=== PATIENT | female | born 1990 | race African-American/Black ===

== ENCOUNTER 2019-03-01 12:34 | Emergency (ER) | payer BC ==
[~2019-03-01] VITALS: Ht 167.6 cm; Wt 83.0 kg
--- OUTSIDE RECORDS SUMMARY | ~2019-03-01 | XMS | Encounter Summary ---
Demographics + + + | Address | [address] | | | [place] [address] | + + + | Home Phone | | + + + | Preferred Language | Unknown | + + + | Marital Status | Single | + + + | Adventist Affiliation | Unknown | + + + | Race | Unknown | + + + | Ethnic Group | Unknown | + + + Author + + + | Author | [facility] | | | and Brandon | + + + | Organization | [facility] | | | and [place] | + + + | Address | Unknown | + + + | Phone | Unavailable | + + + Support + + + + + | Name | Relationship | Address | Phone | + + + + + | Zo Dong | ECON | [address] | | | | | [place], [place] | | | | | [address] | | + + + + + | Jovita Lnua | ECON | [address] | | | | | [place] [address] | | + + + + + Care Team Providers + +------+ + | Care Air Quality Specialist Name | Role | Phone | + +------+ + | Tomas Benoit MD | PCP | | + +------+ + Reason for Visit + + + | Reason | Comments | + + + | Annual Exam | | + + + | Nevus | | + + + | Asthma | | + + + Encounter Details +--------+---------+ + + + | Date | Type | Department | Care Team | Description | +--------+---------+ + + + | 12/12/ | Office | [facility] | Tomas Benoit, | Encounter for | | 2018 | Visit | [facility] | [address] | routine history and | | | | [address] | [place], [place] | physical exam in | | | | [place], [place] | [address] | female (Primary Dx); | | | | [phone] | | Asthma, exercise | | | | [phone] | | induced; Nevus | +--------+---------+ + + + Social History + +-------+ +--------+------+ | Tobacco Use | Types | Packs/Day | Years | Date | | | | | Used | | + +-------+ +--------+------+ | Never Smoker | | | | | + +-------+ +--------+------+ + +---+---+---+ | Smokeless Tobacco: | | | | | Never Used | | | | + +---+---+---+ + + +---------+ + | Alcohol Use | Drinks/We | oz/Week | Comments | | | ek | | | + + +---------+ + | Yes | | 0.0 | socially/not very often | + + +---------+ + + + + | Sex Assigned at | Date Recorded | | | | + + + | Not on file | | + + + + + + + | Job Start Date | Occupation | Industry | + + + + | Not on file | Not on file | Not on file | + + + + + + + + | Travel History | Travel Start | Travel End | + + + + + + | No recent travel history available. | + + documented as of this encounter Last Filed Vital Signs + + + + | Vital Sign | Reading | Time Taken | + + + + | Blood Pressure | 112/86 | 12/12/2018740 PDT | + + + + | Pulse | 92 | 12/12/2018740 PDT | + + + + | Temperature | - | - | + + + + | Respiratory Rate | 16 | 12/12/2018740 PDT | + + + + | Oxygen Saturation | 97% | 12/12/2018740 PDT | + + + + | Inhaled Oxygen | - | - | | Concentration | | | + + + + | Weight | 85 kg (187 lb 6.3 | 12/12/2018 0741 PDT | | | oz) | | + + + + | Height | 165.1 cm (5' 5") | 12/12/2018 0741 PDT | + + + + | Body Mass Index | 31.18 | 12/12/2018 0741 PDT | + + + + documented in this encounter Patient Instructions Patient Instructions Rebeca Guillen, FLEET TECHNICIAN - 12/12/2018 7:45 PDTFormatting of this note mig t be different from the original. -Continue using Albuterol as needed -Acyclovir can be used as needed Prevention Guidelines,Women Ages 18 to 39 Screening tests and vaccines are an important part of managing your health. A screening zak t is done to find possible disorders or diseases in people who don't have any symptoms. The goal is to find a disease early so lifestyle changes can be made and you can be watched more closely to reduce the risk of disease, or to detect it early enough to treat it most effect ively. Screening tests are not considered diagnostic, but are used to determine if more test ing is needed. Health counseling is essential, too. Below are guidelines for these, for wome n ages 18 to 39. Talk with your healthcare provider to make sure you re up-to-date on what you need. Screening Who needs it How often Alcohol misuse All women in this age group At routine exams Blood pressure All women in this age group Yearly checkup if your blood pressure is normal Normal blood pressure is less than 120/80 mm Hg If your blood pressure reading is higher than normal, follow the advice of your healthcare provider Breast cancer All women in this age group should talk with their healthcare providers about the need for clinical breast exams (CBE)1 Clinical breast exam every 3 years1 Cervical cancer Women ages 21 and older Women between ages 21 and 29 should have a Pap test every 3 years; women between ages 30 and 65 are advised to have a Pap test plus an HPV test every 5 years Chlamydia Sexually active women ages 25 and younger, and women at increased risk for infect ion (such as having multiple sex partners) Every year if you're at risk or have symptoms Depression All women in this age group At routine exams Type 2 diabetes, prediabetes All women with no symptoms who are overweight or obese and hav e 1 or more other risk factors for diabetes At least every 3 years. Also, testing for diabet es during after the 24th week. Type 2 diabetes, prediabetes All women diagnosed with gestational diabetes Lifelong testing every 3 years Type 2 diabetes All women with prediabetes Every year Gonorrhea Sexually active women at increased risk for infection At routine exams Hepatitis C Anyone at increased risk At routine exams HIV All women should be tested at least once for HIV between the ages of 13 and 64 At routi ne exams. Those with risk factors for HIV should be tested at least annually. Obesity All women in this age group At routine exams Syphilis Women at increased risk for infection should talk with their healthcare provider A t routine exams Tuberculosis Women at increased risk for infection should talk with their healthcare provid er Ask your healthcare provider Vision All women in this age group At least 1 complete exam in your 20s, and 2 in your 30s Vaccine2 Who needs it How often Chickenpox (varicella) All women in this age group who have no record of this infection or vaccine 2 doses; the second dose should be given 4 to 8 weeks after the first dose Hepatitis A Women at increased risk for infection should talk with their healthcare provide r 2 doses given at least 6 months apart Hepatitis B Women at increased risk for infection should talk with their healthcare provide r 3 doses over 6 months; second dose should be given 1 month after the first dose; the third dose should be given at least 2 months after the second dose and at least 4 months after th e first dose Haemophilus influenzaeType B (HIB) Women at increased risk for infection should talk with their healthcare provider 1 to 3 doses Human papillomavirus (HPV) All women in this age group up to age 26 3 doses; the second dos e should be given 1 to 2 months after the first dose and the third dose given 6 months after the first dose Influenza (flu) All women in this age group Once a year Measles, mumps, rubella (MMR) All women in this age group who have no record of these infec tions or vaccines 1 or 2 doses Meningococcal Women at increased risk for infection should talk with their healthcare provi broderick 1 or more doses Pneumococcal conjugate vaccine (PCV13)and pneumococcal polysaccharidevaccine(PPSV23) Women at increased risk for infection should talk with their healthcare provider PCV13: 1 do se ages 19 to 65 (protects against 13 types of pneumococcal bacteria) PPSV23: 1 to2 doses through age 64, or 1 dose at 65 or older (protects against 23 types o f pneumococcal bacteria) Tetanus/diphtheria/pertussis (Td/Tdap) booster All women in this age group Td every 10 year s, or a one-time dose of Tdap instead of a Td booster after age 18, then Td every 10 years Counseling Who needs it How often BRCA gene mutation testing for breast and ovarian cancer susceptibility Women with increase d risk for having gene mutation When your risk is known Breast cancer and chemoprevention Women at high risk for breast cancer When your risk is kn own Diet and exercise Women who are overweight or obese When diagnosed, and then at routine exa ms Domestic violence Women at the age in which they are able to have children At routine exams Sexually transmitted infection prevention Women who are sexually active At routine exams Skin cancer Prevention of skin cancer in fair-skinned adults At routine exams Use of tobacco and the health effects it can cause All women in this age group Every visit 1 According to the ACS, women ages 20 to 39 years should have a clinical breast exam (CBE) as part of their routine health exam every 3 years. Breast self-exams are an option for wome n starting in their 20s.But the USPSTF does not recommend CBE. Date Last Reviewed: 01/23/201719991795-0381 [employer]. [address] [place] [address]. All [facility] ts reserved. This information is not intended as a substitute for professional medical care. Always follow your healthcare professional's instructions. documented in this encounter Progress Notes Tomas Benoit MD - 12/12/2018 0745 PDTFormatting of this note might be different from ishmael escalona original. Subjective: Patient ID: Jovita Grey is a 28 y.o. female. Chief Complaint Patient presents with Annual Exam Nevus Asthma HPI Patient presents for her annual exam. 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 States she has been working out almost every day. Sometimes works out at home and sometimes work out at the gym doing Aniceto and other group exercises. Annual Exam: Patient presents for annual exam. The patient is sexually active. last pap: was normal Patient's last menstrual period was 11/27/2018. control: nothing currently Stopped Enskyce due to weight gain, would like to discuss a different medication for control. Breast lumps or tenderness: none Vaginal pain or discharge: none Last pap: 09/14/17 History of abnormal Pap: never STD screening: Declines Mammogram: never Colonoscopy: never The patient has regular exercise: yes. The patient reports that domestic violence in her life is absent. The patient wears seatbelts: yes. Immunizations: Immunization History Administered Date(s) Administered DTAP, 5 DOSE (PED) 08/14/1996 DTP (PED) 1991, 01/29/1992, 04/29/1992, 01/24/1993 HIB HBOC CONJUGATE, 4 DOSE (PED) 1991, 01/29/1992, 04/29/1992, 01/24/1993 HPV, QUADRIVALENT, 3 DOSE (ADOL/ADULT) 12/14/2005, 11/30/2007, 02/13/2008 Hep B (PED/ADOL) 3 DOSE 07/29/1998, 06/11/2004, 06/08/2005 INFLUENZA PF 18 Y OR >,TRIVALENT RECOMBINANT 04/14/2012 INFLUENZA, P1V1-33, UNSPECIFIED 02/28/2009 MENINGOCOCCAL CONJUGATE,MENACTRA (PED/ADOL/ADULT) 12/11/2008 MMR, 2 DOSE (PED/ADULT) 01/24/1993, 07/29/1998 PNEUMOCOCCAL POLYSACCHARIDE 23-VALENT (PPSV23) 08/02/2016 POLIOVIRUS,OPV (LIVE) 1991, 01/29/1992, 01/24/1993, 08/14/1996 TDAP, (ADOL/ADULT) 05/26/2005, 06/21/2012 VARICELLA, 2 DOSE (VARIVAX) 01/12/2012 Exercise Induced Asthma: Would like a refill of her Albuterol. Uses daily before working out. Occasionally needs to use after working out for relief as well. Symptoms are well controlled on Albuterol. Mole: To right side of neck she would like checked. Past Medical History: Diagnosis Date Asthma exercise induced Primary amenorrhea resolved Sickle cell trait (HCC) Umbilical hernia Past Surgical History: Procedure Laterality Date TONSILLECTOMY 02/13/2008 WISDOM TOOTH EXTRACTION Family History Problem Relation Age of Onset High blood pressure Mother High blood pressure Father Elevated lipids Father Asthma Brother High blood pressure Maternal Grandmother Asthma Maternal Grandmother Social History Socioeconomic History Marital status: Single Spouse name: REECE Number of children: 0 Years of education: Not on file Highest education level: Not on file Occupational History Occupation: [employer] Employer: [employer] Tobacco Use Smoking status: Never Smoker Smokeless tobacco: Never Used Substance and Sexual Activity Alcohol use: Yes Alcohol/week: 0.0 oz Comment: socially/not very often Drug use: No Sexual activity: Yes Partners: Male control/protection: Yes Social History Narrative Marital Status:single Children: 0 Occupation:Works for [employer] FOB: ELIAS Little reports that she has never smoked. She has never used smokeless tobacco. She reports that she drinks alcohol. She reports that she does not use drugs. Allergies No active allergies Intolerance No active intolerances/contraindications Current Outpatient Medications Medication Sig Dispense Refill acetaminophen (TYLENOL) 500 mg tablet Take 500 mg by mouth every 4 hours as needed. acyclovir (ZOVIRAX) 400 MG tablet take 1 tablet by mouth three times a day 15 tablet 3 albuterol 90 mcg/puff inhaler Inhale 2 puffs into the lungs every 4 hours as needed for Wheezing or Shortness of Breath. inhale 2 puffs 5-30 minutes prior to exercise 1 Inhaler 0 No current facility-administered medications for this visit. Review of Systems Constitutional: Negative. Negative for malaise/fatigue. HENT: Negative. Eyes: Negative. Respiratory: Negative. Negative for cough, shortness of breath and wheezing. Cardiovascular: Negative. Negative for chest pain. Gastrointestinal: Negative. Negative for constipation, diarrhea, nausea and vomiting. Genitourinary: Negative. Negative for dysuria, frequency, hematuria and urgency. Musculoskeletal: Negative. Neurological: Negative. Negative for dizziness and headaches. Psychiatric/Behavioral: Positive for depression (mild ). Negative for suicidal ideas. The p atient is nervous/anxious. The patient does not have insomnia. Objective: BP 112/86 | Pulse 92 | Resp 16 | Ht 1.651 m (5' 5") | Wt 85 kg (187 lb 6.3 oz) | LMP 0 11/27/2018 | SpO2 97% | ? No | BMI 31.18 kg/m Physical Exam Constitutional: She is oriented to person, place, and time and well-developed, well-nourish ed, and in no distress. HENT: Right Ear: Hearing, tympanic membrane, external ear and ear canal normal. Left Ear: Hearing, tympanic membrane, external ear and ear canal normal. Eyes: Pupils are equal, round, and reactive to light. Neck: No thyromegaly present. Cardiovascular: Normal rate and regular rhythm. Pulmonary/Chest: Breath sounds normal. She has no decreased breath sounds. She has no wheez es. Right breast exhibits no inverted nipple, no mass, no nipple discharge, no skin change a nd no tenderness. Left breast exhibits no inverted nipple, no mass, no nipple discharge, no skin change and no tenderness. Abdominal: Soft. Normal appearance. There is no tenderness. Musculoskeletal: Normal range of motion. Neurological: She is alert and oriented to person, place, and time. Gait normal. Skin: Skin is warm and dry. Mole to right side of neck with smooth edges Uniform color of brown. Slightly raised. Psychiatric: Affect and judgment normal. Assessment/Plan: 1. Encounter for routine history and physical exam in female (Primary) Diet reviewed Exercise reviewed Reviewed preventive care protocols Scheduled due services Updated immunizations. Preventive services Plan and appropriate handouts given - POCT Urinalysis 2. Asthma, exercise induced Well controlled on Albuterol and only uses before or after exercise. Informed her it is fin e to continue with current use. If symptoms worsen/change, she will need to present back for medical attention. - albuterol 90 mcg/puff inhaler; Inhale 2 puffs into the lungs every 4 hours as needed for Wheezing or Shortness of Breath. inhale 2 puffs 5-30 minutes prior to exercise Dispense : 1 Inhaler; Refill: 0 3. Nevus Area looks like a normal mole with uniform color and smooth edges. Encourage her to keep mo nitoring this for change. The patient was satisfied with the care received and voiced understanding of the issues dis cussed and the plan. Return in about 1 year (around 12/13/2019). I, Dr. Tomas Benoit, personally performed the services described in this documentation, as scribed in my presence and it is both accurate and complete. Tomas Benoit MD 12/12/18 I Rebeca Guillen am acting as a scribe on behalf of, and in the presence of Gabby Benoit MD. Rebeca Guillen [facility] 12/12/18 I have reviewed and edited this note: Rebeca Guillen, [facility] 12/12/18 documented in this encounter Plan of Treatment Not on filedocumented as of this encounter Procedures + +--------+ + + + | Procedure Name | Priori | Date/Time | Associated Diagnosis | Comments | | | ty | | | | + +--------+ + + + | POCT URINALYSIS, | Routin | 12/12/2018 | Encounter for | Results for this | | AUTO WITH CONF | e | 7:56 PDT | routine history and | procedure are in the | | | | | physical exam in | results section. | | | | | female | | + +--------+ + + + documented in this encounter Results POCT Urinalysis (12/12/2018 7:56 PDT) + + + + + + | Component | Value | Ref Range | Performed | Pathologist | | | | | At | Signature | + + + + + + | Color, UA, | Yellow | Yellow, Light | | | | POC | | Yellow | | | + + + + + + | Clarity, | Clear | | | | | UA, POC | | | | | + + + + + + | Glucose, | Negative | Negative | | | | UA, POC | | | | | + + + + + + | Bilirubin, | Negative | Negative | | | | UA, POC | | | | | + + + + + + | Ketones, | Negative | Negative, 100 | | | | UA, POC | | mg/dL | | | + + + + + + | Specific | 1.010 | 1.001 - 1.030 | | | | [place], | | | | | | UA, POC | | | | | + + + + + + | Blood, UA, | Negative | Negative | | | | POC | | | | | + + + + + + | pH, UA, POC | 6.0 | 5.0, 6.0, 7.0, | | | | | | 8.0, 5.5, 6.5, | | | | | | 7.5 | | | + + + + + + | Protein, | Negative | Negative | | | | UA, POC | | | | | + + + + + + | Urobilinoge | 0.2 | 0.2, Negative, | | | | n, UA, POC | | Normal, < 0.2 | | | | | | mg/dL, 1 mg/dL, | | | | | | < 0.2 E.U./dl, | | | | | | 1.0 E.U./dL, | | | | | | 0.2 mg/dL | | | + + + + + + | Nitrite, | Negative | Negative | | | | UA, POC | | | | | + + + + + + | Leukocyte | Negative | Negative | | | | Esterase, | | | | | | UA, POC | | | | | + + + + + + | Reducing | | | | | | Substances, | | | | | | Urine | | | | | + + + + + + | Ictotest | | Negative | | | + + + + + + | Remark | | | | | + + + + + + + + | Specimen | + + | Urine | + + documented in this encounter Visit Diagnoses + + | Diagnosis | + + | Encounter for routine history and physical exam in female - Primary | + + | Asthma, exercise induced Exercise induced bronchospasm | + + | Nevus Benign neoplasm of skin, site unspecified | + + documented in this encounter
--- OUTSIDE RECORDS SUMMARY | ~2019-03-01 | XMS | Clinical Summary ---
Demographics + + + | Address | [address] | | | [place] [address] | + + + | Home Phone [...] Author | [facility] | | | and [place] | + + + | Organization | [facility] | | | and [place] | [...] [place], [place] | | | | | [address] | | + + + + + | Jovita Luna | ECON | [address] | | | | | [place] [address] | | + + + + + Care Team Providers + +------+ + | Care Corporate Compliance Manager Name | Role | Phone | + +------+ + | Tomas Benoit MD | PCP | | + +------+ + Allergies No Known Allergies Medications + + + +---------+------+------+-------+ | Medication | Sig | Dispensed | Refills | Star | End | Statu | | | | | | t | Date | s | | | | | | Date | | | + + + +---------+------+------+-------+ | acetaminophen | Take 500 mg by mouth | | 0 | | | Activ | | (TYLENOL) 500 mg | every 4 hours as | | | | | e | | tablet | needed. | | | | | | + + + +---------+------+------+-------+ | acyclovir | take 1 tablet by | 15 | 3 | 10/1 | | Activ | | (ZOVIRAX) 400 MG | mouth three times a | tablet | | 8/20 | | e | | tablet | day | | | 18 | | | + + + +---------+------+------+-------+ | albuterol 90 | Inhale 2 puffs into | 1 | 3 | 08/2 | | Activ | | mcg/puff | the lungs every 4 | Inhaler | | 0/20 | | e | | inhalerIndications: | hours as needed for | | | 19 | | | | Asthma, exercise | Wheezing or | | | | | | | induced | Shortness of Breath. | | | | | | | | inhale 2 puffs 5-30 | | | | | | | | minutes prior to | | | | | | | | exercise | | | | | | + + + +---------+------+------+-------+ Active Problems + + + | Problem | Noted Date | + + + | Depression with anxiety | 12/12/2014 | + + + | Irregular periods | 02/06/2014 | + + + | Routine follow-up | 09/26/2012 | + + + | Bloody diarrhea | 08/30/2012 | + + + | Dermatitis | 05/15/2012 | + + + | Preventative health care | 04/05/2012 | + + + + + | Overview: Last pap: 01/12/2012 | | | | Tdap: 05/26/2005 | | | | Flu: 05/26/2005 | + + + +---+ | ASTHMA, EXERCISE INDUCED | | + +---+ | UMBILICAL HERNIA | | + +---+ Resolved Problems + + + + | Problem | Noted | Resolved | | | Date | Date | + + + + | Scabies | 05/15/19 | | | | 13 | 3 | + + + + | Carrier of group B Streptococcus | 01/14/20 | | | | 12 | 3 | + + + + | Supervision of normal first | 01/10/20 | | | | 12 | 3 | + + + + | , PRIMIGRAVIDA | 12/07/19 | | | | 12 | 3 | + + + + Encounters +--------+---------+ + + + | Date | Type | Specialty | Care Team | Description | +--------+---------+ + + + | 12/12/ | Office | Family Medicine | Tomas Benoit, | Encounter for | | 2019 | Visit | | MD | routine history and | | | | | | physical exam in | | | | | | female (Primary Dx); | | | | | | Asthma, exercise | | | | | | induced; Nevus | +--------+---------+ + + + from Last 3 Months Immunizations + + + + | Name | Dates Previously Given | Next Due | + + + + | DTAP, 5 DOSE (PED) | 08/14/1996 | | + + + + | DTP (PED) | 01/24/1993, 04/29/1992, 01/29/1992, | | | | 1991 | | + + + + | HIB HBOC CONJUGATE, | 01/24/1993, 04/29/1992, 01/29/1992, | | | 4 DOSE (PED) | 1991 | | + + + + | HPV, QUADRIVALENT, 3 | 02/13/2008, 11/30/2007, 12/14/2005 | | | DOSE (ADOL/ADULT) | | | + + + + | Hep B (PED/ADOL) 3 | 06/08/2005, 06/11/2004, 07/29/1998 | | | DOSE | | | + + + + | INFLUENZA PF 19 Y OR | 04/14/2012 | | | >,TRIVALENT | | | | RECOMBINANT | | | + + + + | INFLUENZA, [id number], | 02/28/2009 | | | UNSPECIFIED | | | + + + + | MENINGOCOCCAL | 12/11/2008 | | | CONJUGATE,MENACTRA | | | | (PED/ADOL/ADULT) | | | + + + + | MMR, 2 DOSE | 07/29/1998, 01/24/1993 | | | (PED/ADULT) | | | + + + + | PNEUMOCOCCAL | 08/02/2016 | | | POLYSACCHARIDE | | | | 23-VALENT (PPSV23) | | | + + + + | POLIOVIRUS,OPV | 08/14/1996, 01/24/1993, 01/29/1992, | | | (LIVE) | 1991 | | + + + + | TDAP, (ADOL/ADULT) | 06/21/2012, 05/26/2005 | | + + + + | VARICELLA, 2 DOSE | 01/12/2012 | | | (VARIVAX) | | | + + + + Family History + + +---------+ + | Medical History | Relation | Name | Comments | + + +---------+ + | Asthma | Brother | Leonidas | | + + +---------+ + | Elevated lipids | Father | Refugio | | + + +---------+ + | High blood pressure | Father | Refugio | | + + +---------+ + | Asthma | Maternal | Jovita | | | | Grandmoth | | | | | er | | | + + +---------+ + | High blood pressure | Maternal | Jovita | | | | Grandmoth | | | | | er | | | + + +---------+ + | High blood pressure | Mother | Zo | | + + +---------+ + + + + + + | Relation | Name | Status | Comments | + + + + + | Brother | Leonidas | Alive | | + + + + + | Brother | Donovan | Alive | X2 | + + + + + | Father | Refugio | Alive | | + + + + + | Maternal Grandfather | Ronald | | cause unknown | + + + + + | Maternal Grandmother | Jovita | Alive | | + + + + + | Mother | Zo | Alive | | + + + + + | Paternal Grandfather | [place] | Alive | | + + + + + | Paternal Grandmother | Leonora | | [place] | + + + + + Social History + [...] recent travel history available. | + + Last Filed Vital Signs + + + + | Vital Sign | Reading | Time Taken | + + + + | Blood Pressure | 112/86 | 12/12/2018740 PDT | + + + + | Pulse | 92 | 12/12/2018740 PDT | + + + + | Temperature | 36.3 C (97.3 F) | 09/14/20177 PDT | + + + + | Respiratory Rate | 16 | 12/12/2018740 PDT | + + + + | Oxygen Saturation | 97% | 12/12/2018740 PDT | + + + + | Inhaled Oxygen | - | - | | Concentration | | | + + + + | Weight | 85 kg (187 lb 6.3 | 12/12/2018740 PDT | | | oz) | | + + + + | Height | 165.1 cm (5' 5") | 12/12/2018740 PDT | + + + + | Body Mass Index | 31.18 | 12/12/2018740 PDT | + + + + Plan of Treatment + + + + + | Health Maintenance | Due Date | Last Done | Comments | + + + + + | Vaccine: Influenza | | 04/14/2012, 02/28/2009 | | | (#1) | 9 | | | + + + + + | Cervical Cancer | | 09/14/2017, 12/24/2014, | | | Screening (Pap) | 1 | 12/24/2014, Additional history | | | | | exists | | + + + + + | Vaccine: | | 06/21/2012, 05/26/2005, | | | Dtap/Tdap/Td (8 - | 3 | 08/14/1996, Additional history | | | Td) | | exists | | + + + + + | Vaccine: | Completed | 08/02/2016 | | | Pneumococcal 19-64 | | | | | (PPSV23 only) Medium | | | | | Risk | | | | + + + + + Procedures + +--------+ + + + | [...] | | + +--------+ + + + from Last 3 Months Results POCT Urinalysis (12/12/2018 7:56 PDT) + [...] 1.001 - 1.030 | | | | [place], | | | | | | UA, [...] + + | Urine | + + from Last 3 Months Insurance +-------+--------+ +--------+-------+---------+------+ | Payer | Benefi | Subscriber | Effect | Phone | Address | Type | | | t Plan | ID | rut | | | | | | / | | Dates | | | | | | Group | | | | | | +-------+--------+ +--------+-------+---------+------+ | BCBS | BCBS | [id number] | 07/25/19 | | | PPO | | | OOS | 6 | 18-Pre | | | | | | PPO | | sent | | | | +-------+--------+ +--------+-------+---------+------+ + +--------+ +--------+ + + | Guarantor Name | Accoun | Relation to | Date | Phone | Billing Address | | | t Type | Patient | of | | | | | | | | | | + +--------+ +--------+ + + | Jovita Grey | Person | Self | [birth year] | [address] | | [address] | [address] | | 1991 | [phone] | [place] [address] | | | johanny | | | 2 (Home) | | + +--------+ +--------+ + + Advance Directives Patient has advance care planning documents on file. For more information, please contact:[facility] [place] [address]
--- OUTSIDE RECORDS SUMMARY | ~2019-03-01 | XMS | Clinical Summary ---
Demographics + + + | Address | [address] | | | [place] [address] | + + + | Home Phone | | + + + | Preferred Language | Unknown | + + + | Marital Status | Single | + + + | Zoroastrian Affiliation | Unknown | + + + | Race | Unknown | + + + | Ethnic Group | Unknown | + + + Author + + + | Author | [facility] | | | and [place] | + + + | Organization | [facility] | | | and [place] | [...] [place], [place] | | | | | [address] | | + + + + + | Jovita Luna | ECON | [address] | | | | | [place] [address] | | + + + + + Care Team Providers + +------+ + | Care Collector Of Port Name | Role | Phone | + [...] | + + + + | INFLUENZA, [id number], | 02/28/2009 | | | UNSPECIFIED | [...] + + + | Paternal Grandfather | [place] | Alive | | + + + + + | Paternal Grandmother | Leonora | | [place] | + + + + + Social [...] 1.001 - 1.030 | | | | [place], | | | | | | UA, [...] +-------+--------+ +--------+-------+---------+------+ | BCBS | BCBS | [id number] | 07/25/19 | | | PPO | [...] Leonora | [address] | | 1991 | [phone] | [place] [address] | | | johanny | | | 2 (Home) | | + +--------+ +--------+ + + Advance Directives Patient has advance care planning documents on file. For more information, please contact:[facility] [place] [address]
--- OUTSIDE RECORDS SUMMARY | ~2019-03-01 | XMS | Encounter Summary ---
Demographics + + + | Address | [address] | | | [place] [address] | + + + | Home Phone | | + + + | Preferred Language | Unknown | + + + | Marital Status | Single | + + + | Congregation Affiliation | Unknown | + + + | Race | Unknown | + + + | Ethnic Group | Unknown | + + + Author + + + | Author | [facility] | | | and [place] | + + + | Organization | [facility] | | | and [place] [...] [place], [place] | | | | | [address] | | + + + + + | Jovita Luna | ECON | [address] | | | | | [place] [address] | | + + + + + Care Team Providers + +------+ + | Care Ruby Software Developer Name | Role | Phone | [...] + + | 12/12/ | Office | [facility] | Tomas Benoit, | Encounter for | | 2018 | Visit | [facility]IC[facility] [place] | [address] | routine history and | | | | [address] | [place], [place] | physical exam in | | | | [place], [place] | [address] | female (Primary Dx); | | | | [address] | | Asthma, exercise | | | | [phone] | | induced; Nevus | +--------+---------+ + [...] encounter Patient Instructions Patient Instructions Rebeca Guillen, OPERATING ROOM COORDINATOR - 12/12/2018 7:45 PDTFormatting of this note [...] does not recommend CBE. Date Last Reviewed: 01/23/[id number] [employer]. [address] [place] [address]. All [facility] reserved. 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 04/14/2012 INFLUENZA, [id number], UNSPECIFIED 02/28/2009 MENINGOCOCCAL CONJUGATE,MENACTRA (PED/ADOL/ADULT) 12/11/2008 MMR, [...] level: Not on file Occupational History Occupation: [employer] Employer: [employer] Tobacco Use Smoking status: Never Smoker Smokeless tobacco: Never Used Substance and Sexual Activity Alcohol use: Yes Alcohol/week: 0.0 oz Comment: socially/not very often Drug use: No Sexual activity: Yes Partners: Male control/protection: Yes Social History Narrative Marital Status:single Children: 0 Occupation:Works for [employer] FOB: ELIAS Little reports that she has [...] presence of Gabby Benoit MD. Rebeca Guillen [facility] 12/12/18 I have reviewed and edited this note: Rebeca Guillen, [facility] 12/12/18 documented in this encounter Plan [...] 1.001 - 1.030 | | | | [place], | | | | | | UA, [...]
[2019-03-01] MEDS ORDERED: VENTOLIN HFA18 GM INH (12:40)
== END 2019-03-01 14:44 | disposition home or self-care (01) ==
LOC: ED 12:34
DX: N94.10 Unspecified dyspareunia (principal)
CPT/HCPCS: 80048; 81001; 84703; 85025; 87491; 87591; 96374; 99284-25; J1885

== ENCOUNTER 2019-12-21 16:54 | Emergency (ER) | payer BC ==
[~2019-12-21] VITALS: Ht 167.6 cm; Wt 83.0 kg
--- OUTSIDE RECORDS SUMMARY | ~2019-12-21 | XMS | Encounter Summary ---
Demographics + + + | Address | [address] | | | [place] [address] | + + + | Home Phone | | + + + | Preferred Language | Unknown | + + + | Marital Status | Single | + + + | Gnosticist Affiliation | Unknown | + + + | Race | Black or | + + + | Ethnic Group | Not or | + + + Author + + + | Author | [facility] | | | and [place] | + + + | Organization | [facility] | | | and [place] | + + + | Address | Unknown | + + + | Phone | Unavailable | + + + Support + + + + + | Name | Relationship | Address | Phone | + + + + + | Zo Dong | ECON | [address] [facility] | | | | | [place] | | | | | [address] | | + + + + + | Jovita Luna | ECON | [address] | | | | | [place] [address] | | + + + + + Care Team Providers + +------+ + | Care Fat Pressroom Worker Name | Role | Phone | + +------+ + | Tomas Benoit MD | PCP | | + +------+ + Encounter Details +--------+ + + + + | Date | Type | Department | Care Team | Description | +--------+ + + + + | 07/22/ | Abstract | [facility] | Ana Paula Shukla, | | | 2015 | | [facility] | Cert [place] | | | | | [address] | | | | | | [place] | | | | | | [address] | | | | | | [phone] | | | +--------+ + + + + Social History + +-------+ +--------+------+ | Tobacco Use | Types | Packs/Day | Years | Date | | | | | Used | | + +-------+ +--------+------+ | Never Smoker | | | | | + +-------+ +--------+------+ + +------+---+---+ | Smokeless Tobacco: | Chew | | | | Former User | | | | + +------+---+---+ + + +---------+ + | Alcohol Use | Drinks/Week | oz/Week | Comments | + + +---------+ + | No | | 0.0 | | + + +---------+ + + + + | Sex Assigned at | Date Recorded | | | | + + + | Not on file | | + + + documented as of this encounter Progress Notes Ana Paula Shukla Cert MA - 07/23/2015 1:40 PM PDTA user error has taken place: encounter opened in error, closed for administrative reasons . documented in t his encounter Plan of Treatment +--------+---------+ + + + | Date | Type | Specialty | Care Team | Description | +--------+---------+ + + + | 01/30/ | Office | Family Medicine | Tomas Benoit, | | | 2019 | Visit | | MD [address] | | | | | | [place] | | | | | | [address] | | | | | | | | +--------+---------+ + + + documented as of this encounter Visit Diagnoses Not on filedocumented in this encounter"
--- OUTSIDE RECORDS SUMMARY | ~2019-12-21 | XMS | Encounter Summary ---
Demographics + + + | Address | [address] | | | [place] [address] | + + + | Home Phone | | + + + | Preferred Language | Unknown | + + + | Marital Status | Single | + + + | Nondenominational Affiliation | Unknown | + + + | Race | Black or | + + + | Ethnic Group | Not or | + + + Author + + + | Author | [facility] | | | and [place] | + + + | Organization | [facility] | | | and [place] | + + + | Address | Unknown | + + + | Phone | Unavailable | + + + Support + + + + + | Name | Relationship | Address | Phone | + + + + + | Zo Dong | ECON | [address] [facility] | | | | | [place] | | | | | [address] | | + + + + + | Jovita Luna | ECON | [address] | | | | | [place] [address] | | + + + + + Care Team Providers + +------+ + | Care Blast Furnace Auxiliaries Supervisor Name | Role | Phone | + +------+ + | Tomas Benoit MD | PCP | | + +------+ + Reason for Visit +--------+--------+ + | Reason | Onset | Comments | | | Date | | +--------+--------+ + | Sore | 05/18/ | | | | 2019 | | +--------+--------+ + Encounter Details +--------+ + + + + | Date | Type | Department | Care Team | Description | +--------+ + + + + | 05/18/ | Telephone | [facility] | Tomas Benoit, | Sore | | 2019 | | MEDICINE [place] | [address] | | | | | [address] | [place] | | | | | [place], [place] | [address] | | | | | [address] | | | | | | [phone] | | | +--------+ + + + [...] Comments | + + +---------+ + | Not Currently | | 0.0 | socially/not very | | | | | often | + + +---------+ + + + + | Sex Assigned at | Date Recorded | | | | + + + | Not on file | | + + + documented as of this encounter Miscellaneous Notes Telephone Encounter - Jennifer Loera RN - 05/18/2019 5:37 PM PSTRelayed message to trisha barnett. She verbalized understanding.Electronically signed by Jennifer Loera RN at 2019 5:38 PM PSTTelephone Encounter - Casi Mccloud MD - 05/18/2019 5:16 PM PSTPlease call patient, tell her there is not a lab that will necessarily help us, she would need to b e evaluated for this. Suggest she be seen either in express care or urgent care.Electronica lly signed by Casi Mccloud MD at 05/18/2019 5:17 PM PSTTelephone Encounter - Philomena Alford RN - 05/18/2019 9:35 AM PSTPatient calls in and said 3 days ago she noted a small sore on her labia. She said it was a little itching at first but now it is sore and open. Patient and her partner do have a history of cold sores. Patient is concerned that it could have potentially been transferred to genital region. She has never had anything like this before in genital region. Patient does live in [place]. She is wondering if she should come in for an office visit for assessment or if there is a lab that can be ordered to test for potential herpes outbrea k. documented in this encounter Plan of Treatment +--------+---------+ + + + | Date | Type | Specialty | Care Team | Description | +--------+---------+ + + + | 01/30/ | Office | Family Medicine | Tomas Benoit, | | | 2019 | Visit | | MD [address] | | | | | | [place] | | | | | | [phone] | | | | | | | | +--------+---------+ + + + documented as of this encounter Visit Diagnoses Not on filedocumented in this encounter"
--- OUTSIDE RECORDS SUMMARY | ~2019-12-21 | XMS | Encounter Summary ---
Demographics + + + | Address | [address] | | | [place] [address] | + + + | Home Phone | | + + + | Preferred Language | Unknown | + + + | Marital Status | Single | + + + | Sikhism Affiliation | Unknown | + + + | Race | Black or | + + + | Ethnic Group | Not or | + + + Author + + + | Author | [facility] | | | and [place] | + + + | Organization | [facility] | | | and [place] | + + + | Address | Unknown | + + + | Phone | Unavailable | + + + Support + + + + + | Name | Relationship | Address | Phone | + + + + + | Zo Dong | ECON | [address] [facility] | | | | | [place] | | | | | [address] | | + + + + + | Jovita Luna | ECON | [address] | | | | | [place] [address] | | + + + + + Care Team Providers + +------+ + | Care Marketing Pr Intern Name | Role | Phone | + +------+ + | Tomas Benoit MD | PCP | | + +------+ + Reason for Visit +---------+--------+ + | Reason | Onset | Comments | | | Date | | +---------+--------+ + | Results | 01/16/ | | | | 2011 | | +---------+--------+ + Encounter Details +--------+ + + + + | Date | Type | Department | Care Team | Description | +--------+ + + + + | 01/16/ | Telephone | [facility] | Tomas Benoit, | Results | | 2011 | | MEDICINE [place] | [address] | | | | | [address] | [place] | | | | | [place] | [address] | | | | | [address] | | | | | | [phone] | | | +--------+ + + + + Social History + +-------+ +--------+------+ | Tobacco Use | Types | Packs/Day | Years | Date | | | | | Used | | + +-------+ +--------+------+ | Never Assessed | | | | | + +-------+ +--------+------+ + + + | Sex Assigned at | Date Recorded | | | | + + + | Not on file | | + + + documented as of this encounter Miscellaneous Notes Telephone Encounter - Darline Jay RN - 01/18/2012 5:14 PM PDTIs it ok to call Rx for boyfriend to pharmacy in [place] as requested? elephone Encounter - Darline Jay RN - 01/18/2012 5:12 PM PDTDoes Telephone Encounter - Janice Buck LPN - 01/18/2012 3:39 PM PDTForm completed and sent to the manager front office [facility] Also took form to the front d esk to be faxed to [facility] in [place], [place]. elephone Encounter - Casi Kerr - 01/18/2012 2:19 PM PDTFrance s called back and stated that the information below is where the RX needs to be sent: He [facility] [address] [facility] [address] His name is Fito Little and his date of is 02/28/1991 (she thinks) it may be [birth year], she was unsure. elephone Encounter - Janice Feng LPN - 01/18/2012 9:22 AM PDTCalled and left message for patient to call back. elephone Encounter - Darline Jay RN - 01/17/2012 4:35 PM PDTPatient called back. Her partner is in [facility] and they are no longer together. He would like an rx called to He in [place]. She will find out phone number and address of the He in [place], and call us back. elephone Encount er - Janice Buck LPN - 01/17/2012 2:57 PM PDTCalled patient and notified her. She wou ld like to call her boyfriend and ask if he wants to see his physician or go to Urgent Care or have Dr Benoit write the prescription. She will call me back with his and allergies if Dr Benoit is to treat. elephone Encounter - Darline Jay RN - 01/17/2012 11:57 AM PDTRx called to [facility] due to escribe error.Electronically signed by Darline Jay RN at 012 11:58 AM PDTTelephone Encounter - Tomas Benoit MD - 01/17/2012 11:29 AM PDTPlease bertrand Hussein know that her pap smear was normal but it did show that she has chlamydia. She nee ds immediate treatment of this. Her boyfriend needs to be treated at the exact same time or they will pass it back and forth to each other. They need to abstain from intercourse for 2 weeks after treatment. Boyfriend ELIAS will need to contact his doctor or be seen at an Urgent Care and request treatment. He does not need testing as testing in men is more unreliable. Heraclio escalona has been exposed so needs treatment. She will need test to ensure that the chlamydia is go ne in about 1 month. Rx for the azithromycin has been sent to [facility] in [place].Noam yañez signed by Tomas Benoit MD at 01/17/2012 11:40 AM PDTdocumented in this encounter Plan of Treatment +--------+---------+ + + + | Date | Type | Specialty | Care Team | Description | +--------+---------+ + + + | 01/30/ | Office | Family Medicine | Tomas Benoit, | | | 2019 | Visit | | MD [address] | | | | | | [place] | | | | | | [address] | | | | | | | | +--------+---------+ + + + documented as of this encounter Visit Diagnoses + + | Diagnosis | + + | Chlamydia - Primary Other specified chlamydial infection, in conditions classified | | elsewhere and of unspecified site | + + documented in this encounter"
--- OUTSIDE RECORDS SUMMARY | ~2019-12-21 | XMS | Encounter Summary ---
Demographics + + + | Address | [address] | | | [place] [address] | + + + | Home Phone | | + + + | Preferred Language | Unknown | + + + | Marital Status | Single | + + + | Jew Affiliation | Unknown | + + + | Race | Black or | + + + | Ethnic Group | Not or | + + + Author + + + | Author | [facility] | | | and [place] | + + + | Organization | [facility] | | | and [place] | + + + | Address | Unknown | + + + | Phone | Unavailable | + + + Support + + + + + | Name | Relationship | Address | Phone | + + + + + | Zo Dong | ECON | [address] [facility] | | | | | [place] | | | | | [address] | | + + + + + | Jovita Luna | ECON | [address] | | | | | [place] [address] | | + + + + + Care Team Providers + +------+ + | Care Disk Sander Name | Role | Phone | + +------+ + | Tomas Benoit MD | PCP | | + +------+ + Reason for Visit +--------+--------+ + | Reason | Onset | Comments | | | Date | | +--------+--------+ + | Other | 11/24/ | | | | 2012 | | +--------+--------+ + Encounter Details +--------+ + + + + | Date | Type | Department | Care Team | Description | +--------+ + + + + | 11/24/ | Telephone | [facility] | Tomas Benoit, | Other | | 2012 | | MEDICINE [place] | [address] | | | | | [address] | [place] | | | | | [place] | [address] | | | | | [address] | | | | | | [phone] | | | +--------+ + + + [...] this encounter Miscellaneous Notes Telephone Encounter - Ana Paula Shukla - 11/24/2012 4:32 PM PDTCalled patient and relayed provider comments. Patient verbalized understanding. elephone Encounter - Mel Mejias - 11/24/2012 3:32 PM PDTI a dvise not to use because it has benzoyl peroxide in it and this is category C. Electronicall y signed by Mel Mejias at 11/24/2012 3:34 PM PDTTelephone Encounter - Gregorio Gomez RN - 11/24/2012 3:23 PM PDTPhone call from patient. Patient states she would like to start a skin care product called ProActive, but the [facility] state that if you are to consult your physician. Patient would like to know if it is ok to use that product. She can be reached at [phone] signed by Gregorio Gomez RN at 11/24/2012 3:24 PM PDTdocumented in this encounter Plan of Treatment +--------+---------+ + + + | Date | Type | Specialty | Care Team | Description | +--------+---------+ + + + | 01/30/ | Office | Family Medicine | Tomas Benoit, | | 2019 | Visit | | MD [address] | | | | | | [place] | | | | | | [address] | | | | | | | | +--------+---------+ + + + documented as of this encounter Visit Diagnoses Not on filedocumented in this encounter"
--- OUTSIDE RECORDS SUMMARY | ~2019-12-21 | XMS | Encounter Summary ---
Demographics + + + | Address | [address] | | | [place] [address] | + + + | Home Phone | | + + + | Preferred Language | Unknown | + + + | Marital Status | Single | + + + | Zoroastrianism Affiliation | Unknown | + + + | Race | Black or | + + + | Ethnic Group | Not or | + + + Author + + + | Author | [facility] | | | and [place] | + + + | Organization | [facility] | | | and [place] | + + + | Address | Unknown | + + + | Phone | Unavailable | + + + Support + + + + + | Name | Relationship | Address | Phone | + + + + + | Zo Dong | ECON | [address] [facility] | | | | | [place], [place] | | | | | [address] | | + + + + + | Jovtia Luna | ECON | [address] [facility] | | | | | [place] [address] | | + + + + + Care Team Providers + +------+ + | Care Snack Bar Cook Name | Role | Phone | + +------+ + PCP | Unavailable | + +------+ + Encounter Details +--------+ + + + + | Date | Type | Department | Care Team | Description | +--------+ + + + + | 03/27/ | Hospital | [facility] | Alexsander Avitia, | | | 2008 | Encounter | MED CTR XRAY [address] | [address] [facility] | | | | | [place] | [place], [place] | | | | | [place] [address] | [address] | | | | | [phone] | | | +--------+ + + + [...] + + documented as of this encounter Plan of Treatment +--------+---------+ + + + | Date | Type | Specialty | Care Team | Description | +--------+---------+ + + + | 01/30/ | Office | Family Medicine | Tomas Benoit, | | | 2019 | Visit | | MD [address] | | | | | | [place] | | | | | | [address] | | | | | | | | +--------+---------+ + + + documented as of this encounter Visit Diagnoses Not on filedocumented in this encounter"
--- OUTSIDE RECORDS SUMMARY | ~2019-12-21 | XMS | Encounter Summary ---
Demographics + + + | Address | [address] | | | [place] [address] | + + + | Home Phone | | + + + | Preferred Language | Unknown | + + + | Marital Status | Single | + + + | Advent Affiliation | Unknown | + + + | Race | Black or | + + + | Ethnic Group | Not or | + + + Author + + + | Author | [facility] | | | and [place] | + + + | Organization | [facility] | | | and [place] | + + + | Address | Unknown | + + + | Phone | Unavailable | + + + Support + + + + + | Name | Relationship | Address | Phone | + + + + + | Zo Dong | ECON | [address] [facility] | | | | | [place] | | | | | [address] | | + + + + + | Jovita Luna | ECON | [address] | | | | | [place] [address] | | + + + + + Care Team Providers + +------+ + | Care Secondary School Teacher Name | Role | Phone | + +------+ + | Tomas Benoit MD | PCP | | + +------+ + Reason for Visit + + + | Reason | Comments | + + + | Routine | | | Visit | | + + + Encounter Details +--------+ + + + + | Date | Type | Department | Care Team | Description | +--------+ + + + + | 09/03/ | Virtual | [facility] | Tomas Benoit, | Normal in | | 2019 | Office | MEDICINE [place] | [address] | second trimester | | | Visit | [address] | [place], [place] | (Primary Dx); | | | | [place], [place] | [address] | Umbilical hernia | | | | [address] | | without obstruction | | | | [phone] | | and without gangrene | +--------+ + + + + Social [...] Filed Vital Signs + + + + + | Vital Sign | Reading | Time Taken | Comments | + + + + + | Blood Pressure | - | - | | + + + + + | Pulse | - | - | | + + + + + | Temperature | - | - | | + + + + + | Respiratory Rate | - | - | | + + + + + | Oxygen Saturation | - | - | | + + + + + | Inhaled Oxygen | - | - | | | Concentration | | | | + + + + + | Weight | 93 kg (205 lb) | 09/04/2019 10:43 AM | | | | | PDT | | + + + + + | Height | - | - | | + + + + + | Body Mass Index | 34.11 | 06/12/2019 9:31 AM | | | | | PST | | + + + + + documented in this encounter Progress Notes Clarice Uriostegui Cert MA - 09/04/2019 10:30 AM PDTThis exam was initially conducted via a sec ure 256-bit AES encrypted bidirectional video session. Service was provided [id number] with the patient via interactive videoconferencing Video start time 1101 Video end time 1108 Total time (in minutes) including non [id number] time (reviewing records, documentation, etc..) 9 You have chosen to receive care through the use of telemedicine. Telemedicine enables [facility] care providers at different locations to provide safe, effective and convenient care throu gh the use of technology. As with any health care service, there are risks associated with t he use of telemedicine, including equipment failure, poor image resolution and information s ecurity issues. Do you understand the risks and benefits of telemedicine as I have explained them to you? " Yes" Have your questions regarding telemedicine been answered? "Yes" Participant is currently at home Do you consent to the use of telemedicine in your medical care today? Yes. Last question, I need to confirm where are you physically located right now? Answer: Patient confirms they are located in a state where Clarice Laura Cert [place] am lic ensed. As above patient being seen via Zoom meeting martinez. Patient is 26 weeks. Denies spotting cram ping leaking of fluids. Good movement. Weird tugging by belly button on right side. Reji barnett has known umbilical hernia. Area she shows me on the video is just right lateral to he r hernia. She can press on the tissue comfortably. Reviewed that it is probably a strain of the connective tissue by her hernia. Currently safe. Nothing can be done for it at this time . CBC and glucose testing were normal. Make next visit or two in office so we can give her the TDap. I, Dr. Tomas Benoit, personally performed the services described in this documentation, as scribed in my presence and it is both accurate and complete. Tomas Benoit MD 09/04/19 documented in this e ncounter Plan of Treatment +--------+---------+ + + + | Date | Type | Specialty | Care Team | Description | +--------+---------+ + + + | 01/30/ | Office | Family Medicine | Tomas Benoit, | | | 2019 | Visit | | MD [address] | | | | | | [place] | | | | | | [id number] | | | | | | | | +--------+---------+ + + + documented as of this encounter Visit Diagnoses + + | Diagnosis | + + | Normal in second trimester - Primary | + + | Umbilical hernia without obstruction and without gangrene | + + documented in this encounter
--- OUTSIDE RECORDS SUMMARY | ~2019-12-21 | XMS | Encounter Summary ---
Demographics + + + | Address | [address] | | | [place] [address] | + + + | Home Phone | | + + + | Preferred Language | Unknown | + + + | Marital Status | Single | + + + | Denominational Affiliation | Unknown | + + + | Race | Black or | + + + | Ethnic Group | Not or | + + + Author + + + | Author | [facility] | | | and [place] | + + + | Organization | [facility] | | | and [place] | + + + | Address | Unknown | + + + | Phone | Unavailable | + + + Support + + + + + | Name | Relationship | Address | Phone | + + + + + | Zo Dong | ECON | [address] [facility] | | | | | [place], [place] | | | | | [address] | | + + + + + | Jovita Luna | ECON | [address] [facility] | | | | | [place] [address] | | + + + + + Care Team Providers + +------+ + | Care Dean Of Admissions Name | Role | Phone | + +------+ + PCP | Unavailable | + +------+ + Encounter Details +--------+ + + + + | Date | Type | Department | Care Team | Description | +--------+ + + + + | 07/23/ | Hospital | [facility] | Tmoas Benoit, | | | 2007 | Encounter | MED CTR XRAY [address] | [address] | | | | | [place] | [place], [place] | | | | | [place] [address] | [address] | | | | | [phone] | | | +--------+ + + + [...] [place] | | | | | | [id number] | | | | | | | | +--------+---------+ + + + documented as of this encounter Visit Diagnoses Not on filedocumented in this encounter"
--- OUTSIDE RECORDS SUMMARY | ~2019-12-21 | XMS | Encounter Summary ---
Demographics + + + | Address | [address] | | | [place] [address] | + + + | Home Phone | | + + + | Preferred Language | Unknown | + + + | Marital Status | Single | + + + | Scientology Affiliation | Unknown | + + + | Race | Black or | + + + | Ethnic Group | Not or | + + + Author + + + | Author | [facility] | | | and [place] | + + + | Organization | [facility] | | | and [place] | + + + | Address | Unknown | + + + | Phone | Unavailable | + + + Support + + + + + | Name | Relationship | Address | Phone | + + + + + | Zo Dong | ECON | [address] [facility] | | | | | [place] | | | | | [address] | | + + + + + | Jovita Luna | ECON | [address] | | | | | [place] [address] | | + + + + + Care Team Providers + +------+ + | Care Budget Technician Name | Role | Phone | + +------+ + | Tomas Benoit MD | PCP | | + +------+ + Reason for Visit +---------+--------+ + | Reason | Onset | Comments | | | Date | | +---------+--------+ + | Results | 12/24/ | | | | 2014 | | +---------+--------+ + Encounter Details +--------+ + + + + | Date | Type | Department | Care Team | Description | +--------+ + + + + | 12/24/ | Telephone | [facility] | Tomas Benoit, | Results | | 2014 | | MEDICINE [place] | [address] | | | | | [address] | [place] | | | | | [place] | [address] | | | | | [address] | | | | | | [phone] | | | +--------+ + + + [...] this encounter Miscellaneous Notes Telephone Encounter - Damari Guerrero CMA - 12/24/2014 6:01 PM PDTCalled pt and gave he r message, she verbalized understanding. Electronically signed by Damari Guerrero CMA at 0 12/24/2014 6:01 PM PDTTelephone Encounter - Tomas Benoit MD - 12/24/2014 5:28 PM PDTPle ase let Jovita know that the STD testing is still pending and can take several days to come back. The other swab actually was not very helpful. I would like to try the vaginal cream f or bacteria. I would only use that particular cream for 7 days. I have sent it to her [facility]. documented in this encounter Plan of Treatment +--------+---------+ + + + | Date | Type | Specialty | Care Team | Description | +--------+---------+ + + + | 01/30/ | Office | Family Medicine | Tomas Benoit, | | | 2019 | Visit | | MD [address] | | | | | | [place] | | | | | | [address] | | | | | | | | +--------+---------+ + + + documented as of this encounter Visit Diagnoses Not on filedocumented in this encounter"
--- OUTSIDE RECORDS SUMMARY | ~2019-12-21 | XMS | Encounter Summary ---
Demographics + + + | Address | [address] | | | [place] [address] | + + + | Home Phone | | + + + | Preferred Language | Unknown | + + + | Marital Status | Single | + + + | Jewish Affiliation | Unknown | + + + | Race | Black or | + + + | Ethnic Group | Not or | + + + Author + + + | Author | [facility] | | | and [place] | + + + | Organization | [facility] | | | [...] [facility] | | | | | [place] | | | | | [address] | | + + + + + | Jovita Luna | ECON | [address] | | | | | [place] [address] | | + + + + + Care Team Providers + +------+ + | Care Wine Blender Name | Role | Phone | + +------+ + | Tomas Benoit MD | PCP | | + +------+ + Reason for Visit +--------+--------+ + | Reason | Onset | Comments | | | Date | | +--------+--------+ + | Rash | 11/01/ | itchy | | | 2012 | | +--------+--------+ + Encounter Details +--------+ + + + + | Date | Type | Department | Care Team | Description | +--------+ + + + + | 11/01/ | Telephone | [facility] | Tomas Benoit, | Rash (itchy) | | 2012 | | MEDICINE [place] | [address] | | | | | [address] | [place] | | | | | [place] | [address] | | | | | [address] | | | | | | [phone] | | | +--------+ + + + [...] Telephone Encounter - Darline Jay RN - 11/01/2012 8:17 AM PDTPhone call from babatunde michel. States she was previously treated for scabies and it went away. She has a boyfriend a rash and now she has it. States it is itchy and getting worse. Heidi rned she may pass it to her . States it is on her toes, and wrists, and ankles and in the creases of her fingers. Given appointment to see Mel today.Electronically signed by Darline Jay RN at 01/2013 8:25 AM PDTdocumented in this encounter Plan of [...]
--- OUTSIDE RECORDS SUMMARY | ~2019-12-21 | XMS | Encounter Summary ---
Demographics + + + | Address | [address] | | | [place] [address] | + + + | Home Phone | | + + + | Preferred Language | Unknown | + + + | Marital Status | Single | + + + | Cheondoism Affiliation | Unknown | + + + | Race | Black or | + + + | Ethnic Group | Not or | + + + Author + + + | Author | [facility] | | | and [place] | + + + | Organization | [facility] | | | and [place] | + + + | Address | Unknown | + + + | Phone | Unavailable | + + + Support + + + + + | Name | Relationship | Address | Phone | + + + + + | Zo Dong | ECON | [address] [facility] | | | | | [place] | | | | | [address] | | + + + + + | Jovita Luna | ECON | [address] | | | | | [place] [address] | | + + + + + Care Team Providers + +------+ + | Care Sap Solutions Architect Name | Role | Phone | + +------+ + | Tomas Benoit MD | PCP | | + +------+ + Reason for Visit + +--------+ + | Reason | Onset | Comments | | | Date | | + +--------+ + | Appointment | 10/25/ | | | | 2012 | | + +--------+ + Encounter Details +--------+ + + + + | Date | Type | Department | Care Team | Description | +--------+ + + + + | 10/25/ | Telephone | [facility] | Joby Lowe MD | Appointment | | 2012 | | GASTROENTEROLOGY | [address], [place] | | | | | [address] [place] | [address] [place], [place] | | | | | [address] [place], [place] | [address] | | | | | [address] | | | | | | [phone] | | | +--------+ + + + + Social History + +-------+ +--------+------+ | Tobacco Use | Types | Packs/Day | Years | Date | | | | | Used | | + +-------+ +--------+------+ | Never Smoker | | | | | + +-------+ +--------+------+ + +------+---+---+ | Smokeless Tobacco: | Chew | | | | Current User | | | | + +------+---+---+ [...] this encounter Miscellaneous Notes Telephone Encounter - Arabella Herrera RN - 10/25/2012 10:53 AM PDTPatients mother chencho obrien saying pt is attempting enema prior to flex sig. Patient is wailing in the background sa theo it hurts. Offered to do enema here and can use lidocaine. Mother states maybe she nee ds sedation. Told her we would have to discuss with Dr Lowe, he would likely need to see h er in the office to decide what kind of sedation and this would delay her evaluation. She fe els they should keep appt for today, although the bleeding has decreased. Electronically sig emilee by Arabella Herrera RN at 10/25/2012 11:00 AM PDTdocumented in this encounter Plan of [...]
--- OUTSIDE RECORDS SUMMARY | ~2019-12-21 | XMS | Encounter Summary ---
Demographics + + + | Address | [address] | | | [place] [address] | + + + | Home Phone | | + + + | Preferred Language | Unknown | + + + | Marital Status | Single | + + + | Gnosticism Affiliation | Unknown | + + + | Race | Black or | + + + | Ethnic Group | Not or | + + + Author + + + | Author | [facility] | | | and [place] | + + + | Organization | [facility] | | | and [place] | + + + | Address | Unknown | + + + | Phone | Unavailable | + + + Support + + + + + | Name | Relationship | Address | Phone | + + + + + | Zo Dong | ECON | [address] [facility] | | | | | [place] | | | | | [address] | | + + + + + | Jovita Luna | ECON | [address] | | | | | [place] [address] | | + + + + + Care Team Providers + +------+ + | Care Scullion Chief Name | Role | Phone | + +------+ + | Tomas Benoit MD | PCP | | + +------+ + Encounter Details +--------+ + + + + | Date | Type | Department | Care Team | Description | +--------+ + + + + | 07/23/ | Abstract | [facility] | Tomas Benoit, | | | 2015 | | MEDICINE [place] | [address] | | | | | [address] | [place] | | | | | [place] | [address] | | | | | [address] | | | | | | [phone] | | | +--------+ + + + [...] 01/30/ | Office | Family Medicine | BenoitTomas suarez, | | | 2019 | Visit | | [address] | | | | | | [place] | | | | | | [address] | | | | | | | | +--------+---------+ + + + documented as of this encounter Procedures + +--------+ + + + | Procedure Name | Priori | Date/Time | Associated Diagnosis | Comments | | | ty | | | | + +--------+ + + + | HERPES SIMPLEX VIRUS | Routin | 07/22/2015 | | Results for this | | AB, IGM, EIA | e | | | procedure are in the | | | | | | results section. 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
--- OUTSIDE RECORDS SUMMARY | ~2019-12-21 | XMS | Encounter Summary ---
Demographics + + + | Address | [address] | | | [place] [address] | + + + | Home Phone | | + + + | Preferred Language | Unknown | + + + | Marital Status | Single | + + + | Bahai Affiliation | Unknown | + + + | Race | Black or | + + + | Ethnic Group | Not or | + + + Author + + + | Author | [facility] | | | and [place] | + + + | Organization | [facility] | | | and [place] | + + + | Address | Unknown | + + + | Phone | Unavailable | + + + Support + + + + + | Name | Relationship | Address | Phone | + + + + + | Zo Dong | ECON | [address] [facility] | | | | | [place] | | | | | [address] | | + + + + + | Jovita Luna | ECON | [address] | | | | | [place] [address] | | + + + + + Care Team Providers + +------+ + | Care Electrical Tester Battery Name | Role | Phone | + +------+ + | Tomas Benoit MD | PCP | | + +------+ + Reason for Visit +---------+--------+ + | Reason | Onset | Comments | | | Date | | +---------+--------+ + | Results | 11/02/ | | | | 2013 | | +---------+--------+ + Encounter Details +--------+ + + + + | Date | Type | Department | Care Team | Description | +--------+ + + + + | 11/02/ | Telephone | [facility] | Tomas Benoit, | Results | | 2013 | | MEDICINE [place] | [address] | | | | | [address] | [place] | | | | | [place] | [address] | | | | | [address] | | | | | | [phone] | | | +--------+ + + + [...] this encounter Miscellaneous Notes Telephone Encounter - Janice Buck LPN - 11/06/2013 3:29 PM PDTCalled patient and noti fied her. She verbalized understanding.Electronically signed by Janice Buck LPN at 10/23 3:32 PM PDTTelephone Encounter - Tomas Benoit MD - 11/06/2013 3:27 PM PDTPlease let Jovita know that her [place] [address]. The probab ly was experiencing early implantation bleeding. Please hve her notify us if she has a large amount of fresh bleeding. I have no worries about old blood (brown). elephone Encounter - Gabby Gavin RN - 11/05/2013 10:22 AM PDTPatient calls to say she's having some brief bleeding, then it will stop. One time when she goes to the bathroom there'd be blood on the tissue then none the n ext time.The other day she was actually bleeding (was bright red now it's brown) and she was having to wear a pad. She also has cramps as well. She was given message and will go get l abs today. elephon e Encounter - Tomas Benoit MD - 11/05/2013 8:35 AM PDTPrevious bHCG was 4707. Now that bHCG is 6689. This is going the right direction. This is hopeful. I would recommend that she repeat the level today. Please make sure there is an order at [facility].Electronically sign ed by Tomas Benoit MD at 11/05/2013 8:37 AM PDTTelephone Encounter - Melba Wolf - 11/02/2013 2:29 PM PDTPatient calling to check on lab results from her labwork on 11/01/13. Patient can be reached at [phone] Melba Wolf documented in this encou nter Plan of Treatment +--------+---------+ + + + | Date | Type | Specialty | Care Team | Description | +--------+---------+ + + + | 01/30/ | Office | Family Medicine | Tomas Benoit, | | | 2019 | Visit | | MD Joy RODNEY | | | | | | [place] | | | | | | [phone] | | | | | | | | +--------+---------+ + + + documented as of this encounter Procedures + +--------+ + + + | Procedure Name | Priori | Date/Time | Associated Diagnosis | Comments | | | ty | | | | + +--------+ + + + | HCG, SERUM, QUANT | Routin | 11/06/2013 | | Results for this | | | e | 3:31 PM | | procedure are in the | | | | PDT | | results section. | + +--------+ + + + documented in this encounter Results HCG, Serum, Quant (11/06/2013 3:31 PM PDT) + +--------+ + + + | Component | Value | Ref Range | Performed | Pathologist | | | | | At | Signature | + +--------+ + + + | hCG Quant, | 10,688 | mIU/mL | [facility] | | | Serum | | | [facility] | | | | | | [facility] | | | | | [facility] - | | | | | | LABORATORY | | + +--------+ + + + + + | Specimen | + + | Blood specimen | | (specimen) | + + + + + + + | Performing | Address | City/[facility] | Phone Number | | Organization | | | | + + + + + | [facility] | [address] | [place], [place] | [phone] | | [facility] | | [address] | | | - LABORATORY | | | | + + + + + | [facility] | [address] | [place], [place] | | | [facility] | | [phone] [place] [address] | | | - LABORATORY | | | | + + + + + documented in this encounter Visit Diagnoses Not on filedocumented in this encounter"
--- OUTSIDE RECORDS SUMMARY | ~2019-12-21 | XMS | Encounter Summary ---
Demographics + + + | Address | [address] | | | [place] [address] | + + + | Home Phone | | + + + | Preferred Language | Unknown | + + + | Marital Status | Single | + + + | Judaism Affiliation | Unknown | + + + | Race | Black or | + + + | Ethnic Group | Not or | + + + Author + + + | Author | [facility] | | | and [place] | + + + | Organization | [facility] | | | and [place] | + + + | Address | Unknown | + + + | Phone | Unavailable | + + + Support + + + + + | Name | Relationship | Address | Phone | + + + + + | Zo Dong | ECON | [address] [facility] | | | | | [place] | | | | | [address] | | + + + + + | Jovita Luna | ECON | [address] | | | | | [place] [address] | | + + + + + Care Team Providers + +------+ + | Care Shade Bander Name | Role | Phone | + +------+ + | Tomas Benoit MD | PCP | | + +------+ + Reason for Visit + +--------+ + | Reason | Onset | Comments | | | Date | | + +--------+ + | Medication Refill | 08/31/ | | | | 2016 | | + +--------+ + Encounter Details +--------+--------+ + + + | Date | Type | Department | Care Team | Description | +--------+--------+ + + + | 08/31/ | Refill | [facility] | Tomas Benoit, | Medication Refill | | 2016 | | MEDICINE [place] | [address] | | | | | [address] | [place] | | | | | [place] | [address] | | | | | [address] | | | | | | [phone] | | | +--------+--------+ + + + Social History + +-------+ [...] [place] | | | | | | [id number] | | | | | | | | +--------+---------+ + + + documented as of this encounter Visit Diagnoses Not on filedocumented in this encounter"
--- OUTSIDE RECORDS SUMMARY | ~2019-12-21 | XMS | Encounter Summary ---
Demographics + + + | Address | [address] | | | [place] [address] | + + + | Home Phone | | + + + | Preferred Language | Unknown | + + + | Marital Status | Single | + + + | Buddhist Affiliation | Unknown | + + + | Race | Black or | + + + | Ethnic Group | Not or | + + + Author + + + | Author | [facility] | | | and [place] | + + + | Organization | [facility] | | | and [place] | + + + | Address | Unknown | + + + | Phone | Unavailable | + + + Support + + + + + | Name | Relationship | Address | Phone | + + + + + | Zo Dong | ECON | [address] [facility] | | | | | [place] | | | | | [address] | | + + + + + | Jovita Luna | ECON | [address] | | | | | [place] [address] | | + + + + + Care Team Providers + +------+ + | Care Gang Sawyer Name | Role | Phone | + +------+ + | Tomas Benoit MD | PCP | | + +------+ + Reason for Visit +---------+--------+ + | Reason | Onset | Comments | | | Date | | +---------+--------+ + | Results | 12/12/ | | | | 2014 | | +---------+--------+ + Encounter Details +--------+ + + + + | Date | Type | Department | Care Team | Description | +--------+ + + + + | 12/12/ | Telephone | [facility] | Tomas Benoit, | Results | | 2014 | | MEDICINE [place] | [address] | | | | | [address] | [place] | | | | | [place] | [address] | | | | | [address] | | | | | | [phone] | | | +--------+ + + + [...] this encounter Miscellaneous Notes Telephone Encounter - Maki BeebeMulu MA - 12/13/2014 9:01 AM PDTPatient called, she was given message, she verbalized understanding. No other questions or concerns at this lesa e. elephone Encou nter - Damari Guerrero CMA - 12/12/2014 5:11 PM PDTCalled pt left message to call back E lectronically signed by Damari Guerrero CMA at 12/12/2014 5:12 PM PDTTelephone Encounter - Tomas Benoit MD - 12/12/2014 1:20 PM PDTPlease let Jovita know that her blood work s howed that her thyroid function is normal. Her hemoglobin is normal. No anemia. The red bloo d cells are just slightly on the small side. She should keep taking her oral iron.Electronic ally signed by Tomas Benoit MD at 12/12/2014 1:21 PM PDTdocumented in this encounter Plan of [...]
--- OUTSIDE RECORDS SUMMARY | ~2019-12-21 | XMS | Encounter Summary ---
Demographics + + + | Address | [address] | | | [place] [address] | + + + | Home Phone | | + + + | Preferred Language | Unknown | + + + | Marital Status | Single | + + + | Orthodoxy Affiliation | Unknown | + + + | Race | Black or | + + + | Ethnic Group | Not or | + + + Author + + + | Author | [facility] | | | and [place] | + + + | Organization | [facility] | | | and [place] | + + + | Address | Unknown | + + + | Phone | Unavailable | + + + Support + + + + + | Name | Relationship | Address | Phone | + + + + + | Zo Dong | ECON | [address] [facility] | | | | | [place] | | | | | [address] | | + + + + + | Jovita Luna | ECON | [address] | | | | | [place] [address] | | + + + + + Care Team Providers + +------+ + | Care Physical Science Teacher Name | Role | Phone | + +------+ + | Tomas Benoit MD | PCP | | + +------+ + Reason for Visit + +--------+ + | Reason | Onset | Comments | | | Date | | + +--------+ + | Paperwork | 12/16/ | FMLA | | | 2019 | | + +--------+ + Encounter Details +--------+ + + + + | Date | Type | Department | Care Team | Description | +--------+ + + + + | 12/16/ | Telephone | [facility] | Tomas Benoit, | Paperwork (FMLA) | | 2019 | | MEDICINE [place] | [address] | | | | | [address] | [place] | | | | | [place] | [address] | | | | | [address] | | | | | | [phone] | | | +--------+ + + + [...] this encounter Miscellaneous Notes Telephone Encounter - Leslie Watkins - 12/18/2019 6:46 AM PDTPatient called and left v oicemail requesting call back about her paperwork at [phone]. elephone Encounter - Pattie Galdamez Medic al Coiler - 12/17/2019 5:19 PM PDTPatient is requesting time off of work, and has an FML A form that needs to be filled out. Dr. Benoit would like to know how long she is needing to take off of work? Placed phone call to patient, left voicemail for her to call back regarding FMLA form.Elect ronically signed by Pattie Galdamez, Toe Puller at 12/17/2019 5:22 PM Christine almanza in this encounter Plan of Treatment +--------+---------+ + + + | Date | Type | Specialty | Care Team | Description | +--------+---------+ + + + | 01/30/ | Office | Family Medicine | Tomas Benoit, | | 2019 | Visit | | MD [address] | | | | | | [place] | | | | | | [address] | | | | | | | | +--------+---------+ + + + documented as of this encounter Visit Diagnoses Not on filedocumented in this encounter"
--- OUTSIDE RECORDS SUMMARY | ~2019-12-21 | XMS | Encounter Summary ---
Demographics + + + | Address | [address] | | | [place] [address] | + + + | Home Phone | | + + + | Preferred Language | Unknown | + + + | Marital Status | Single | + + + | Baptist Affiliation | Unknown | + + + | Race | Black or | + + + | Ethnic Group | Not or | + + + Author + + + | Author | [facility] | | | and [place] | + + + | Organization | [facility] | | | and [place] | + + + | Address | Unknown | + + + | Phone | Unavailable | + + + Support + + + + + | Name | Relationship | Address | Phone | + + + + + | Zo Dong | ECON | [address] [facility] | | | | | [place] | | | | | [address] | | + + + + + | Jovita Luna | ECON | [address] | | | | | [place] [address] | | + + + + + Care Team Providers + +------+ + | Care Media Intern Name | Role | Phone | + +------+ + | Tomas Benoit MD | PCP | | + +------+ + Reason for Visit + + + | Reason | Comments | + + + | Diarrhea | bright red blood last night | + + + Encounter Details +--------+---------+ + + + | Date | Type | Department | Care Team | Description | +--------+---------+ + + + | 08/30/ | Office | [facility] | Tomas Benoit, | Bloody diarrhea | | 2012 | Visit | MEDICINE [place] | [address] | (Primary Dx) | | | | [address] | [place] | | | | | [place] | [address] | | | | | [address] | | | | | | [phone] | | | +--------+---------+ + + + Social History + +-------+ +--------+------+ | Tobacco Use | Types | Packs/Day | Years | Date | | | | | Used | | + +-------+ +--------+------+ | Never Smoker | | | | | + +-------+ +--------+------+ + +---+---+---+ | Smokeless Tobacco: | | | | | Former User | | | | + +---+---+---+ + + +---------+ + | Alcohol Use | Drinks/Week | oz/Week | Comments | + + +---------+ + | No | | | | + + +---------+ + + + + | Sex Assigned at | Date Recorded | | | | + + + | Not on file | | + + + documented as of this encounter Last Filed Vital Signs + +---------+ + + | Vital Sign | Reading | Time Taken | Comments | + +---------+ + + | Blood Pressure | 104/74 | 08/30/2012 4:20 PM | | | | | PDT | | + +---------+ + + | Pulse | 72 | 08/30/2012 4:20 PM | | | | | PDT | | + +---------+ + + | Temperature | - | - | | + +---------+ + + | Respiratory Rate | 14 | 08/30/2012 4:20 PM | | | | | PDT | | + +---------+ + + | Oxygen Saturation | - | - | | + +---------+ + + | Inhaled Oxygen | - | - | | | Concentration | | | | + +---------+ + + | Weight | - | - | | + +---------+ + + | Height | - | - | | + +---------+ + + | Body Mass Index | - | - | | + +---------+ + + documented in this encounter Progress Notes Tomas Benoit MD - 09/01/2012 3:09 PM PDTFormatting of this note might be different fro m the original. Subjective: Jovita Grey is a 22 y.o. female. Chief Complaint: Diarrhea Patient is in today with with her son's two-week well-child check. While at that appointme nt she reported to me that she had an episode the evening before of bloody diarrhea. There was enough blood that she actually passed a clot about the size of a $0.50 piece. She repor ts that she really didn't have any significant pain around the rectum. She did have some cr amping throughout the lower abdomen. She denies nausea vomiting or constipation. She denie s having any significant bleeding from the vaginal area and just the usual lochia which is p resent post . She reports otherwise she has been feeling well. There is been no blood in her urine. She has not had any further episodes today but does report that her low abdo men is a little tender. No Known Allergies Medications: She has a current medication list which includes the following prescription(s): prenate plu s, albuterol sulfate, triamcinolone, promethazine, and ondansetron. Past Medical History She has a past medical history of Asthma; Umbilical hernia; Primary amenorrhea; and Sickle cell trait. Past Surgical History She has past surgical history that includes Tonsillectomy and adenoidectomy (02/13/2008). Family History: Her family history includes Asthma in her brother and Hypertension in her father and mother . Social History: She reports that she has never smoked. She has quit using smokeless tobacco. She reports th at she does not drink alcohol or use illicit drugs. Review of Systems Pertinent items are noted in HPI. Objective: BP 104/74 | Pulse 72 | Resp 14 General Appearance: Alert, cooperative, no distress, appears stated age Head: Normocephalic, without obvious abnormality, atraumatic Lungs: Clear to auscultation bilaterally, respirations unlabored Heart: Regular rate and rhythm, S1, S2 normal, no murmur Abdomen: Soft, diffusely tender , normal bowel sounds, no masses, no organomegaly, no gu arding rebound or masses Rectal: visually on the outside of the rectum she has normal tissue. She has normal sphin cter tone. No masses appreciated within the rectum. There was a small amount of light pink mucous on the glove after removing the finger. One finger was also placed into the vagina at the same time to ensure that there were no obvious perforations between the vagina and th e rectum. No such issues were elicited. Skin: No rashes or abnormal lesions Neurologic: Nonfocal. Alert and oriented. Results for orders placed during the hospital encounter of 08/15/12 RUPTURE OF MEMBRANES Component Value Range Amnisure, ROM POSITIVE Assessment and Plans: 1. Bright red blood per him. Etiology unclear. I reviewed with the patient that she may have an internal hemorrhoid that broke open and then caused bleeding. She is at high risk f or this considering she just went through and then delivery. Other etiologies cou ld include infectious colitis or an autoimmune based disease such as Crohn's disease. At th is time we agreed to start with a stool culture. I've also instructed her that if she has a ny further episodes of bloody diarrhea that she is to immediately, and office. I've also re viewed that if she starts to have signs of hemorrhage that she is to go immediately to the e mergency department. Both patient and her mother verbalize understanding. documented in this en counter Plan of Treatment +--------+---------+ + + + [...] | | | +--------+---------+ + + + + + +--------+ + + | Name | Type | Priori | Associated Diagnoses | Order Schedule | | | | ty | | | + + +--------+ + + | Culture, Stool | Microbiolog | Routin | Bloody diarrhea | 1 Occurrences | | | y | e | | starting 08/30/2012 | | | | | | until 08/30/2013 | + + +--------+ + + | Fecal leukocytes | Microbiolog | STEPHAN | Bloody diarrhea | 1 Occurrences | | | y | | | starting 08/30/2012 | | | | | | until 08/30/2013 | + + +--------+ + + documented as of this encounter Visit Diagnoses + + | Diagnosis | + + | Bloody diarrhea - Primary Diarrhea | + + documented in this encounter"
--- OUTSIDE RECORDS SUMMARY | ~2019-12-21 | XMS | Encounter Summary ---
Demographics + + + | Address | [address] | | | [place] [address] | + + + | Home Phone [...] Dong | ECON | [address] [facility] | | | | | [place] | | | | | [address] | | + + + + + | Jovita Luna | ECON | [address] | | | | | [place] [address] | | + + + + + Care Team Providers + +------+ + | Care Electroplating Worker Name | Role | Phone | [...] | +--------+ + + + + | 04/14/ | Routine | [facility] | Tomas Benoit, | GA: 2d | | 2011 | | MEDICINE [place] | [address] | | | | | [address] | [place] | | | | | [place] | [address] | | | | | [address] | | | | | | [phone] | | | +--------+ + + + + Social History + +-------+ +--------+------+ | Tobacco Use | Types | Packs/Day | Years | Date | | | | | Used | | + +-------+ +--------+------+ | Never Smoker | | | | | + +-------+ +--------+------+ + + +---------+ + | Alcohol Use [...] + + + | Blood Pressure | 104/62 | 04/14/2012 11:50 AM | | | | | PST | | + + + + + | Pulse | 98 | 04/14/2012 11:50 AM | | | | | PST | | + + + + + | Temperature | - | - | | + + + + + | Respiratory Rate | 16 | 04/14/2012 11:50 AM | | | | | PST | | + + + + + | Oxygen Saturation | - | - | | + + + + + | Inhaled Oxygen | - | - | | | Concentration | | | | + + + + + | Weight | 71.7 kg (158 lb) | 04/14/2012 11:50 AM | | | | | PST | | + + + + + | Height | - | - | | + + + + + | Body Mass Index | 25.89 | 02/18/2012 11:40 AM | | | | | PDT | | + + + + + documented in this encounter Progress Notes Tomas Benoit MD - 04/14/2012 12:04 PM PSTIt's a BOY. Cervical culture last time was neg ative. anatomy u/s was normal. Flu shot administered. documented in this encounter Plan of Treatment +--------+---------+ + + + | Date | Type | Specialty | Care Team | Description | +--------+---------+ + + + | 01/30/ | Office | Family Medicine | Tomas Benoit, | | | 2019 | Visit | | MD Joy [address] | | | | | | [place] | | | | | | [phone] | | | | | | | | +--------+---------+ + + + documented as of this encounter Visit Diagnoses + + | Diagnosis | + + | , PRIMIGRAVIDA - Primary Supervision of normal first | + + | Need for vaccination Need for prophylactic vaccination and inoculation against | | unspecified single disease | + + documented in this encounter"
--- OUTSIDE RECORDS SUMMARY | ~2019-12-21 | XMS | Encounter Summary ---
Demographics + + + | Address | [address] | | | [place] [address] | + + + | Home Phone | | + + + | Preferred Language | Unknown | + + + | Marital Status | Single | + + + | Mormon Affiliation | Unknown | + + + | Race | Black or | + + + | Ethnic Group | Not or | + + + Author + + + | Author | [facility] | | | and [place] | + + + | Organization | [facility] | | | and [place] | + + + | Address | Unknown | + + + | Phone | Unavailable | + + + Support + + + + + | Name | Relationship | Address | Phone | + + + + + | Zo Dong | ECON | [address] [facility] | | | | | [place] | | | | | [address] | | + + + + + | Jovita Luna | ECON | [address] | | | | | [place] [address] | | + + + + + Care Team Providers + +------+ + | Care Chief Of Internal Medicine Name | Role | Phone | + +------+ + | Tomas Benoit MD | PCP | | + +------+ + Reason for Visit + +--------+ + | Reason | Onset | Comments | | | Date | | + +--------+ + | Vaginal Discharge | 06/15/ | green | | | 2012 | | + +--------+ + Encounter Details +--------+ + + + + | Date | Type | Department | Care Team | Description | +--------+ + + + + | 06/15/ | Telephone | [facility] | Tomas Benoit, | Vaginal Discharge | | 2012 | | MEDICINE [place] | [address] | (vivienne) | | | | [address] | [place] | | | | | [place] | [phone] | | | | | [address] | | | | | | [phone] | | | +--------+ + + + [...] Telephone Encounter - Janice Buck LPN - 06/15/2012 4:35 PM PSTCalled patient and noti fied her. elephone Encounter - Tomas Benoit MD - 06/15/2012 2:22 PM PSTPlease let Jovita know that the most common cause for green discharge is a bacterial vaginitis. This is common in . We treat th is with a prescription vaginal cream. I have sent this to Meg Loomis. If the discharg e dosen not improve with this then she will need to be seen. elephone Encounter - Darline Jay RN - 2012 2:09 PM PSTPhone call from 31 week OB patient. Has a greenish vaginal discharge. Started about 2 days ago. Has to change her underwear mo re often, changed them twice yesterday and again this morning. She doesn't know if there is an odor as her nose is congested because she also has a cold.. Has some abdominal discomfort like a mild period. Has some mild itching, but denies dysuri a. Feels like the discharge is getting worse. Baby is moving and she denies any spotting or bleeding. Told her we would discuss with Dr Benoit and call her back. She is at [phone] documented in thi s encounter Plan of Treatment +--------+---------+ + + + | Date | Type | Specialty | Care Team | Description | +--------+---------+ + + + | 01/30/ | Office | Family Medicine | Tomas Beonit, | | | 2019 | Visit | | MD [address] | | | | | | [place] | | | | | | [address] | | | | | | | | +--------+---------+ + + + documented as of this encounter Visit Diagnoses Not on filedocumented in this encounter"
--- OUTSIDE RECORDS SUMMARY | ~2019-12-21 | XMS | Encounter Summary ---
Demographics + + + | Address | [address] | | | [place] [address] | + + + | Home Phone | | + + + | Preferred Language | Unknown | + + + | Marital Status | Single | + + + | Yarsani Affiliation | Unknown | + + + | Race | Black or | + + + | Ethnic Group | Not or | + + + Author + + + | Author | [facility] | | | and [place] | + + + | Organization | [facility] | | | and [place] | + + + | Address | Unknown | + + + | Phone | Unavailable | + + + Support + + + + + | Name | Relationship | Address | Phone | + + + + + | Zo Dong | ECON | [address] [facility] | | | | | [place] | | | | | [address] | | + + + + + | Jovita Luna | ECON | [address] | | | | | [place] [address] | | + + + + + Care Team Providers + +------+ + | Care Air Pollution Engineer Name | Role | Phone | + +------+ + | Tomas Benoit MD | PCP | | + +------+ + Reason for Visit + +--------+ + | Reason | Onset | Comments | | | Date | | + +--------+ + | Sore Throat | 07/16/ | | | | 2015 | | + +--------+ + Encounter Details +--------+ + + + + | Date | Type | Department | Care Team | Description | +--------+ + + + + | 07/16/ | Telephone | [facility] | Tomas Benoit, | Sore Throat | | 2015 | | [facility] [place] | [address] | | | | | [address] | [place] | | | | | [place] | [address] | | | | | [address] | | | | | | [phone] | | | +--------+ + + + [...] this encounter Miscellaneous Notes Telephone Encounter - Casi Zendejas - 07/21/2015 8:56 AM PDTThis was faxed tomorrow.Electr onically signed by Casi Zendejas at 07/21/2015 8:56 AM PDTTelephone Encounter - Clarice Uriostegui Cert MA - 07/18/2015 5:59 PM PDTPrinted orders and sent them to the front to be faxed to [facility] on Tuesday. P DTTelephone Encounter - Casi Mccloud MD - 07/18/2015 5:47 PM PDTOrders signed, please print orders and fax to [facility] in [place], then call Jovita and let her knowElectronic ally signed by Casi Mccloud MD at 07/18/2015 5:48 PM PDTTelephone Encounter - Darline Jay RN - 07/18/2015 10:00 AM PDTPatient called back. Gave her message from Dr Mccloud . She would like orders sent to [facility] in [place]. Orders pended for HSV IGG and IGM. Please review. Is this what you want ordered? elephone Encount er - Clarice Uriostegui Cert MA - 07/17/2015 6:16 PM PDTLeft message for patient to return our call tomorrow. elephone Encounte r - Casi Mccloud MD - 07/17/2015 2:03 PM PDTCall Jovita, tell her since she's had a c ough and runny nose, I think it's more likely that the open lesion is a viral sore related t o her respiratory infection, these can be quite painful as well. If she'd like, can send orders down to [place] for blood test for HSV antibodies, but don 't think swab would be helpful since they already gave her antivirals. elephone Encounter - Darline Jay RN - 07/17/2015 1:36 PM PDTPhone call from tearful and anxious patient (of Dr Benoit) States she had a sore throat so went to the Urgent Care clinic in [place]. States they tested her for strep and told her she didn't have strep. States she was told i t might be HSV type 2 and to follow-up with her PCP for testing. States she has an open lesion so they gave her some Acyclovir 400 mg, one tab three times a day for 5 days and Lidocaine. She has swollen lymph nodes. No fever. Has a mild cough that started about 3 days ago. Yes terday her throat was a little sore but today her throat was really sore. Also has a runny nose. She is anxious and wanting to see Dr Benoit. Let her know that Dr Benoit is not here this week. Told her we will discuss with the on-call provider, to see if she should come to our Urgent Care today to be tested while she has a lesion, or if Dr Benoit can test her later. She is at [phone] documented in thi s encounter Plan of Treatment +--------+---------+ + + + | Date | Type | Specialty | Care Team | Description | +--------+---------+ + + + | 01/30/ | Office | Family Medicine | Tomas Benoit, | | | 2019 | Visit | | MD [address] | | | | | | [place] | | | | | | [address] | | | | | | | | +--------+---------+ + + + + +------+--------+ + + | Name | Type | Priori | Associated Diagnoses | Order Schedule | | | | ty | | | + +------+--------+ + + | Herpes Simplex Virus | Lab | Routin | Sore in mouth | 1 Occurrences | | 1 and 2 Ab Panel | | e | | starting 07/18/2015 | | | | | | until 07/17/2016 | + +------+--------+ + + | Herpes Simplex Virus | Lab | Routin | Sore in mouth | 1 Occurrences | | Ab, IgM, EIA | | e | | starting 07/18/2015 | | | | | | until 07/17/2016 | + +------+--------+ + + documented as of this encounter Visit Diagnoses + + | Diagnosis | + + | Sore in mouth - Primary Other and unspecified diseases of the oral soft tissues | + + documented in this encounter"
--- OUTSIDE RECORDS SUMMARY | ~2019-12-21 | XMS | Encounter Summary ---
Demographics + + + | Address | [address] | | | [place] [address] | + + + | Home Phone | | + + + | Preferred Language | Unknown | + + + | Marital Status | Single | + + + | Spiritism Affiliation | Unknown | + + + [...] Zo Dong | ECON | [address] [facility] | | | | | [place] | | | | | [address] | | + + + + + | Jovita Luna | ECON | [address] [facility] | | | | | [place] [address] | | + + + + + Care Team Providers + +------+ + | Care Rib Stiffener And Heel Dipper Name | Role | Phone | + +------+ + PCP | Unavailable | + +------+ + Encounter Details +--------+ + + + + | Date | Type | Department | Care Team | Description | +--------+ + + + + | 08/03/ | Hospital | [facility] | | | | 1995 | Encounter | [facility] | | | | | [facility] [address] | | | | | | [place] | | | | | | [address] | | | | | | [phone] | | | +--------+ + + + [...] [place] | | | | | | [id number] | | | | | | | | +--------+---------+ + + + documented as of this encounter Visit Diagnoses Not on filedocumented in this encounter"
--- OUTSIDE RECORDS SUMMARY | ~2019-12-21 | XMS | Encounter Summary ---
Demographics + + + | Address | [address] | | | [place] [address] | + + + | Home Phone [...] Author + + + | Author | [facility] | | | and [place] | + + + | Organization | [facility] | | [...] [place] | | | | | [address] | | + + + + + | Jovita Luna | ECON | [address] | | | | | [place] [address] | | + + + + + Care Team Providers + +------+ + | Care Twine Reeling Machine Operator Name | Role | Phone | + [...] + + | 12/12/ | Office | [facility] | Tomas Benoit, | Encounter for | | 2018 | Visit | [facility] [place] | [address] | routine history and | | | | [address] | [place] | physical exam in | | | | [place] | [address] | female (Primary Dx); | | | | [address] | | Asthma, exercise | | | | [phone] | | induced; Nevus | +--------+---------+ + [...] Comments | + + +---------+ + | Yes | | 0.0 | socially/not very | [...] + | Blood Pressure | 112/86 | 12/12/2018 7:41 AM | | | | | PDT | | + + + + + | Pulse | 92 | 12/12/2018 7:41 AM | | | | | PDT | | + + + + + | Temperature | - | - | | + + + + + | Respiratory Rate | 16 | 12/12/2018 7:41 AM | | | | | PDT | | + + + + + | Oxygen Saturation | 97% | 12/12/2018 7:41 AM | | | | | PDT | | + + + + + | Inhaled Oxygen | - | - | | | Concentration | | | | + + + + + | Weight | 85 kg (187 lb 6.3 | 12/12/2018 7:41 AM | | | | oz) | PDT | | + + + + + | Height | 165.1 cm (5' 5") | 12/12/2018 7:41 AM | | | | | PDT | | + + + + + | Body Mass Index | 31.18 | 12/12/2018 7:41 AM | | | | | PDT | | + + + + + documented in this encounter Patient Instructions Patient Instructions Rebeca Guillen CMA - 12/12/2018 7:45 AM PDTFormatting of this note m ight be different from the original. -Continue using [...] does not recommend CBE. Date Last Reviewed: 01/23/201719995819-1850 [employer]. [address] [place] [address]. All righ ts reserved. This information is not intended as a substitute for professional medical care. Always follow your healthcare professional's instructions. documented in this encounter Progress Notes Tomas Benoit MD - 12/12/2018 7:45 AM PDTFormatting of this note might be different fro m the original. Subjective: Patient ID: Jovita Grey is a 28 y.o. female. Chief Complaint Patient presents with Annual Exam Nevus Asthma HPI Patient presents for her annual exam. 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 04/14/2012 INFLUENZA, F1T3-56, UNSPECIFIED 02/28/2009 MENINGOCOCCAL CONJUGATE,MENACTRA (PED/ADOL/ADULT) 12/11/2008 MMR, [...] level: Not on file Occupational History Occupation: [employer] Employer: [employer] Tobacco Use Smoking status: Never Smoker Smokeless tobacco: Never Used Substance and Sexual Activity Alcohol use: Yes Alcohol/week: 0.0 oz Comment: socially/not very often Drug use: No Sexual activity: Yes Partners: Male control/protection: Yes Social History Narrative Marital Status:single Children: 0 Occupation:Works for [employer] FOB: ELIAS Little reports that [...] presence of Gabby Benoit MD. Rebeca Guillen [facility] 12/12/18 I have reviewed and edited this note: Rebeca Guillen, [facility] 12/12/18 documented in this encounter Plan of [...] AUTO WITH CONF | e | 7:56 AM | routine history and | procedure are in the | | | | PDT | physical exam in | results section. | | | | | female | | + +--------+ + + + documented in this encounter Results POCT Urinalysis (12/12/2018 7:56 AM PDT) + + + + + + [...] 1.001 - 1.030 | | | | [place], | | | | | | UA, [...] + + + + + + | Bilirubin | | Negative | | | | Confirmatio | | | | | | n by | | | | | | Ictotest, | | | | | | Urine [...]
--- OUTSIDE RECORDS SUMMARY | ~2019-12-21 | XMS | Encounter Summary ---
Demographics + + + | Address | [address] | | | [place] [address] | + + + | Home Phone | | + + + | Preferred Language | Unknown | + + + | Marital Status | Single | + + + | Rastafarian Affiliation | Unknown | + + + | Race | Black or | + + + | Ethnic Group | Not or | + + + Author + + + | Author | [facility] | | | and [place] | + + + | Organization | [facility] | | | and [place] | + + + | Address | Unknown | + + + | Phone | Unavailable | + + + Support + + + + + | Name | Relationship | Address | Phone | + + + + + | Zo Dong | ECON | [address] [facility] | | | | | [place] | | | | | [address] | | + + + + + | Jovita Luna | ECON | [address] | | | | | [place] [address] | | + + + + + Care Team Providers + +------+ + | Care Visual C Developer Name | Role | Phone | + +------+ + | Tomas Benoit MD | PCP | | + +------+ + Reason for Visit + +--------+ + | Reason | Onset | Comments | | | Date | | + +--------+ + | Puncture Wound | 03/04/ | foot | | | 2016 | | + +--------+ + Encounter Details +--------+ + + + + | Date | Type | Department | Care Team | Description | +--------+ + + + + | 03/04/ | Telephone | [facility] | Tomas Benoit, | Puncture Wound | | 2016 | | [facility] [place] | [address] | (foot) | | | | [address] | [place] | | | | | [place] | [id number] | | | | | [address] | | | | | | [phone] | | | +--------+ + + + [...] + | Yes | | 0.0 | socially | + + +---------+ + + + + | Sex Assigned at | Date Recorded | | | | + + + | Not on file | | + + + documented as of this encounter Miscellaneous Notes Telephone Encounter - Darline Jay RN - 03/04/2017 10:27 AM PSTPhone call from babatunde michel. Stepped on a aric staple and it went "all the way into her heel". She is calling to find out when her last Tetanus vaccine was. Let her know that her last Td ap was in 2012, so she is currently covered. Advised her that puncture wounds often become infected and to seek medical care if she deve lops symptoms of infection. She already soaked it in Epson salt water. Advised she can also use some antibiotic ointmen t. documented in thi s encounter Plan of [...] [place] | | | | | | [id number] | | | | | | | | +--------+---------+ + + + documented as of this encounter Visit Diagnoses Not on filedocumented in this encounter
--- OUTSIDE RECORDS SUMMARY | ~2019-12-21 | XMS | Encounter Summary ---
Demographics + + + | Address | [address] | | | [place] [address] | + + + | Home Phone | | + + + | Preferred Language | Unknown | + + + | Marital Status | Single | + + + | Caodaism Affiliation | Unknown | + + + | Race | Black or | + + + | Ethnic Group | Not or | + + + Author + + + | Author | [facility] | | | and [place] | + + + | Organization | [facility] | | | and [place] | + + + | Address | Unknown | + + + | Phone | Unavailable | + + + Support + + + + + | Name | Relationship | Address | Phone | + + + + + | Zo Dong | ECON | [address] [facility] | | | | | [place] | | | | | [address] | | + + + + + | Jovita Luna | ECON | [address] | | | | | [place] [address] | | + + + + + Care Team Providers + +------+ + | Care Cosmetics Demonstrator Name | Role | Phone | + +------+ + | Tomas Benoit MD | PCP | | + +------+ + Reason for Visit + +--------+ + | Reason | Onset | Comments | | | Date | | + +--------+ + | Appointment | 06/30/ | | | | 2012 | | + +--------+ + Encounter Details +--------+ + + + + | Date | Type | Department | Care Team | Description | +--------+ + + + + | 06/30/ | Telephone | [facility] | Tomas Benoit, | Appointment | | 2012 | | MEDICINE [place] | [address] | | | | | [address] | [place] | | | | | [place] | [address] | | | | | [address] | | | | | | [phone] | | | +--------+ + + + [...] encounter Miscellaneous Notes Telephone Encounter - Casi Kerr - 06/30/2012 4:49 PM PSTScheduled for 07/10 at 4:00. Left message for patient to call back. elephone Encounter - Tomas Benoit MD - 06/30/2012 2:44 PM PSTPlease nadja e the appt to later the next week at 4pm or later. OK to double book if needed.Electronicall y signed by Tomas Benoit MD at 06/30/2012 2:45 PM PSTTelephone Encounter - Alina Iglesias rd RN - 06/30/2012 9:59 AM PSTPatient called stating that she cannot make her appointment this coming Tuesday since the timeframe is difficult. Any day after 4PM will do. She is eager for an answer to move this appointment to a later time. All the other arrange d times for future appointments are fine. She can be reached at [phone].Electronically signed by Kj Iglesias RN at 10:02 AM PSTdocumented in this encounter Plan of Treatment +--------+---------+ + + + | Date | Type | Specialty | Care Team | Description | +--------+---------+ + + + | 01/30/ | Office | Family Medicine | Tomas Benoit, | | 2019 | Visit | | MD [address] | | | | | | [place] | | | | | | [address] | | | | | | | | +--------+---------+ + + + documented as of this encounter Visit Diagnoses Not on filedocumented in this encounter"
--- OUTSIDE RECORDS SUMMARY | ~2019-12-21 | XMS | Encounter Summary ---
Demographics + + + | Address | [address] | | | [place] [address] | + + + | Home Phone | | + + + | Preferred Language | Unknown | + + + | Marital Status | Single | + + + | Yazdanism Affiliation | Unknown | + + + | Race | Black or | + + + | Ethnic Group | Not or | + + + Author + + + | Author | [facility] | | | and [place] | + + + | Organization | [facility] | | | and [place] | + + + | Address | Unknown | + + + | Phone | Unavailable | + + + Support + + + + + | Name | Relationship | Address | Phone | + + + + + | Zo Dong | ECON | [address] [facility] | | | | | [place] | | | | | [address] | | + + + + + | Jovita Luna | ECON | [address] | | | | | [place] [address] | | + + + + + Care Team Providers + +------+ + | Care Loan Processing Supervisor Name | Role | Phone | + +------+ + | Tomas Benoit MD | PCP | | + +------+ + Reason for Visit +---------+--------+ + | Reason | Onset | Comments | | | Date | | +---------+--------+ + | Results | 02/06/ | | | | 2013 | | +---------+--------+ + Encounter Details +--------+ + + + + | Date | Type | Department | Care Team | Description | +--------+ + + + + | 02/06/ | Telephone | [facility] | Tomas Benoit, | Results | | 2013 | | MEDICINE [place] | [address] | | | | | [address] | [place] | | | | | [place] | [address] | | | | | [address] | | | | | | [phone] | | | +--------+ + + + [...] Notes Telephone Encounter - Ana Paula Shukla Cert MA - 02/06/2014 4:05 PM PDTCalled patient and relayed provider comments. Patient verbalized understanding. elephone Encounter - Tomas Benoit MD - 3:32 PM PDTPlease let Jovita know that her thyroid function is normal. Her CBC sh owed that she had a normal amount of red blood cells but that they are a little on the small side. This is because she needs more iron. I would recommend that she take iron 325 mg per day with 1 tab of vitamin C. This will help her body recover after such heavy periods.Electr onically signed by Tomas Benoit MD at 02/06/2014 3:34 PM PDTdocumented in this encounter Plan of [...]
--- OUTSIDE RECORDS SUMMARY | ~2019-12-21 | XMS | Encounter Summary ---
Demographics + + + | Address | [address] | | | [place] [address] | + + + | Home Phone | | + + + | Preferred Language | Unknown | + + + | Marital Status | Single | + + + | Orthodox Affiliation | Unknown | + + + | Race | Black or | + + + | Ethnic Group | Not or | + + + Author + + + | Author | [facility] | | | and [place] | + + + | Organization | [facility] | | | and [place] | + + + | Address | Unknown | + + + | Phone | Unavailable | + + + Support + + + + + | Name | Relationship | Address | Phone | + + + + + | Zo Dogn | ECON | [address] [facility] | | | | | [place] | | | | | [address] | | + + + + + | Jovita Luna | ECON | [address] | | | | | [place] [address] | | + + + + + Care Team Providers + +------+ + | Care Duck Farmer Name | Role | Phone | + +------+ + | Tomas Benoit MD | PCP | | + +------+ + Reason for Visit + + + | Reason | Comments | + + + | Routine | 34 weeks 5 days | | Visit | | + + + Encounter Details +--------+ + + + + | Date | Type | Department | Care Team | Description | +--------+ + + + + | 07/10/ | Routine | [facility] | Tomas Benoit, | GA: 34w5d | | 2012 | | MEDICINE [place] | [address] | | | | | [address] | [place] | | | | | [place] | [address] | | | | | [address] | | | | | | [phone] | | | +--------+ + + + [...] + + + | Blood Pressure | 122/68 | 07/10/2012 4:18 PM | | | | | PDT | | + + + + + | Pulse | 96 | 07/10/2012 4:18 PM | | | | | PDT | | + + + + + | Temperature | - | - | | + + + + + | Respiratory Rate | 16 | 07/10/2012 4:18 PM | | | | | PDT | | + + + + + | Oxygen Saturation | - | - | | + + + + + | Inhaled Oxygen | - | - | | | Concentration | | | | + + + + + | Weight | 85.9 kg (189 lb 5 | 07/10/2012 4:18 PM | | | | oz) | PDT | | + + + + + | Height | - | - | | + + + + + | Body Mass Index | 31.02 | 06/01/2012 10:15 AM | | | | | PST | | + + + + + documented in this encounter Patient Instructions Patient Instructions Janice BuckBRE - 07/10/2012 4:20 PM PDT July 10, 2012 Jovita Grey [address] [place] [address] Dear Jovita: Thank you for enrolling in [facility] [place]. Please follow the instructions below to view your [place] online medical record. [facility] [place] allows you to send secure messages to your doctor, view you r test results, renew your prescriptions, schedule appointments, and more. How Do I Sign Up? 1. In your Internet browser, go to [email or web address] 2. Click on the Sign Up Now link in the Sign In box.This will take you to the New Member Si gn Up page. 3. Enter your [facility] [place] access code exactly as it appears below. You will not need to use thi s code after you sign up. If you do not sign up before the expiration date, you must request a new code through your [facility]. [facility] [place] Access Code: [email or web address] Expires: 09/08/2012 16:20 4. Fill in the last four digits of your Social Security Number (xxxx) and Date of (mm /dd/yyyy) when asked and click Submit. You will now be asked to create a [facility] [place] ID. 5. Create a [employer] ID. This will be your [facility] [place] login ID. Your login ID cannot be changed , so think of one that is secure and easy to remember. 6. Create a [facility] [place] password. You can change your password at any time. 7. Enter your Password Reset Question and Answer. This can be used at a later time if you f orget your password. 8. Enter your e-mail address. You will receive e-mail notification when new information is available in [facility] [place]. 9. Click Sign Up. You may now view your medical record. Additional Information If you have questions, you can email or call [phone] to talk to our [facility] care team. Please remember, Inofilehart should NOT be used fo r urgent needs. For all medical emergencies, call 911. Sincerely, Tomas Benoit MD documented in this encounter Progress Notes Tomas Benoit MD - 07/10/2012 4:36 PM PDTKnown GBS positive. Will check cervix next lesa e. Reviewed labor and delivery options. Reviewed signs of labor and when to present to Karl and Hollie. She is traveling from [place].Electronically signed by Tomas Benoit MD at 3 4:51 PM PDTdocumented in this encounter Plan of [...] of normal first | + + | Carrier of group B Streptococcus Carrier or suspected carrier of Group B | | streptococcus | + + documented in this encounter"
--- OUTSIDE RECORDS SUMMARY | ~2019-12-21 | XMS | Encounter Summary ---
Demographics + + + | Address | [address] | | | [place] [address] | + + + | Home Phone | | + + + | Preferred Language | Unknown | + + + | Marital Status | Single | + + + | Jain Affiliation | Unknown | + + + | Race | Black or | + + + | Ethnic Group | Not or | + + + Author + + + | Author | [facility] | | | and [place] | + + + | Organization | [facility] | | | and [place] | + + + | Address | Unknown | + + + | Phone | Unavailable | + + + Support + + + + + | Name | Relationship | Address | Phone | + + + + + | Zo Dong | ECON | [address] [facility] | | | | | [place] | | | | | [address] | | + + + + + | Jovita Luna | ECON | [address] | | | | | [place] [address] | | + + + + + Care Team Providers + +------+ + | Care Junior Linux Systems Administrator Name | Role | Phone | + +------+ + | Tomas Benoit MD | PCP | | + +------+ + Reason for Visit + + + | Reason | Comments | + + + | Constipation | | + + + Encounter Details +--------+---------+ + + + | Date | Type | Department | Care Team | Description | +--------+---------+ + + + | 04/04/ | Office | [facility] | Tomas Benoit, | Constipation, | | 2019 | Visit | [facility] [place] | [address] | unspecified | | | | [address] | [place] | constipation type | | | | [place] | [id number] | (Primary Dx) | | | | [address] | | | | | | [phone] | | | +--------+---------+ + + + [...] + + + | Blood Pressure | 100/62 | 04/04/2019 2:41 PM | | | | | PST | | + + + + + | Pulse | 81 | 04/04/2019 2:41 PM | | | | | PST | | + + + + + | Temperature | 36.9 C (98.5 F) | 04/04/2019 2:41 PM | | | | | PST | | + + + + + | Respiratory Rate | 16 | 04/04/2019 2:41 PM | | | | | PST | | + + + + + | Oxygen Saturation | 97% | 04/04/2019 2:41 PM | | | | | PST | | + + + + + | Inhaled Oxygen | - | - | | | Concentration | | | | + + + + + | Weight | 86.4 kg (190 lb 7.6 | 04/04/2019 2:41 PM | | | | oz) | PST | | + + + + + | Height | 165.1 cm (5' 5") | 04/04/2019 2:41 PM | | | | | PST | | + + + + + | Body Mass Index | 31.7 | 04/04/2019 2:41 PM | | | | | PST | | + + + + + documented in this encounter Progress Notes Tomas Benoit MD - 04/04/2019 2:30 PM PSTFormatting of this note might be different fro m the original. Jovita Grey is a 28 y.o. female Chief Complaint: Constipation HPI Patient is here today for constipation, onset 2 months. She has had low abdominal cramping a month prior to the constipation. Patient states she saw sarah kebede 3 weeks ago,she pres cribed miralax the miralax gave her diarrhea so she switched to a stool softner and takes 2- 3 twice a day and that allows her to have a bowel movement every 1-2 days. Denies any bleedi ng with bowel movement but notices a mucous with her bowel movement. Has constant rectal pre ssure Patient reports that she was drinking a lot of protein shakes when she started having the c onstipation. The MiraLAX dosage was the cleanout dosage where she took 2 or 3 doses per day over the weekend with the desired effect of having diarrhea so that her belly could be edis emilee out. Throughout the rest of the week she then cut back to once a day but she felt like she had a hard time controlling her stools and felt like she was always in the bathroom. Chapis escalona looked at the [id number] stool softener that she was taking and realized that it was not a softener but actually a laxative. She has been taking that daily now for about 2 wee ks. PREVENTIVE CARE/PRIOR VISITS - Any recommendations from Health Maintenance: There are no preventive care reminders to display for this patient. Preventative Services TOPIC LAST DONE NEXT DUE Vaccine: Influenza 02/20/2019 Cervical Cancer Screening (Pap) 03/12/2019 03/12/2022 Vaccine: Dtap/Tdap/Td 06/21/2012 06/21/2022 Vaccine: Pneumococcal 19-64 08/02/2016 No Known Allergies Medications: Patient Reported Taking Dosage acetaminophen (TYLENOL) 500 mg tablet (Taking) Take 500 mg by mouth every 4 hours as neede d. Number of times this order has been changed since signin Order [place] [place] acyclovir (ZOVIRAX) 400 MG tablet (Taking) take 1 tablet by mouth three times a day Number of times this order has been changed since signin Order [facility] [place] albuterol 90 mcg/puff inhaler (Taking) Inhale 2 puffs into the lungs every 4 hours as need ed for Wheezing or Shortness of Breath. inhale 2 puffs 5-30 minutes prior to exercise Number of times this order has been changed since signin Order [facility] [place] UNABLE TO FIND (Taking) Med Name: Stool softner. Takes 2-3 tablets twice daily Past Medical History She has a past medical history of Asthma, Primary amenorrhea, Sickle cell trait (HCC), and Umbilical hernia. Past Surgical History She has a past surgical history that includes Tonsillectomy (02/13/2008) and [place] tooth e xtraction. Family History: Her family history includes Asthma in her brother and maternal grandmother; Elevated lipids in her father; High blood pressure in her father, maternal grandmother, and mother. Social History: Social History Socioeconomic History Marital status: Single Spouse name: REECE Number of children: 0 Years of education: Not on file Highest education level: Not on file Occupational History Occupation: [employer] Employer: [employer] Tobacco Use Smoking status: Never Smoker Smokeless tobacco: Never Used Substance and Sexual Activity Alcohol use: Yes Alcohol/week: 0.0 standard drinks Comment: socially/not very often Drug use: No Sexual activity: Yes Partners: Male control/protection: Yes Social History Narrative Marital Status:single Children: 0 Occupation:Works for [employer] FOB: [employer] Review of Systems Constitutional: Positive for fatigue. Negative for chills and fever. HENT: Negative for sinus pressure and sinus pain. Respiratory: Negative for chest tightness, shortness of breath and wheezing. Cardiovascular: Negative for chest pain and palpitations. Gastrointestinal: Positive for abdominal pain, constipation and rectal pain. Negative for a nal bleeding, blood in stool and diarrhea. Genitourinary: Negative. Musculoskeletal: Positive for back pain. Neurological: Positive for headaches. Negative for dizziness and light-headedness. Objective: Vitals: 04/04/19 1441 BP: 100/62 Pulse: 81 Resp: 16 Temp: 36.9 C (98.5 F) TempSrc: Temporal SpO2: 97% Weight: 86.4 kg (190 lb 7.6 oz) Height: 1.651 m (5' 5") Body mass index is 31.7 kg/m. Physical Exam Constitutional: She is oriented to person, place, and time. She appears well-developed and well-nourished. No distress. Appropriately dressed and groomed HENT: Head: Normocephalic and atraumatic. Eyes: Conjunctivae are normal. Musculoskeletal: General: No edema. Neurological: She is alert and oriented to person, place, and time. Skin: Skin is warm and dry. Psychiatric: She has a normal mood and affect. Her behavior is normal. Nursing note and vitals reviewed. Ortho Exam Assessment: 1. Constipation, unspecified constipation type Plans: 1. Constipation, unspecified constipation type Asked patient to stop at the laboratory and get her TSH drawn today to ensure that she is n ot having low thyroid associated constipation. Her new onset constipation may also be relat ed to the high-protein that she was consuming. Reviewed that the it constipation can cause stretching of the colon which can take some time to resolve. If she is not tolerating the M iraLAX very well recommend that she use docusate sodium. Start with 2 to 3 tablets/day and then may adjust up or down depending on what her bowels are needing. Recommend weaning off of the laxative as this can be dependency forming. I, Dr. Tomas Benoit, personally performed the services described in this documentation, as scribed in my presence and it is both accurate and complete. Tomas Benoit MD 04/04/19 documented in this e ncounter Plan of Treatment +--------+---------+ + + + | Date | Type | Specialty | Care Team | Description | +--------+---------+ + + + | 01/30/ | Office | Family Medicine | Tomas Benoit, | | | 2019 | Visit | | MD [address] | | | | | | [place] | | | | | | [address] | | | | | | | | +--------+---------+ + + + documented as of this encounter Visit Diagnoses + + | Diagnosis | + + | Constipation, unspecified constipation type - Primary | + + documented in this encounter
--- OUTSIDE RECORDS SUMMARY | ~2019-12-21 | XMS | Encounter Summary ---
Demographics + + + | Address | [address] | | | [place] [address] | + + + | Home Phone [...] Author + + + | Author | [facility] | | | and [place] | + + + | Organization | [facility] | | | and [place] | + + + | Address | Unknown | + + + | Phone | Unavailable | + + + Support + + + + + | Name | Relationship | Address | Phone | + + + + + | Zo Dong | ECON | [address] [facility] | | | | | [place] | | | | | [address] | | + + + + + | Jovita Luna | ECON | [address] | | | | | [place] [address] | | + + + + + Care Team Providers + +------+ + | Care Director Educational Radio Name | Role | Phone | + +------+ + | Tomas Benoit MD | PCP | | + +------+ + Reason for Visit +---------+--------+ + | Reason | Onset | Comments | | | Date | | +---------+--------+ + | Results | 06/03/ | | | | 2015 | | +---------+--------+ + Encounter Details +--------+ + + + + | Date | Type | Department | Care Team | Description | +--------+ + + + + | 06/03/ | Telephone | [facility] | Tomas Benoit, | Results | | 2015 | | [facility] [place] | [address] | | | | | [address] | [place] | | | | | [place] | [address] | | | | | [address] | | | | | | [phone] | | | +--------+ + + + [...] Telephone Encounter - Darline Jay RN - 06/04/2015 9:12 AM PSTPatient called back. Gave her message from Dr Benoit. She verbalized understanding. elephone Encount er - Damari Guerrero CMA - 06/03/2015 5:54 PM PSTCalled Jovita and left message to call us back elephone Encounter - Tomas Benoit MD - 06/03/2015 5:45 PM PSTPlease call Jovita and let her kno w that her vaginal swab today was negative. I am hoping that she has cured herself. Electron ically signed by Tomas Benoit MD at 06/03/2015 5:46 PM PSTdocumented in this encounter Plan of Treatment [...] [place] | | | | | | [phone] | | | | | | | | +--------+---------+ + + + documented as of this encounter Visit Diagnoses Not on filedocumented in this encounter"
--- OUTSIDE RECORDS SUMMARY | ~2019-12-21 | XMS | Encounter Summary ---
Demographics + + + | Address | [address] | | | [place] [address] | + + + | Home Phone | | + + + | Preferred Language | Unknown | + + + | Marital Status | Single | + + + | Baptism Affiliation | Unknown | + + + | Race | Black or | + + + | Ethnic Group | Not or | + + + Author + + + | Author | [facility] | | | and [place] | + + + | Organization | [facility] | | | and [place] | + + + | Address | Unknown | + + + | Phone | Unavailable | + + + Support + + + + + | Name | Relationship | Address | Phone | + + + + + | Zo Dong | ECON | [address] [facility] | | | | | [place] | | | | | [address] | | + + + + + | Jovita Luna | ECON | [address] | | | | | [place] [address] | | + + + + + Care Team Providers + +------+ + | Care Door Builder Name | Role | Phone | + +------+ + | Tomas Benoit MD | PCP | | + +------+ + Reason for Visit + + + | Reason | Comments | + + + | Routine | 41w 1d | | Visit | | + + + Encounter Details +--------+ + + + + | Date | Type | Department | Care Team | Description | +--------+ + + + + | 12/16/ | Routine | [facility] | Tomas Benoit, | [place]: 41w1d | | 2020 | | [facility]IC[facility] [place] | [address] | | | | | [address] | [place] | | | | | [place] | [address] | | | | | [address] | | | | | | [phone] | | | +--------+ + + + [...] + + + | Blood Pressure | 118/82 | 12/17/2019 11:09 AM | | | | | PDT | | + + + + + | Pulse | 110 | 12/17/2019 11:09 AM | | | | | PDT | | + + + + + | Temperature | 36.4 C (97.5 F) | 12/17/2019 11:09 AM | | | | | PDT | | + + + + + | Respiratory Rate | 16 | 12/17/2019 11:09 AM | | | | | PDT | | + + + + + | Oxygen Saturation | 98% | 12/17/2019 11:09 AM | | | | | PDT | | + + + + + | Inhaled Oxygen | - | - | | | Concentration | | | | + + + + + | Weight | 107.1 kg (236 lb 1.8 | 12/17/2019 11:09 AM | | | | oz) | PDT | | + + + + + | Height | - | - | | + + + + + | Body Mass Index | 38.11 | 11/20/2019 3:49 PM | | | | | PDT | | + + + + + documented in this encounter Progress Notes Tomas Benoit MD - 12/17/2019 11:00 AM PDTPatient is now 41 weeks 1 day gestation with a ripe cervix at 4 cm and 80% effaced. Blood pressure 118/82. Overall she states that she i s feeling fine and just tired of being . She has a lot of pelvic girdle pain but th is is unchanged over the last month. She reports she is feeling baby move and does not have any abnormal discharge bloody show or fluid leaking. Reviewed risks and benefits of induction. She is now postdates with a ripe cervix so we wi ll start with Pitocin. She is GBS positive so would like her to have penicillin on board pr ior to amniotomy. Patient may have an epidural when she desires. Reviewed the timing const raints involved in getting an epidural. That she may have it at any point in her laboring o r pushing process as long as there is enough time for the anesthesiologist to get up to labo r and delivery and administer the medication and the medication to take effect. She is cons idering whether she wants to start the epidural right at the beginning when we start the Pit ocin or wait until the Pitocin starts to take effect. Consent form signed and will be faxed directly to the OB floor as well as scanned in at [facility] Orders will be placed in the computer. She is going to be induced tomorrow with arrival time at 6 AM. document ed in this encounter Plan of Treatment +--------+---------+ + + + | Date | Type | Specialty | Care Team | Description | +--------+---------+ + + + | 01/30/ | Office | Family Medicine | Tomas Benoit, | | | 2019 | Visit | | [address] | | | | | | [place] | | | | | | [address] | | | | | | | | +--------+---------+ + + + documented as of this encounter Visit Diagnoses + + | Diagnosis | + + | Normal in third trimester - Primary | + + documented in this encounter"
--- OUTSIDE RECORDS SUMMARY | ~2019-12-21 | XMS | Encounter Summary ---
Demographics + + + | Address | [address] | | | [place] [address] | + + + | Home Phone | | + + + | Preferred Language | Unknown | + + + | Marital Status | Single | + + + | Yazidism Affiliation | Unknown | + + + | Race | Black or | + + + | Ethnic Group | Not or | + + + Author + + + | Author | [facility] | | | and [place] | + + + | Organization | [facility] | | | and [place] | + + + | Address | Unknown | + + + | Phone | Unavailable | + + + Support + + + + + | Name | Relationship | Address | Phone | + + + + + | Zo Dong | ECON | [address] [facility] | | | | | [place] | | | | | [address] | | + + + + + | Jovita Luna | ECON | [address] | | | | | [place] [address] | | + + + + + Care Team Providers + +------+ + | Care Reservations And Ticketing Agent Name | Role | Phone | + [...] | +--------+ + + + + | 08/06/ | Routine | [facility] | Tomas Benoit, | GA: 2d | | 2020 | | MEDIC[facility] [place] | [address] | | | | | [address] | [place] | | | | | [place] | [address] | | | | | [address] | | | | | | [phone] | | | +--------+ + + + [...] + + + | Blood Pressure | 108/62 | 08/07/2019 11:11 AM | | | | | PDT | | + + + + + | Pulse | - | - | | + + + + + | Temperature | 36.9 C (98.5 F) | 08/07/2019 11:11 AM | | | | | PDT [...] + + + + | Weight | 86.9 kg (191 lb 9.3 | 08/07/2019 11:11 AM | | | | oz) | PDT | | + + + + + | Height | - | - | | + + + + + | Body Mass Index | 31.88 | 06/12/2019 9:31 AM | | | | | PST | | + + + + + documented in this encounter Progress Notes Tomas Benoit MD - 08/07/2019 11:15 AM PDTPatient coming in for her routine OB visit. S he is 22 weeks and 2 days. 20-week ultrasound showed normal anatomy. Overall she dior sured 6 days smaller than the actual due date. Reviewed with patient that this does not dwight nge her due date. Today she is measuring well. She feels lots of movement. No signs of labor. Patient will be due for her fasting 2-hour glucose and CBC at her next v isit. Instructions given to patient and orders placed. Tomas Benoit MD 08/07/2019 documented in this en counter Plan of Treatment +--------+---------+ + + + | Date | Type | Specialty | Care Team | Description | +--------+---------+ + + + | 01/30/ | Office | Family Medicine | Tomas Benoit, | | 2019 | Visit | | [address] | | | | | | [place] | | | | | | [address] | | | | | | | | +--------+---------+ + + + + +------+--------+ + + | Name | Type | Priori | Associated Diagnoses | Order Schedule | | | | ty | | | + +------+--------+ + + | Glucose Tolerance | Lab | Routin | Normal | Expected: | | Test, 2Hr | | e | in first trimester | 08/07/2019, Expires: | | | | | | 08/06/2020 | + +------+--------+ + + | CBC with | Lab | Routin | Normal | Expected: | | Differential | | e | in first trimester | 08/07/2019, Expires: | | | | | | 08/06/2020 | + +------+--------+ + + documented as of this encounter Visit Diagnoses + + | Diagnosis | + + | Normal in first trimester - Primary | + + documented in this encounter"
--- OUTSIDE RECORDS SUMMARY | ~2019-12-21 | XMS | Encounter Summary ---
Demographics + + + | Address | [address] | | | [place] [address] | + + + | Home Phone [...] + | Author | [facility] | | | and [place] | + + + | Organization | [facility] | | | and [...] [place] | | | | | [address] | | + + + + + | Jovita Luna | ECON | [address] | | | | | [place] [address] | | + + + + + Care Team Providers + +------+ + | Care Fingerer Name | Role | Phone | + +------+ + | Tomas Benoit MD | PCP | | + +------+ + Reason for Visit + + + | Reason | Comments | + + + | Vaginitis | | + + + Encounter Details +--------+---------+ + + + | Date | Type | Department | Care Team | Description | +--------+---------+ + + + | 12/24/ | Office | [facility] | Tomas Benoit, | Vaginitis (Primary | | 2015 | Visit | [facility] [place] | [address] | Dx); Possible | | | | [address] | [place] | exposure to STD | | | | [place] | [address] | | | | | [address] | | | | | | [phone] | | | +--------+---------+ + + + [...] + + + | Blood Pressure | 120/68 | 12/24/2014 2:20 PM | | | | | PDT | | + + + + + | Pulse | 100 | 12/24/2014 2:20 PM | | | | | PDT | | + + + + + | Temperature | 36.8 C (98.3 F) | 12/24/2014 2:20 PM | | | | | PDT | | + + + + + | Respiratory Rate | 19 | 12/24/2014 2:20 PM | | | | | PDT | | + + + + + | Oxygen Saturation | 98% | 12/24/2014 2:20 PM | room air | | | | PDT | | + + + + + | Inhaled Oxygen | - | - | | | Concentration | | | | + + + + + | Weight | 74.8 kg (164 lb 14.4 | 12/24/2014 2:20 PM | | | | oz) | PDT | | + + + + + | Height | 165.7 cm (5' 5.25") | 12/24/2014 2:20 PM | | | | | PDT | | + + + + + | Body Mass Index | 27.23 | 12/24/2014 2:20 PM | | | | | PDT | | + + + + + documented in this encounter Progress Notes Tomas Benoit MD - 12/24/2014 2:22 PM PDTFormatting of this note might be different fro m the original. Jovita Grey is a 24 y.o. female Chief Complaint: Vaginitis HPI Stated having vaginal itchiness, started 12/15 has been using anti-itchy cream called sophia ruvalcaba and did a home treatment called vagistat 3 Used Rx Diflucan on Tuesday and still not feeling better Has white discharge, denies odor, is worried that her ex gave her something. She did hav e Chlamydia in her . PREVENTIVE CARE/PRIOR VISIT 1. Any recommendations from Health Maintenance: No Preventative Services TOPIC LAST DONE NEXT DUE Influenza Vaccine (Yearly) 04/14/2012 11/23/2014 Cervical Cancer Screening (Pap Every 3 Years 21-65 ) 01/12/2012 01/11/2015 2. Any immunizations necessary: No Immunization History Administered Date(s) Administered HPV, QUADRIVALENT, 3 DOSE (ADOL/ADULT) 12/14/2005, 11/30/2007, 02/13/2008 INFLUENZA, TRIVALENT PRESERVATIVE FREE (PED/ADOL/ADULT) 04/14/2012 MENINGOCOCCAL CONJUGATE,MENACTRA (PED/ADOL/ADULT) 12/11/2008 TDAP, (ADOL/ADULT) 05/26/2005, 06/21/2012 VARICELLA, 2 DOSE (PED/ADOL/ADULT) 01/12/2012 3. Has patient been involved in medical events/hospitalizations since their last visit: No No Known Allergies Medications: Patient Reported Taking Dosage acetaminophen (TYLENOL) 500 mg tablet (Taking) Take 500 mg by mouth every 4 hours as need ed. Number of times this order has been changed since signin Order [facility] [place] albuterol 90 mcg/puff inhaler (Taking) Inhale 2 puffs into the lungs every 4 hours as nee ded for Wheezing or Shortness of Breath. inhale 2 puffs 5-30 minutes prior to exercise Number of times this order has been changed since signin Order [facility] [place] desogestrel-ethinyl estradiol (EMOQUETTE) 0.15-30 MG-MCG per tablet (Taking) 3 tabs per d ay until period stops or significantly lightens. Then decrease to 2 a day for one week, then one a day for a week, then stop. Number of times this order has been changed since signin Order [facility] [place] Vit-Fe Fumarate-FA (PRENATE PLUS) 27-1 MG TABS (Taking) Take 27-1 mg by mouth Da johanny. Number of times this order has been changed since signin Order [facility] [place] sertraline (ZOLOFT) 50 mg tablet (Taking) Take 1 tablet by mouth Daily. Number of times this order has been changed since signin Order [facility] [place] triamcinolone (KENALOG) 0.1% cream (Taking) Apply thin film to affected area(s) two to fo ur times daily as needed: avoid face and groin areas Number of times this order has been changed since signin Order [facility] [place] Past Medical History She has a past medical history of Asthma; Umbilical hernia; Primary amenorrhea; and Sickle cell trait (HCC). Past Surgical History She has past surgical history that includes Tonsillectomy and adenoidectomy (02/13/2008). Family History: Her family history includes Asthma in her brother and maternal grandmother; Elevated lipids in her father; High blood pressure in her father, maternal grandmother, and mother. Social History: History Social History Marital Status: Single Spouse Name: REECE Number of Children: 0 Years of Education: N/A Occupational History [employer] Social History Main Topics Smoking status: Never Smoker Smokeless tobacco: Former User Types: Chew Alcohol Use: No Drug Use: No Sexual Activity: No Other Topics Concern None Social History Narrative Marital Status:single Children: 0 Occupation:Works for [employer] FOB: ELIAS [employer] See HPI Objective: Filed Vitals: 12/24/14 1420 BP: 120/68 Pulse: 100 Temp: 36.8 C (98.3 F) TempSrc: Temporal Resp: 19 Height: 1.657 m (5' 5.25") Weight: 74.798 kg (164 lb 14.4 oz) SpO2: 98% Physical Exam Constitutional: She appears well-developed and well-nourished. No distress. Genitourinary: There is no rash, tenderness or lesion on the right labia. There is no rash, tenderness or lesion on the left labia. Cervix exhibits discharge (scant amount of thick no rmal appearing discharge in the os). Cervix exhibits no motion tenderness and no friability. Right adnexum displays no mass and no tenderness. Left adnexum displays no mass and no tend erness. There is erythema (vginal williamson mildly irritated) in the vagina. No tenderness or bl eeding in the vagina. Vaginal discharge (white, thick) found. Assessment and Plans: 1. Vaginitis - Completed DNA probe for yeast/bacerial vaginitis. Swab also done for STDs. W ill base treatment on results. Tomas Benoit MD documented in this en counter Plan of [...] [place] | | | | | | [address] | | | | | | | | +--------+---------+ + + + + + +--------+ + + | Name | Type | Priori | Associated Diagnoses | Order Schedule | | | | ty | | | + + +--------+ + + | Pap Smear | Pathology | Routin | Possible exposure | Ordered: 12/24/2014 | | | and | e | to STD | | | | Cytology | | | | + + +--------+ + + documented as of this encounter Procedures + +--------+ + + + | Procedure Name | Priori | Date/Time | Associated Diagnosis | Comments | | | ty | | | | + +--------+ + + + | VAGINAL PATHOGENS | STAT | 12/24/2014 | Vaginitis | Results for this | | DNA DIRECT PROBE | | 2:54 PM | | procedure are in the | | | | PDT | | results section. | + +--------+ + + + documented in this encounter Results Vaginal Path DNA dir probe (12/24/2014 2:54 PM PDT) + + + + + + | Component | Value | Ref Range | Performed | Pathologist | | | | | At | Signature | + + + + + + | Davina SP | Negative | Negative | [facility] | | | DNA [facility] | | | [facility] | | | | | | [facility] | | | | | [facility] - | | | | | | [facility]ATORY | | + + + + + + | Gardnerella | Negative | Negative | [facility] | | | vaginalis | | | [facility] | | | DNA | | | MEDICAL | | | | | | CENTER - | | | | | | LABORATORY | | + + + + + + | Trichomonas | Negative | Negative | [facility] | | | Vaginalis | | | [facility] | | | DNA | | | MEDICAL | | | | | | CENTER - | | | | | | LABORATORY | | + + + + + + + + | Specimen | + + | Genital - Specimen | | from vagina | | (specimen) | + + + + + + + | Performing | Address | City/State/Zipcode | Phone Number | | Organization | | | | + + + + + | [facility] | [address] | [place] | [phone] | | [facility] | | [address] | | | - LABORATORY | | | | + + + + + documented in this encounter Visit Diagnoses + + | Diagnosis | + + | Vaginitis - Primary Vaginitis and vulvovaginitis, unspecified | + + | Possible exposure to STD Other specified personal history presenting hazards to | | health | + + documented in this encounter
--- OUTSIDE RECORDS SUMMARY | ~2019-12-21 | XMS | Encounter Summary ---
Demographics + + + | Address | [address] | | | [place] [address] | + + + | Home Phone [...] Author + + + | Author | [facility] | | | and [place] | + + + | Organization | [facility] | | | and [place] | + + + | Address | Unknown | + + + | Phone | Unavailable | + + + Support + + + + + | Name | Relationship | Address | Phone | + + + + + | Zo Dong | ECON | [address] [facility] | | | | | [place] | | | | | [address] | | + + + + + | Jovita Luna | ECON | [address] | | | | | [place] [address] | | + + + + + Care Team Providers + +------+ + | Care Human Development Professor Name | Role | Phone | + +------+ + | Tomas Benoit MD | PCP | | + +------+ + Reason for Visit + +--------+ + | Reason | Onset | Comments | | | Date | | + +--------+ + | Medication Refill | 05/12/ | | | | 2016 | | + +--------+ + Encounter Details +--------+--------+ + + + | Date | Type | Department | Care Team | Description | +--------+--------+ + + + | 05/12/ | Refill | [facility] | Tomas Benoit, | Medication Refill | | 2016 | | [facility] [place] | [address] | | | | | [address] | [place] | | | | | [place] | [address] | | | | | [address] | | | | | | [phone] | | | +--------+--------+ + + + [...] [place] | | | | | | [id number] | | | | | | | | +--------+---------+ + + + documented as of this encounter Visit Diagnoses Not on filedocumented in this encounter"
--- OUTSIDE RECORDS SUMMARY | ~2019-12-21 | XMS | Encounter Summary ---
Demographics + + + | Address | [address] | | | [place] [address] | + + + | Home Phone | | + + + | Preferred Language | Unknown | + + + | Marital Status | Single | + + + | Oriental Orthodox Affiliation | Unknown | + + + | Race | Black or | + + + | Ethnic Group | Not or | + + + Author + + + | Author | [facility] | | | and [place] | + + + | Organization | [facility] | | | and [place] | + + + | Address | Unknown | + + + | Phone | Unavailable | + + + Support + + + + + | Name | Relationship | Address | Phone | + + + + + | Zo Dong | ECON | [address] [facility] | | | | | [place] | | | | | [address] | | + + + + + | Jovita Luna | ECON | [address] | | | | | [place] [address] | | + + + + + Care Team Providers + +------+ + | Care Structural Analysis Engineer Name | Role | Phone | [...] | +--------+ + + + + | 10/17/ | Routine | [facility] | Tomas Benoit, | [place]: [id number] | | 2020 | | [facility] [place] | [address] | | | | | [address] | [place] | | | | | [place] | [address] | | | | | [address] | | | | | | [phone] | | | +--------+ + + + [...] + + + | Blood Pressure | 112/54 | 10/18/2019 10:20 AM | | | | | PDT | | + + + + + | Pulse | 111 | 10/18/2019 10:20 AM | | | | | PDT | | + + + + + | Temperature | 36.6 C (97.9 F) | 10/18/2019 10:20 AM | | | | | PDT | | + + + + + | Respiratory Rate | - | - | | + + + + + | Oxygen Saturation | 99% | 10/18/2019 10:20 AM | | | | | PDT | | + + + + + | Inhaled Oxygen | - | - | | | Concentration | | | | + + + + + | Weight | 97.7 kg (215 lb 6.2 | 10/18/2019 10:20 AM | | | | oz) | PDT | | + + + + + | Height | - | - | | + + + + + | Body Mass Index | 35.84 | 06/12/2019 9:31 AM | | | | | PST | | + + + + + documented in this encounter Progress Notes Tomas Benoit MD - 10/18/2019 10:30 AM PDTFrances is doing well. She had 4 contractions over 2 hours several nights ago and then everything settled down. She reports that she is ti red but otherwise doing well. Tomas Benoit MD 10/18/2019 documented in this en counter Plan of [...] [place] | | | | | | [id number] | | | | | | | | +--------+---------+ + + + documented as of this encounter Visit Diagnoses + + | Diagnosis | + + | Normal in third trimester - Primary | + + documented in this encounter"
--- OUTSIDE RECORDS SUMMARY | ~2019-12-21 | XMS | Encounter Summary ---
Demographics + + + | Address | [address] | | | [place] [address] | + + + | Home Phone [...] Author + + + | Author | [facility] | | | and [place] | + + + | Organization | [facility] | | | and [place] | + + + | Address | Unknown | + + + | Phone | Unavailable | + + + Support + + + + + | Name | Relationship | Address | Phone | + + + + + | Zo Dong | ECON | [address] [facility] | | | | | [place] | | | | | [address] | | + + + + + | Jovita Luna | ECON | [address] | | | | | [place] [address] | | + + + + + Care Team Providers + +------+ + | Care Charhouse Worker Name | Role | Phone | + +------+ + | Tomas Benoit MD | PCP | | + +------+ + Reason for Visit + + + | Reason | Comments | + + + | Annual Exam | | + + + Encounter Details +--------+---------+ + + + | Date | Type | Department | Care Team | Description | +--------+---------+ + + + | 09/14/ | Office | [facility] | Tomas Benoit, | Encounter for annual | | 2018 | Visit | [facility] | [address] | physical exam | | | | [address] | [place] | (Primary Dx); Mild | | | | [place], [place] | [address] | intermittent asthma | | | | [address] | | without | | | | [phone] | | complication; | | | | | | Cervical cancer | | | | | | screening; Bony | | | | | | pelvic pain | +--------+---------+ + + + Social History [...] + + + | Blood Pressure | 100/60 | 09/14/2017 2:47 PM | | | | | PDT | | + + + + + | Pulse | 91 | 09/14/2017 2:47 PM | | | | | PDT | | + + + + + | Temperature | 36.3 C (97.3 F) | 09/14/2017 2:47 PM | | | | | PDT | | + + + + + | Respiratory Rate | 15 | 09/14/2017 2:47 PM | | | | | PDT | | + + + + + | Oxygen Saturation | 97% | 09/14/2017 2:47 PM | | | | | PDT | | + + + + + | Inhaled Oxygen | - | - | | | Concentration | | | | + + + + + | Weight | 91.5 kg (201 lb 11.5 | 09/14/2017 2:47 PM | | | | oz) | PDT | | + + + + + | Height | 165.1 cm (5' 5") | 09/14/2017 2:47 PM | | | | | PDT | | + + + + + | Body Mass Index | 33.57 | 09/14/2017 2:47 PM | | | | | PDT | | + + + + + documented in this encounter Progress Notes Gurpreet Mai, PT - 09/14/2017 2:45 PM PDTIncident To Physical Therapy Treatment Note Date: 09/14/2017 Timed Treatment Codes: 20 minutes Subjective: Jovita presents to primary care provider visit today with complaints of painful popping to her pubic symphysis. The pt states that when she begins specific exercises that her pubic s ymphysis will pop and cause extreme pain and discomfort. The discomfort she experiences will last for a couple days before residing. This popping is not continual with the exercises an d tends to only happen once, but she will normally stop the exercise she is performing so sh e does not have to worry about it occurring again. Reports having back pain years ago that h as resided and not been an issue for her lately. Reports the popping issue to have began aft er child . Objective: PT treatment today consisted of: L/sp AROM: WFL; some pull to right low back with left sidebend. Quadrant Tests: (-); painful for positioning when performing R side quadrant test SIJ Tests: (+) right thigh thrust test; (+) sacral thrust test ASIS positioning: Right innominate bone anterior rotation noted Symptoms consistent with right SIJ dysfunction Patient Education / Self Snf Management: Discussion of symptoms and clinical presentation Discussion, practice and education of MET and HEP. Before MET: right hip flexion 4- After MET: right hip flexion 4+ and symmetrical ASIS positioning Therapeutic Exercise / HEP: Patient instructed in the following activities for home: HEP of: Access Code: [email or web address] URL: [email or web address] Date: 09/14/2017 Prepared by: Mercy Mai PT, DPT Exercises Standing Hip Flexor Stretch - 10 reps - 2-3 sets - 20-40 seconds hold - 2x daily - 7x weekl y Clamshell with Resistance - 10 reps - 2-3 sets - 2x daily - 7x weekly Bridge with Hip Abduction and Resistance - 10 reps - 2-3 sets - 2x daily - 7x weekly Side Stepping with Resistance at Feet - 10 reps - 3 sets - 1x daily - 7x weekly Reverse Band Walks - 10 reps - 3 sets - 1x daily - 7x weekly Backward Monster Walk with Resistance (BKA) - 10 reps - 3 sets - 1x daily - 7x weekly Hooklying Transversus Abdominis Palpation - 10 reps - 2-3 sets - 8-10 seconds hold - 2x dolly ly - 7x weekly Supine Transversus Abdominis Bracing with Leg Extension - 10 reps - 2-3 sets - 2x daily - 7 x weekly Plan: Considerations for follow up: -Continue at home with recommendations from visit and patient provided with information on how to get in contact with physical therapy services Electronically signed by: Gurpreet Mai PT, 09/14/2017 16:59 Patient Name: Jovita Grey/: 07/16/1990/ Tomas Olivas MD - 09/14/2017 2:45 PM PDT Jovita Grey is a 27 y.o. female Chief Complaint: Annual Exam HPI Annual Exam: Patient presents for annual exam. The patient is sexually active. last pap: was normal Patient's last menstrual period was 08/17/2017. control: OCP not really bleeding when menstruating just spotting and brownish is this normal? Breast lumps or tenderness: no Vaginal pain or discharge: no a little cramping Last pap: 2014 History of abnormal Pap: no STD screening: Declines The patient has regular exercise: yes. At least once a week The patient reports that domestic violence in her life is absent. The patient wears seatbelts: yes. Complaints: pelvic area keeps "popping" has tried to do crunches and felt a pop in pelvic a kyra Immunizations: Immunization History Administered Date(s) Administered HPV, QUADRIVALENT, 3 DOSE (ADOL/ADULT) 12/14/2005, 11/30/2007, 02/13/2008 INFLUENZA PF 18 Y OR >,TRIVALENT RECOMBINANT 04/14/2012 MENINGOCOCCAL CONJUGATE,MENACTRA (PED/ADOL/ADULT) 12/11/2008 PNEUMOCOCCAL POLYSACCHARIDE 23-VALENT (PPSV23) 08/02/2016 TDAP, (ADOL/ADULT) 05/26/2005, 06/21/2012 VARICELLA, 2 DOSE (PED/ADOL/ADULT) 01/12/2012 PREVENTIVE CARE/PRIOR VISITS 1. Any recommendations from Health Maintenance: pap due in december Preventative Services TOPIC LAST DONE NEXT DUE Vaccine: Influenza 04/14/2012 12/24/2017 Cervical Cancer Screening (Pap Every 3 Years 21-64 ) 12/24/2014 12/24/2017 Vaccine: Dtap/Tdap/Td 06/21/2012 06/21/2022 Vaccine: Hpv 02/13/2008 Vaccine: Pneumococcal 19-64 (Ppsv23 Only) Medium Risk 08/02/2016 2. Any immunizations necessary: None due Immunization History Administered Date(s) Administered HPV, QUADRIVALENT, 3 DOSE (ADOL/ADULT) 12/14/2005, 11/30/2007, 02/13/2008 INFLUENZA PF 18 Y OR >,TRIVALENT RECOMBINANT 04/14/2012 MENINGOCOCCAL CONJUGATE,MENACTRA (PED/ADOL/ADULT) 12/11/2008 PNEUMOCOCCAL POLYSACCHARIDE 23-VALENT (PPSV23) 08/02/2016 TDAP, (ADOL/ADULT) 05/26/2005, 06/21/2012 VARICELLA, 2 DOSE (PED/ADOL/ADULT) 01/12/2012 No Known Allergies Medications: Patient Reported Taking No current medications. Past Medical History She has a past medical history of Asthma; Primary amenorrhea; Sickle cell trait (HCC); and Umbilical hernia. Past Surgical History She has a past surgical history that includes Tonsillectomy (02/13/2008). Family History: Her family history includes Asthma in her brother and maternal grandmother; Elevated lipids in her father; High blood pressure in her father, maternal grandmother, and mother. Social History: Social History Social History Marital status: Single Spouse name: REECE Number of children: 0 Years of education: N/A Occupational History [employer] Social History Main Topics Smoking status: Never Smoker Smokeless tobacco: Never Used Alcohol use 0.0 oz/week Comment: socially/not very often Drug use: No Sexual activity: Yes Partners: Male control/ protection: Yes Other Topics Concern None Social History Narrative Marital Status:single Children: 0 Occupation:Works for [employer] FOB: [employer] Review of Systems Constitutional: Negative for chills and fever. HENT: Negative for trouble swallowing and voice change. Eyes: Negative for visual disturbance. Respiratory: Positive for shortness of breath (asthma). Negative for chest tightness. Cardiovascular: Negative for chest pain, palpitations and leg swelling. Gastrointestinal: Negative for constipation and diarrhea. Genitourinary: Positive for pelvic pain (feels pelvic area pop). Negative for dysuria, freq uency, urgency and vaginal pain. Musculoskeletal: Positive for back pain (lower back pain). Negative for neck pain. Neurological: Negative for dizziness, syncope and light-headedness. Objective: Vitals: 09/14/17 1447 BP: 100/60 Pulse: 91 Resp: 15 Temp: 36.3 C (97.3 F) TempSrc: Tympanic SpO2: 97% Weight: 91.5 kg (201 lb 11.5 oz) Height: 1.651 m (5' 5") Physical Exam Constitutional: She is oriented to person, place, and time. She appears well-developed and well-nourished. No distress. HENT: Head: Normocephalic and atraumatic. Right Ear: Tympanic membrane, external ear and ear canal normal. Left Ear: Tympanic membrane, external ear and ear canal normal. Nose: Nose normal. Mouth/Throat: Uvula is midline, oropharynx is clear and moist and mucous membranes are norm al. Eyes: Conjunctivae are normal. Right eye exhibits no discharge. Left eye exhibits no discha rge. Neck: Trachea normal. Neck supple. No JVD present. Cardiovascular: Normal rate, regular rhythm and normal heart sounds. No murmur heard. Pulmonary/Chest: Effort normal and breath sounds normal. No respiratory distress. She has n o wheezes. She has no rales. Right breast exhibits no inverted nipple, no mass, no nipple di scharge, no skin change and no tenderness. Left breast exhibits no inverted nipple, no mass, no nipple discharge, no skin change and no tenderness. Abdominal: Soft. Normal appearance and bowel sounds are normal. There is no hepatomegaly. T here is no tenderness. Lymphadenopathy: She has no cervical adenopathy. Neurological: She is alert and oriented to person, place, and time. Skin: Skin is warm and dry. She is not diaphoretic. Psychiatric: She has a normal mood and affect. Her behavior is normal. Nursing note and vitals reviewed. Assessment and Plans: 1. Encounter for annual physical exam Healthy habits discussed , including regular breast exams, proper calcium intake, exercise . Reviewed need for age appropriate screening examinations such as routine pap smears and sc reening laboratories. As above pap smear obtained today with requested STD testing completed . 2. Bony pelvic pain - Physical therapy treatment room consult to educate in self care, inst ruct in therapeutic exercises, and use of manual therapy as indicated. Use of modalities for pain and swelling reduction when appropriate. Educated patient regarding pelvic ring/pubic bone, there is a joint in there and that is what is popping. Will have physical therapist come in and chat with patient. 3. Mild intermittent asthma without complication Asthma doing well. Uses inhaler for exercise as needed. No medication changes today. RTC in 1 year for annual exam Keya Uriostegui am acting as a scribe on behalf of, and in the presence of Tomas Benoit MD. Clarice CABRERA I, Dr. Tomas Benoit, personally performed the services described in this documentation, as scribed in my presence and it is both accurate and complete. Tomas Benoit MD 09/14/17 documented in this e ncounter Plan of Treatment +--------+---------+ + + + | Date | Type | Specialty | Care Team | Description | +--------+---------+ + + + | 01/30/ | Office | Family Medicine | Tomas Benoit, | | | 2019 | Visit | | MD Joy [facility]NEY | | | | | | [place] | | | | | | [address] | | | | | | | | +--------+---------+ + + + documented as of this encounter Procedures + +--------+ + + + | Procedure Name | Priori | Date/Time | Associated Diagnosis | Comments | | | ty | | | | + +--------+ + + + | PAP SMEAR | Routin | 09/14/2017 | Cervical cancer | Results for this | | | e | 12:00 AM | screening | procedure are in the | | | | PDT | | results section. | + +--------+ + + + documented in this encounter Results Pap Smear (09/14/2017 12:00 AM PDT) + + | Specimen | + + | Tissue - Female | | genital tract | | structure (body | | structure) | + + + + + | Narrative | Performed At | + + + | ORDERING PHYSICIAN: Tomas Benoit MD PATIENT NAME: | [facility] | | JOVITA GREY GENDER: F : 1990 Prior | [facility] | | History: DATE CASE NUM ADEQUACY DIAGNOSIS | | | HPV RESULTS PHYSICIAN 12/24/14 [id number] Satisfactory NIL | | | Tomas Benoit MD 03/23/[address] [id number] | | | Satisfactory NIL Tmoas Landonon MD 01/13/12 | | | [id number] Satisfactory MASOUD Benoit MD | | | The 5 most recent reports are included. This history does not | | | include results of pap smears performed at another laboratory. | | | SPECIMEN(S): Cervical/ Endocervical CLINICAL HISTORY: Routine Pap | | | Smear, LMP 08/17/2017 CYTOLOGIC INTERPRETATION: Negative for | | | intraepithelial lesion or malignancy. MOLECULAR PATHOLOGY RESULTS: | | | Neisseria gonorrhea Negative Chlamydia trachomatis Negative | | | TECHNICAL NOTES: To improve disease detection, this slide is | | | screened using automated intelligence technology. This specimen was | | | received in a vial of liquid-based fixative and was processed using | | | thin layer Pap technology. SPECIMEN ADEQUACY: Satisfactory for | | | evaluation. Endocervical and/or metaplastic cells present. | | | ADDITIONAL NOTES: The Pap smear is a screening test designed to aid | | | in the detection of premalignant and malignant conditions of the | | | uterine cervix. It is not a diagnostic procedure and should not be | | | used as the sole means of detecting cervical cancer. Both | | | false-positive and false-negative reports do occur. This document | | | contains private and confidential health information by state and | | | federal law. If you have received in error, please call | | | [phone]. ADDITIONAL NOTES.: The Aptima Combo 2 assay is a | | | FDA approved target amplification nucleic acid probe test that | | | utilizes target capture for the in vitro qualitative detection and | | | differentiation of ribosomal RNA (rRNA) from Chlamydia trachomatis | | | (CT) and/or Neisseria gonorrhoeae (GC) organisms in ThinPrep | | | PreservCyt Pap Collection Fluid to aid in the diagnosis of chlamydial | | | and/or gonococcal urogenital disease using the PANTHER System. | | | Specimens collected in SurePath Pap Collection Fluid, UniSwab media, | | | or IncyteSwab media have not been approved by the FDA for the Aptima | | | Combo 2 assay but performance characteristics have been validated at | | | [facility], [address] [place] [address]. | | | [facility] is certified under CLIA as qualified to perform | | | high-complexity clinical laboratory testing. This test is used for | | | clinical purposes. It should not be regarded as investigational or | | | for research. The Aptima Combo 2 assay is a FDA approved target | | | amplification nucleic acid probe test that utilizes target capture for | | | the in vitro qualitative detection and differentiation of ribosomal | | | RNA (rRNA) from Chlamydia trachomatis (CT) and/or Neisseria | | | gonorrhoeae (GC) organisms in ThinPrep PreservCyt Pap Collection Fluid | | | to aid in the diagnosis of chlamydial and/or gonococcal urogenital | | | disease using the PANTHER System. Specimens collected in SurePath | | | Pap Collection Fluid, UniSwab media, or IncyteSwab media have not | | | been approved by the FDA for the Aptima Combo 2 assay but performance | | | characteristics have been validated at [facility], [address] | | | [place] [address]. [facility] is | | | certified under CLIA as qualified to perform high-complexity clinical | | | laboratory testing. This test is used for clinical purposes. It | | | should not be regarded as investigational or for research. | | | PERFORMING LABORATORY: Technical preparation was performed by [facility] | | | [employer], [address] [place] [address] | | | (Dry Wall Nailer: Randell Mack D.O.; IA#: [id number]). | | | Diagnostician: Gorge RODRÍGUEZ ([facility]) [employer]ard [employer] | | | Electronically Signed 09/16/2017 | | + + + + +---------+ + + | Performing | Address | City/State/Zipcode | Phone Number | | Organization | | | | + +---------+ + + | [facility] | | | | | [facility] | | | | + +---------+ + + documented in this encounter Visit Diagnoses + + | Diagnosis | + + | Encounter for annual physical exam - Primary | + + | Mild intermittent asthma without complication Unspecified asthma | + + | Cervical cancer screening Screening for malignant neoplasm of the cervix | + + | Bony pelvic pain | + + documented in this encounter
--- OUTSIDE RECORDS SUMMARY | ~2019-12-21 | XMS | Encounter Summary ---
Demographics + + + | Address | [address] | | | [place] [address] | + + + | Home Phone | | + + + | Preferred Language | Unknown | + + + | Marital Status | Single | + + + | Anabaptism Affiliation | Unknown | + + + | Race | Black or | + + + | Ethnic Group | Not or | + + + Author + + + | Author | [facility] | | | and [place] | + + + | Organization | [facility] | | | and [...] [place] | | | | | [address] | | + + + + + | Jovita Luna | ECON | [address] | | | | | [place] [address] | | + + + + + Care Team Providers + +------+ + | Care Plumbing Manager Name | Role | Phone | + +------+ + | Tomas Benoit MD | PCP | | + +------+ + Reason for Visit +---------+--------+ + | Reason | Onset | Comments | | | Date | | +---------+--------+ + | Results | 05/10/ | | | | 2020 | | +---------+--------+ + Encounter Details +--------+ + + + + | Date | Type | Department | Care Team | Description | +--------+ + + + + | 05/10/ | Telephone | [facility] | Tomas Benoit, | Results | | 2019 | | [facility] [place] [facility] | [address] | | | | | [facility] [place] | [place] | | | | | [address] | [address] | | | | | [place] [place], | | | | | [place] [address] | | | | | | [phone] | | | +--------+ + + + [...] this encounter Miscellaneous Notes Telephone Encounter - Carly Mares RN - 05/11/2019 9:24 AM PSTPatient notifiedElec tronically signed by Carly Mares RN at 05/11/2019 9:25 AM PSTTelephone Encounter - Tomas Benoit MD - 05/10/2019 5:58 PM PSTNo limit needed unless she were to actually dev elop vaginal bleeding. She would want to call me if that occurs. I do NOT expect that to hap pen. I encourage her to stay active. elephone Encounter - Rebeca Guillen CMA - 05/10/2019 5:47 PM PSTCalled pat ient relaying information in detail. She verbalized understanding and wonders if she needs t o limit her activity. She currently is doing [employer], a cardiovascular class, and a training work out video that is like P90x, but easier. She works out for 1 hour 5 days per week. Informed her I would check with Dr. Benoit to make sure this is fine. For now, encourage her to keep her normal routine. Restricting activities if she experience s pain, cramping, or anything unusual. elephone Encounter - Tomas Benoit MD - 05/10/2019 5:30 PM PSTPatient had her first trimester ultrasound. T he ultrasound shows that there is a few days discrepancy between her last menstrual period d ating and the ultrasound dating. We will decide on a final due date at her next visit but i t still within a week of when we think it is. Please also let her know that there is a small arline-gestational bleed. As the egg and the sperm combined to create the fetus it floats down the fallopian tube and then implants into the thick menstrual material. This then is the site that becomes the placenta. That menstr ual tissue of course is made out of blood and a large amount of blood vessels have to form b etween the placenta and the growing fetus. Sometimes there is a little leaking of blood dhruv und this area. We call this a arline-gestational hemorrhage. Hers is very small and should n ot cause any problems. She will see that it is mentioned on her ultrasound report.Noam yañez signed by Tomas Benoit MD at 05/10/2019 5:32 PM PSTdocumented in this encounter Plan of [...]
--- OUTSIDE RECORDS SUMMARY | ~2019-12-21 | XMS | Encounter Summary ---
Demographics + + + | Address | [address] | | | [place] [address] | + + + | Home Phone | | + + + | Preferred Language | Unknown | + + + | Marital Status | Single | + + + | Druze Affiliation | Unknown | + + + | Race | Black or | + + + | Ethnic Group | Not or | + + + Author + + + | Author | [facility] | | | and [place] | + + + | Organization | [facility] | | | and [place] | + + + | Address | Unknown | + + + | Phone | Unavailable | + + + Support + + + + + | Name | Relationship | Address | Phone | + + + + + | Zo Dong | ECON | [address] [facility] | | | | | [place] | | | | | [address] | | + + + + + | Jovita Luna | ECON | [address] | | | | | [place] [address] | | + + + + + Care Team Providers + +------+ + | Care Trade Union Secretary Name | Role | Phone | + +------+ + | Tomas Benoit MD | PCP | | + +------+ + Reason for Visit +---------+--------+ + | Reason | Onset | Comments | | | Date | | +---------+--------+ + | Results | 06/01/ | | | | 2012 | | +---------+--------+ + Encounter Details +--------+ + + + + | Date | Type | Department | Care Team | Description | +--------+ + + + + | 06/01/ | Telephone | [facility] | Tomas Benoit, | Results | | 2012 | | [facility] [place] | [address] | | | | | [address] | [place] | | | | | [place] | [address] | | | | | [address] | | | | | | [phone] | | | +--------+ + + + [...] this encounter Miscellaneous Notes Telephone Encounter - Randal Leung - 06/01/2012 2:08 PM PSTCalled patient and notified . elephone Encounter - Tomas Abad MD - 06/01/2012 1:53 PM PSTPlease let Jovita know that her blood work was n ormal. No signs of diabetes. No anemia.Electronically signed by Tomas Benoit MD at 2012 1:53 PM PSTdocumented in this encounter Plan of [...]
--- OUTSIDE RECORDS SUMMARY | ~2019-12-21 | XMS | Encounter Summary ---
Demographics + + + | Address | [address] | | | [place] [address] | + + + | Home Phone [...] [facility] | | | | | [place], [place] | | | | | [address] | | + + + + + | Jovita Luna | ECON | [address] [facility] | | | | | [place] [address] | | + + + + + Care Team Providers + +------+ + | Care Call Center Trainer Name | Role | Phone | + +------+ + PCP | Unavailable | + +------+ + Encounter Details +--------+ + + + + | Date | Type | Department | Care Team | Description | +--------+ + + + + | 09/27/ | Hospital | [facility] | [place], | | | 2002 | Encounter | MED CTR GENERIC OP | Sudhir Quach MD [address] | | | | | CONV DEPT [address] | [facility] | | | | | [place], | [place] [address] | | | | | [place] [address] | [phone] | | | | | [phone] | | | +--------+ + + + [...]
--- OUTSIDE RECORDS SUMMARY | ~2019-12-21 | XMS | Encounter Summary ---
Demographics + + + | Address | [address] | | | [place] [address] | + + + | Home Phone [...] + | Author | [facility] | | | and [place] | + + + | Organization | [facility] | | | [...] [place] | | | | | [address] | | + + + + + | Jovita Luna | ECON | [address] | | | | | [place] [address] | | + + + + + Care Team Providers + +------+ + | Care Stone Spreader Operator Name | Role | Phone | + +------+ + | Tomas Benoit MD | PCP | | + +------+ + Reason for Visit + +--------+ + | Reason | Onset | Comments | | | Date | | + +--------+ + | Dysmenorrhea | 02/05/ | | | | 2013 | | + +--------+ + | Menorrhagia | 02/05/ | | | | 2013 | | + +--------+ + | Miscarriage | 02/05/ | | | | 2013 | | + +--------+ + Encounter Details +--------+ + + + + | Date | Type | Department | Care Team | Description | +--------+ + + + + | 02/05/ | Telephone | [facility] | Tomas Benoit, | Dysmenorrhea; | | 2013 | | MEDICINE [place] | [address] | Menorrhagia; | | | | [address] | [place] | Miscarriage | | | | [place], [place] | [address] | | | | | [address] | | | | | | [phone] | | | +--------+ + + + [...] this encounter Miscellaneous Notes Telephone Encounter - Melba Wolf - 02/05/2014 2:[address] to see Dr. Benoit tomorrow at 1400. Melba Wolf elephone Encounter - Tomas Abad MD - 02/05/2014 10:59 AM PDTShe needs an appt with me or Mel. elephone Encounter - Sejal Jay RN - 02/05/2014 10:41 AM PDTPhone call from patient. States that for the past 4 months, she has been having abnormal periods. State they are hea vier, and longer lasting periods, with stronger cramping. Uses a tampon and pad together and has to change them every 1 to 1 1/2 hours. Periods last about 8-9 days. Taking control pills, Emoquette. Has been on this for about 4 months. Has a 18 month baby. Miscarried about 5 months ago but did not see anyone after the miscarriage. Also getting headaches that are so bad she can't move her neck or stand up. Gets these dur ing her period, starting about 3 months ago. Treating them with regular tylenol, but it doesn't work well. LMP 02/08 She is at [phone] documented in thi s encounter Plan of [...]
--- OUTSIDE RECORDS SUMMARY | ~2019-12-21 | XMS | Encounter Summary ---
Demographics + + + | Address | [address] | | | [place] [address] | + + + | Home Phone | | + + + | Preferred Language | Unknown | + + + | Marital Status | Single | + + + | Pentecostalism Affiliation | Unknown | + + + | Race | Black or | + + + | Ethnic Group | Not or | + + + Author + + + | Author | [facility] | | | and [place] | + + + | Organization | [facility] | | | and [place] | + + + | Address | Unknown | + + + | Phone | Unavailable | + + + Support + + + + + | Name | Relationship | Address | Phone | + + + + + | Zo Dong | ECON | [address] [facility] | | | | | [place] | | | | | [address] | | + + + + + | Jovita Luna | ECON | [address] | | | | | [place] [address] | | + + + + + Care Team Providers + +------+ + | Care Trademark Paralegal Name | Role | Phone | + +------+ + | Tomas Benoit MD | PCP | | + +------+ + Reason for Visit + +--------+ + | Reason | Onset | Comments | | | Date | | + +--------+ + | Vaginal Itching | 11/04/ | | | | 2016 | | + +--------+ + Encounter Details +--------+ + + + + | Date | Type | Department | Care Team | Description | +--------+ + + + + | 11/04/ | Telephone | [facility] | Tomas Benoit, | Vaginal Itching | | 2016 | | MEDICINE [place] | [address] | | | | | [address] | [place] | | | | | [place] | [address] | | | | | [address] | | | | | | [phone] | | | +--------+ + + + [...] Telephone Encounter - Darline Jay RN - 11/04/2016 3:52 PM PDTCalled patient with message from Dr Benoit. She states she works until 6:30 pm, so will go to Urgent Care in [place]. elephone Encount er - Darline Jay RN - 11/04/2016 10:53 AM PDTTried to call patient. Left voic[facility]. elephone Encount er - Tomas Benoit MD - 11/04/2016 10:48 AM PDTSound like she would benefit from a vagina l exam. If no availability in my schedule, this would be perfect for [facility]. Electroni otilio signed by Tomas eBnoit MD at 11/04/2016 10:50 AM PDTTelephone Encounter - Darline Jay RN - 11/04/2016 10:08 AM PDTPhone call from patient. Thinks she has a Vaginal yeast infection. Has burning and itching, only on the inside of her vagina, especially when she moves. Symp toms started on Tuesday. States it does also "smell sour-zelalem", but is not sure if that is from the medication. Edgard es a change in the discharge. Has been using OTC Monistat since Tuesday night. States it isn't helping and it makes the i tching and burning much worse. Told her we will check with Dr Benoit to see what she would recommend for her. Uses [facility] [place]. She is at [phone] documented in thi s encounter Plan of Treatment +--------+---------+ + + + | Date | Type | Specialty | Care Team | Description | +--------+---------+ + + + | 01/30/ | Office | Family Medicine | Tomas Benoit, | | | 2019 | Visit | | MD Joy [facility] | | | | | | [place] | | | | | | [id number] | | | | | | | | +--------+---------+ + + + documented as of this encounter Visit Diagnoses Not on filedocumented in this encounter
--- OUTSIDE RECORDS SUMMARY | ~2019-12-21 | XMS | Encounter Summary ---
Demographics + + + | Address | [address] | | | [place] [address] | + + + | Home Phone | | + + + | Preferred Language | Unknown | + + + | Marital Status | Single | + + + | Taoist Affiliation | Unknown | + + + | Race | Black or | + + + | Ethnic Group | Not or | + + + Author + + + | Author | [facility] | | | and [place] | + + + | Organization | [facility] | | | and [place] | + + + | Address | Unknown | + + + | Phone | Unavailable | + + + Support + + + + + | Name | Relationship | Address | Phone | + + + + + | Zo Dong | ECON | [address] [facility] | | | | | [place] | | | | | [address] | | + + + + + | Jovita Luna | ECON | [address] | | | | | [place] [address] | | + + + + + Care Team Providers + +------+ + | Care Guest Services Name | Role | Phone | + +------+ + | Tomas Benoit MD | PCP | | + +------+ + Reason for Visit + +--------+ + | Reason | Onset | Comments | | | Date | | + +--------+ + | Vaginal Discharge | 08/20/ | | | | 2019 | | + +--------+ + Encounter Details +--------+ + + + + | Date | Type | Department | Care Team | Description | +--------+ + + + + | 08/20/ | Telephone | [facility] | Tomas Benoit, | Vaginal Discharge | | 2019 | | MEDICINE [place] | [address] | | | | | [address] | [place] | | | | | [place] | [address] | | | | | [address] | | | | | | [phone] | | | +--------+ + + + [...] this encounter Miscellaneous Notes Telephone Encounter - Erika Harrison RN - 08/21/2019 9:42 AM PDTCalled patient avery d relayed Dr Benoit's message. She agrees to come in for an appointment. Scheduled for in office visit with Dr Benoit this afternoon. elephone Encounter - Tomas Benoit MD - 9:17 AM PDTPlegeovanni offer Virgil an appointment here in the office. I am happy to do a vaginal swab if she would like. The large mucousy green discharge most commonly is rel ated to bacteria. Sometimes once that comes out the vagina will stabilize and she will has less symptoms. Other times she will continue to have episodes of discharge with the mucus a nd this would be a sign that we would need to treat for probable bacterial vaginosis.Electro nically signed by Tomas Benoit MD at 08/21/2019 9:18 AM PDTTelephone Encounter - Anya Alford RN - 08/21/2019 8:35 AM PDTPatient calls in and reports some concerning vagina l discharge. Patient thought she might have a yeast infection and started using OTC Monistat 7. Last night was day 5. This morning when she wiped she saw all of the monistat cream come out with wiping and also a large amount of green mucous. Patient describes it as what you w ould get when you blow your nose and you have a sinus infection. There was some "yeasty" odor to it before she started the treatment. No odor noted today. S he denies any back or lower abdominal pain. No fever. Baby is doing great. Lots of movements. documented in this encounter Plan of Treatment +--------+---------+ + + + | Date | Type | Specialty | Care Team | Description | +--------+---------+ + + + | 01/30/ | Office | Family Medicine | Tomas Benoit, | | 2019 | Visit | | MD Joy [address] | | | | | | [place] | | | | | | [id number] | | | | | | | | +--------+---------+ + + + documented as of this encounter Visit Diagnoses Not on filedocumented in this encounter
--- OUTSIDE RECORDS SUMMARY | ~2019-12-21 | XMS | Encounter Summary ---
Demographics + + + | Address | [address] | | | [place] [address] | + + + | Home Phone | | + + + | Preferred Language | Unknown | + + + | Marital Status | Single | + + + | Restorationism Affiliation | Unknown | + + + | Race | Black or | + + + | Ethnic Group | Not or | + + + Author + + + | Author | [facility] | | | and [place] | + + + | Organization | [facility] | | | and [place] | + + + | Address | Unknown | + + + | Phone | Unavailable | + + + Support + + + + + | Name | Relationship | Address | Phone | + + + + + | Zo Dong | ECON | [address] [facility] | | | | | [place] | | | | | [address] | | + + + + + | Jovita Luna | ECON | [address] | | | | | [place] [address] | | + + + + + Care Team Providers + +------+ + | Care Life Sciences Teacher Name | Role | Phone | + +------+ + | Tomas Benoit MD | PCP | | + +------+ + Encounter Details +--------+ + + + + | Date | Type | Department | Care Team | Description | +--------+ + + + + | 07/16/ | Hospital | [facility] | Tomas Benoit, | Normal in | | 2020 | Encounter | [facility] | [address] | second trimester | | | | [address] [place] | [place], [place] | | | | | [place], [place] | [address] | | | | | [address] | | | | | | [phone] | | | +--------+ + + + [...] + + documented as of this encounter Medications at Time of Discharge + + + +---------+ + + | Medication | Sig | Dispensed | Refills | Start | End Date | | | | | | Date | | + + + +---------+ + + | acetaminophen | Take 500 mg by mouth | | 0 | | | | (TYLENOL) 500 mg | every 4 hours as | | | | | | tablet | needed. | | | | | + + + +---------+ + + | acyclovir | take 1 tablet by | 15 | 3 | //20 | | | (ZOVIRAX) 400 MG | mouth three times a | tablet | | 18 | | | tablet | day | | | | | + + + +---------+ + + | albuterol 90 | Inhale 2 puffs into | 1 | 3 | //20 | | | mcg/puff | the lungs every 4 | Inhaler | | 19 | | | inhalerIndications: | hours as needed for | | | | | | Asthma, exercise | Wheezing or | | | | | | induced | Shortness of Breath. | | | | | | | inhale 2 puffs 5-30 | | | | | | | minutes prior to | | | | | | | exercise | | | | | + + + +---------+ + + | docusate sodium | Take 100 mg by mouth | | 0 | | | | (COLACE) 100 mg | 2 times daily. | | | | | | capsule | Takes three daily | | | | | + + + +---------+ + + | ergocalciferol | Take 4,000 Units by | | 0 | | | | (VITAMIN D2) 50 mcg | mouth Daily. Take | | | | | | (2,000 units) tablet | two capsules daily | | | | | + + + +---------+ + + | 27-0.8 mg | Take 1 tablet by | | 0 | | | | multivitamin tablet | mouth Daily. | | | | | + + + +---------+ + + documented as of this encounter [...] [place] | | | | | | [address] | | | | | | | | +--------+---------+ + + + documented as of this encounter Procedures + +--------+ + + + | Procedure Name | Priori | Date/Time | Associated Diagnosis | Comments | | | ty | | | | + +--------+ + + + | US OB 14 + WEEKS | Routin | 07/17/2019 | Normal | Results for this | | SINGLE OR FIRST | e | 1:05 PM | in second trimester | procedure are in the | | GESTATION | | PDT | | results section. | + +--------+ + + + documented in this encounter Results US OB 14 + Week Singl or First Gestation (07/17/2019 1:05 PM PDT) + + | Specimen | + + | | + + + + + | Impressions | Performed At | + + + | 1. SINGLE, LIVING INTRAUTERINE FETUS IN VARIABLE LIE, WITH | [facility] | | AVERAGE SONOGRAPHIC AGE 18 WEEKS 3 DAYS, WHICH IS 6 DAYS LESS THAN | | | THE EXPECTED GESTATIONAL AGE BASED ON LMP. 2. NORMAL | | | ANATOMIC SURVEY. Dictated and Signed by: Saul Casas MD | | | Electronically signed: 07/17/2019 2:34 PM | | + + + + + + | Narrative | Performed At | + + + | COMPLETE OBSTETRIC ULTRASOUND 07/17/2019 11:59 AM CLINICAL | [facility] | | HISTORY: anatomy screening, approximately 19 weeks 2 days | | | based on LMP COMPARISON: ULTRASOUND MAY 10 FINDINGS: A | | | single intrauterine fetus is present, and is in variable lie. The | | | maternal cervix is closed and measures 4.1 cm. The placenta is | | | anterior, without evidence of placenta previa or subchorionic | | | hemorrhage. Amniotic fluid volume is subjectively within normal | | | limits. biometric data: BPD of 4.2 cm equals 18 weeks 6 | | | days. Head circumference of 15.3 cm equals 18 weeks 3 days. | | | Abdominal circumference of 12 cm equals 17 weeks 5 days. Femur length | | | of 2.7 cm equals 18 weeks 2 days. Average sonographic age is 18 | | | weeks 3 days, which is 6 days less in the expected gestational age, | | | similar to previous ultrasound. anatomic survey: Contents of | | | the posterior fossa and the lateral ventricles are unremarkable. | | | A four-chamber heart is present, with a regular rate of 146 BPM. | | | Cardiac ventricular outflow tracts are normal in orientation. A | | | fluid filled stomach and bladder are present. The spine, | | | renal region and three-vessel umbilical cord and its insertion are | | | unremarkable. Two upper and lower extremities are visualized. | | | | | + + + + + | Procedure Note | + + | [place], Rad Results In - 07/17/2019 2:37 PM PDT COMPLETE OBSTETRIC ULTRASOUND | | 07/17/2019 11:59 AMCLINICAL HISTORY: anatomy screening, approximately 19 weeks 2 days | | based on LMPCOMPARISON: ULTRASOUND MAY 10FINDINGS: A single intrauterine | | fetus is present, and is in variable lie. Thematernal cervix is closed and measures 4.1 | | cm. The placenta is anterior,without evidence of placenta previa or subchorionic | | hemorrhage. Amniotic fluidvolume is subjectively within normal limits. biometric | | data:BPD of 4.2 cm equals 18 weeks 6 days.Head circumference of 15.3 cm equals 18 weeks | | 3 days.Abdominal circumference of 12 cm equals 17 weeks 5 days.Femur length of 2.7 cm | | equals 18 weeks 2 days.Average sonographic age is 18 weeks 3 days, which is 6 days less | | in the expectedgestational age, similar to previous ultrasound. anatomic survey: | | Contents of the posterior fossa and the lateralventricles are unremarkable. A | | four-chamber heart is present, with a regularrate of 146 BPM. Cardiac ventricular | | outflow tracts are normal in orientation. A fluid filled stomach and bladder are | | present. The spine, renalregion and three-vessel umbilical cord and its | | insertion are unremarkable. Two upper and lower extremities are visualized. | | IMPRESSION: 1. SINGLE, LIVING INTRAUTERINE FETUS IN VARIABLE LIE, WITH AVERAGE | | SONOGRAPHICAGE 18 WEEKS 3 DAYS, WHICH IS 6 DAYS LESS THAN THE EXPECTED GESTATIONAL | | AGEBASED ON LMP. 2. NORMAL ANATOMIC SURVEY.Dictated and Signed by: Saul Casas, | | Electronically signed: 07/17/2019 2:34 PM | |gestational age, similar to previous ultrasound. | | | | anatomic survey: Contents of the posterior fossa and the lateral | |ventricles are unremarkable. A four-chamber heart is present, with a regular | |rate of 146 BPM. Cardiac ventricular outflow tracts are normal in orientation. | | A fluid filled stomach and bladder are present. The spine, renal | |region and three-vessel umbilical cord and its insertion are unremarkable. | |Two upper and lower extremities are visualized. | | | |IMPRESSION: | |1. SINGLE, LIVING INTRAUTERINE FETUS IN VARIABLE LIE, WITH AVERAGE SONOGRAPHIC | |AGE 18 WEEKS 3 DAYS, WHICH IS 6 DAYS LESS THAN THE EXPECTED GESTATIONAL AGE | |BASED ON LMP. | | | |2. NORMAL ANATOMIC SURVEY. | | | |Dictated and Signed by: Saul Casas MD | | Electronically signed: 07/17/2019 2:34 PM | + + + +---------+ + + | Performing | Address | City/State/Zipcode | Phone Number | | Organization | | | | + +---------+ + + | [facility] | | | | + +---------+ + + documented in this encounter Visit Diagnoses + + | Diagnosis | + + | Normal in second trimester | + + documented in this encounter"
--- OUTSIDE RECORDS SUMMARY | ~2019-12-21 | XMS | Encounter Summary ---
Demographics + + + | Address | [address] | | | [place] [address] | + + + | Home Phone [...] | ECON | [address] [facility] | | | | | [place] | | | | | [address] | | + + + + + | Jovita Luna | ECON | [address] | | | | | [place] [address] | | + + + + + [...] + + + + | 02/06/ | Hospital | [facility] | Tomas Benoit, | Irregular periods | | 2013 | Encounter | [facility] | MD [address] | | | | | [address] | [place] | | | | | [place] | [address] | | | | | [address] | | | | | | [phone] | | | +--------+ + + + [...] + + + +---------+ + + | Albuterol Sulfate | AERS 2 puffs every | | 0 | 01/07/20 | | | (PROVENTIL HFA IN) | 4-6 hours as needed | | | 12 | 5 | + + + +---------+ + + | | 3 tabs per day until | 90 | 1 | 02/07/20 | | | desogestrel-ethinyl | period stops or | tablet | | 14 | 4 | | estradiol | significantly | | | | | | (EMOQUETTE) 0.15-30 | lightens. Then | | | | | | MG-MCG per tablet | decrease to 2 a day | | | | | | | for one week and | | | | | | | then one a day for a | | | | | | | week and then stop. | | | | | + + + +---------+ + + | Vit-Fe | Take 27-1 mg by | | 0 | 12/07/19 | | | Fumarate-FA (PRENATE | mouth Daily. | | | 12 | 6 | | PLUS) 27-1 MG TABS | | | | | | + + + +---------+ + + | triamcinolone | Apply thin film to | 30 g | 0 | 11/02/19 | | | (KENALOG) 0.1% cream | affected area(s) two | | | 13 | 6 | | | to four times daily | | | | | | | as needed: avoid | | | | | | | face and groin areas | | | | | + + [...] [place] | | | | | | [id number] | | | | | | | | +--------+---------+ + + + documented as of this encounter Procedures + +--------+ + + + | Procedure Name | Priori | Date/Time | Associated Diagnosis | Comments | | | ty | | | | + +--------+ + + + | CBC WITH | Routin | 02/06/2014 | Irregular periods | Results for this | | DIFFERENTIAL | e | 2:38 PM | | procedure are in the | | | | PDT | | results section. | + +--------+ + + + | HCG, SERUM, QUANT | Routin | 02/06/2014 | Irregular periods | Results for this | | | e | 2:38 PM | | procedure are in the | | | | PDT | | results section. | + +--------+ + + + | TSH | Routin | 02/06/2014 | Irregular periods | Results for this | | | e | 2:38 PM | | procedure are in the | | | | PDT | | results section. | + +--------+ + + + documented in this encounter Results HCG, Serum, Quant (02/06/2014 2:38 PM PDT) + +-------+ + + + | Component | Value | Ref Range | Performed | Pathologist | | | | | At | Signature | + +-------+ + + + | hCG Quant, | <1 | 0 - 5 mIU/mL | [facility] | | | Serum | | | [facility] | | | | | | MEDICAL | | | | | | CENTER - | | | | | | LABORATORY | | + +-------+ + + + + + | Specimen | + + | Blood | + + + + + + + | Performing | Address | City/State/Zipcode | Phone Number | | Organization | | | | + + + + + | [facility] | [address] | [place] | [phone] | | [facility] | | [address] | | | - LABORATORY | | | | + + + + + | [facility] | [address] | [place] | | | [facility] | | [address] | | | - LABORATORY | | | | + + + + + CBC with Differential (02/06/2014 2:38 PM PDT) + + + + + + | Component | Value | Ref Range | Performed | Pathologist | | | | | At | Signature | + + + + + + | White Blood | 7.1 | 4.0 - 11.0 K/uL | [facility] | | | Cells | | | [facility] | | | | | | MEDICAL | | | | | | CENTER - | | | | | | LABORATORY | | + + + + + + | Red Blood | 4.78 | 3.70 - 5.20 | [facility] | | | Cells | | M/uL | [facility] | | | | | | MEDICAL | | | | | | CENTER - | | | | | | LABORATORY | | + + + + + + | Hemoglobin | 13.2 | 11.5 - 16.0 | [facility] | | | | | g/dL | [facility] | | | | | | MEDICAL | | | | | | CENTER - | | | | | | LABORATORY | | + + + + + + | Hematocrit | 39.8 | 34.0 - 47.0 % | [facility] | | | | | | [facility] | | | | | | MEDICAL | | | | | | CENTER - | | | | | | LABORATORY | | + + + + + + | MCV | 83.2 | 83.0 - 101.0 fL | [facility] | | | | | | [facility] | | | | | | MEDICAL | | | | | | CENTER - | | | | | | LABORATORY | | + + + + + + | MCH | 27.6 (L) | 28.0 - 35.0 pg | [facility] | | | | | | [facility] | | | | | | MEDICAL | | | | | | CENTER - | | | | | | LABORATORY | | + + + + + + | MCHC | 33.2 | 32.0 - 36.0 | [facility] | | | | | g/dL | [facility] | | | | | | MEDICAL | | | | | | CENTER - | | | | | | LABORATORY | | + + + + + + | RDW-CV | 13.0 | <15.0 % | [facility] | | | | | | [facility] | | | | | | MEDICAL | | | | | | CENTER - | | | | | | LABORATORY | | + + + + + + | Platelet | 275 | 140 - 440 K/uL | [facility] | | | Count | | | [facility] | | | | | | MEDICAL | | | | | | CENTER - | | | | | | LABORATORY | | + + + + + + | MPV | 8.1 | fL | [facility] | | | | | | [facility] | | | | | | MEDICAL | | | | | | CENTER - | | | | | | LABORATORY | | + + + + + + | % | 54.0 | 45.0 - 82.0 % | [facility] | | | Neutrophils | | | [facility] | | | | | | MEDICAL | | | | | | CENTER - | | | | | | LABORATORY | | + + + + + + | % | 36.5 | 20.0 - 45.0 % | [facility] | | | Lymphocytes | | | [facility] | | | | | | MEDICAL | | | | | | CENTER - | | | | | | LABORATORY | | + + + + + + | % Monocytes | 5.6 | 4.0 - 12.0 % | [facility] | | | | | | [facility] | | | | | | MEDICAL | | | | | | CENTER - | | | | | | LABORATORY | | + + + + + + | % | 3.4 | 0.0 - 5.0 % | [facility] | | | Eosinophils | | | [facility] | | | | | | MEDICAL | | | | | | CENTER - | | | | | | LABORATORY | | + + + + + + | % Basophils | 0.5 | 0.0 - 1.0 % | [facility] | | | | | | [facility] | | | | | | MEDICAL | | | | | | CENTER - | | | | | | LABORATORY | | + + + + + + | Absolute | 3.80 | 1.80 - 8.50 | [facility] | | | Neutrophils | | K/uL | [facility] | | | | | | MEDICAL | | | | | | CENTER - | | | | | | LABORATORY | | + + + + + + | Absolute | 2.60 | 0.60 - 3.20 | [facility] | | | Lymphocytes | | K/uL | [facility] | | | | | | MEDICAL | | | | | | CENTER - | | | | | | LABORATORY | | + + + + + + | Absolute | 0.40 | 0.00 - 1.00 | [facility] | | | Monocytes | | K/uL | [facility] | | | | | | MEDICAL | | | | | | CENTER - | | | | | | LABORATORY | | + + + + + + | Absolute | 0.20 | 0.00 - 0.40 | [facility] | | | Eosinophils | | K/uL | [facility] | | | | | | MEDICAL | | | | | | CENTER - | | | | | | LABORATORY | | + + + + + + | Absolute | 0.00 | 0.00 - 0.10 | [facility] | | | Basophils | | K/uL | [facility] | | | | | | MEDICAL | | | | | | CENTER - | | | | | | LABORATORY | | + + + + + + + + | Specimen | + + | Blood | + + + + + + + | Performing | Address | City/State/Zipcode | Phone Number | | Organization | | | | + + + + + | [facility] | [address] | [place] | [phone] | | [facility] | | [address] | | | - LABORATORY | | | | + + + + + | [facility] | [address] | [place], [place] | | | [facility] | | [address], [facility] | | | - LABORATORY | | | | + + + + + TSH (02/06/2014 2:38 PM PDT) + + + + + + | Component | Value | Ref Range | Performed | Pathologist | | | | | At | Signature | + + + + + + | TSH | 1.41Comment: All TSH | 0.34 - 5.60 | [facility] | | | | samples are screened | uIU/mL | [facility] | | | | using a 2nd Generation | | MEDICAL | | | | test, and are reflexed | | CENTER - | | | | to a 3rd Generation test | | LABORATORY | | | | if indicated. | | | | + + + + + + + + | Specimen | + + | Blood | + + + + + + + | Performing | Address | City/State/Zipcode | Phone Number | | Organization | | | | + + + + + | [facility] | [address] | [place] | [phone] | | [facility] | | [address] | | | - LABORATORY | | | | + + + + + | [facility] | [address] | [place], [place] | | | [facility] | | [address], [facility] | | | - LABORATORY | | | | + + + + + documented in this encounter Visit Diagnoses + + | Diagnosis | + + | Irregular periods Irregular menstrual cycle | + + documented in this encounter"
--- OUTSIDE RECORDS SUMMARY | ~2019-12-21 | XMS | Encounter Summary ---
Demographics + + + | Address | [address] | | | [place] [address] | + + + | Home Phone [...] Author + + + | Author | [facility] | | | and [place] | + + + | Organization | [facility] | | | and [place] | + + + | Address | Unknown | + + + | Phone | Unavailable | + + + Support + + + + + | Name | Relationship | Address | Phone | + + + + + | Zo Dong | ECON | [address] [facility] | | | | | [place] | | | | | [address] | | + + + + + | Jovita Luna | ECON | [address] | | | | | [place] [address] | | + + + + + Care Team Providers + +------+ + | Care Special Warfare Combatant Crewman Name | Role | Phone | + +------+ + | Tomas Benoit MD | PCP | | + +------+ + Reason for Visit + + + | Reason | Comments | + + + | Vaginal Discharge | green looking mucus, yeasty odor | + + + Encounter Details +--------+---------+ + + + | Date | Type | Department | Care Team | Description | +--------+---------+ + + + | 08/20/ | Office | [facility] | Tomas Benoit, | Acute vaginitis | | 2020 | Visit | [facility] | [address] | (Primary Dx) | | | | [address] | [place] | | | | | [place] | [phone] | | | | | [address] | | | | | | [phone] | | | +--------+---------+ + + + [...] + + + | Blood Pressure | 110/60 | 08/21/2019 2:54 PM | | | | | PDT | | + + + + + | Pulse | 114 | 08/21/2019 2:54 PM | | | | | PDT | | + + + + + | Temperature | 36.7 C (98 F) | 08/21/2019 2:54 PM | | | | | PDT | | + + + + + | Respiratory Rate | 14 | 08/21/2019 2:54 PM | | | | | PDT | | + + + + + | Oxygen Saturation | 98% | 08/21/2019 2:54 PM | | | | | PDT | | + + + + + | Inhaled Oxygen | - | - | | | Concentration | | | | + + + + + | Weight | 90.8 kg (200 lb 2.8 | 08/21/2019 2:54 PM | | | | oz) | PDT | | + + + + + | Height | - | - | | + + + + + | Body Mass Index | 33.31 | 06/12/2019 9:31 AM | | | | | PST | | + + + + + documented in this encounter Progress Notes Tomas Benoit MD - 08/21/2019 2:30 PM PDTFormatting of this note might be different fro m the original. Jovita Grey is a 29 y.o. female Chief Complaint: Vaginal Discharge (green looking mucus, yeasty odor ) HPI Per phone note: 08/21/19 Patient called in and reported some concerning vaginal discharge. Patient thought she might have a yeast infection and started using OTC Monistat 7. Last nigh t was day 5. This morning when she wiped she saw all of the monistat cream come out with wip ing and also a large amount of green mucous. Patient describes it as what you would get when you blow your nose and you have a sinus infection. There was some "yeasty" odor to it before she started the treatment. No odor noted today ju st smelled like Monistat. She denies any back or lower abdominal pain. No fever. PREVENTIVE CARE/PRIOR VISITS - Any recommendations from Health Maintenance: There are no preventive care reminders to di splay for this patient. Preventative Services TOPIC LAST [...] surgical history that includes Tonsillectomy (02/13/2008) and [place] tooth e xtraction. Family History: Her family history includes Asthma in her brother and maternal grandmother; Elevated lipids in her father; High blood pressure in her father, maternal grandmother, and mother. Social History: Social History Socioeconomic History Marital status: Single Spouse name: REECE Number of children: 0 Years of education: Not on file Highest education level: Not on file Occupational History Occupation: [employer] Employer: [employer] Tobacco Use Smoking status: Never Smoker Smokeless tobacco: Former User Types: Chew Substance and Sexual Activity Alcohol use: Not Currently Alcohol/week: 0.0 standard drinks Comment: socially/not very often Drug use: No Sexual activity: Yes Partners: Male control/protection: Yes Social History Narrative Marital Status:single Children: 0 Occupation:Works for [employer] FOB: EL[place] [employer] Systems Constitutional: Negative for chills and fever. HENT: Negative for trouble swallowing and voice change. Respiratory: Positive for wheezing (asthma). Negative for chest tightness. Cardiovascular: Negative for chest pain and palpitations. Gastrointestinal: Positive for constipation and nausea. Negative for diarrhea and vomiting. Genitourinary: Positive for urgency. Negative for dysuria and frequency. Musculoskeletal: Positive for back pain (low back). Negative for neck pain. Neurological: Negative for dizziness and weakness. Objective: Vitals: 08/21/19 1454 BP: 110/60 Pulse: 114 Resp: 14 Temp: 36.7 C (98 F) TempSrc: Temporal SpO2: 98% Weight: 90.8 kg (200 lb 2.8 oz) Body mass index is 33.31 kg/m. Physical Exam Constitutional: She is oriented to person, place, and time. She appears well-developed and well-nourished. No distress. Appropriately dressed and groomed heart tones were 140 HENT: Head: Normocephalic and atraumatic. Eyes: Conjunctivae are normal. Genitourinary: There is no lesion on the right labia. There is no lesion on the left labia. Cervix exhibits no discharge. Vaginal discharge (mostly see Monistat present), erythema (mild) and tenderness present. No vaginal bleeding. There is erythema (mild) and tenderness in the vagina. No bleeding in the vagina. No for eign body in the vagina. No signs of injury in the vagina. Genitourinary Comments: External labia minimally red. Musculoskeletal: General: No edema. Neurological: She is alert and oriented to person, place, and time. Skin: Skin is warm and dry. Psychiatric: She has a normal mood and affect. Her behavior is normal. Nursing note and vitals reviewed. Ortho Exam Results for orders placed or performed in visit on 07/10/19 TSH Result Value Ref Range TSH 2.78 0.36 - 3.74 uIU/mL Assessment: 1. Acute vaginitis Vaginal Path DNA dir probe Plans: 1. Acute vaginitis Patient had more classic yeast vaginitis symptoms and symptoms were improving when she pass ed a large green clump of mucus. Patient was very concerned about this and wanted to be see n today. Examination of the vagina did not show any further colored mucus. There was some Monistat still left within the vagina. That was carefully removed and a vaginal pathogen DN A probe was completed by rubbing the vaginal williamson. I have instructed her to finish off the last 2 days of the Monistat and use a barrier cream on the labia. We will change plans if indicated by the vaginal swab. - Vaginal Path DNA dir probe I, Mulu Frye MA, am acting as a scribe on behalf of, and in the presence of MD Clarice Nair Cert MA 08/21/2019 I, Dr. Tomas Benoit, personally performed the services described in this documentation, as scribed in my presence and it is both accurate and complete. Tomas Benoit MD 08/21/19 documented in this en counter Plan of Treatment +--------+---------+ + + + | Date | Type | Specialty | Care Team | Description | +--------+---------+ + + + | 01/30/ | Office | Family Medicine | Tomas Benoit, | | | 2019 | Visit | | MD [address] | | | | | | [place] | | | | | | [address] | | | | | | | | +--------+---------+ + + + documented as of this encounter Procedures + +--------+ + + + | Procedure Name | Priori | Date/Time | Associated Diagnosis | Comments | | | ty | | | | + +--------+ + + + | LABS - EXTERNAL SCAN | | 08/31/2019 | | Results for this | | | | 12:00 AM | | procedure are in the | | | | PDT | | results section. | + +--------+ + + + | VAGINAL PATHOGENS | STAT | 08/21/2019 | Acute vaginitis | Results for this | | DNA DIRECT PROBE | | 3:55 PM | | procedure are in the | | | | PDT | | results section. | + +--------+ + + + documented in this encounter Results LABS - EXTERNAL SCAN (08/31/2019 12:00 AM PDT) + + + | Narrative | Performed At | + + + | Ordered by an | | | unspecified provider. | | + + + Vaginal Path DNA dir probe (08/21/2019 3:55 PM PDT) + + + + + + | Component | Value | Ref Range | Performed | Pathologist | | | | | At | Signature | + + + + + + | Davina SP | Negative | Negative | [facility] | | | DNA Genital | | | [facility] | | | | [facility] | [facility] | | | | | | LABORATORY | | + + + + + + | Gardnerella | Negative | Negative | [facility] | | | vaginalis | | | [facility] | | | DNA | | | [facility] | | | | | | [facility] | | | | | | LABORATORY | | + + + + + + | Trichomonas | Negative | Negative | [facility] | | | Vaginalis | | | [facility] | | | DNA | | | [facility] | | | | | | [facility] | | | | | | LABORATORY | | + + + + + + + + | Specimen | + + | Tissue - Region of | | vagina (body | | structure) | + + + + + + + | Performing | Address | City/State/Zipcode | Phone Number | | Organization | | | | + + + + + | [facility] | [address] | [place] | [phone] | | [facility] | | [address] | | | [facility] | | | | + + + + + documented in this encounter Visit Diagnoses + + | Diagnosis | + + | Acute vaginitis - Primary Vaginitis and vulvovaginitis, unspecified | + + documented in this encounter
--- OUTSIDE RECORDS SUMMARY | ~2019-12-21 | XMS | Encounter Summary ---
Demographics + + + | Address | [address] | | | [place] [address] | + + + | Home Phone [...] Dong | ECON | [address] [facility] | | | | | [place] | | | | | [address] | | + + + + + | Jovita Luna | ECON | [address] | | | | | [place] [address] | | + + + + + Care Team Providers + +------+ + | Care Data Management Manager Name | Role | Phone | + +------+ + | Tomas Benoit MD | PCP | | + +------+ + Reason for Visit + + + | Reason | Comments | + + + | Medication Refill | | + + + Encounter Details +--------+--------+ + + + | Date | Type | Department | Care Team | Description | +--------+--------+ + + + | 08/19/ | Refill | [facility] | Tomas Benoit, | Medication Refill | | 2019 | | [facility] | [address] | | | | | [address] | [place] | | | | | [place] | [address] | | | | | [address] | | | | | | [phone] | | | +--------+--------+ + + + [...]
--- OUTSIDE RECORDS SUMMARY | ~2019-12-21 | XMS | Encounter Summary ---
Demographics + + + | Address | [address] | | | [place] [address] | + + + | Home Phone [...] Author + + + | Author | [facility] | | | and [place] | + + + | Organization | [facility] | | | and [place] | + + + | Address | Unknown | + + + | Phone | Unavailable | + + + Support + + + + + | Name | Relationship | Address | Phone | + + + + + | Zo Dong | ECON | [address] [facility] | | | | | [place] | | | | | [address] | | + + + + + | Jovita Luna | ECON | [address] | | | | | [place] [address] | | + + + + + Care Team Providers + +------+ + | Care Planning Supervisor Name | Role | Phone | + +------+ + | Tomas Benoit MD | PCP | | + +------+ + Reason for Referral Consultation (Urgent) +--------+ + + + + + | Status | Reason | Specialty | Diagnoses / | Referred By | Referred To | | | | | Procedures | Contact | Contact | +--------+ + + + + + | Closed | Specialty | Gastroenterol | Diagnoses | Randell, | Mynor, | | | Services | ogy | Blood in | [facility] | Joby Alberts MD | | | Required | | stool | [address] | [address], | | | | | | [address] | [address] | | | | | | [place], | [place], | | | | | | [place] [address] | [place] [address] | | | | | | Phone: | Phone: | | | | | | [phone] | [phone] | | | | | | Fax: | Fax: | | | | | | [phone] | [phone] | +--------+ + + + + + Reason for Visit + + + | Reason | Comments | + + + | Blood In Stool | blood in stool | + + + Encounter Details +--------+---------+ + + + | Date | Type | Department | Care Team | Description | +--------+---------+ + + + | 09/15/ | Office | [facility] | Mel Mejias PA | Blood in stool | | 2013 | Visit | [facility] [place] | [address] [facility] | (Primary Dx) | | | | [address] | [address] [place], [place] | | | | | [place], [place] | [address] | | | | | [address] | | | | | | [phone] | | | +--------+---------+ + + + [...] + + + | Blood Pressure | 104/64 | 09/15/2012 4:08 PM | | | | | PDT | | + + + + + | Pulse | 68 | 09/15/2012 4:08 PM | | | | | PDT | | + + + + + | Temperature | 36.7 C (98 F) | 09/15/2012 4:08 PM | | | | | PDT | | + + + + + | Respiratory Rate | 16 | 09/15/2012 4:08 PM | | | | | PDT | | + + + + + | Oxygen Saturation | 98% | 09/15/2012 4:08 PM | | | | | PDT | | + + + + + | Inhaled Oxygen | - | - | | | Concentration | | | | + + + + + | Weight | 74.4 kg (164 lb) | 09/15/2012 4:08 PM | | | | | PDT | | + + + + + | Height | 166.4 cm (5' 5.5") | 09/15/2012 4:08 PM | | | | | PDT | | + + + + + | Body Mass Index | 26.88 | 09/15/2012 4:08 PM | | | | | PDT | | + + + + + documented in this encounter Progress Notes Mel Mejias Sherry - 09/17/2012 9:10 AM PDT Subjective: Patient ID: Jovita Grey is a 22 y.o. female. HPI: This 22 year old female presents to clinic for 3-4 week history of bleeding per her re ctum. She saw Dr. Benoit for this on 08/30 and at the time, had only had one episode. She evans d stool cultures performed and they were within normal limits. She did have rectal exam and there was some pink mucous on glove, but no hemorroids appreciated on that exam. Since that time, patient has had more episodes of bright red blood in her stools. Stools are loose an d fully formed, but seem to have some blood every time she has a movement. She denies abdom inal pain, tenesmus, nausea, vomiting, fevers, chills. She denies vaginal bleeding, dysuria , hematuria. Patient states overall she feels fine constitutionally and has not experienced any weakness or fatigue, heart palpitations. Review of Systems: Patient denies chest pain, shortness of breath, fevers, fatigue, Objective: Physical Exam Cardiovascular: Normal rate, regular rhythm, S1 normal and S2 normal. Exam reveals no gall op and no friction rub. No murmur heard. Pulmonary/Chest: She has no decreased breath sounds. She has no wheezes. She has no rhonchi . She has no rales. Abdominal: Normal appearance and bowel sounds are normal. There is no tenderness. Genitourinary: Rectum normal. Rectal exam shows no external hemorrhoid and no fissure. Assessment: Bright red blood per rectum Plan: Patient's vitals are within normal limits and her hgb is 13.5, htc 42.9, esr 7, crp 1.2. Urgent referral submitted for gastroenterology. Will contact Tuesday to set up martinez ointment for patient next week. Advised her to go to ER if bleeding does not stop, she beco mes weak and fatigued, or any other acute symptoms arise. documented in this encounte r Plan of Treatment +--------+---------+ + + + | Date | Type | Specialty | Care Team | Description | +--------+---------+ + + + | 01/30/ | Office | Family Medicine | Tomas Benoit, | | | 2019 | Visit | | MD [address] | | | | | | [place] | | | | | | [id number] | | | | | | | | +--------+---------+ + + + + +------+--------+ + + | Name | Type | Priori | Associated Diagnoses | Order Schedule | | | | ty | | | + +------+--------+ + + | CBC with | Lab | STAT | Blood in stool | 1 Occurrences | | Differential | | | | starting 09/15/2012 | | | | | | until 09/15/2013 | + +------+--------+ + + + + +--------+ + + | Name | Type | Priori | Associated Diagnoses | Order Schedule | | | | ty | | | + + +--------+ + + | Ambulatory referral | Outpatient | Routin | Blood in stool | Ordered: 09/15/2012 | | to Gastroenterology | Referral | e | | | + + +--------+ + + documented as of this encounter Results C-Reactive Protein (09/15/2012 4:50 PM PDT) + + + + + + | Component | Value | Ref Range | Performed | Pathologist | | | | | At | Signature | + + + + + + | CRP | 1.6Comment: Levels >8.0 | <8.0 mg/L | [facility] | | | | mg/L indicate possible | | [facility] | | | | infection, | | MEDICAL | | | | trauma,cardiac infarct | | CENTER - | | | | or neoplastic | | LABORATORY | | | | proliferation. | | | | + + + + + + + + | Specimen | + + | Blood specimen | | (specimen) | + + + + + + + | Performing | Address | City/State/Zipcode | Phone Number | | Organization | | | | + + + + + | [facility] | [address] | [place], [place] | [phone] | | [facility] | | [address] | | | - LABORATORY | | | | + + + + + | [facility] | [address] | [place], [place] | | | [facility] | | [address], [facility] | | | - LABORATORY | | | | + + + + + Sedimentation Rate (09/15/2012 4:50 PM PDT) + +-------+ + + + | Component | Value | Ref Range | Performed | Pathologist | | | | | At | Signature | + +-------+ + + + | Erythrocyte | 7 | 0 - 20 mm/hr | [facility] | | | | | | [facility] | | | Sedimentati | | | MEDICAL | | | on Rate | | | CENTER - | | [...] + | [facility] | [address] | [place] | [phone] | | [facility] | | [address] | | | - LABORATORY | | | | + + + + + | [facility] | [address] | [place] | | | [facility] | | [address] | | | - LABORATORY | | | | + + + + + CBC with Differential (09/15/2012 4:50 PM PDT) + + + + + + | Component | Value | Ref Range | Performed | Pathologist | | | | | At | Signature | + + + + + + | White Blood | 7.2 | 4.0 - 11.0 K/uL | [facility] | | | Cells | | | [facility] | | | | | | MEDICAL | | | | | | CENTER - | | | | | | LABORATORY | | + + + + + + | Red Blood | 4.86 | 3.70 - 5.20 | [facility] | | | Cells | | M/uL | [facility] | | | | | | MEDICAL | | | | | | CENTER - | | | | | | LABORATORY | | + + + + + + | Hemoglobin | 13.5 | 11.5 - 16.0 | [facility] | | | | | gm/dL | [facility] | | | | | | MEDICAL | | | | | | CENTER - | | | | | | LABORATORY | | + + + + + + | Hematocrit | 42.9 | 34.0 - 47.0 % | [facility] | | | | | | [facility] | | | | | | MEDICAL | | | | | | CENTER - | | | | | | LABORATORY | | + + + + + + | MCV | 88.3 | 83.0 - 101.0 fL | [facility] | | | | | | [facility] | | | | | | MEDICAL | | | | | | CENTER - | | | | | | LABORATORY | | + + + + + + | MCH | 27.8 (L) | 28.0 - 35.0 pg | [facility] | | | | | | [facility] | | | | | | MEDICAL | | | | | | CENTER - | | | | | | LABORATORY | | + + + + + + | MCHC | 31.5 (L) | 32.0 - 36.0 | [facility] | | | | | g/dL | [facility] | | | | | | MEDICAL | | | | | | CENTER - | | | | | | LABORATORY | | + + + + + + | RDW-CV | 13.9 | <15.0 % | [facility] | | | | | | [facility] | | | | | | MEDICAL | | | | | | CENTER - | | | | | | LABORATORY | | + + + + + + | Platelet | 210 | 140 - 440 K/uL | [facility] | | | Count | | | [facility] | | | | | | MEDICAL | | | | | | CENTER - | | | | | | LABORATORY | | + + + + + + | % | 55.8 | 45 - 75 % | [facility] | | | Neutrophils | | | [facility] | | | | | | MEDICAL | | | | | | CENTER - | | | | | | LABORATORY | | + + + + + + | % | 34.9 | 20 - 45 % | [facility] | | | Lymphocytes | | | [facility] | | | | | | MEDICAL | | | | | | CENTER - | | | | | | LABORATORY | | + + + + + + | % Monocytes | 4.8 | 4 - 12 % | [facility] | | | | | | [facility] | | | | | | MEDICAL | | | | | | CENTER - | | | | | | LABORATORY | | + + + + + + | % | 4.0 | 0 - 5 % | [facility] | | | Eosinophils | | | [facility] | | | | | | MEDICAL | | | | | | CENTER - | | | | | | LABORATORY | | + + + + + + | % Basophils | 0.5 | 0 - 1 % | [facility] | | | | | | [facility] | | | | | | MEDICAL | | | | | | CENTER - | | | | | | LABORATORY | | + + + + + + | Absolute | 4.0 | 1.5 - 6.6 K/uL | [facility] | | | Neutrophils | | | [facility] | | | | | | MEDICAL | | | | | | CENTER - | | | | | | LABORATORY | | + + + + + + | Absolute | 2.5 | 0.6 - 3.2 K/uL | [facility] | | | Lymphocytes | | | [facility] | | | | | | MEDICAL | | | | | | CENTER - | | | | | | LABORATORY | | + + + + + + | Absolute | 0.3 | 0.0 - 1.0 K/uL | [facility] | | | Monocytes | | | [facility] | | | | | | MEDICAL | | | | | | CENTER - | | | | | | LABORATORY | | + + + + + + | Absolute | 0.3 | 0.0 - 0.4 K/uL | [facility] | | | Eosinophils | | | [facility] | | | | | | MEDICAL | | | | | | CENTER - | | | | | | LABORATORY | | + + + + + + | Absolute | 0.0 | 0.0 - 0.1 K/uL | [facility] | | | Basophils | | | [facility] | | [...] + | [facility] | [address] | [place] | [phone] | | [facility] | | [address] | | | - LABORATORY | | | | + + + + + | [facility] | [address] | [place], [place] | | | [facility] | | [address], [facility] | | | - LABORATORY | | | | + + + + + documented in this encounter Visit Diagnoses + + | Diagnosis | + + | Blood in stool - Primary | + + documented in this encounter
--- OUTSIDE RECORDS SUMMARY | ~2019-12-21 | XMS | Encounter Summary ---
Demographics + + + | Address | [address] | | | [place] [address] | + + + | Home Phone | | + + + | Preferred Language | Unknown | + + + | Marital Status | Single | + + + | Methodist Affiliation | Unknown | + + + | Race | Black or | + + + | Ethnic Group | Not or | + + + Author + + + | Author | [facility] | | | and [place] | + + + | Organization | [facility] | | | and [place] | + + + | Address | Unknown | + + + | Phone | Unavailable | + + + Support + + + + + | Name | Relationship | Address | Phone | + + + + + | Zo Dong | ECON | [address] [facility] | | | | | [place] | | | | | [address] | | + + + + + | Jovita Luna | ECON | [address] | | | | | [place] [address] | | + + + + + Care Team Providers + +------+ + | Care Exchange Trouble Shooter Name | Role | Phone | + +------+ + | Tomas Benoit MD | PCP | | + +------+ + Encounter Details +--------+ + + + + | Date | Type | Department | Care Team | Description | +--------+ + + + + | 03/31/ | Hospital | [facility] | Tomas Benoit, | , | | 2012 - | Encounter | MED CTR XRAY [address] | [address] | [place] | | | | [place] | [place] | | | [birth year]/ | | [place] [address] | [id number] | | | 2011 | | [phone] | | | +--------+ + + + [...] + + + +---------+ + + | ondansetron | Take 4 mg by mouth 3 | | 0 | | | | (ZOFRAN ODT) 4 mg | times daily as | | | | 3 | | disintegrating | needed. | | | | | | tablet | | | | | | + + + +---------+ + + | Vit-Fe | Take 27-1 mg by | | 0 | 12/07/19 | | | Fumarate-FA (PRENATE | mouth Daily. | | | 12 | 6 | | PLUS) 27-1 MG TABS | | | | | | + + + +---------+ + + | promethazine | Take 1 tablet by | 30 | 0 | 02/18/20 | | | (PHENERGAN) 25 mg | mouth every 6 hours | tablet | | 12 | 3 | | tablet | as needed for | | | | | | | Nausea. | | | | | + + [...] [place] | | | | | | [id number] | | | | | | | | +--------+---------+ + + + documented as of this encounter Procedures + +--------+ + + + | Procedure Name | Priori | Date/Time | Associated Diagnosis | Comments | | | ty | | | | + +--------+ + + + | US OB 14 + WEEKS | Routin | 03/31/2012 | , | Results for this | | SINGLE OR FIRST | e | 3:14 PM | [place] | procedure are in the | | GESTATION | | PST | | results section. | + +--------+ + + + documented in this encounter Results US OB 14 + Week Singl or First Gestation (03/31/2012 3:14 PM PST) + + | Specimen | + + | | + + + + + | Narrative | Performed At | + + + | [facility] | [facility] | | Department [address] [facility], [place] | [facility] | | [ rep [address]] [ rep [facility] | | st zip] Signed | - IMAGING | | | | | Patient Name: JOVITA GREY [place] Physician: | | | JAVID. : 1990 Age: 21 Sex: F Unit #: [id number] | | | Exam Date: 03/31/12 [place] [facility] [place] | | Report #: [id number] Page: | | | %(RAD)RES..mtdd.print.filter("pg") of %(RAD) | | | RES..mtdd.print.filter("tpg") | | | | | | Accession Number: [id number] | | | OB ULTRASOUND, 03/31/2012 CLINICAL HISTORY: ANATOMY. | | | COMPARISON: None. FINDINGS: Sonographic | | | imaging of the gravid uterus. There is a single, live, intrauterine | | | gestation. Current position is transverse, head to left. | | | Placenta is anterior and clear of the cervical os. Cervical length | | | is greater than 5 cm. There is adequate amniotic fluid. Anatomic | | | survey is performed. This includes evaluation of the stomach, | | | bladder, kidneys, heart, umbilical cord and cord insertion, spine, | | | choroid plexus, and nose and lips. No gross anomalies. | | | Assessment of movement is performed. Adequate movement | | | identified. Cerebellar diameter 2 cm. Atrium of the lateral ventricle | | | 0.6 cm. biometry is performed. This correlates with | | | an estimated gestational age of 21 weeks 0 days correlating | | | adequately with LMP dating of 20 weeks 2 days. Estimated weight | | | 377 grams +/- 55 grams correlating with the 73rd percentile based on | | | LMP dating. IMPRESSION: 1. A SINGLE, LIVE, | | | INTRAUTERINE GESTATION. NO GROSS ANOMALIES. GOOD CORRELATION | | | BETWEEN CLINICAL AND SONOGRAPHIC DATING. Dictated | | | Date/Time: 03/31/2012 15:14 Transcribed Date/Time: 03/31/2012 | | | 16:34 Tool And Die Technician: <<Signature on | | | File>> | | | Joby | | | Enoc Moore [id number]/31/[id number] <Electronically signed by Joby Stubbs | | | Teresa GABRIEL> Joby Moore MD 03/31/12 1514 | | | Tool And Die Technician: [employer] [id number]/07/12 [id number] | | | Tomas Benoit MD | | + + + + + + + + | Performing | Address | City/State/Zipcode | Phone Number | | Organization | | | | + + + + + | [facility] | [address] | [place] | [phone] | | [facility] | | [address] | | | - IMAGING | | | | + + + + + documented in this encounter Visit Diagnoses + + | Diagnosis | + + | , [place] Supervision of normal first | + + documented in this encounter
--- OUTSIDE RECORDS SUMMARY | ~2019-12-21 | XMS | Encounter Summary ---
Demographics + + + | Address | [address] | | | [place] [address] | + + + | Home Phone [...] | ECON | [address] [facility] | | | | | [place] | | | | | [address] | | + + + + + | Jovita Luna | ECON | [address] | | | | | [place] [address] | | + + + + + Care Team Providers + +------+ + | Care Fish Tender Name | Role | Phone | + +------+ + | Tomas Benoit MD | PCP | | + +------+ + Reason for Visit + + + | Reason | Comments | + + + | Dysmenorrhea | x 3 months | + + + Encounter Details +--------+---------+ + + + | Date | Type | Department | Care Team | Description | +--------+---------+ + + + | 02/06/ | Office | [facility] | Tomas Benoit, | Irregular periods | | 2013 | Visit | [facility] [place] | [address] | (Primary Dx) | | | | [address] | [place] | | | | | [place], [place] | [address] | | | | | [address] | | | | | | [phone] | | | +--------+---------+ + + + [...] + + + | Blood Pressure | 122/76 | 02/06/2014 2:01 PM | | | | | PDT | | + + + + + | Pulse | 88 | 02/06/2014 2:01 PM | | | | | PDT | | + + + + + | Temperature | 36.5 C (97.7 F) | 02/06/2014 2:01 PM | | | | | PDT | | + + + + + | Respiratory Rate | 18 | 02/06/2014 2:01 PM | | | | | PDT | | + + + + + | Oxygen Saturation | 98% | 02/06/2014 2:01 PM | | | | | PDT | | + + + + + | Inhaled Oxygen | - | - | | | Concentration | | | | + + + + + | Weight | 70.8 kg (156 lb) | 02/06/2014 2:01 PM | | | | | PDT | | + + + + + | Height | 167.6 cm (5' 6") | 02/06/2014 2:01 PM | | | | | PDT | | + + + + + | Body Mass Index | 25.18 | 02/06/2014 2:01 PM | | | | | PDT | | + + + + + documented in this encounter Progress Notes Tomas Benoit MD - 02/06/2014 2:13 PM PDTFormatting of this note might be different fro m the original. Subjective: Jovita Grey is a 23 y.o. female. Chief Complaint: Dysmenorrhea 02/06/2014 HPI: Periods previously were moderate flow for 3 days. Three months ago she was placed on current control. She thinks that she had a miscarriage about 4 months ago. She had a n ormal period on August 23. No period in September. Then had a very heavy period and passed a very l arge clot/tissue in October. She then went on her current control in October. She had a neg ative test at that point. She has had very heavy periods requiring a tampon and a pad at the same time. She is changing this hourly at times. The heavy flow is lasting 8-9 da ys. She is currently on her period now. She denies being light headed but states that when s he bend over she gushes. No Known Allergies Medications: Current Outpatient Prescriptions on File Prior to Visit Medication Sig Dispense Refill acetaminophen (TYLENOL) 500 mg tablet Take 500 mg by mouth every 4 hours as needed. Albuterol Sulfate (PROVENTIL HFA IN) AERS 2 puffs every 4-6 hours as needed Vit-Fe Fumarate-FA (PRENATE PLUS) 27-1 MG TABS Take 27-1 mg by mouth Daily. triamcinolone (KENALOG) 0.1% cream Apply thin film to affected area(s) two to four time s daily as needed: avoid face and groin areas 30 g 0 Past Medical History She has a past medical history of Asthma; Umbilical hernia; Primary amenorrhea; and Sickle cell trait (HCC). Past Surgical History She has past surgical history that includes Tonsillectomy and adenoidectomy (02/13/2008). Family History: Her family history includes Asthma in her brother and maternal grandmother; Elevated lipids in her father; and High blood pressure in her father, maternal grandmother, and mother. Social History: History Social History Marital Status: Single Spouse Name: REECE Number of Children: 0 Years of Education: N/A Occupational History [employer] Social History Main Topics Smoking status: Never Smoker Smokeless tobacco: Former User Types: Chew Alcohol Use: No Drug Use: No Sexually Active: No Other Topics Concern Not on file Social History Narrative Marital Status:singleChildren: 0Occupation:Works for [employer] FOB: [email or web address] Review of Systems Pertinent items are noted in HPI. Objective: Filed Vitals: 02/06/14 1401 BP: 122/76 Pulse: 88 Temp: 36.5 C (97.7 F) TempSrc: Temporal Resp: 18 Height: 1.676 m (5' 6") Weight: 70.761 kg (156 lb) SpO2: 98% General Appearance: Alert, cooperative, no distress Head: Normocephalic, without obvious abnormality, atraumatic Neck: Supple, symmetrical, no adenopathy, thyroid: not enlarged, symmetric, no tenderness/m ass/nodules Lungs: Clear to auscultation bilaterally, respirations unlabored Heart: Regular rate and rhythm, S1, S2 normal, no murmur Extremities: No clubbing, cyanosis or edema Neurologic: Nonfocal. Alert and oriented. Assessment and Plans: 1. Menorrhagia - Will check TSH, bHCG and CBC. Will start OCP taper starting with 3 a day u ntil periods settle down then taper down once a week. documented in this en counter Plan of [...] [place] | | | | | | [address] | | | | | | | | +--------+---------+ + + + documented as of this encounter Results HCG, Serum, Quant (02/06/2014 2:38 PM PDT) + +-------+ + + + | Component | Value | Ref Range | Performed | Pathologist | | | | | At | Signature | + +-------+ + + + | hCG Quant, | <1 | 0 - 5 mIU/mL | [facility] | | | Serum | | | [facility] | | [...] + | [facility] | [address] | [place] | [phone] | | [facility] | | [address] | | | - LABORATORY | | | | + + + + + | [facility] | [address] | [place], [place] | | | [facility] | | [address] [place] [address] | | | - LABORATORY | | [...] | | | Cells | | | [facility] | | | | | | MEDICAL | | | | | | CENTER - | | | | | | LABORATORY | | + + + + + + | Red Blood | 4.78 | 3.70 - 5.20 | [facility] | | | Cells | | M/uL | [facility] | | | | | | MEDICAL | | | | | | CENTER - | | | | | | LABORATORY | | + + + + + + | Hemoglobin | 13.2 | 11.5 - 16.0 | [facility] | | | | | g/dL | [facility] | | | | | | MEDICAL [...] | Neutrophils | | K/uL | [facility] | | | | | | MEDICAL | | | | | | CENTER - | | | | | | LABORATORY | | + + + + + + | Absolute | 2.60 | 0.60 - 3.20 | [facility] | | | Lymphocytes | | K/uL | [facility] | [...] | Basophils | | K/uL | [facility] | [...] + | [facility] | [address] | [place] | [phone] | | [facility] | | [address] | | | - LABORATORY | | | | + + + + + | [facility] | [address] | [place] | | | [facility] | | [address], [facility] | | | - [...] | samples are screened | uIU/mL | [facility] | | | | using a 2nd [...] + | [facility] | [address] | [place], [place] | [phone] | | [facility] | | [address] | | | - LABORATORY | | | | + + + + + | [facility] | [address] | [place], [place] | | | [facility] | | [address], [facility] | | | - LABORATORY | | | | + + + + + documented in this encounter Visit Diagnoses + + | Diagnosis | + + | Irregular periods - Primary Irregular menstrual cycle | + + documented in this encounter
--- OUTSIDE RECORDS SUMMARY | ~2019-12-21 | XMS | Encounter Summary ---
Demographics + + + | Address | [address] | | | [place] [address] | + + + | Home Phone [...] Author + + + | Author | [facility] | | | and [place] | + + + | Organization | [facility] | | | [...] [place] | | | | | [address] | | + + + + + | Jovita Luna | ECON | [address] | | | | | [place] [address] | | + + + + + Care Team Providers + +------+ + | Care Camera Storage Clerk Name | Role | Phone | + +------+ + | Tomas Benoit MD | PCP | | + +------+ + Encounter Details +--------+ + + + + | Date | Type | Department | Care Team | Description | +--------+ + + + + | 12/19/ | Hospital | [facility] | Tomas Benoit, | | | 2011 | Encounter | MED CTR XRAY [address] | [address] | | | | | [place] | [place] | | | | | [place] [address] | [address] | | | | | [phone] | | | +--------+ + + + [...] + + +---------+ + + | | Take by mouth | | 0 | 01/02/20 | | | norgestimate-ethinyl | Daily. | | | 10 | 2 | | estradiol (SPRINTEC | | | | | | | 28) 0.25-35 MG-MCG | | | | | | | per tablet | | | | | | [...] | Visit | | [address] | | | | | | [place] | | | | | | [address] | | | | | | | | +--------+---------+ + + + documented as of this encounter Procedures + +--------+ + + + | Procedure Name | Priori | Date/Time | Associated Diagnosis | Comments | | | ty | | | | + +--------+ + + + | US OB TRANSVAGINAL | | 12/20/2011 | | Results for this | | | | 7:57 AM | | procedure are in the | | | | PDT | | results section. | + +--------+ + + + | US OB < 14 WEEKS | | 12/20/2011 | | Results for this | | SINGLE OR FIRST | | 7:57 AM | | procedure are in the | | GESTATION | | PDT | | results section. | + +--------+ + + + documented in this encounter Results US OB < 14 Weeks Singl or First Gestatio (12/20/2011 7:57 AM PDT) + + | Specimen | + + | | + + + + + | Narrative | Performed At | + + + | [facility] Diagnostic Imaging Department | [facility] | | [address] [facility] | [facility] | | TRANSABDOMINAL AND TRANSVAGINAL | DIAG IMG | | OBSTETRIC ULTRASOUND, 12/20/2011 CLINICAL HISTORY: , | | | EVALUATE SIZE AND DATES. COMPARISON: None. | | | TRANSABDOMINAL FINDINGS: A small gestational sac is present within | | | the endometrial canal. A yolk sac is visible. No extra-chorionic | | | abnormality is evident. The maternal ovaries are grossly | | | unremarkable. No free pelvic fluid is evident. TRANSVAGINAL | | | FINDINGS: Transvaginal scanning is performed to better | | | characterize the endometrial contents. The endometrial gestational | | | sac demonstrates a mean diameter of 0.79 cm, corresponding with a | | | gestational age of 5 weeks 3 days. A thin walled yolk sac and | | | pole are visible. pole demonstrates a crown/rump | | | length of approximately 2 mm, corresponding with a gestational age | | | of 5 weeks 6 days. Early cardiac activity is questioned | | | visually on cine images. No extra-chorionic abnormality is evident. | | | The maternal right ovary measures 2.7 x 2.1 x 3.1 cm and the | | | maternal left ovary measures 1.9 x 2.4 x 1.7 cm. Both ovaries | | | contain tiny anechoic follicles and demonstrate normal stromal blood | | | flow with duplex interrogation. Trace anechoic free pelvic fluid | | | is noted. IMPRESSION: 1. EARLY INTRAUTERINE WITH | | | APPROXIMATE GESTATIONAL AGE OF 5 WEEKS 6 DAYS BASED ON CROWN/RUMP | | | LENGTH. EARLY CARDIAC ACTIVITY IS SUGGESTED. 2. TRACE | | | ANECHOIC FREE PELVIC FLUID. Dictated Date/Time: 12/20/2011 09:08 | | | Transcribed Date/Time: 12/20/2011 11:32 Grocery Clerk Marking: | | | <Electronically Signed by Saul Casas MD> 12/20/112050 | | + + + + + | Procedure Note | + + | Yang Toro Conversion - 06/01/2013 5:55 PM [facility] | | Diagnostic Imaging Department | | [address] [facility] | | | | | | | | TRANSABDOMINAL AND TRANSVAGINAL OBSTETRIC ULTRASOUND, 12/20/2011 | | | | CLINICAL HISTORY: , EVALUATE SIZE AND DATES. | | | | COMPARISON: None. | | | | TRANSABDOMINAL FINDINGS: A small gestational sac is present within the | | endometrial canal. A yolk sac is visible. No extra-chorionic abnormality is | | evident. The maternal ovaries are grossly unremarkable. No free pelvic fluid | | is evident. | | | | TRANSVAGINAL FINDINGS: Transvaginal scanning is performed to better | | characterize the endometrial contents. The endometrial gestational sac | | demonstrates a mean diameter of 0.79 cm, corresponding with a gestational age | | of 5 weeks 3 days. A thin walled yolk sac and pole are visible. | | pole demonstrates a crown/rump length of approximately 2 mm, corresponding with | | a gestational age of 5 weeks 6 days. Early cardiac activity is | | questioned visually on cine images. No extra-chorionic abnormality is evident. | | The maternal right ovary measures 2.7 x 2.1 x 3.1 cm and the maternal left | | ovary measures 1.9 x 2.4 x 1.7 cm. Both ovaries contain tiny anechoic | | follicles and demonstrate normal stromal blood flow with duplex interrogation. | | Trace anechoic free pelvic fluid is noted. | | | | IMPRESSION: | | 1. EARLY INTRAUTERINE WITH APPROXIMATE GESTATIONAL AGE OF 5 WEEKS 6 | | DAYS BASED ON CROWN/RUMP LENGTH. EARLY CARDIAC ACTIVITY IS SUGGESTED. | | | | 2. TRACE ANECHOIC FREE PELVIC FLUID. | | | | Dictated Date/Time: 12/20/2011 09:08 | | Transcribed Date/Time: 12/20/2011 11:32 | | Grocery Clerk Marking: | | <Electronically Signed by Saul Casas MD> 12/20/112050 | + + + +---------+ + + | Performing | Address | City/State/Zipcode | Phone Number | | Organization | | | | + +---------+ + + | [place] | | | | | [facility] | | | | + +---------+ + + US OB Transvaginal (12/20/2011 7:57 AM PDT) + + | Specimen | + + | | + + + + + | Narrative | Performed At | + + + | [facility] Diagnostic Imaging Department | [facility] | | [address] [facility] | [facility] | | TRANSABDOMINAL AND TRANSVAGINAL | DIAG IMG | | OBSTETRIC ULTRASOUND, 12/20/2011 CLINICAL HISTORY: , | | | EVALUATE SIZE AND DATES. COMPARISON: None. | | | TRANSABDOMINAL FINDINGS: A small gestational sac is present within | | | the endometrial canal. A yolk sac is visible. No extra-chorionic | | | abnormality is evident. The maternal ovaries are grossly | | | unremarkable. No free pelvic fluid is evident. TRANSVAGINAL | | | FINDINGS: Transvaginal scanning is performed to better | | | characterize the endometrial contents. The endometrial gestational | | | sac demonstrates a mean diameter of 0.79 cm, corresponding with a | | | gestational age of 5 weeks 3 days. A thin walled yolk sac and | | | pole are visible. pole demonstrates a crown/rump | | | length of approximately 2 mm, corresponding with a gestational age | | | of 5 weeks 6 days. Early cardiac activity is questioned | | | visually on cine images. No extra-chorionic abnormality is evident. | | | The maternal right ovary measures 2.7 x 2.1 x 3.1 cm and the | | | maternal left ovary measures 1.9 x 2.4 x 1.7 cm. Both ovaries | | | contain tiny anechoic follicles and demonstrate normal stromal blood | | | flow with duplex interrogation. Trace anechoic free pelvic fluid | | | is noted. IMPRESSION: 1. EARLY INTRAUTERINE WITH | | | APPROXIMATE GESTATIONAL AGE OF 5 WEEKS 6 DAYS BASED ON CROWN/RUMP | | | LENGTH. EARLY CARDIAC ACTIVITY IS SUGGESTED. 2. TRACE | | | ANECHOIC FREE PELVIC FLUID. Dictated Date/Time: 12/20/2011 09:08 | | | Transcribed Date/Time: 12/20/2011 11:32 Grocery Clerk Marking: | | | <Electronically Signed by Saul Casas MD> 12/20/112050 | | + + + + + | Procedure Note | + + | Cortez, Rad Conversion - 06/01/2013 5:55 PM [facility] | | Diagnostic Imaging Department | | [address] [facility] | | | | | | | | TRANSABDOMINAL AND TRANSVAGINAL OBSTETRIC ULTRASOUND, 12/20/2011 | | | | CLINICAL HISTORY: , EVALUATE SIZE AND DATES. | | | | COMPARISON: None. | | | | TRANSABDOMINAL FINDINGS: A small gestational sac is present within the | | endometrial canal. A yolk sac is visible. No extra-chorionic abnormality is | | evident. The maternal ovaries are grossly unremarkable. No free pelvic fluid | | is evident. | | | | TRANSVAGINAL FINDINGS: Transvaginal scanning is performed to better | | characterize the endometrial contents. The endometrial gestational sac | | demonstrates a mean diameter of 0.79 cm, corresponding with a gestational age | | of 5 weeks 3 days. A thin walled yolk sac and pole are visible. | | pole demonstrates a crown/rump length of approximately 2 mm, corresponding with | | a gestational age of 5 weeks 6 days. Early cardiac activity is | | questioned visually on cine images. No extra-chorionic abnormality is evident. | | The maternal right ovary measures 2.7 x 2.1 x 3.1 cm and the maternal left | | ovary measures 1.9 x 2.4 x 1.7 cm. Both ovaries contain tiny anechoic | | follicles and demonstrate normal stromal blood flow with duplex interrogation. | | Trace anechoic free pelvic fluid is noted. | | | | IMPRESSION: | | 1. EARLY INTRAUTERINE WITH APPROXIMATE GESTATIONAL AGE OF 5 WEEKS 6 | | DAYS BASED ON CROWN/RUMP LENGTH. EARLY CARDIAC ACTIVITY IS SUGGESTED. | | | | 2. TRACE ANECHOIC FREE PELVIC FLUID. | | | | Dictated Date/Time: 12/20/2011 09:08 | | Transcribed Date/Time: 12/20/2011 11:32 | | Grocery Clerk Marking: | | <Electronically Signed by Saul Casas MD> 12/20/112050 | + + + +---------+ + + | Performing | Address | City/State/Zipcode | Phone Number | | Organization | | | | + +---------+ + + | [place] | | | | | [facility] [place] | | | | + +---------+ + + documented in this encounter Visit Diagnoses Not on filedocumented in this encounter"
--- OUTSIDE RECORDS SUMMARY | ~2019-12-21 | XMS | Encounter Summary ---
Demographics + + + | Address | [address] | | | [place] [address] | + + + | Home Phone | | + + + | Preferred Language | Unknown | + + + | Marital Status | Single | + + + | Latter Day Affiliation | Unknown | + + + | Race | Black or | + + + | Ethnic Group | Not or | + + + Author + + + | Author | [facility] | | | and [place] | + + + | Organization | [facility] | | | and [place] | + + + | Address | Unknown | + + + | Phone | Unavailable | + + + Support + + + + + | Name | Relationship | Address | Phone | + + + + + | Zo Dong | ECON | [address] [facility] | | | | | [place] | | | | | [address] | | + + + + + | Jovita Luna | ECON | [address] [facility] | | | | | [place] [address] | | + + + + + Care Team Providers + +------+ + | Care Supplier Specialist Name | Role | Phone | + +------+ + PCP | Unavailable | + +------+ + Encounter Details +--------+ + + + + | Date | Type | Department | Care Team | Description | +--------+ + + + + | 02/24/ | Hospital | [facility] | | | | 1993 | Encounter | MED CTR LABORATORY | | | | | | [address] [place] | | | | | | [place] | | | | | | [address] | | | | | | [phone] | | | +--------+ + + + [...] [place] | | | | | | [id number] | | | | | | | | +--------+---------+ + + + documented as of this encounter Visit Diagnoses Not on filedocumented in this encounter"
--- OUTSIDE RECORDS SUMMARY | ~2019-12-21 | XMS | Encounter Summary ---
Demographics + + + | Address | [address] | | | [place] [address] | + + + | Home Phone | | + + + | Preferred Language | Unknown | + + + | Marital Status | Single | + + + | Buddhism Affiliation | Unknown | + + + | Race | Black or | + + + | Ethnic Group | Not or | + + + Author + + + | Author | [facility] | | | and [place] | + + + | Organization | [facility] | | | and [place] | + + + | Address | Unknown | + + + | Phone | Unavailable | + + + Support + + + + + | Name | Relationship | Address | Phone | + + + + + | Zo Dong | ECON | [address] [facility] | | | | | [place] | | | | | [address] | | + + + + + | Jovita Luna | ECON | [address] [facility] | | | | | [place] [address] | | + + + + + Care Team Providers + +------+ + | Care Director Social Welfare Name | Role | Phone | + +------+ + PCP | Unavailable | + +------+ + Encounter Details +--------+ + + + + | Date | Type | Department | Care Team | Description | +--------+ + + + + | 09/15/ | Hospital | [facility] | | | | 1999 | Encounter | MED CTR EMERGENCY | | | | | | CENTER [address] | | | | | | [place] | | | | | | [address] | | | | | | [phone] | | | +--------+ + + + [...] | 2019 | Visit | | MD [address] | | | | | | [place] | | | | | | [id number] | | | | | | | | +--------+---------+ + + + documented as of this encounter Visit Diagnoses Not on filedocumented in this encounter"
--- OUTSIDE RECORDS SUMMARY | ~2019-12-21 | XMS | Encounter Summary ---
Demographics + + + | Address | [address] | | | [place] [address] | + + + | Home Phone [...] [place] | | | | | [address] | | + + + + + | Jovita Luna | ECON | [address] | | | | | [place] [address] | | + + + + + Care Team Providers + +------+ + | Care Delivery Crew Worker Name | Role | Phone | + +------+ + | Tomas Benoit MD | PCP | | + +------+ + Reason for Visit +---------+--------+ + | Reason | Onset | Comments | | | Date | | +---------+--------+ + | Results | 08/21/ | vag swab | | | 2019 | | +---------+--------+ + Encounter Details +--------+ + + + + | Date | Type | Department | Care Team | Description | +--------+ + + + + | 08/21/ | Telephone | [facility] | Tomas Benoit, | Results (vag swab) | | 2019 | | [facility] | [address] | | | | | [address] | [place] | | | | | [place] | [address] | | | | | [address] | | | | | | [phone] | | | +--------+ + + + [...] Telephone Encounter - Erika Harrison RN - 08/22/2019 9:22 AM PDTPatient returns c all. Relayed Dr Benoit's message. Patient verbalized understanding. elephone Clarice Resendez Cert MA - 08/22/2019 8:52 AM PDTLeft message for patient to call us back. elephone Clarice Resendez Cert MA - 08/22/2019 8:51 AM PDT----- Message from Tyson Prakash sent at 08/22/2019 7:42 AM PDT ----- Please let Jovita know that the vaginal swab was negative. This means that she is respondi ng well to the Monistat. If the green mucousy discharge was her mucous plug, her body will c reate a new one. doc umalexander in this encounter Plan of Treatment +--------+---------+ + + + | Date | Type | Specialty | Care Team | Description | +--------+---------+ + + + | 01/30/ | Office | Family Medicine | Tomas Benoit, | | | 2019 | Visit | | MD [address] | | | | | | [place] | | | | | | [id number] | | | | | | | | +--------+---------+ + + + documented as of this encounter Visit Diagnoses Not on filedocumented in this encounter"
--- OUTSIDE RECORDS SUMMARY | ~2019-12-21 | XMS | Encounter Summary ---
Demographics + + + | Address | [address] | | | [place] [address] | + + + | Home Phone [...] Author + + + | Author | [facility] | | | and [place] | + + + | Organization | [facility] | | | and [place] | + + + | Address | Unknown | + + + | Phone | Unavailable | + + + Support + + + + + | Name | Relationship | Address | Phone | + + + + + | Zo Dong | ECON | [address] [facility] | | | | | [place] | | | | | [address] | | + + + + + | Jovita Luna | ECON | [address] [facility] | | | | | [place] [address] | | + + + + + Care Team Providers + +------+ + | Care Director Of Channel Marketing Name | Role | Phone | + +------+ + PCP | Unavailable | + +------+ + Encounter Details +--------+ + + + + | Date | Type | Department | Care Team | Description | +--------+ + + + + | 07/15/ | Hospital | [facility] | | | | 1990 - | Encounter | MED CTR NURSERY | | | | | | [address] | | | | 07/17/ | | [place] [address] | | | | 1990 | | [phone] | | | +--------+ + + + [...] [place] | | | | | | [address] | | | | | | | | +--------+---------+ + + + documented as of this encounter Visit Diagnoses Not on filedocumented in this encounter"
--- OUTSIDE RECORDS SUMMARY | ~2019-12-21 | XMS | Encounter Summary ---
Demographics + + + | Address | [address] | | | [place] [address] | + + + | Home Phone [...] Dong | ECON | [address] [facility] | | | | | [place], [place] | | | | | [address] | | + + + + + | Jovita Luna | ECON | [address] [facility] | | | | | [place] [address] | | + + + + + Care Team Providers + +------+ + | Care Rehabilitation Clerk Name | Role | Phone | + +------+ + PCP | Unavailable | + +------+ + Encounter Details +--------+ + + + + | Date | Type | Department | Care Team | Description | +--------+ + + + + | 02/12/ | Hospital | [facility] | Quentin Arechiga MD | | | 2007 | Encounter | MED CTR MP INTRA OP | [address] [place] | | | | | [address] | [address] [place], [place] | | | | | [place], [place] | [address] | | | | | [address] | | | | | | [phone] | | | +--------+ + + + [...] [place] | | | | | | [id number] | | | | | | | | +--------+---------+ + + + documented as of this encounter Visit Diagnoses Not on filedocumented in this encounter"
--- OUTSIDE RECORDS SUMMARY | ~2019-12-21 | XMS | Encounter Summary ---
Demographics + + + | Address | [address] | | | [place] [address] | + + + | Home Phone [...] [place] | | | | | [address] | | + + + + + | Jovita Luna | ECON | [address] | | | | | [place] [address] | | + + + + + Care Team Providers + +------+ + | Care Arson And Bomb Investigator Name | Role | Phone | + +------+ + | Tomas Benoit MD | PCP | | + +------+ + Reason for Visit + + + | Reason | Comments | + + + | Rectal Pain | | + + + Consultation (Urgent) +--------+ + + + + + | Status | Reason | Specialty | Diagnoses / | Referred By | Referred To | | | | | Procedures | Contact | Contact | +--------+ + + + + + | Closed | Specialty | Gastroenterol | Diagnoses | Mejias, | Mynor, | | | Services | ogy | Blood in | [facility] | Joby Alberts MD | | | Required | | stool | [address] | [address], | | | | | | [address] | [address] | | | | | | [place], | [place], | | | | | | [place] [address] | [place] [address] | | | | | | Phone: | Phone: | | | | | | [phone] | [phone] | | | | | | Fax: | Fax: | | | | | | [phone] | [phone] | +--------+ + + + + + Encounter Details +--------+---------+ + + + | Date | Type | Department | Care Team | Description | +--------+---------+ + + + | 10/25/ | Office | [facility] | Joby Lowe MD | Hemorrhage of rectum | | 2012 | Visit | GASTROENTEROLOGY | [address], [address] | and anus (Primary | | | | [address] [place] | [address] [place], [place] | Dx) | | | | [address] [place], [place] | [id number] | | | | | [address] | | | | | | [phone] | | | +--------+---------+ + + + [...] + + + | Blood Pressure | 88/0 | 10/25/2012 1:23 PM | | | | | PDT | | + + + + + | Pulse | 96 | 10/25/2012 1:23 PM | | | | | PDT | | + + + + + | Temperature | 36.8 C (98.3 F) | 10/25/2012 1:23 PM | | | | | PDT | | + + + + + | Respiratory Rate | 12 | 10/25/2012 1:23 PM | | | | | PDT | | + + + + + | Oxygen Saturation | - | - | | + + + + + | Inhaled Oxygen | - | - | | | Concentration | | | | + + + + + | Weight | 70.8 kg (156 lb) | 10/25/2012 1:23 PM | | | | | PDT | | + + + + + | Height | 167.6 cm (5' 6") | 10/25/2012 1:23 PM | | | | | PDT | | + + + + + | Body Mass Index | 25.18 | 10/25/2012 1:23 PM | | | | | PDT | | + + + + + documented in this encounter Patient Instructions Patient Instructions Gabby Gavin RN - 10/25/2012 1:32 PM PDTFormatting of this not e might be different from the original. October 25, 2012 Jovita Powell [address] [place] [address] Dear Jovita: Thank you for enrolling in [facility]. Please follow the instructions below to view your secur e online medical record. [facility] allows you to send secure messages to your doctor, view you r test results, renew your prescriptions, schedule appointments, and more. How Do I Sign Up? 1. In your Internet browser, go to [email or web address] 2. Click on the "Sign up with your activation code" button in the "New User?" box. This karen l take you to the New Member Sign Up page. 3. Enter your [facility] activation code exactly as it appears below. You will not need to use this code after you sign up. If you do not sign up before the expiration date, you must req uest a new code through your Social Circle or Social Circle participating clinic. [facility] Access Code: [email or web address] Expires: 12/24/2012 13:33 4. Fill in the last four digits of your Social Security Number (xxxx) and Date of (mm /dd/yyyy) and click Next. 5. Create a Social Circle [facility] username. Your username cannot be changed, so think of one t hat is secure and easy to remember. 6. Create a [facility] password. You can change your password at any time. 7. Enter your security question and answer. This can be used at a later time if you forget your password. Click Next. 8. Enter your e-mail address. You will receive e-mail notification when new information is available in [facility]. 9. Click "Sign In". You may now view your medical record. Additional Information If you have questions, you can email or call [phone] to talk to our MyChart care team. Please remember, MyChart should NOT be used for urg ent needs. For all medical emergencies, call 911. Sincerely, Joby Lowe MD documented in this encounter Progress Notes Joby Lowe MD - 10/29/2012 7:11 AM PDT Subjective: Patient ID: Jovita Grey is a 22 y.o. female. HPI Comments: 22-year-old female seen for rectal pain and rectal bleeding. The patient is . She had an episode of rectal bleeding toward the end of July. She then had mu ltiple episodes of rectal bleeding and rectal pain and saw Mel Mejias on 52. Rectal examin ation at that time showed no evidence for any hemorrhoids or some pink mucous on the glove. No suppository treatment her sitz baths treatment was suggested. She's followed up with Dr Arsen Nickerson on 09/26. No treatment or advice was given to the patient at that time.. She denies rectal trauma denies hard stools moves her bowels once or twice a day with soft without str aining is on a stool softener and has not needed a stool softener. There is no family histo ry of colon cancer or polyps stool studies have been negative hemoglobin normal at 13.5 she has not been on any recent antibiotics foreign r travel the patient has had no past history of hemorrhoids anal fissure Filed Vitals: 10/25/12 1323 BP: 88/0 Pulse: 96 Temp: 36.8 C (98.3 F) Resp: 12 PainSc: 5 PainLoc: Rectum No Known Allergies Past Medical History Diagnosis Date Asthma exercise induced Umbilical hernia Primary amenorrhea resolved Sickle cell trait Past Surgical History Procedure Date Tonsillectomy and adenoidectomy 02/13/2008 only had tonsillectomy Family History Problem Relation Age of Onset Hypertension Mother Hypertension Father Elevated lipids Father Asthma Brother Hypertension Maternal Grandmother Asthma Maternal Grandmother History Social History Marital Status: Single Spouse Name: REECE Number of Children: 0 Years of Education: N/A Occupational History [employer] Social History Main Topics Smoking status: Never Smoker Smokeless tobacco: Current User Types: Chew Alcohol Use: No Drug Use: No Sexually Active: None Other Topics Concern None Social History Narrative Marital Status:singleChildren: 0Occupation:Works for [employer] FOB: ELIAS Little Review of Systems Review of systems otherwise is negative she denies any possible extraintestinal manifestati ons of inflammatory bowel disease Objective: Physical Exam Extremely anxious female complaining of marked pain with rectal examination with lidocaine and KY jelly no external hemorrhoids are noted probable anal fissure in the 12:00 position n oted she appears healthy and vital signs are noted with systolic pressure of 88 After informed consent and proper patient identification flexible sigmoidoscopy was carried out. Exam is compromised due to patient's discomfort and verbal expression of the same and was terminated at 30 cm. There is excellent mucosal visualization. No mucosal abnormaliti es were noted in the sigmoid colon and rectum retroflex was normal withdrawal of the sigmoid oscope slowly to the ear canal revealed a fissure at the 12:00 position. Assessment: Rectal fissure Plan: Patient was instructed on sitz baths was told to continue to keep her stools soft as possib le. We'll go ahead and gave her samples of rapid care (lidocaine cream) and Canasa supposit ories. She's to call and let us know the week of October 30 she is doing. documented in this enc ounter Miscellaneous Notes Miscellaneous - ONBASE SCAN [facility] - 10/25/2012 12:00 AM PDT iscellaneous - ONBASE SCAN [facility] - 10/25/2012 12:00 AM PDTEle ctronically signed by Robb Evans at 01/11/2013 1:14 PM PDTdocumented in this encounter Plan of [...] [place] | | | | | | [id number] | | | | | | | | +--------+---------+ + + + documented as of this encounter Visit Diagnoses + + | Diagnosis | + + | Hemorrhage of rectum and anus - Primary | + + documented in this encounter
--- OUTSIDE RECORDS SUMMARY | ~2019-12-21 | XMS | Encounter Summary ---
Demographics + + + | Address | [address] | | | [place] [address] | + + + | Home Phone [...] + + + | Author | [facility] | | | and [place] | + + + | Organization | [facility] | | | and [place] | + + + | Address | Unknown | + + + | Phone | Unavailable | + + + Support + + + + + | Name | Relationship | Address | Phone | + + + + + | Zo Dong | ECON | [address] [facility] | | | | | [place] | | | | | [address] | | + + + + + | Jovita Luna | ECON | [address] | | | | | [place] [address] | | + + + + + Care Team Providers + +------+ + | Care Director Of Marketing And Promotions Name | Role | Phone | + [...] Description | +--------+--------+ + + + | 02/03/ | Refill | [facility] | Casi Mccloud, | Medication Refill | | 2017 | | [facility] | [address] | | | | | [address] | [place] | | | | | [place], [place] | [address] | | | | | [address] | | | | | | [phone] | | | +--------+--------+ + + + [...] this encounter Miscellaneous Notes Telephone Encounter - Tomas Benoit MD - 02/03/2017 5:25 PM PDTRx refilled with added r efills. elephone [facility] anthony - Darline Jay RN - 02/03/2017 4:39 PM PDTNo refill protocol, is it ok to ref ill this medication? Patient last seen by Dr Benoit in July 2016. documented in this encounter Plan of Treatment [...]
--- OUTSIDE RECORDS SUMMARY | ~2019-12-21 | XMS | Encounter Summary ---
Demographics + + + | Address | [address] | | | [place] [address] | + + + | Home Phone | | + + + | Preferred Language | Unknown | + + + | Marital Status | Single | + + + | Mandaen Affiliation | Unknown | + + + [...] ECON | [address] [facility] | | | | | [place] | | | | | [address] | | + + + + + | Jovita Luna | ECON | [address] | | | | | [place] [address] | | + + + + + Care Team Providers + +------+ + | Care Machine Pan Greaser Name | Role | Phone | + +------+ + | Tomas Benoit MD | PCP | | + +------+ + Encounter Details +--------+ + + + + | Date | Type | Department | Care Team | Description | +--------+ + + + + | 08/15/ | Hospital | [facility] | Tomas Benoit, | | | 2012 - | Encounter | [facility] | [place] [address] | | | | | [facility] [address] | [place] | | | 08/18/ | | [place], | [address] | | | 2012 | | [place] [address] | | | | | | [phone] | | | +--------+ + + + [...] triamcinolone | Apply thin film to | 15 g | 1 | 05/15/19 | | | (KENALOG) 0.1% cream | affected area(s) two | | | 13 | 4 | | | to four times daily [...] [place] | | | | | | [address] | | | | | | | | +--------+---------+ + + + documented as of this encounter Procedures + +--------+ + + + | Procedure Name | Priori | Date/Time | Associated Diagnosis | Comments | | | ty | | | | + +--------+ + + + | HEMOGLOBIN AND | Routin | 08/17/2012 | | Results for this | | HEMATOCRIT | e | 6:30 AM | | procedure are in the | | | | PDT | | results section. | + +--------+ + + + | RUPTURE OF MEMBRANES | Routin | 08/15/2012 | | Results for this | | | e | 10:47 AM | | procedure are in the | | | | PDT | | results section. | + +--------+ + + + | RUPTURE OF MEMBRANES | Routin | 08/15/2012 | | Results for this | | | e | 10:47 AM | | procedure are in the | | | | PDT | | results section. | + +--------+ + + + documented in this encounter Results Hemoglobin and Hematocrit (08/17/2012 6:30 AM PDT) + + + + + + | Component | Value | Ref Range | Performed | Pathologist | | | | | At | Signature | + + + + + + | Hemoglobin | 11.0 (L) | 11.5 - 16.0 | [facility] | | | | | gm/dL | [facility] | | | | | | [facility] | | | | | | CENTER - | | | | | | LABORATORY | | + + + + + + | Hematocrit | 33.7 (L) | 34.0 - 47.0 % | [facility] [...] + | [facility] | [address] | [place] | [phone] | | [facility] | | [address] | | | - LABORATORY | | | | + + + + + | [facility] | [address] | [place] | | | [facility] | | [address] | | | - LABORATORY | | | | + + + + + Rupture of Membranes (08/15/2012 10:47 AM PDT) + + + + + + | Component | Value | Ref Range | Performed | Pathologist | | | | | At | Signature | + + + + + + | Rupture of | POSITIVEComment: | | [facility] | | | | @INTERNAL CONTROL OK?: | | [facility] | | | Membranes | RED CONTROL LINE | | MEDICAL | | | | APPEARS? Y | | CENTER - | | | | | | LABORATORY | | + + + + + + + + | Specimen | + + | | + + + + + + + | Performing | Address | City/State/Zipcode | Phone Number | | Organization | | | | + + + + + | [facility] | [address] | [place] | [phone] | | [facility] | | [address] | | | - LABORATORY | | | | + + + + + | [facility] | [address] | [place], [place] | | | [facility] | | [address], [place] | | | - LABORATORY | | | | + + + + + Rupture of Membranes (08/15/2012 10:47 AM PDT) + + + + + + | Component | Value | Ref Range | Performed | Pathologist | | | | | At | Signature | + + + + + + | Rupture of | POSITIVE | | [facility] | | | | | | [facility] | | | Membranes | | | MEDICAL | | | | | | CENTER - | | | | | | LABORATORY | | + + + + + + + + | Specimen | + + | | + + + + + | Narrative | Performed At | + + + | Collect By: Nurse Comment: 23 weeks | [facility] | | | [facility] | | | [facility] | | | - LABORATORY | + + + + + + + + | Performing | Address | City/State/Zipcode | Phone Number | | Organization | | | | + + + + + | [facility] | [address] | [place], [place] | [phone] | | [facility] | | [address] | | | - LABORATORY | | | | + + + + + | [facility] | [address] | [place], [place] | | | [facility] | | [id number] | | | - LABORATORY | | | | + + + + + documented in this encounter Visit Diagnoses Not on filedocumented in this encounter"
--- OUTSIDE RECORDS SUMMARY | ~2019-12-21 | XMS | Encounter Summary ---
Demographics + + + | Address | [address] | | | [place] [address] | + + + | Home Phone | | + + + | Preferred Language | Unknown | + + + | Marital Status | Single | + + + | Uatsdin Affiliation | Unknown | + + + [...] Dong | ECON | [address] [facility] | | | | | [place] | | | | | [address] | | + + + + + | Jovita Luna | ECON | [address] | | | | | [place] [address] | | + + + + + Care Team Providers + +------+ + | Care Engineer Byproduct Name | Role | Phone | + [...] Description | +--------+--------+ + + + | 02/08/ | Refill | [facility] | Tomas Benoit, | Medication Refill | | 2018 | | [facility] | [address] | | | | | [address] | [place] | | | | | [place] | [address] | | | | | [address] | | | | | | [phone] | | | +--------+--------+ + + + [...] this encounter Miscellaneous Notes Telephone Encounter - Anya Alford RN - 02/09/2018 10:26 AM PDTLast visit: 8 Next visit: Not scheduled Last filled: 02/03/2017 #15 with 3 refills. Pended for you doc umented in this encounter Plan of Treatment +--------+---------+ + + + | Date | Type | Specialty | Care Team | Description | +--------+---------+ + + + | 01/30/ | Office | Family Medicine | Tomas Benoit, | | | 2019 | Visit | | MD Joy [address] | | | | | | [place] | | | | | | [phone] | | | | | | | | +--------+---------+ + + + documented as of this encounter Visit Diagnoses Not on filedocumented in this encounter"
--- OUTSIDE RECORDS SUMMARY | ~2019-12-21 | XMS | Encounter Summary ---
Demographics + + + | Address | [address] | | | [place] [address] | + + + | Home Phone [...] + + + | Author | [facility] | | | and [place] | + + + | Organization | [facility] | | | and [place] | + + + | Address | Unknown | + + + | Phone | Unavailable | + + + Support + + + + + | Name | Relationship | Address | Phone | + + + + + | Zo Dong | ECON | [address] [facility] | | | | | [place] | | | | | [address] | | + + + + + | Jovita Luna | ECON | [address] | | | | | [place] [address] | | + + + + + Care Team Providers + +------+ + | Care Exhibition Organiser Name | Role | Phone | + +------+ + | Tomas Benoit MD | PCP | | + +------+ + Encounter Details +--------+ + + + + | Date | Type | Department | Care Team | Description | +--------+ + + + + | 01/05/ | Abstract | [facility] | DATA MIGRATION TR | | | 2011 | | Conversion Location | [address] | | | | | [place] [address] | | | | | | [place], [place] | | | | | | [address] | | | | | | [phone] | | | +--------+ + + + [...] + + + + | Weight | 65.8 kg (145 lb) | 03/19/2009 12:00 AM | | | | | PST | | + + + + + | Height | 165.1 cm (5' 5") | 03/19/2009 12:00 AM | | | | | PST | | + + + + + | Body Mass Index | 24.13 | 03/19/2009 12:00 AM | | | | | PST | | + + + + + documented in this encounter Plan of Treatment [...] [place] | | | | | | [id number] | | | | | | | | +--------+---------+ + + + documented as of this encounter Visit Diagnoses Not on filedocumented in this encounter
--- OUTSIDE RECORDS SUMMARY | ~2019-12-21 | XMS | Encounter Summary ---
Demographics + + + | Address | [address] | | | [place] [address] | + + + | Home Phone | | + + + | Preferred Language | Unknown | + + + | Marital Status | Single | + + + | Holiness Affiliation | Unknown | + + + | Race | Black or | + + + | Ethnic Group | Not or | + + + Author + + + | Author | [facility] | | | and [place] | + + + | Organization | [facility] | | | and [place] | + + + | Address | Unknown | + + + | Phone | Unavailable | + + + Support + + + + + | Name | Relationship | Address | Phone | + + + + + | Zo Dong | ECON | [address] [facility] | | | | | [place] | | | | | [address] | | + + + + + | Jovita Luna | ECON | [address] | | | | | [place] [address] | | + + + + + Care Team Providers + +------+ + | Care Assisted Living Coordinator Name | Role | Phone | + +------+ + | Tomas Benoit MD | PCP | | + +------+ + Reason for Visit +--------+--------+ + | Reason | Onset | Comments | | | Date | | +--------+--------+ + | Other | 11/05/ | | | | 2013 | | +--------+--------+ + Encounter Details +--------+ + + + + | Date | Type | Department | Care Team | Description | +--------+ + + + + | 11/05/ | Telephone | [facility] | Tomas Benoit, | Other | | 2013 | | MEDICINE [place] | [address] | | | | | [address] | [place] | | | | | [place] | [address] | | | | | [address] | | | | | | [phone] | | | +--------+ + + + [...] this encounter Miscellaneous Notes Telephone Encounter - Gabby Gavin RN - 11/05/2013 12:21 PM PDTCalled Radha and gave her verbal order. I told her I thought standing order would cover it. She said it was uncle ar on the order they received that it was for a standing order. Patient was drawn. Noam yañez signed by Gabby Gavin RN at 11/05/2013 12:25 PM PDTTelephone Encounter - Marilu Sims - 11/05/2013 12:13 PM PDTMarla with [facility] in [place], [place] called for a verb al order for a HCG quant. P: [phone]. Marilu Mcwilliams documented in this enco unter Plan of Treatment +--------+---------+ + + + [...]
--- OUTSIDE RECORDS SUMMARY | ~2019-12-21 | XMS | Encounter Summary ---
Demographics + + + | Address | [address] | | | [place] [address] | + + + | Home Phone | | + + + | Preferred Language | Unknown | + + + | Marital Status | Single | + + + | Temple Affiliation | Unknown | + + + | Race | Black or | + + + | Ethnic Group | Not or | + + + Author + + + | Author | [facility] | | | and [place] | + + + | Organization | [facility] | | | and [place] | + + + | Address | Unknown | + + + | Phone | Unavailable | + + + Support + + + + + | Name | Relationship | Address | Phone | + + + + + | Zo Dong | ECON | [address] [facility] | | | | | [place] | | | | | [address] | | + + + + + | Jovita Luna | ECON | [address] | | | | | [place] [address] | | + + + + + Care Team Providers + +------+ + | Care Metal Work Duct Installer Name | Role | Phone | + +------+ + | Tomas Benoit MD | PCP | | + +------+ + Reason for Visit + + + | Reason | Comments | + + + | Initial | | | Visit | | + + + Encounter Details +--------+ + + + + | Date | Type | Department | Care Team | Description | +--------+ + + + + | 05/07/ | Initial | [facility] | Tomas Benoit, | [place]: 9w1d | | 2020 | | MEDICINE [place] | [address] | | | | | [address] | [place] | | | | | [place] | [address] | | | | | [address] | | | | | | [phone] | | | +--------+ + + + [...] + + + | Blood Pressure | 100/70 | 05/07/2019 2:00 PM | | | | | PST | | + + + + + | Pulse | 81 | 05/07/2019 2:00 PM | | | | | PST | | + + + + + | Temperature | 37 C (98.6 F) | 05/07/2019 2:00 PM | | | | | PST | | + + + + + | Respiratory Rate | 14 | 05/07/2019 2:00 PM | | | | | PST | | + + + + + | Oxygen Saturation | 99% | 05/07/2019 2:00 PM | | | | | PST | | + + + + + | Inhaled Oxygen | - | - | | | Concentration | | | | + + + + + | Weight | 85.4 kg (188 lb 4.4 | 05/07/2019 2:00 PM | | | | oz) | PST | | + + + + + | Height | 165.7 cm (5' 5.25") | 05/07/2019 2:00 PM | | | | | PST | | + + + + + | Body Mass Index | 31.09 | 05/07/2019 2:00 PM | | | | | PST | | + + + + + documented in this encounter Progress Notes Tmoas Benoit MD - 05/07/2019 2:00 PM PSTIOB low risk . Dating and past medical history reviewed including identification of risk factors: None Pap smear not indicated. Urine for cultures and STD testing completed. Labs reviewed and ordered. Reviewed medical plan for . Education materials provided and reviewed. Reviewed call system and appropriate means to contact provider after hours. Reviewed appropriate use of Women's Services. Reviewed scheduling and upcoming appointments. Ultrasound to confirm dating will be completed on May 10. Patient having some increase in constipation. Asked her to increase the amount of docusate sodium or MiraLAX that she i s using. Stay away from laxatives. Also stay away from herbal supplements. I, Dr. Tomas Benoit, personally performed the services described in this documentation, as scribed in my presence and it is both accurate and complete. Tomas Benoit MD 05/07/19 documented in this en counter Plan of Treatment +--------+---------+ + + + | Date | Type | Specialty | Care Team | Description | +--------+---------+ + + + | 01/30/ | Office | Family Medicine | Tomas Benoit, | | 2019 | Visit | | [address] | | | | | | [place] | | | | | | [address] | | | | | | | | +--------+---------+ + + + documented as of this encounter Procedures + +--------+ + + + | Procedure Name | Priori | Date/Time | Associated Diagnosis | Comments | | | ty | | | | + +--------+ + + + | CULTURE, URINE | Routin | 05/07/2019 | Normal | Results for this | | | e | 2:25 PM | in first trimester | procedure are in the | | | | PST | | results section. | + +--------+ + + + | C. TRACHOMATIS AND | Routin | 05/07/2019 | Normal | Results for this | | N. GONORRHOEAE, NAAT | e | 2:25 PM | in first trimester | procedure are in the | | (APTIMA) | | PST | | results section. | + +--------+ + + + documented in this encounter Results HIV AG/AB, 4th Gen, Reflex (05/07/2019 2:55 PM PST) + + + + + + | Component | Value | Ref Range | Performed | Pathologist | | | | | At | Signature | + + + + + + | HIV 1/2 Ab | Non Reactive | Non Reactive | REFERENCE | | | and P24 Ag | | | LAB [facility] | | | | | | - [place] | | + + + + + + + + | Specimen | + + | Blood | + + + + + | Narrative | Performed At | + + + | Performed at: 01 - [facility] [place] [address], | REFERENCE LAB | | [place], [place] [id number] Insurance Examiner: Valentin Chambers MD, Phone: | [facility] | | [phone] | | + + + + + + + + | Performing | Address | City/State/Zipcode | Phone Number | | Organization | | | | + + + + + | REFERENCE LAB | [address] | [place], [place] | [phone] | | [facility] | Drive [facility] | [address] | | + + + + + TSH (05/07/2019 2:55 PM PST) + + + + + + | Component | Value | Ref Range | Performed | Pathologist | | | | | At | Signature | + + + + + + | TSH | 4.30 (H) | 0.36 - 3.74 | [facility] | | | | | uIU/mL | [facility] | | | | | | MEDICAL [...] + + + | [facility] | [address] | [place] | [phone] | | [facility] | | [address] | | | [facility] | | | | + + + + + Vitamin D, Deficiency Screen (25-Hydroxy) (05/07/2019 2:55 PM PST) + +--------+ + + + | Component | Value | Ref Range | Performed | Pathologist | | | | | At | Signature | + +--------+ + + + | Vitamin D, | 24 (L) | 30 - 100 ng/mL | [facility] | | | 25 Hydroxy | | | [facility] | | [...] [address] | [place] | [phone] | | [facility] | | [address] | | | - LABORATORY | | | | + + + + + C. trachomatis and N. gonorrhoeae, NAAT ([facility]TIMA) (05/07/2019 2:25 PM PST) + + + + + + | Component | Value | Ref Range | Performed | Pathologist | | | | | At | Signature | + + + + + + | Chlamydia | Negative | Negative | REFERENCE | | | trachomatis | | | LAB [facility] | | | PCR | | | - [place] | | + + + + + + | Neisseria | Negative | Negative | REFERENCE | | | Gonorrhoeae | | | LAB [facility] | | | DNA PCR | | | - [place] | | + + + + + + + + | Specimen | + + | Urine - Urine | | specimen (specimen) | + + + + + | Narrative | Performed At | + + + | Performed at: 01 - [facility] [place] [address], | REFERENCE LAB | | [place], [place] [id number] Insurance Examiner: Valentin Chambers MD, Phone: | [facility] | | [phone] | | + + + + + + + + | Performing | Address | City/State/Zipcode | Phone Number | | Organization | | | | + + + + + | REFERENCE LAB | [address] | [place], [place] | [phone] | | [facility] | [place] | [address] | | + + + + + Culture, Urine (05/07/2019 2:25 PM PST) + + + + + + | Component | Value | Ref Range | Performed | Pathologist | | | | | At | Signature | + + + + + + | Culture | 3,000 CFU/ml Beta | | [facility] | | | | Hemolytic Streptococci, | | [facility] | | | | [facility]: | | MEDICAL | | | | Penicillin is the drug | | CENTER - | | | | of choice for this | | LABORATORY | | | | organism. | | | | + + + + + + + + | Specimen | + + | Urine - Urine | | specimen (specimen) | + + + + + + + | Performing | Address | City/State/Zipcode | Phone Number | | Organization | | | | + + + + + | [facility] | [address] | [place] | [phone] | | [facility] | | [address] | | | - LABORATORY | | | | + + + + + documented in this encounter Visit Diagnoses + + | Diagnosis | + + | 10 weeks gestation of - Primary state, incidental | + + | Normal in first trimester | + + documented in this encounter
--- OUTSIDE RECORDS SUMMARY | ~2019-12-21 | XMS | Encounter Summary ---
Demographics + + + | Address | [address] | | | [place] [address] | + + + | Home Phone [...] ECON | [address] [facility] | | | | | [place] | | | | | [address] | | + + + + + | Jovita Luna | ECON | [address] | | | | | [place] [address] | | + + + + + Care Team Providers + +------+ + | Care Librarian Helper Name | Role | Phone | + +------+ + | Tomas Benoit MD | PCP | | + +------+ + Reason for Visit + +--------+ + | Reason | Onset | Comments | | | Date | | + +--------+ + | Appointment | 09/19/ | | | | 2012 | | + +--------+ + Encounter Details +--------+ + + + + | Date | Type | Department | Care Team | Description | +--------+ + + + + | 09/19/ | Telephone | [facility] | Joby Lowe MD | Appointment | | 2012 | | GASTROENTEROLOGY | [address], [place] | | | | | [address] [place] | [address] [place], [place] | | | | | [address] [place], [place] | [address] | | | | | [address] | | | | | | [phone] | | | +--------+ + + + [...] Telephone Encounter - Arabella Herrera RN - 09/19/2012 11:48 AM PDTMessage left by Lori Romero asking for appt for this patient due to bloody diarrhea. Will have Dr Mynor beauchamp recent notes and give opinion if she needs scheduled for office visit or go straight [place] [facility] Patient is post , labs normal. documented in this encounter Plan of Treatment [...]
--- OUTSIDE RECORDS SUMMARY | ~2019-12-21 | XMS | Encounter Summary ---
Demographics + + + | Address | [address] | | | [place] [address] | + + + | Home Phone [...] Dong | ECON | [address] [facility] | | | | | [place] | | | | | [address] | | + + + + + | Jovita Luna | ECON | [address] | | | | | [place] [address] | | + + + + + Care Team Providers + +------+ + | Care Explosive Operator Supervisor Name | Role | Phone | + +------+ + | Tomas Benoit MD | PCP | | + +------+ + Reason for Referral Evaluate & Treat (Routine) +--------+ + + + + + | Status | Reason | Specialty | Diagnoses / | Referred By | Referred To | | | | | Procedures | Contact | Contact | +--------+ + + + + + | Closed | Specialty | Gastroenterol | Diagnoses | Mynor, | Mynor, | | | Services | ogy | Hemorrhage | Joby Alberts MD | Joby Alberts MD | | | Required | | of rectum | [address], | | | | | and anus | [place], [place] | [place] [address] | | | | | Diarrhea | [address] [place] | [place], | | | | | Procedures | [place], [place] | [place] [address] | | | | | [place] | [address] | Phone: | | | | | SIGMOIDOSCOP | Phone: | [phone] | | | | | Y,DIAGNOSTIC | [phone] | Fax: | | | | | [place] | Fax: | [phone] | | | | | SIGMOIDOSCOP | [phone] | | | | | | Y,BIOPSY | | | +--------+ + + + + + Reason for Visit + +--------+ + [...] + + | 09/19/ | Telephone | [facility] | Joby Lowe MD | Appointment | | 2012 | | GASTROENTEROLOGY | [address], [place] | | | | | [address] [facility] | [address] [place] | | | | | [address] [place], [place] | [address] | | | | | [address] | | | | | | [phone] | | | +--------+ + + + [...] Telephone Encounter - Arabella Herrera RN - 09/20/2012 9:32 AM PDTPatient reports ble eding has decreased but she continues to see some blood Which will turn the water slightly red. Having cramping diarrhea and some rectal discomfort. Dr Lowe recommends a flex sigm oidoscopy. Offered tomorrow but she needs to arrange someone to take care of her baby. Herbert eduled for 09/27/12. She will come by office to picker tender helper prep and instructions and brochure ab out procedure. Telephone Encounter - Arabella Herrera RN - 09/19/2012 4:[address] Lowe we may schedule pt for flex sigmoidoscopy. Left message for pt to call our office and talk to tad alberts. documented in this encounter Plan of Treatment [...] Ambulatory referral | Outpatient | Routin | Hemorrhage of | Expected: | | to Gastroenterology | Referral | e | rectum and anus | 09/27/2012, Expires: | | | | | Diarrhea | 09/20/2013 | + + +--------+ + + documented as of this encounter Visit Diagnoses + + | Diagnosis | + + | Hemorrhage of rectum and anus - Primary | + + | Diarrhea | + + documented in this encounter"
--- OUTSIDE RECORDS SUMMARY | ~2019-12-21 | XMS | Encounter Summary ---
Demographics + + + | Address | [address] | | | [place] [address] | + + + | Home Phone [...] Dong | ECON | [address] [facility] | | | | | [place] | | | | | [address] | | + + + + + | Jovita Luna | ECON | [address] | | | | | [place] [address] | | + + + + + Care Team Providers + +------+ + | Care Brush Polisher Name | Role | Phone | + +------+ + | Tomas Benoit MD | PCP | | + +------+ + Encounter Details +--------+ + + + + | Date | Type | Department | Care Team | Description | +--------+ + + + + | 11/05/ | Abstract | [facility] | Tomas Benoit, | | | 2013 | | MEDICINE [place] | [address] | | | | | [address] | [place] | | | | | [place] | [address] | | | | | [address] | | | | | | [phone] | | | +--------+ + + + [...] 01/30/ | Office | Family Medicine | oTmas Benoit, | | | 2019 | Visit | | [address] | | | | | | [place] | | | | | | [address] | | | | | | | | +--------+---------+ + + + documented as of this encounter Procedures + +--------+ + + + | Procedure Name | Priori | Date/Time | Associated Diagnosis | Comments | | | ty | | | | + +--------+ + + + | HCG, SERUM, QUANT | Routin | 11/01/2013 | | Results for this | | | e | | | procedure are in the | | | | | | results section. | + +--------+ + + + documented in this encounter Results HCG, Serum, Quant (11/01/2013) + +-------+ + + + | Component | Value | Ref Range | Performed | Pathologist | | | | | At | Signature | + +-------+ + + + | hCG Quant, | 6,689 | mIU/mL | [facility] | | | [...] [address] | [place] | [phone] | | [facility] | | [address] | | | - LABORATORY | | | | + + + + + | [facility] | [address] | [place] | | | [facility] | | [address], [facility] | | | - LABORATORY | | | | + + + + + documented in this encounter Visit Diagnoses Not on filedocumented in this encounter"
--- OUTSIDE RECORDS SUMMARY | ~2019-12-21 | XMS | Encounter Summary ---
Demographics + + + | Address | [address] | | | [place] [address] | + + + | Home Phone [...] Author + + + | Author | [facility] | | | and [place] | + + + | Organization | [facility] | | | and [place] | + + + | Address | Unknown | + + + | Phone | Unavailable | + + + Support + + + + + | Name | Relationship | Address | Phone | + + + + + | Zo Dong | ECON | [address] [facility] | | | | | [place] | | | | | [address] | | + + + + + | Jovita Luna | ECON | [address] | | | | | [place] [address] | | + + + + + Care Team Providers + +------+ + | Care Drafter Apprentice Name | Role | Phone | + +------+ + | Tomas Benoit MD | PCP | | + +------+ + Encounter Details +--------+ + + + + | Date | Type | Department | Care Team | Description | +--------+ + + + + | 12/24/ | Hospital | [facility] | Tomas Benoit, | Menorrhagia | | 2015 | Encounter | MED CTR ULTRASOUND | MD [address] | | | | | [address] [place] | [place], [place] | | | | | [place], [place] | [address] | | | | | [address] | | | | | | [phone] | Olga Rossi, | | | | | | Technologist | | +--------+ + + + + [...] Inhale 2 puffs into | 1 | 1 | 12/13/19 | | | mcg/puff inhaler | the lungs every 4 | Inhaler | | 15 | 8 | | | hours as needed for | | | | | | | Wheezing or | | | | | | | Shortness of Breath. | | | | | | | inhale 2 puffs 5-30 | | | | | | | minutes prior to | | | | | | | exercise | | | | | + + + +---------+ + + | | 3 tabs per day until | 90 | 1 | 12/04/19 | | | desogestrel-ethinyl | period stops or | tablet | | 15 | 5 | | estradiol | significantly | | | | | | (EMOQUETTE) 0.15-30 | lightens. Then | | | | | | MG-MCG per tablet | decrease to 2 a day | | | | | | | for one week, then | | | | | | | one a day for a | | | | | | | week, then stop. | | | | | + + + +---------+ + + | metroNIDAZOLE | Insert one dose into | 45 g | 0 | 12/25/19 | | | (METROGEL) 0.75% | vagina daily for 7 | | | 15 | 5 | | vaginal gel | days. | | | | | + + + +---------+ + + | Vit-Fe | Take 27-1 mg by | | 0 | 12/07/19 | | | Fumarate-FA (PRENATE | mouth Daily. | | | 12 | 6 | | PLUS) 27-1 MG TABS | | | | | | + + + +---------+ + + | sertraline | Take 1 tablet by | 30 | 5 | 12/13/19 | | | (ZOLOFT) 50 mg | mouth Daily. | tablet | | 15 | 7 | | tablet | | | | [...] 01/30/ | Office | Family Medicine | Benoit, Tomas R, | | | 2019 | Visit | | MD [address] | | | | | | [place] | | | | | | [address] | | | | | | | | +--------+---------+ + + + documented as of this encounter Procedures + +--------+ + + + | Procedure Name | Priori | Date/Time | Associated Diagnosis | Comments | | | ty | | | | + +--------+ + + + | US PELVIS W | Routin | 12/24/2014 | Menorrhagia | Results for this | | TRANSVAGINAL | e | 4:21 PM | | procedure are in the | | | | PDT | | results section. | + +--------+ + + + | PAP SMEAR | Routin | 12/24/2014 | | Results for this | | | e | 12:00 AM | | procedure are in the | | | | PDT | | results section. | + +--------+ + + + | PAP SMEAR | Routin | 12/24/2014 | | Results for this | | | e | 12:00 AM | | procedure are in the | | | | PDT | | results section. | + +--------+ + + + documented in this encounter Results US Pelvis W Transvaginal (12/24/2014 4:21 PM PDT) + + | Specimen | + + | | + + + + + | Narrative | Performed At | + + + | EXAM: US PELVIS W TRANSVAGINAL dated 12/24/2014 2:54 PM | [facility] | | HISTORY:menorrhagia COMPARISON: None. FINDINGS:Transabdominal | [facility] | | and transvaginal imaging of the pelvis. Uterus: Anteflexed uterus. | [facility] | | There are no focal myometrial abnormalities. The endometrium is | - IMAGING | | unremarkable and measures 7 mm. The uterus measures 9.8 x 5.6 x 4 | | | cm. Ovaries and adnexa: The right ovary is only identified | | | transabdominally. It is obscured by numerous loops of fluid-filled | | | bowel transvaginally. It is unremarkable on transabdominal imaging. | | | It measures 2.2 x 1.4 x 2.4 cm. The left ovary is similarly only | | | seen transabdominally. It is also unremarkable. It measures 2.5 x | | | 2.9 x 1.2 cm. No identified adnexal masses. No significant free | | | fluid. Color and spectral Doppler flow are only identified in the | | | right ovary. IMPRESSION - Unremarkable ultrasound evaluation | | | of the pelvic organs. Numerous loops of fluid-filled bowel are | | | nondilated and nonspecific. Dictated and Signed by: Joby Stubbs | | | MD Teresa Electronically signed: 12/24/2014 5:04 PM | | + + + + + | Procedure Note | + + | Cortez, Rad Results In - 12/24/2014 5:07 PM PDT EXAM: US PELVIS W TRANSVAGINAL dated | | 12/24/2014 2:54 PMHISTORY:menorrhagiaCOMPARISON: None.FINDINGS:Transabdominal and | | transvaginal imaging of the pelvis.Uterus: Anteflexed uterus. There are no focal | | myometrial abnormalities. Theendometrium is unremarkable and measures 7 mm. The uterus | | measures 9.8 x 5.6 x4 cm.Ovaries and adnexa: The right ovary is only identified | | transabdominally. It isobscured by numerous loops of fluid-filled bowel transvaginally. | | It isunremarkable on transabdominal imaging. It measures 2.2 x 1.4 x 2.4 cm. Theleft | | ovary is similarly only seen transabdominally. It is also unremarkable. It measures | | 2.5 x 2.9 x 1.2 cm. No identified adnexal masses. No significantfree fluid. Color and | | spectral Doppler flow are only identified in the rightovary.IMPRESSION -Unremarkable | | ultrasound evaluation of the pelvic organs.Numerous loops of fluid-filled bowel are | | nondilated and nonspecific.Dictated and Signed by: Joby Moore MD Electronically | | signed: 12/24/2014 5:04 PM | |obscured by numerous loops of fluid-filled bowel transvaginally. It is | |unremarkable on transabdominal imaging. It measures 2.2 x 1.4 x 2.4 cm. The | |left ovary is similarly only seen transabdominally. It is also unremarkable. | |It measures 2.5 x 2.9 x 1.2 cm. No identified adnexal masses. No significant | |free fluid. Color and spectral Doppler flow are only identified in the right | |ovary. | | | |IMPRESSION - | | | |Unremarkable ultrasound evaluation of the pelvic organs. | | | |Numerous loops of fluid-filled bowel are nondilated and nonspecific. | | | |Dictated and Signed by: Joby Moore MD | | Electronically signed: 12/24/2014 5:04 PM | + + + + + + + | Performing | Address | City/State/Zipcode | Phone Number | | Organization | | | | + + + + + | [facility] | [address] | [place] | [phone] | | [facility] | | [address] | | | - IMAGING | | | | + + + + + Pap Smear (12/24/2014 12:00 AM PDT) + + | Specimen | + + | | + + + + + | Narrative | Performed At | + + + | ORDERING PHYSICIAN: Tomas Benoit MD PATIENT NAME: | [facility] | | JOVITA GREY GENDER: Brianne : 1990 Prior | [facility] | | History: DATE CASE NUM ADEQUACY DIAGNOSIS | | | HPV RESULTS PHYSICIAN 03/23/12 [id number] Satisfactory NIL | | | Tomas Benoit MD 01/13/12 [id number] | | | Satisfactory NIL Tomas Benoit MD The 5 most | | | recent reports are included. This history does not include results | | | of pap smears performed at another laboratory. SPECIMEN(S): | | | Cervical/ Endocervical CLINICAL HISTORY: Routine Pap Smear | | | CYTOLOGIC INTERPRETATION: Negative for intraepithelial lesion or | | | malignancy. MOLECULAR PATHOLOGY RESULTS: Chlamydia trachomatis | | | Negative Neisseria gonorrhea Negative MOLECULAR PATHOLOGY | | | COMMENT: For cases negative for Chlamydia trachomatis and/or | | | Neisseria gonorrhea: A negative result does not preclude the | | | presence of CT or NG infection because results are dependent on | | | adequate sampling, absence of inhibitors and sufficient rRNA to be | | | detected. TECHNICAL NOTES: This specimen was received in a vial | | | of liquid-based fixative and was processed using thin layer Pap | | | technology. SPECIMEN ADEQUACY: Satisfactory for evaluation. | | | Endocervical and/or metaplastic cells present. LMP not given on | | | requisition. ADDITIONAL NOTES.: The Aptima Combo 2 assay is a FDA | | | approved target amplification nucleic acid probe test that utilizes | | | target capture for the in vitro qualitative [...] | Specimens collected in [facility] Pap Collection Fluid and Uniswab media | | | have not been approved by the FDA for the Aptima Combo 2 assay but | | | performance characteristics have been validated at [facility] | | | [employer], [facility] [place] [address]. | | | [facility] is certified under CLIA as qualified to perform | | | high-complexity clinical laboratory testing. This test is used for | | | clinical purposes. It should not be regarded as investigational or | | | for research. PERFORMING LABORATORY: Technical preparation was | | | performed by [facility] | | | [place] [address] (Cryptographer: Esvin Matias M.D.; CLIA#: | | | [id number]) and [email or web address], [address] | | | [place] [address] (Cryptographer: Remigio Johnson M.D.; | | | CLIA#: [id number]). PERFORMING LABORATORY.: Molecular testing | | | was performed by [email or web address], [address] [facility] | | | [place] [address] (Cryptographer: Esvin Matias M.D.; CLIA#: | | | [id number]). Diagnostician: Fidelina Cardona M.S., MARCOS(ASCP), | | | [facility] Geotechnical Field Technician Electronically Signed 12/26/2014 | | + + + + +---------+ + + | Performing | Address | City/State/Zipcode | Phone Number | | Organization | | | | + +---------+ + + | [facility] | | | | | [facility] | | | | + +---------+ + + Pap Smear (12/24/2014 12:00 AM PDT) + + | Specimen | + + | | + + + + + | Narrative | Performed At | + + + | ORDERING PHYSICIAN: Tomas Benoit MD PATIENT NAME: | [facility] | | JOVITA GREY GENDER: Brianne : 1990 Prior | [facility] | | History: DATE CASE NUM ADEQUACY DIAGNOSIS | | | HPV RESULTS PHYSICIAN 03/23/12 [id number] Satisfactory NIL | | | Tomas Benoit MD 01/13/12 [id number] | | | Satisfactory NIL Tomas Benoit MD The 5 most | | | recent reports are included. This history does not include results | | | of pap smears performed at another laboratory. SPECIMEN(S): | | | Cervical/ Endocervical CLINICAL HISTORY: Routine Pap Smear | | | CYTOLOGIC INTERPRETATION: Negative for intraepithelial lesion or | | | malignancy. MOLECULAR PATHOLOGY RESULTS: Chlamydia trachomatis | | | Negative Neisseria gonorrhea Negative MOLECULAR PATHOLOGY | | | COMMENT: For cases negative for Chlamydia trachomatis and/or | | | Neisseria gonorrhea: A negative result does not preclude the | | | presence of CT or NG infection because results are dependent on | | | adequate sampling, absence of inhibitors and sufficient rRNA to be | | | detected. TECHNICAL NOTES: This specimen was received in a vial | | | of liquid-based fixative and was processed using thin layer Pap | | | technology. SPECIMEN ADEQUACY: Satisfactory for evaluation. | | | Endocervical and/or metaplastic cells present. LMP not given on | | | requisition. ADDITIONAL NOTES.: The Aptima Combo 2 assay is a FDA | | | approved target amplification nucleic acid probe test that utilizes | | | target capture for the in vitro qualitative [...] | Specimens collected in [facility] Pap Collection Fluid and Uniswab media | | | have not been approved by the FDA for the Aptima Combo 2 assay but | | | performance characteristics have been validated at [facility] | | | [facility], [address] [place] [address]. | | | [employer] is certified under CLIA as qualified to perform | | | high-complexity clinical laboratory testing. This test is used for | | | clinical purposes. It should not be regarded as investigational or | | | for research. PERFORMING LABORATORY: Technical preparation was | | | performed by [facility] [address] [facility] | | | [place] [address] (Cryptographer: Esvin Matias M.D.; CLIA#: | | | [id number]) and [email or web address], [address] | | | [place] [address] (Cryptographer: Remigio Johnson M.D.; | | | CLIA#: [id number]). PERFORMING LABORATORY.: Molecular testing | | | was performed by [email or web address], [address] [facility] | | | [place] [address] (Cryptographer: Esvin Matias M.D.; CLIA#: | | | [id number]). Diagnostician: Fidelina Cardona M.S., MARCOS(ASCP), | | | [facility] Geotechnical Field Technician Electronically Signed 12/26/2014 | | + + + + +---------+ + + | Performing | Address | City/State/Zipcode | Phone Number | | Organization | | | | + +---------+ + + | [facility] | | | | | [facility] | | | | + +---------+ + + documented in this encounter Visit Diagnoses + + | Diagnosis | + + | Menorrhagia Excessive or frequent menstruation | + + documented in this encounter"
--- OUTSIDE RECORDS SUMMARY | ~2019-12-21 | XMS | Encounter Summary ---
Demographics + + + | Address | [address] | | | [place] [address] | + + + | Home Phone [...] Author + + + | Author | [facility] | | | and [place] | + + + | Organization | [facility] | | [...] [place] | | | | | [address] | | + + + + + | Jovita Luna | ECON | [address] | | | | | [place] [address] | | + + + + + Care Team Providers + +------+ + | Care Painter And Grader Cork Name | Role | Phone | + +------+ + | Tomas Benoit MD | PCP | | + +------+ + Reason for Visit +---------+--------+ + | Reason | Onset | Comments | | | Date | | +---------+--------+ + | Results | 09/12/ | | | | 2012 | | +---------+--------+ + Encounter Details +--------+ + + + + | Date | Type | Department | Care Team | Description | +--------+ + + + + | 09/12/ | Telephone | [facility] | Tomas Benoit, | Results | | 2012 | | MEDICINE [place] | [address] | | | | | [address] | [place] | | | | | [place] | [address] | | | | | [address] | | | | | | [phone] | | | +--------+ + + + [...] Telephone Encounter - Janice Buck LPN - 09/13/2012 4:34 PM PDTCalled patient and she states she is not constipated or having diarrhea. She is just having rectal bleeding every time she has a bowel movement. She states it is bright red when she wipes and the toilet nael wl is red. Scheduled appointment for patient to see Mel Mejias tomorrow morning. Electronic ally signed by Janice Buck LPN at 09/13/2012 4:37 PM PDTTelephone Encounter - Karl Benoit MD - 09/13/2012 8:48 AM PDTFirst thing is that I asked them to call if she had any further BM's with blood. Second is that I believe Janice called and gave Jovita herself the results. Please talk to Jovita herself and confirm whether or not she is having blood with BM's Please also ask if it is diarrhea or with hard stools. elephone Encounter - Darline Jay RN - 013 4:09 PM PDTPhone call from mom, Zo. States she often has blood with BM's, since she has had a baby on 08/16. Has been taking th e stool softener. States she had problems with constipation before childbirth and during pr egnancy. She took a stool sample to [facility] in [place] on Tuesday or Tuesday last week and haven't heard anything about the results. I don't see them in the computer yet. Mom is at [phone] Jovita is at [phone] signed by Darline Jay RN at 09/12/2012 4: 13 PM PDTdocumented in this encounter Plan of Treatment +--------+---------+ + + + | Date | Type | Specialty | Care Team | Description | +--------+---------+ + + + | 01/30/ | Office | Family Medicine | Tomas Benoit, | | | 2019 | Visit | | MD [address] | | | | | | [place] | | | | | | [phone] | | | | | | | | +--------+---------+ + + + documented as of this encounter Visit Diagnoses Not on filedocumented in this encounter"
--- OUTSIDE RECORDS SUMMARY | ~2019-12-21 | XMS | Encounter Summary ---
Demographics + + + | Address | [address] | | | [place] [address] | + + + | Home Phone [...] [place] | | | | | [address] | | + + + + + | Jovita Luna | ECON | [address] | | | | | [place] [address] | | + + + + + Care Team Providers + +------+ + | Care Travel Insurance Agent Name | Role | Phone | [...] Description | +--------+--------+ + + + | 06/16/ | Refill | [facility] | Tomas Benoit, | Medication Refill | | 2015 | | [facility] | [address] | | | | | [address] | [place] | | | | | [place] | [address] | | | | | [address] | | | | | | [phone] | | | +--------+--------+ + + + [...] [place] | | | | | | [address] | | | | | | | | +--------+---------+ + + + documented as of this encounter Visit Diagnoses Not on filedocumented in this encounter"
--- OUTSIDE RECORDS SUMMARY | ~2019-12-21 | XMS | Encounter Summary ---
Demographics + + + | Address | [address] | | | [place] [address] | + + + | Home Phone | | + + + | Preferred Language | Unknown | + + + | Marital Status | Single | + + + | Jainism Affiliation | Unknown | + + + [...] Dong | ECON | [address] [facility] | | | | | [place] | | | | | [address] | | + + + + + | Jovita Luna | ECON | [address] | | | | | [place] [address] | | + + + + + Care Team Providers + +------+ + | Care Ordnance Engineer Name | Role | Phone | + +------+ + | Tomas Benoit MD | PCP | | + +------+ + Reason for Visit + +--------+ + | Reason | Onset | Comments | | | Date | | + +--------+ + | Appointment Question | 11/11/ | | | | 2019 | | + +--------+ + Encounter Details +--------+ + + + + | Date | Type | Department | Care Team | Description | +--------+ + + + + | 11/11/ | Telephone | [facility] | Tomas Benoit, | Appointment Question | 2019 | | [facility] | [address] | | | | | [address] | [place] | | | | | [place] | [address] | | | | | [address] | | | | | | [phone] | | | +--------+ + + + [...] this encounter Miscellaneous Notes Telephone Encounter - Betty Alvarez - 11/13/2019 11:21 AM PDTDr. Benoit will be back in the o ffice on 11/14/19 to see this patient. elephone Encounter - Casi Mccloud MD - 11/12/2019 10:27 PM PDTPlease call keyana araya, offer appointment with me Hall 11/14 at 9:00am for 36 week OB visit. Electronically west d by Casi Mccloud MD at 11/12/2019 10:28 PM PDTTelephone Encounter - Clyde Evans - 11/12/2019 4:30 PM PDTPatient is wanting to see when she can be scheduled Dr. Mccloud due to patient being almost due and wants to make sure to be seen. Please advise. Noam yañez signed by Toni Montague at 11/12/2019 4:31 PM PDTdocumented in this encounte r Plan of Treatment [...]
--- OUTSIDE RECORDS SUMMARY | ~2019-12-21 | XMS | Encounter Summary ---
Demographics + + + | Address | [address] | | | [place] [address] | + + + | Home Phone [...] Author + + + | Author | [facility] | | | and [place] | + + + | Organization | [facility] | | [...] [place] | | | | | [address] | | + + + + + | Jovita Luna | ECON | [address] | | | | | [place] [address] | | + + + + + Care Team Providers + +------+ + | Care Satellite Tv Technician Installer Name | Role | Phone | + +------+ + | Tomas Benoit MD | PCP | | + +------+ + Reason for Visit + +--------+ + | Reason | Onset | Comments | | | Date | | + +--------+ + | Appointment | 05/03/ | | | | 2017 | | + +--------+ + Encounter Details +--------+ + + + + | Date | Type | Department | Care Team | Description | +--------+ + + + + | 05/03/ | Telephone | [facility] | Tomas Benoit, | Appointment | | 2017 | | MEDIC[facility] [place] | [address] | | | | | [address] | [place] | | | | | [place] | [address] | | | | | [address] | | | | | | [phone] | | | +--------+ + + + [...] this encounter Miscellaneous Notes Telephone Encounter - Iker Monae [place] - 05/10/2017 12:00 PM PSTPatient was scheduled for . elephone Sarah Carver - 05/04/2017 12:27 PM PSTLeft message for patient to return our c all elephone Darline Stewart RN - 05/03/2017 3:26 PM PSTDue for annual exam and follow-up on me dications in July. Please schedule with PCP. documented in thi s encounter Plan of [...] [place] | | | | | | [id number] | | | | | | | | +--------+---------+ + + + documented as of this encounter Visit Diagnoses Not on filedocumented in this encounter"
--- OUTSIDE RECORDS SUMMARY | ~2019-12-21 | XMS | Encounter Summary ---
Demographics + + + | Address | [address] | | | [place] [address] | + + + | Home Phone [...] + | Author | [facility] | | | and [place] | + + + | Organization | [facility] | | | and [place] | + + + | Address | Unknown | + + + | Phone | Unavailable | + + + Support + + + + + | Name | Relationship | Address | Phone | + + + + + | Zo Dong | ECON | [address] [facility] | | | | | [place] | | | | | [address] | | + + + + + | Jovita Luna | ECON | [address] | | | | | [place] [address] | | + + + + + Care Team Providers + +------+ + | Care Logistics Supervisor Name | Role | Phone | + +------+ + | Tomas Benoit MD | PCP | | + +------+ + Reason for Visit +---------+--------+ + | Reason | Onset | Comments | | | Date | | +---------+--------+ + | Railways Assistant | 09/25/ | | | | 2019 | | +---------+--------+ + Encounter Details +--------+ + + + + | Date | Type | Department | Care Team | Description | +--------+ + + + + | 09/25/ | Telephone | [facility] | Casi Mccloud, | Railways Assistant | | 2019 | | MEDICINE [facility] | [address] | | | | | [address] | [place] | | | | | [place] | [address] | | | | | [address] | | | | | | [phone] | | | +--------+ + + + [...] Telephone Encounter - Tomas Benoit MD - 09/26/2019 7:55 AM PDTSo noted. elephone Encounter - Casi Mccloud MD - 09/26/2019 7:40 AM PDTLate entry: Patient called last evening about 1800, complaining of increased pain right groin and rig ht "sciatica". Worse with certain movements such as getting up from sitting. No contraction s, no urine symptoms, baby moving well, no leaking of fluid. Says had some of this pain in right pelvis/groin during last visit with Dr. Benoit that they discussed, but worse today. H as tried Tylenol without much help. Discussed most likely this pain is related to how baby is sitting in the pelvis, unfortunat liseth not much to do other than Tylenol, warm baths, local heat. She will do this overnight, then let us know if other symptoms develop or if she feels this pain becomes intolerable renay or to her next OB visit next week. Electronically signed by Casi Mccloud MD at 0 7:46 AM PDTdocumented in this encounter Plan of Treatment +--------+---------+ + + + | Date | Type | Specialty | Care Team | Description | +--------+---------+ + + + | 01/30/ | Office | Family Medicine | Tomas Benoit, | | | 2019 | Visit | | MD Joy [address] | | | | | | [place] | | | | | | [address] | | | | | | | | +--------+---------+ + + + documented as of this encounter Visit Diagnoses Not on filedocumented in this encounter
--- OUTSIDE RECORDS SUMMARY | ~2019-12-21 | XMS | Encounter Summary ---
Demographics + + + | Address | [address] | | | [place] [address] | + + + | Home Phone [...] [place] | | | | | [address] | | + + + + + | Jovita Luna | ECON | [address] | | | | | [place] [address] | | + + + + + Care Team Providers + +------+ + | Care Customer Service Coordinator Name | Role | Phone | + +------+ + | Tomas Benoit MD | PCP | | + +------+ + Encounter Details +--------+ + + + + | Date | Type | Department | Care Team | Description | +--------+ + + + + | 06/12/ | Routine | [facility] | Tomas Benoit, | GA: 89d | | 2020 | | [facility] | [address] | | | | | [address] | [place] | | | | | [place] | [address] | | | | | [address] | | | | | | [phone] | | | +--------+ + + + [...] + + + | Blood Pressure | 108/72 | 06/12/2019 9:31 AM | | | | | PST | | + + + + + | Pulse | 97 | 06/12/2019 9:31 AM | | | | | PST | | + + + + + | Temperature | 36.8 C (98.3 F) | 06/12/2019 9:31 AM | | | | | PST | | + + + + + | Respiratory Rate | 12 | 06/12/2019 9:31 AM | | | | | PST | | + + + + + | Oxygen Saturation | 98% | 06/12/2019 9:31 AM | | | | | PST | | + + + + + | Inhaled Oxygen | - | - | | | Concentration | | | | + + + + + | Weight | 81.3 kg (179 lb 3.7 | 06/12/2019 9:31 AM | | | | oz) | PST | | + + + + + | Height | 165.1 cm (5' 5") | 06/12/2019 9:31 AM | | | | | PST | | + + + + + | Body Mass Index | 29.83 | 06/12/2019 9:31 AM | | | | | PST | | + + + + + documented in this encounter Progress Notes Tomas Benoit MD - 06/12/2019 9:15 AM PSTHere for OB check. She had an itchy white dot on left side close to where she urinates. She is having discharge - creamy color, no odor. N o other areas bothering here. Examination shows a small gland that is mildly occluded. She also has thick white discharge present. Recommend that she use hot compresses and treat wi [id number] 7-day treatment of Monistat. Skin has white spots and is itchy on the legs. Using Eucerin moisturizer. Itchy enough to n eed to use Cortizone 10. Recommended trying Aquaphor. laboratories reviewed. She agrees to repeat her thyroid test at next visit. No m ajor issues today. I, Dr. Tomas Benoit, personally performed the services described in this documentation, as scribed in my presence and it is both accurate and complete. Tomas Benoit MD 06/12/19 documented in this e ncounter Plan of [...] [place] | | | | | | [address] | | | | | | | | +--------+---------+ + + + documented as of this encounter Procedures + +--------+ + + + | Procedure Name | Priori | Date/Time | Associated Diagnosis | Comments | | | ty | | | | + +--------+ + + + | POCT URINALYSIS, | Routin | 06/12/2019 | Normal | Results for this | | AUTO WITH CONF | e | 9:41 AM | in first trimester | procedure are in the | | | | PST | | results section. | + +--------+ + + + documented in this encounter Results TSH (07/10/2019 11:35 AM PDT) + +-------+ + + + | Component | Value | Ref Range | Performed | Pathologist | | | | | At | Signature | + +-------+ + + + | TSH | 2.78 | 0.36 - 3.74 | [facility] | | | | | uIU/mL | [facility] | | | | | [...] + + + | [facility] | [address] | [place] | [phone] | | [facility] | | [address] | | | [facility] | | | | + + + + + POCT Urinalysis (06/12/2019 9:41 AM PST) + + + + + + [...] + + + + | Specific | 1.015 | 1.001 - 1.030 | | | | [place], | | | | | | UA, POC | | | | | + + + + + + | Blood, UA, | Negative | Negative | | | | POC | | | | | + + + + + + | pH, UA, POC | 7.0 | 5.0, 6.0, 7.0, | | | [...] + | Diagnosis | + + | Thyroid function study abnormality - Primary Nonspecific abnormal results of thyroid | | function study | + + | Normal in first trimester | + + documented in this encounter
--- OUTSIDE RECORDS SUMMARY | ~2019-12-21 | XMS | Encounter Summary ---
Demographics + + + | Address | [address] | | | [place] [address] | + + + | Home Phone [...] [place] | | | | | [address] | | + + + + + | Jovita Luna | ECON | [address] | | | | | [place] [address] | | + + + + + Care Team Providers + +------+ + | Care Night Assistant Name | Role | Phone | + +------+ + | Tomas Benoit MD | PCP | | + +------+ + Reason for Visit + + + | Reason | Comments | + + + | Vaginal Discharge | | + + + Encounter Details +--------+---------+ + + + | Date | Type | Department | Care Team | Description | +--------+---------+ + + + | 06/03/ | Office | [facility] | Tomas Benoit, | Vaginal discharge | | 2016 | Visit | [facility] | [address] | (Primary Dx) | | | | [address] | [place] | | | | | [place] | [address] | | | | | [address] | | | | | | [phone] | | | +--------+---------+ + + + [...] + + + | Blood Pressure | 120/72 | 06/03/2015 4:14 PM | | | | | PST | | + + + + + | Pulse | 63 | 06/03/2015 4:14 PM | | | | | PST | | + + + + + | Temperature | 36.3 C (97.3 F) | 06/03/2015 4:14 PM | | | | | PST | | + + + + + | Respiratory Rate | 16 | 06/03/2015 4:14 PM | | | | | PST | | + + + + + | Oxygen Saturation | 98% | 06/03/2015 4:14 PM | | | | | PST | | + + + + + | Inhaled Oxygen | - | - | | | Concentration | | | | + + + + + | Weight | 78.9 kg (174 lb) | 06/03/2015 4:14 PM | | | | | PST | | + + + + + | Height | 165.7 cm (5' 5.25") | 06/03/2015 4:14 PM | | | | | PST | | + + + + + | Body Mass Index | 28.73 | 06/03/2015 4:14 PM | | | | | PST | | + + + + + documented in this encounter Progress Notes Tomas Benoit MD - 06/03/2015 4:18 PM PSTFormatting of this note might be different fro m the original. Jovita Grey is a 24 y.o. female Chief Complaint: Vaginal Discharge Vaginal Discharge The patient's primary symptoms include genital itching, a genital odor and vaginal discharg e. This is a new problem. The current episode started 1 to 4 weeks ago (2 weeks ago she shawna ated for yeast infection with no resolve). The problem occurs daily. The problem has been gr adually worsening. The patient is experiencing no pain. The problem affects both sides. She is not . Associated symptoms include flank pain. Pertinent negatives include no abdo sayra pain, back pain, fever, hematuria, nausea or rash. The vaginal discharge was thick (ta n in color). There has been no bleeding. She has not been passing clots. She has not been pa ssing tissue. Nothing aggravates the symptoms. She has tried antifungals (Monistat 3 day tx and Diflucan) for the symptoms. The treatment provided mild relief. She is not sexually acti ve. No, her partner does not have an STD. She uses oral contraceptives for contraception. He r menstrual history has been irregular. Her past medical history is significant for menorrha irma, miscarriage, an STD and vaginosis. There is no history of a section, an ectopi c , endometriosis, ovarian cysts or a terminated . PREVENTIVE CARE/PRIOR VISITS 1. Any recommendations from Health Maintenance: No Preventative Services TOPIC LAST DONE NEXT DUE Influenza Imm (Yearly) 04/14/2012 11/23/2014 Cervical Cancer Screening (Pap Every 3 Years 21-65 ) 12/24/2014 12/24/2017 2. Any immunizations necessary: No Immunization History Administered Date(s) Administered HPV, QUADRIVALENT, 3 DOSE (ADOL/ADULT) 12/14/2005, 11/30/2007, 02/13/2008 INFLUENZA, TRIVALENT PRESERVATIVE FREE (PED/ADOL/ADULT) 04/14/2012 MENINGOCOCCAL CONJUGATE,MENACTRA (PED/ADOL/ADULT) 12/11/2008 TDAP, (ADOL/ADULT) 05/26/2005, 06/21/2012 VARICELLA, 2 DOSE (PED/ADOL/ADULT) 01/12/2012 3. Has patient been involved in medical events/hospitalizations since their last visit: No No Known Allergies Medications: Patient Reported Taking Dosage albuterol 90 mcg/puff inhaler (Taking) Inhale 2 puffs into the lungs every 4 hours as nee ded for Wheezing or Shortness of Breath. inhale 2 puffs 5-30 minutes prior to exercise Number of times this order has been changed since signin Order Audit Bear desogestrel-ethinyl estradiol (APRI) 0.15-30 MG-MCG per tablet (Taking) 3 tabs daily for up to one pack then reduce to 2 tabs per day for 1 pack then reduce to one tab per day. sertraline (ZOLOFT) 50 mg tablet (Taking) Take 1 tablet by mouth Daily. Number of times this order has been changed since signin Order Audit Bear Past Medical History She has a past medical history of Asthma; Umbilical hernia; Primary amenorrhea; and Sickle cell trait (HCC). Past Surgical History She has past surgical history that includes Tonsillectomy (02/13/2008). Family History: Her family history includes Asthma in her brother and maternal grandmother; Elevated lipids in her father; High blood pressure in her father, maternal grandmother, and mother. Social History: History Social History Marital Status: Single Spouse Name: REECE Number of Children: 0 Years of Education: N/A Occupational History [employer] Social History Main Topics Smoking status: Never Smoker Smokeless tobacco: Former User Types: Chew Alcohol Use: No Drug Use: No Sexual Activity: No Other Topics Concern None Social History Narrative Marital Status:single Children: 0 Occupation:Works for [employer] FOB: ELIAS [place] [employer] Constitutional: Negative for fever. Gastrointestinal: Negative for nausea and abdominal pain. Genitourinary: Positive for flank pain, vaginal discharge and menorrhagia. Negative for hem aturia. Musculoskeletal: Negative for back pain. Skin: Negative for rash. Objective: Filed Vitals: 06/03/15 1614 BP: 120/72 Pulse: 63 Temp: 36.3 C (97.3 F) TempSrc: Temporal Resp: 16 Height: 1.657 m (5' 5.25") Weight: 78.926 kg (174 lb) SpO2: 98% Physical Exam Constitutional: She is oriented to person, place, and time. She appears well-developed and well-nourished. No distress. Appropriately dressed and groomed HENT: Head: Normocephalic and atraumatic. Eyes: Conjunctivae are normal. Genitourinary: There is no rash on the right labia. No erythema, tenderness or bleeding in the vagina. No signs of injury around the vagina. Vaginal discharge (very mild) found. Musculoskeletal: She exhibits no edema. Neurological: She is alert and oriented to person, place, and time. Skin: Skin is warm and dry. Psychiatric: She has a normal mood and affect. Her behavior is normal. Nursing note and vitals reviewed. Assessment and Plans: 1. Vaginal discharge Labs ordered. Will notify of results as they are available. Ok to continue using vagisil - Vaginal Path DNA dir probe Return if symptoms worsen or fail to improve. I Ana Paula Shukla am acting as a scribe on behalf of, and in the presence of Tomas Benoit MD . Ana Paula Shukla CMA. 06/03/15 I have reviewed and edited this note: Tomas Benoit MD 06/03/15 documented in this en counter Plan of [...] [place] | | | | | | [address] | | | | | | | | +--------+---------+ + + + documented as of this encounter Procedures + +--------+ + + + | Procedure Name | Priori | Date/Time | Associated Diagnosis | Comments | | | ty | | | | + +--------+ + + + | VAGINAL PATHOGENS | STAT | 06/03/2015 | Vaginal discharge | Results for this | | DNA DIRECT PROBE | | 4:45 PM | | procedure are in the | | | | PST | | results section. | + +--------+ + + + documented in this encounter Results Vaginal Path DNA dir probe (06/03/2015 4:45 PM PST) + + + + + [...] [address] | [place] | [phone] | | [facility] | | [address] | | | - LABORATORY | | | | + + + + + documented in this encounter Visit Diagnoses + + | Diagnosis | + + | Vaginal discharge - Primary Leukorrhea, not specified as infective | + + documented in this encounter
--- OUTSIDE RECORDS SUMMARY | ~2019-12-21 | XMS | Encounter Summary ---
Demographics + + + | Address | [address] | | | [place] [address] | + + + | Home Phone | | + + + | Preferred Language | Unknown | + + + | Marital Status | Single | + + + | Church Affiliation | Unknown | + + + | Race | Black or | + + + | Ethnic Group | Not or | + + + Author + + + | Author | [facility] | | | and [place] | + + + | Organization | [facility] | | | [...] [place] | | | | | [address] | | + + + + + | Jovita Luna | ECON | [address] | | | | | [place] [address] | | + + + + + Care Team Providers + +------+ + | Care Tree Inspector Name | Role | Phone | + +------+ + | Tomas Benoit MD | PCP | | + +------+ + Reason for Visit + +--------+ + | Reason | Onset | Comments | | | Date | | + +--------+ + | Medication Refill | 12/03/ | | | | 2014 | | + +--------+ + Encounter Details +--------+--------+ + + + | Date | Type | Department | Care Team | Description | +--------+--------+ + + + | 12/03/ | Refill | [facility] | Tomas Benoit, | Medication Refill | | 2014 | | [facility] [place] | [address] | | | | | [address] | [place] | | | | | [place] | [address] | | | | | [address] | | | | | | [phone] | | | +--------+--------+ + + + [...] Notes Telephone Encounter - Casi Zendejas - 12/03/2014 8:49 AM PDTPatient scheduled yesterday wh en she called. elephone Enco unter - Tomas Benoit MD - 12/03/2014 8:48 AM PDTprescription for refilled. Please sched kanwal otero for her annual. TTelephone Encounter - Ciara Son RN - 12/03/2014 8:28 AM PDTDesogestrel-ethinyl Es trad tab last filled 11-10-14 Is it ok to refill? documented in this encounter Plan of Treatment +--------+---------+ + + + | Date | Type | Specialty | Care Team | Description | +--------+---------+ + + + | 01/30/ | Office | Family Medicine | Tomas Benoit, | | | 2019 | Visit | | [address] | | | | | | [place] | | | | | | [address] | | | | | | | | +--------+---------+ + + + documented as of this encounter Visit Diagnoses Not on filedocumented in this encounter"
--- OUTSIDE RECORDS SUMMARY | ~2019-12-21 | XMS | Encounter Summary ---
Demographics + + + | Address | [address] | | | [place] [address] | + + + | Home Phone | | + + + | Preferred Language | Unknown | + + + | Marital Status | Single | + + + | Yarsanism Affiliation | Unknown | + + + | Race | Black or | + + + | Ethnic Group | Not or | + + + Author + + + | Author | [facility] | | | and [place] | + + + | Organization | [facility] | | | and [place] | + + + | Address | Unknown | + + + | Phone | Unavailable | + + + Support + + + + + | Name | Relationship | Address | Phone | + + + + + | Zo Dong | ECON | [address] [facility] | | | | | [place] | | | | | [address] | | + + + + + | Jovita Luna | ECON | [address] | | | | | [place] [address] | | + + + + + Care Team Providers + +------+ + | Care Spaghetti Machine Operator Name | Role | Phone | + +------+ + | Tomas Benoit MD | PCP | | + +------+ + Reason for Visit + +--------+ + | Reason | Onset | Comments | | | Date | | + +--------+ + | Vaginal Itching | 05/26/ | | | | 2015 | | + +--------+ + Encounter Details +--------+ + + + + | Date | Type | Department | Care Team | Description | +--------+ + + + + | 05/26/ | Telephone | [facility] | Tomas Benoit, | Vaginal Itching | | 2015 | | [facility] [place] | [address] | | | | | [address] | [place] | | | | | [place] | [id number] | | | | | [address] | | | | | | [phone] | | | +--------+ + + + [...] Telephone Encounter - Darline Jay RN - 06/02/2015 3:06 PM PSTPatient called back. The medication helped some, but now she has a white creamy discharge and itching. Given appointment to see Dr Benoit tomorrow. elephone Encount er - Yumiko Escalante CMA - 05/26/2015 4:40 PM PSTSpoke to patient, gave her message reg arding Rx. Patient verbalized understandingElectronically signed by CK Hyman t 05/26/2015 4:41 PM PSTTelephone Encounter - Tomas Benoit MD - 05/26/2015 3:56 PM PST Notify pt that rx for diflucan sent to [facility]. If this is not helpful then she will n eed to be seen. elepho ne Encounter - Darline Jay RN - 05/26/2015 1:42 PM PSTPhone call from patient. Developed vaginal itching as she was ending her period. Took the 3 day monistat treatment, which helped. Finished it on and thought she w as well. But then the itching started coming back, and now it feels like it is getting worse. No change in the discharge or odor. Asking what Dr Benoit recommends? [facility]ses [facility]. She is at [phone] documented in thi s encounter Plan of [...]
--- OUTSIDE RECORDS SUMMARY | ~2019-12-21 | XMS | Encounter Summary ---
Demographics + + + | Address | [address] | | | [place] [address] | + + + | Home Phone [...] Author + + + | Author | [facility] | | | and [place] | + + + | Organization | [facility] | | | [...] [place] | | | | | [address] | | + + + + + | Jovita Luna | ECON | [address] | | | | | [place] [address] | | + + + + + Care Team Providers + +------+ + | Care Fruit Or Nut Farmworker Name | Role | Phone | + [...] | +--------+ + + + + | 11/13/ | Routine | [facility] | Tomas Benoit, | GA: 36w3d | | 2020 | | [facility] [place] | [address] | | | | | [address] | [place] | | | | | [place] | [address] | | | | | [address] | | | | | | [phone] | | | +--------+ + + + [...] + + + | Blood Pressure | 116/66 | 11/14/2019 10:37 AM | | | | | PDT | | + + + + + | Pulse | 94 | 11/14/2019 10:37 AM | | | | | PDT | | + + + + + | Temperature | 36.2 C (97.1 F) | 11/14/2019 10:37 AM | | | | | PDT | | + + + + + | Respiratory Rate | 22 | 11/14/2019 10:37 AM | | | | | PDT | | + + + + + | Oxygen Saturation | 99% | 11/14/2019 10:37 AM | | | | | PDT | | + + + + + | Inhaled Oxygen | - | - | | | Concentration | | | | + + + + + | Weight | 100.1 kg (220 lb | 11/14/2019 10:37 AM | | | | 10.9 oz) | PDT | | + + + + + | Height | - | - | | + + + + + | Body Mass Index | 36.72 | 06/12/2019 9:31 AM | | | | | PST | | + + + + + documented in this encounter Progress Notes Tomas Benoit MD - 11/14/2019 10:30 AM PDTPatient is doing well. No complaints. GBS comp leted today. Patient is aware that I will be out of town next week. Tomas Benoit MD Emily ctronically signed by Tomas Benoit MD at 11/14/2019 11:12 AM PDTdocumented in this encoun ter Miscellaneous Notes Addendum Note - Rachel Bautista - 11/14/2019 10:30 AM PDT Addended by: RACHEL BAUTISTA on: 11/14/2019 03:33 PM Modules accepted: Orders documented in this enco unter Plan of [...] [place] | | | | | | [address] | | | | | | | | +--------+---------+ + + + documented as of this encounter Procedures + +--------+ + + + | Procedure Name | Priori | Date/Time | Associated Diagnosis | Comments | | | ty | | | | + +--------+ + + + | STREP B DNA PROBE, | Routin | 11/14/2019 | Normal | Results for this | | NAAT | e | 11:07 AM | in third trimester | procedure are in the | | | | PDT | | results section. | + +--------+ + + + documented in this encounter Results Strep B DNA probe, NAAT (11/14/2019 11:07 AM PDT) + + + + + + | Component | Value | Ref Range | Performed | Pathologist | | | | | At | Signature | + + + + + + | Group B | Positive (A) | Negative | [facility] | | | Strep, DNA | | | [facility] | | | | | | [facility] | | | | | [facility] - | | | | | | LABORATORY | | + + + + + + + + | Specimen | + + | Tissue - Structure | | of lower third of | | vagina (body | | structure) | + + + + + + + | Performing | Address | City/State/Zipcode | Phone Number | | Organization | | | | + + + + + | [facility] | [address] | [place] | [phone] | | [facility] | | [address] | | | - LABORATORY | | | | + + + + + documented in this encounter Visit Diagnoses + + | Diagnosis | + + | Normal in third trimester | + + documented in this encounter"
--- OUTSIDE RECORDS SUMMARY | ~2019-12-21 | XMS | Encounter Summary ---
Demographics + + + | Address | [address] | | | [place] [address] | + + + | Home Phone | | + + + | Preferred Language | Unknown | + + + | Marital Status | Single | + + + | Congregational Affiliation | Unknown | + + + | Race | Black or | + + + | Ethnic Group | Not or | + + + Author + + + | Author | [facility] | | | and [place] | + + + | Organization | [facility] | | | and [place] | + + + | Address | Unknown | + + + | Phone | Unavailable | + + + Support + + + + + | Name | Relationship | Address | Phone | + + + + + | Zo Dong | ECON | [address] [facility] | | | | | [place] | | | | | [address] | | + + + + + | Jovita Luna | ECON | [address] | | | | | [place] [address] | | + + + + + Care Team Providers + +------+ + | Care Machine Presser Name | Role | Phone | + +------+ + | Tomas Benoit MD | PCP | | + +------+ + Reason for Visit + +--------+ + | Reason | Onset | Comments | | | Date | | + +--------+ + | Dysmenorrhea | 12/10/ | | | | 2014 | | + +--------+ + | Menorrhagia | 12/10/ | | | | 2014 | | + +--------+ + Encounter Details +--------+ + + + + | Date | Type | Department | Care Team | Description | +--------+ + + + + | 12/10/ | Telephone | [facility] | Tomas Benoit, | Dysmenorrhea; | | 2014 | | [facility] | [address] | Menorrhagia | | | | [address] | [place] | | | | | [place] | [address] | | | | | [address] | | | | | | [phone] | | | +--------+ + + + [...] Telephone Encounter - Darline Jay RN - 12/10/2014 9:29 AM PDTPatient called back. Gave her message from Dr Benoit. She verbalized understanding. elephone Encount - Damari Guerrero CMA - 12/10/2014 9:21 AM PDTCalled pt left message to call back Emily ctronically signed by Damari Guerrero CMA at 12/10/2014 9:21 AM PDTTelephone Encounter - Tomas Benoit MD - 12/10/2014 8:51 AM PDTRuth is going to feel poorly when she is bleedin g that heavy. However, this type of bleeding will usually quit in 3-5 days. She should seek medical attention if she is light headed or faint or the bleeding is like water rushing out of a hose and not stopping. Otherwise I will see her on . She may also feel better i f she takes iron daily to help replace the iron that she is loosing. elephone Encounter - Darline Jay RN - 12/10/2014 8:05 AM PDTPhone call from patient. Period started yesterday and is still super heavy. Still has cramping and this morning she passed two large clots. She is on a high dose of control pills x 3 months. Cramping is the same as it has been. The clots today are larger. In an hour and a half she soaked a tampon and a pad. Asking what she should do? Also states she is scheduled for her annual exam on this , 12/12. Asking if she raul kera keep that appointment or reschedule? She is at [phone] documented in thi s encounter Plan of [...]
--- OUTSIDE RECORDS SUMMARY | ~2019-12-21 | XMS | Encounter Summary ---
Demographics + + + | Address | [address] | | | [place] [address] | + + + | Home Phone [...] Author + + + | Author | [facility] | | | and [place] | + + + | Organization | [facility] | | [...] [facility] | | | | | [place] | | | | | [address] | | + + + + + | Jovita Luna | ECON | [address] | | | | | [place] [address] | | + + + + + Care Team Providers + +------+ + | Care Technical Training Specialist Name | Role | Phone | [...] Description | +--------+--------+ + + + | 10/24/ | Refill | [facility] | Tomas Benoit, | Medication Refill | | 2019 | | [facility] | [address] | | | | | [address] | [place] | | | | | [place] | [address] | | | | | [address] | | | | | | [phone] | | | +--------+--------+ + + + [...] Telephone Encounter - Darline Jay RN - 10/31/2018 11:02 AM PDTFYI - she cancelled her July appointment due to school.Electronically signed by Darline Jay RN at 10/31 11:02 AM PDTTelephone Encounter - Darline Jay RN - 10/31/2018 10:54 AM PDTRec eived refill request for control pills. Last visit 09/14/2017 Next visit 12/20/18 Last seen over a year ago. Is it ok to refill this medication? Rx pended on medication list. documented in thi s encounter Plan of [...]
--- OUTSIDE RECORDS SUMMARY | ~2019-12-21 | XMS | Encounter Summary ---
Demographics + + + | Address | [address] | | | [place] [address] | + + + | Home Phone [...] Dong | ECON | [address] [facility] | | | | | [place] | | | | | [address] | | + + + + + | Jovita Luna | ECON | [address] | | | | | [place] [address] | | + + + + + Care Team Providers + +------+ + | Care Assistant County Engineer Name | Role | Phone | + +------+ + | Tomas Benoit MD | PCP | | + +------+ + Reason for Visit + + + | Reason | Comments | + + + | Care | | + + + Encounter Details +--------+---------+ + + + | Date | Type | Department | Care Team | Description | +--------+---------+ + + + | 09/26/ | Office | [facility] | Tomas Benoit, | Routine | | 2012 | Visit | [facility] [place] | [address] | follow-up (Primary | | | | [address] | [place] | Dx); Bloody diarrhea | | | | [place] | [id number] | | | | | [address] | | | | | | [phone] | | | +--------+---------+ + + + [...] + + + | Blood Pressure | 118/78 | 09/26/2012 11:33 AM | | | | | PDT | | + + + + + | Pulse | 100 | 09/26/2012 11:33 AM | | | | | PDT | | + + + + + | Temperature | - | - | | + + + + + | Respiratory Rate | 18 | 09/26/2012 11:33 AM | | | | | PDT | | + + + + + | Oxygen Saturation | 98% | 09/26/2012 11:33 AM | | | | | PDT | | + + + + + | Inhaled Oxygen | - | - | | | Concentration | | | | + + + + + | Weight | 72.1 kg (159 lb) | 09/26/2012 11:33 AM | | | | | PDT | | + + + + + | Height | - | - | | + + + + + | Body Mass Index | 26.06 | 09/15/2012 4:08 PM | | | | | PDT | | + + + + + documented in this encounter Progress Notes Tomas Benoit MD - 09/26/2012 11:56 AM PDTFormatting of this note might be different fro m the original. Visit: Patient here for visit. She is 6 weeks post following a spontaneous vaginal delivery. I have fully reviewed the and intrapartum course. Th e delivery was at 40 gestational weeks. Outcome: . Anesthesia: epidural. co david has been complicated by rectal bleeding. She has appt with GI tomorrow for flex sig.. Baby's course has been doing well without problems. Baby is feeding breast. Bleeding no ble eding. Bowel function is OK but just has the bleeding with it.. Bladder function is normal. Patient is not sexually active. Contraception method is none. depression screeni ng: negative other than she does have some sadness due to the father of baby choosing to not be involved currently. Filed Vitals: 09/26/12 1133 BP: 118/78 Pulse: 100 Resp: 18 Weight: 72.122 kg (159 lb) SpO2: 98% General: NAD, normal mood and affect Neck: thyroid feels normal Heart: RRR without murmur Lungs: CTAB Pelvic: Labia, vaginal canal normal without lesions. Cervix appears healed. Uterus now norm al size. A/P: Post visit. Reviewed that her pap will be due in January. Reviewed contraceptio n options. She will call if she decides to start on one. Rectal bleeding - She will follow up with GI tomorrow as planned. documented in this en counter Plan of Treatment +--------+---------+ + + + | Date | Type | Specialty | Care Team | Description | +--------+---------+ + + + | 01/30/ | Office | Family Medicine | Tomas Benoit, | | | 2019 | Visit | | MD [address] | | | | | | [place] | | | | | | [address] | | | | | | | | +--------+---------+ + + + documented as of this encounter Visit Diagnoses + + | Diagnosis | + + | Routine follow-up - Primary | + + | Bloody diarrhea Diarrhea | + + documented in this encounter"
--- OUTSIDE RECORDS SUMMARY | ~2019-12-21 | XMS | Encounter Summary ---
Demographics + + + | Address | [address] | | | [place] [address] | + + + | Home Phone | | + + + | Preferred Language | Unknown | + + + | Marital Status | Single | + + + | Restoration Affiliation | Unknown | + + + [...] [place] | | | | | [address] | | + + + + + | Jovita Luna | ECON | [address] | | | | | [place] [address] | | + + + + + Care Team Providers + +------+ + | Care Dialysis Equipment Technician Name | Role | Phone | + +------+ + | Tomas Benoit MD | PCP | | + +------+ + Reason for Visit +---------+--------+ + | Reason | Onset | Comments | | | Date | | +---------+--------+ + | Results | 03/12/ | | | | 2018 | | +---------+--------+ + Encounter Details +--------+ + + + + | Date | Type | Department | Care Team | Description | +--------+ + + + + | 03/12/ | Telephone | [facility] | Tomas Benoit, | Results | | 2018 | | [facility] [place] | [address] | | | | | [address] | [place] | | | | | [place] | [address] | | | | | [address] | | | | | | [phone] | | | +--------+ + + + [...] this encounter Miscellaneous Notes Telephone Encounter - Rebeca Guillen CMA - 03/12/2019 2:34 PM PSTCalled patient relaying results. Informed her the other testing will take a few days to return She verbalized understanding and had no further questions or concerns. Electronically west d by Rebeca Guillen CMA at 03/12/2019 2:35 PM PSTTelephone Encounter - Rebeca Guillen CMA - 03/12/2019 2:34 PM PST----- Message from MOHAN Kwon sent at 03/12/2019 1:10 PM PST ----- Please contact patient/guardian about message below: Tests for bacterial vaginosis and yeast are negative. documented in this encounter Plan of Treatment [...]
--- OUTSIDE RECORDS SUMMARY | ~2019-12-21 | XMS | Encounter Summary ---
Demographics + + + | Address | [address] | | | [place] [address] | + + + | Home Phone [...] Dong | ECON | [address] [facility] | | | | | [place] | | | | | [address] | | + + + + + | Jovita Luna | ECON | [address] | | | | | [place] [address] | | + + + + + Care Team Providers + +------+ + | Care Chief Legal Officer Name | Role | Phone | + +------+ + | Tomas Benoit MD | PCP | | + +------+ + Reason for Visit + +--------+ + | Reason | Onset | Comments | | | Date | | + +--------+ + | Mouth Lesions | 01/01/ | | | | 2015 | | + +--------+ + Encounter Details +--------+ + + + + | Date | Type | Department | Care Team | Description | +--------+ + + + + | 01/01/ | Telephone | [facility] | Tomas Benoit, | Mouth Lesions | | 2015 | | [facility] [place] | [address] | | | | | [address] | [place] | | | | | [place] | [address] | | | | | [address] | | | | | | [phone] | | | +--------+ + + + [...] encounter Miscellaneous Notes Telephone Encounter - Anya Hunt, Filing Machine Operator - 01/02/2016 6:03 PM PDTCalle d Patient to notify of the below. Jovita verbalized understanding. elephone Encounter - Casi Mcgarry MD - 01/02/2016 5:20 PM PDTCall patient, tell her I've sent refill for Acyclov ir to pharmacy for her TTelephone Encounter - Darline Jay RN - 01/02/2016 4:29 PM PDTPatient called back to check on her request for Acyclovir. She thinks that is the name. States the Urgent Care i [facility] had been prescribing it for her. States they want her to come back in so they c an examine her, but she is pretty sure that she is coming down with a cold sore in her mouth . Let her know that Dr Benoit is out on Fridays, so we will check with on-call provider to se e if this is something we can do for her. Advised her to go to Urgent Care to be evaluated if she doesn't hear back from us today. [facility] Darline Jay RN - 01/02/2016 1:39 PM PDTAcyclovir not on current or historic m edication list. [facility]phone [facility] C[facility] Davidson - 01/02/2016 1:29 PM PDTPatient calling. 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 She is wondering if she can get a refill of the Acyclovir sent to [facility] in [place]? She can be reached at [phone]. 1:3 1 PM PDTdocumented in this encounter Plan of Treatment +--------+---------+ + + + | Date | Type | Specialty | Care Team | Description | +--------+---------+ + + + | 01/30/ | Office | Family Medicine | Tomas Benoit, | | | 2019 | Visit | | MD [address] | | | | | | [place] | | | | | | [address] | | | | | | | | +--------+---------+ + + + documented as of this encounter Visit Diagnoses Not on filedocumented in this encounter
--- OUTSIDE RECORDS SUMMARY | ~2019-12-21 | XMS | Encounter Summary ---
Demographics + + + | Address | [address] | | | [place] [address] | + + + | Home Phone | | + + + | Preferred Language | Unknown | + + + | Marital Status | Single | + + + | Hinduism Affiliation | Unknown | + + + | Race | Black or | + + + | Ethnic Group | Not or | + + + Author + + + | Author | [facility] | | | and [place] | + + + | Organization | [facility] | | | and [place] | + + + | Address | Unknown | + + + | Phone | Unavailable | + + + Support + + + + + | Name | Relationship | Address | Phone | + + + + + | Zo Dong | ECON | [address] [facility] | | | | | [place] | | | | | [address] | | + + + + + | Jovita Luna | ECON | [address] | | | | | [place] [address] | | + + + + + Care Team Providers + +------+ + | Care Television Cabinet Finisher Name | Role | Phone | + +------+ + | Tomas Benoit MD | PCP | | + +------+ + Reason for Visit + +--------+ + | Reason | Onset | Comments | | | Date | | + +--------+ + | Medication | 02/07/ | | | Management | 2013 | | + +--------+ + Encounter Details +--------+ + + + + | Date | Type | Department | Care Team | Description | +--------+ + + + + | 02/07/ | Telephone | [facility] | Tomas Benoit, | Medication | | 2013 | | [facility] [place] | [address] | Management | | | | [address] | [place] | | | | | [place] | [address] | | | | | [address] | | | | | | [phone] | | | +--------+ + + + [...] Telephone Encounter - Darline Jay RN - 02/07/2014 10:26 AM PDTPhone call from babatunde michel. Hormone prescription was not at her pharmacy. Per medication list, it printed because sig line was too long to transmit electronically. Patient says she doesn't have a paper script. Sig line adjusted, and rx sent electronically. documented in thi s encounter Plan of [...]
--- OUTSIDE RECORDS SUMMARY | ~2019-12-21 | XMS | Encounter Summary ---
Demographics + + + | Address | [address] | | | [place] [address] | + + + | Home Phone [...] Dong | ECON | [address] [facility] | | | | | [place] | | | | | [address] | | + + + + + | Jovita Luna | ECON | [address] | | | | | [place] [address] | | + + + + + Care Team Providers + +------+ + | Care Online Marketing Coordinator Name | Role | Phone | + +------+ + | Tomas Benoit MD | PCP | | + +------+ + Reason for Visit + + + | Reason | Comments | + + + | Knee Pain | left | + + + Encounter Details +--------+---------+ + + + | Date | Type | Department | Care Team | Description | +--------+---------+ + + + | 09/24/ | Office | [facility] | Mir Salcedo I, | Acute pain of left | | 2017 | Visit | [facility] [place] | PA-C [address] | knee (Primary Dx) | | | | [address] | [address] | | | | | [place], [place] | [place] [address] | | | | | [address] | [phone] | | | | | [phone] | | | +--------+---------+ + + + [...] + + + | Blood Pressure | 118/72 | 09/24/2016 1:59 PM | | | | | PDT | | + + + + + | Pulse | 98 | 09/24/2016 1:59 PM | | | | | PDT | | + + + + + | Temperature | 36.7 C (98 F) | 09/24/2016 1:59 PM | | | | | PDT | | + + + + + | Respiratory Rate | 16 | 09/24/2016 1:59 PM | | | | | PDT | | + + + + + | Oxygen Saturation | 99% | 09/24/2016 1:59 PM | | | | | PDT | | + + + + + | Inhaled Oxygen | - | - | | | Concentration | | | | + + + + + | Weight | 77.7 kg (171 lb 6.4 | 09/24/2016 1:59 PM | | | | oz) | PDT | | + + + + + | Height | 164.5 cm (5' 4.75") | 09/24/2016 1:59 PM | | | | | PDT | | + + + + + | Body Mass Index | 28.74 | 09/24/2016 1:59 PM | | | | | PDT | | + + + + + documented in this encounter Patient Instructions Patient Instructions Mir Salcedo PA-C - 09/24/2016 2:00 PM PDTFormatting of this no te might be different from the original. Knee Pain Knee pain is very common. It s especially common in active people who put a lot of pressu re on their knees, like runners. It affects women more often than men. Your kneecap (patella) is a thick, round bone. It covers and protects the front portion of your knee joint. It moves along a groove in your thighbone (femur) as part of the patellofem oral joint. A layer of cartilage surrounds the underside of your kneecap. This layer protect s it from grinding against your femur. When this cartilage softens and breaks down, it can cause knee pain. This is partly because of repetitive stress. The stress irritates the lining of the joint. This causes pain in the underlying bone. What causes knee pain? Many things can cause knee pain. You may have more than one cause. Some of these include: Overuse of the knee joint The kneecap doesn t line up with the tissue around it Damage to small nerves in the area Damage to the ligament-like structure that holds the kneecap in place (retinaculum) Breakdown of the bone under the cartilage Swelling in the soft tissues around the kneecap Injury You might be more likely to have knee pain if you: Exercise a lot Recently increased the intensity of your workouts Have a body mass index (BMI) greater than 25 Have poor alignment of your kneecap Walk with your feet turned overly outward or inward Have weakness in surrounding muscle groups (inner quad or hip adductor muscles) Have too much tightness in surrounding muscle groups (hamstrings or iliotibial band) Have a recent history of injury to the area Are female Symptoms of knee pain This type of knee pain is a dull, aching pain in the front of the knee in the area under an d around the kneecap. This pain may start quickly or slowly. Your pain might be worse when y ou squat, run, or sit for a long time. You might also sometimes feel like your knee is givin g out. You may have symptoms in one or both of your knees. Diagnosing knee pain Your health care provider will ask about your medical history and your symptoms. Be sure to describe any activities that make your knee pain worse. He or she will look at your knee. T his will include tests of your range of motion, strength, and areas of pain of your knee. Yo ur knee alignment will be checked. Your health care provider will need to rule out other causes of your knee pain, such as art hritis. You may need an imaging test, such as an X-ray or MRI. Treatment for knee pain Treatments that can help ease your symptoms may include: Avoiding activities for a while that make your pain worse, returning to activity over ti me Icing the outside of your knee when it causes you pain Taking ndlo-nmv-gpslith pain medicine Wearing a knee brace or taping your knee to support it Wearing special shoe inserts to help keep your feet in the proper alignment Doing special exercises to stretch and strengthen the muscles around your hip and your k nee These steps help most people manage knee pain. But some cases of knee pain need to be treat ed with surgery. You may need surgery right away. Or you may need it later if other treatmen ts don t work. Your health care provider may refer you to an orthopedic surgeon. He or she will talk with you about your choices. Preventing knee pain Losing weight and correcting excess muscle tightness or muscle weakness may help lower your risk. In some cases, you can prevent knee pain. To help prevent a flare-up of knee pain, you do t hese things: Regularly do all the exercises your doctor or physical therapist advises Support your knee as advised by your doctor or physical therapist Increase training gradually, and ease up on training when needed Have an expert check your gait for running or other sporting activities Stretch properly before and after exercise Replace your running shoes regularly Lose excess weight When to call your health care provider Call your health care provider right away if: Your symptoms don t get better after a few weeks of treatment You have any new symptoms Date Last Reviewed: 07/11/201419998339-5015 [employer] [address] [place] [address], [place] [address]. All righ ts reserved. This information is not intended as a substitute for professional medical care. Always follow your healthcare professional's instructions. documented in this encounter Progress Notes Mir Salcedo PA-C - 09/24/2016 2:00 PM PDT Subjective: Jovita Grey is a 26 y.o. female patient of Tomas Benoit MD Chief Complaint: Knee Pain (left) Jovita comes in complaining of left knee pain that she has had for 3 weeks. She states she has been doing rumba dancing possibly spraining knee. She states she does little warming up before dancing or cooling off after. She describes pain as pressure and about a 4 in a 10 s joseph. Pain is mostly localized above the patella. Swelling and pain and tolerable since she is able to do her every day activities. Pain does not radiates. Denies numbness, tingling Review of Systems Constitutional: Negative. HENT: Negative. Eyes: Negative. Respiratory: Negative. Cardiovascular: Negative. Gastrointestinal: Negative. Musculoskeletal: Positive for joint pain. Positive for left knee pain Skin: Negative. Objective BP 118/72 | Pulse 98 | Temp 36.7 C (98 F) (Temporal) | Resp 16 | Ht 1.645 m (5' 4.7 5") | Wt 77.7 kg (171 lb 6.4 oz) | LMP 08/24/2016 (Approximate) | SpO2 99% | Breastfeedi ng? No | BMI 28.74 kg/m Physical Exam Constitutional: She is oriented to person, place, and time. Vital signs are normal. She martinez ears well-developed and well-nourished. She is cooperative. HENT: Head: Normocephalic and atraumatic. Neck: Neck supple. No tracheal tenderness present. No no neck rigidity. No erythema and nor mal range of motion present. Cardiovascular: Normal rate, regular rhythm, S1 normal, S2 normal and normal heart sounds. No murmur heard. Pulmonary/Chest: Effort normal and breath sounds normal. She has no decreased breath sounds . She has no wheezes. She has no rhonchi. Musculoskeletal: Left knee: She exhibits decreased range of motion, swelling and effusion. She exhibits no ecchymosis, no deformity, no erythema, normal alignment, no LCL laxity and normal patell ar mobility. Bulge sign positive Neurological: She is alert and oriented to person, place, and time. Skin: Skin is warm and intact. Psychiatric: She has a normal mood and affect. Assessment And Plans Jovita was seen today for knee pain. Diagnoses and all orders for this visit: Acute pain of left knee - XR Knee Left 3 Vw; Future Other orders - naproxen sodium (ANAPROX) 550 MG tablet; Take 1 tablet by mouth Twice daily as neede d. Return in about 10 days (around 10/04/2016). Sooner prn. documented in thi s encounter Plan of [...] [place] | | | | | | [id number] | | | | | | | | +--------+---------+ + + + documented as of this encounter Results XR Knee Left 3 Vw (09/24/2016 2:51 PM PDT) + + | Specimen | + + | | + + + + + | Narrative | Performed At | + + + | EXAM:XR KNEE LEFT 3 VW CLINICAL HISTORY: left knee pain | [facility] | | COMPARISON: None. FINDINGS: Frontal weightbearing view of both | [facility] | | knees. [place] and lateral view of the left knee. Normal | [facility] | | mineralization. No acute fracture. No current dislocation. No | - IMAGING | | bone erosion or destruction. The soft tissues are unremarkable. | | | There are no radiopaque foreign bodies. IMPRESSION - | | | Negative radiographs. Dictated and Signed by: Joby Moore MD | | | Electronically signed: 09/24/2016 3:26 PM | | + + + + + | Procedure Note | + + | [place], Rad Results In - 09/24/2016 3:29 PM PDT EXAM:XR KNEE LEFT 3 VW | | | | CLINICAL HISTORY: left knee pain | | | | COMPARISON: None. | | | | FINDINGS: Frontal weightbearing view of both knees. [place] and lateral view of | | the left knee. | | | | Normal mineralization. No acute fracture. No current dislocation. No bone | | erosion or destruction. The soft tissues are unremarkable. There are no | | radiopaque foreign bodies. | | | | IMPRESSION - | | | | Negative radiographs. | | | | Dictated and Signed by: Joby Moore MD | | Electronically signed: 09/24/2016 3:26 PM | + + + + + + + | Performing | Address | City/State/Zipcode | Phone Number | | Organization | | | | + + + + + | [facility] | [address] | [place] | [phone] | | [facility] | | [address] | | | - IMAGING | | | | + + + + + documented in this encounter Visit Diagnoses + + | Diagnosis | + + | Acute pain of left knee - Primary | + + documented in this encounter
--- OUTSIDE RECORDS SUMMARY | ~2019-12-21 | XMS | Encounter Summary ---
Demographics + + + | Address | [address] | | | [place] [address] | + + + | Home Phone [...] Dong | ECON | [address] [facility] | | | | | [place] | | | | | [address] | | + + + + + | Jovita Luna | ECON | [address] | | | | | [place] [address] | | + + + + + Care Team Providers + +------+ + | Care Organic Chemistry Teacher Name | Role | Phone | + +------+ + | Tomas Benoit MD | PCP | | + +------+ + Encounter Details +--------+ + + + + | Date | Type | Department | Care Team | Description | +--------+ + + + + | 03/02/ | Abstract | [facility] | Tomas Benoit, | | | 2018 | | MEDICINE [place] | [address] | | | | | [address] | [place] | | | | | [place] | [address] | | | | | [address] | | | | | | [phone] | | | +--------+ + + + [...] [place] | | | | | | [id number] | | | | | | | | +--------+---------+ + + + documented as of this encounter Procedures + +--------+ + + + | Procedure Name | Priori | Date/Time | Associated Diagnosis | Comments | | | ty | | | | + +--------+ + + + | EXTERNAL LAB: | Routin | 03/01/2019 | | Results for this | | URINALYSIS | e | | | procedure are in the | | | | | | results section. | + +--------+ + + + | URINALYSIS, REFLEX | Routin | 03/01/2019 | | Results for this | | MICROSCOPIC AND/OR | e | | | procedure are in the | | CULTURE | | | | results section. | + +--------+ + + + documented in this encounter Results Urinalysis, Reflex Microscopic and/or Culture (03/01/2019) + + + + + + | Component | Value | Ref Range | Performed | Pathologist | | | | | At | Signature | + + + + + + | COLLECTION | Clean Catch | | | | | METHOD 1 | | | | | + + + + + + | Color, | Yellow | Light Yellow, | | | | Urine | | Yellow | | | + + + + + + | Clarity, | Clear | | | | | Urine | | | | | + + + + + + | Bilirubin, | Negative | Negative | | | | Urine | | | | | + + + + + + | Nitrite, | Negative | Negative | | | | Urine | | | | | + + + + + + | Urobilinoge | Normal | < 0.2 mg/dL, | | | | n, Urine | | 1.0 mg/dL, 4.0 | | | | | | mg/dL, Normal, | | | | | | 1.0 E.U./dL, | | | | | | 0.2 E.U./dL, | | | | | | 0.2 mg/dL, | | | | | | Negative, 1 | | | | | | mg/dL, <2.0 | | | | | | mg/dL | | | + + + + + + | WBC UA | 0 | 0 - 4 /HPF | | | + + + + + + | CRYSTAL UA | Negative | | | | + + + + + + | Bacteria, | Negative | Negative /HPF | | | | Urine | | | | | + + + + + + + + | Specimen | + + | Urine | + + External Lab: Urinalysis (03/01/2019) + + + + + + | Component | Value | Ref Range | Performed | Pathologist | | | | | At | Signature | + + + + + + | UA Blood, | Small | | REFERENCE | | | External | | | LAB | | | | | | [facility] | | | | | | BKR | | + + + + + + | UA Glucose, | Normal | | REFERENCE | | | External | | | LAB | | | | | | [facility] - | | | | | | BKR | | + + + + + + | UA Ketones, | Negative | | REFERENCE | | | External | | | LAB | | | | | | [facility] - | | | | | | BKR | | + + + + + + | UA Ph, | 5.0 | 5 - 9 | REFERENCE | | | External | | | LAB | | | | | | [facility] | | | | | | BKR | | + + + + + + | UA | Negative | | REFERENCE | | | Proteins, | | | LAB | | | External | | | [facility] - | | | | | | BKR | | + + + + + + | UA RBC, | 5 (A) | 0 - 4 | REFERENCE | | | External | | | LAB | | | | | | [facility] - | | | | | | BKR | | + + + + + + | UA Specific | 1.019 | 1.005 - 1.03 | REFERENCE | | | [place], | | | LAB | | | External | | | [facility] - | | | | | | BKR | | + + + + + + | UA | Negative | | REFERENCE | | | Leukocyte | | | LAB | | | Esterase, | | | [facility] - | | | External | | | BKR | | + + + + + + + + + + + | Performing | Address | City/State/Zipcode | Phone Number | | Organization | | | | + + + + + | REFERENCE LAB | [address] [facility] | [place] | [phone] | | [place] | | [address] | | + + + + + documented in this encounter Visit Diagnoses Not on filedocumented in this encounter"
--- OUTSIDE RECORDS SUMMARY | ~2019-12-21 | XMS | Encounter Summary ---
Demographics + + + | Address | [address] | | | [place] [address] | + + + | Home Phone [...] Dong | ECON | [address] [facility] | | | | | [place] | | | | | [address] | | + + + + + | Jovita Luna | ECON | [address] | | | | | [place] [address] | | + + + + + Care Team Providers + +------+ + | Care Cover Making Machine Operator Name | Role | Phone | + +------+ + | Tomas Benoit MD | PCP | | + +------+ + Encounter Details +--------+ + + + + | Date | Type | Department | Care Team | Description | +--------+ + + + + | 09/02/ | Abstract | [facility] | Fackenthall, | | | 2020 | | NEPHROLOGY [address] | [address] | | | | | [address] | [address] | | | | | [place], [place] | [address] [place], [place] | | | | | [address] | [address] | | | | | [phone] | | | +--------+ + + + [...] | +--------+---------+ + + + | 01/30/ Office | Family Medicine | Tomas Benoit, | | | 2019 | Visit | | [address] | | | | | | [place] | | | | | | [address] | | | | | | | | +--------+---------+ + + + documented as of this encounter Procedures + +--------+ + + + | Procedure Name | Priori | Date/Time | Associated Diagnosis | Comments | | | ty | | | | + +--------+ + + + | EXTERNAL LAB: CBC | Routin | 08/31/2019 | | Results for this | | | e | | | procedure are in the | | | | | | results section. | + +--------+ + + + documented in this encounter Results External Lab: CBC (08/31/2019) + + + + + + | Component | Value | Ref Range | Performed | Pathologist | | | | | At | Signature | + + + + + + | WBC, | 8.8 | 4.5 - 11 | | | | External | | | | | + + + + + + | HGB, | 11.9 (A) | 12 - 16 | | | | External | | | | | + + + + + + | HCT, | 37.3 | 35 - 45 | | | | External | | | | | + + + + + + | PLT, | 237 | 140 - 440 | | | | External | | | | | + + + + + + | Neutrophils | 69.1 | 39 - 80 | | | | %, | | | | | | External | | | | | + + + + + + | Lymphocytes | 22.4 (A) | 24 - 44 | | | | %, | | | | | | External | | | | | + + + + + + | Monocytes | 5.0 | 0 - 12 | | | | %, External | | | | | + + + + + + | Eosinophils | 2.5 | 0 - 6 | | | | %, | | | | | | External | | | | | + + + + + + | RBC, | 4.33 | 3.8 - 5.1 | | | | External | | | | | + + + + + + | MCV, | 86 | 81 - 99 | | | | External | | | | | + + + + + + | RDW, | 13.9 | 10.5 - 15 | | | | External | | | | | + + + + + + documented in this encounter Visit Diagnoses Not on filedocumented in this encounter"
--- OUTSIDE RECORDS SUMMARY | ~2019-12-21 | XMS | Encounter Summary ---
Demographics + + + | Address | [address] | | | [place] [address] | + + + | Home Phone [...] Dong | ECON | [address] [facility] | | | | | [place] | | | | | [address] | | + + + + + | Jovita Luna | ECON | [address] | | | | | [place] [address] | | + + + + + Care Team Providers + +------+ + | Care Senior Contracts Administrator Name | Role | Phone | + +------+ + | Tomas Benoit MD | PCP | | + +------+ + Encounter Details +--------+ + + + + | Date | Type | Department | Care Team | Description | +--------+ + + + + | 12/12/ | Hospital | [facility] | Tomas Benoit, | Menorrhagia | | 2015 | Encounter | MED CTR LABORATORY | [address] | | | | | [address] | [place] | | | | | [place] | [address] | | | | | [address] | | | | | | [phone] | | | +--------+ + + + [...] Medicine | Tomas Benoit, | | | 2020 | Visit | | [address] | | | | | | [place] | | | | | | [address] | | | | | | | | +--------+---------+ + + + documented as of this encounter Procedures + +--------+ + + + | Procedure Name | Priori | Date/Time | Associated Diagnosis | Comments | | | ty | | | | + +--------+ + + + | CBC WITH | Routin | 12/12/2014 | Menorrhagia | Results for this | | DIFFERENTIAL | e | 10:12 AM | | procedure are in the | | | | PDT | | results section. | + +--------+ + + + | TSH | Routin | 12/12/2014 | Menorrhagia | Results for this | | | e | 10:12 AM | | procedure are in the | | | | PDT | | results section. | + +--------+ + + + documented in this encounter Results TSH (12/12/2014 10:12 AM PDT) + + + + + + | Component | Value | Ref Range | Performed | Pathologist | | | | | At | Signature | + + + + + + | TSH | 1.69Comment: All TSH | 0.34 - 5.60 | [...] + | [facility] | [address] | [place] | [phone] | | [facility] | | [address] | | | - LABORATORY | | | | + + + + + CBC with Differential (12/12/2014 10:12 AM PDT) + + + + + [...] + + + | Red Blood | 4.99 | 3.70 - 5.20 | [facility] | | | Cells | | M/uL | [facility] | | | | | | MEDICAL | | | | | | CENTER - | | | | | | LABORATORY | | + + + + + + | Hemoglobin | 13.7 | 11.5 - 16.0 | [facility] | | | | | g/dL | [facility] | | | | | | MEDICAL | | | | | | CENTER - | | | | | | LABORATORY | | + + + + + + | Hematocrit | 42.7 | 34.0 - 47.0 % | [facility] | | | | | | [facility] | | | | | | [facility]ICAL | | | | | | C[facility] - | | | | | | LABORATORY | | + + + + + + | MCV | 85.5 | 83.0 - 101.0 fL | [facility] | | | | | | [facility] | | | | | | [facility]ICAL | | | | | | C[facility] - | | | | | | LABORATORY | | + + + + + + | MCH | 27.4 (L) | 28.0 - 35.0 pg | [facility] | | | | | | [facility] | | | | | | MEDICAL | | | | | | CENTER - | | | | | | LABORATORY | | + + + + + + | MCHC | 32.1 | 32.0 - 36.0 | [facility] | | | | | g/dL | [facility] | | | | | | MEDICAL | | | | | | CENTER - | | | | | | LABORATORY | | + + + + + + | RDW-CV | 13.7 | <15.0 % | [facility] | | | | | | [facility] | | | | | | MEDICAL | | | | | | CENTER - | | | | | | LABORATORY | | + + + + + + | Platelet | 313 | 140 - 440 K/uL | [facility] | | | Count | | | [facility] | | | | | | MEDICAL | | | | | | CENTER - | | | | | | LABORATORY | | + + + + + + | MPV | 8.9 | fL | [facility] | | | | | | [facility] | | | | | | MEDICAL | | | | | | CENTER - | | | | | | LABORATORY | | + + + + + + | % | 56.4 | 45.0 - 82.0 % | [facility] | | | Neutrophils | | | [facility] | | | | | | MEDICAL | | | | | | CENTER - | | | | | | LABORATORY | | + + + + + + | % | 34.8 | 20.0 - 45.0 % | [facility] | | | Lymphocytes | | | [facility] | | | | | | MEDICAL | | | | | | CENTER - | | | | | | LABORATORY | | + + + + + + | % Monocytes | 5.2 | 4.0 - 12.0 % | [facility] | | | | | | [facility] | | | | | | MEDICAL | | | | | | CENTER - | | | | | | LABORATORY | | + + + + + + | % | 2.6 | 0.0 - 5.0 % | [facility] | | | Eosinophils | | | [facility] | | | | | | [facility] | | | | | | CENTER - | | | | | | LABORATORY | | + + + + + + | % Basophils | 1.0 | 0.0 - 1.0 % | [facility] | | | | | | [facility] | | | | | | MEDICAL | | | | | | CENTER - | | | | | | LABORATORY | | + + + + + + | Absolute | 4.00 | 1.80 - 8.50 | [facility] | | | Neutrophils | | K/uL | [facility] | | | | | | MEDICAL | | | | | | CENTER - | | | | | | LABORATORY | | + + + + + + | Absolute | 2.50 | 0.60 - 3.20 | [facility] | [...] + + + + | Absolute | 0.10 | 0.00 - 0.10 | [facility] | [...] [address] | [place] | [phone] | | [facility] | | [address] | | | - LABORATORY | | | | + + + + + documented in this encounter Visit Diagnoses + + | Diagnosis | + + | Menorrhagia Excessive or frequent menstruation | + + documented in this encounter"
--- OUTSIDE RECORDS SUMMARY | ~2019-12-21 | XMS | Encounter Summary ---
Demographics + + + | Address | [address] | | | [place] [address] | + + + | Home Phone | | + + + | Preferred Language | Unknown | + + + | Marital Status | Single | + + + | Evangelical Affiliation | Unknown | + + + | Race | Black or | + + + | Ethnic Group | Not or | + + + Author + + + | Author | [facility] | | | and [place] | + + + | Organization | [facility] | | [...] [place] | | | | | [address] | | + + + + + | Jovita Luna | ECON | [address] | | | | | [place] [address] | | + + + + + Care Team Providers + +------+ + | Care Plant Machinist Name | Role | Phone | + +------+ + | Tomas Benoit MD | PCP | | + +------+ + Encounter Details +--------+ + + + + | Date | Type | Department | Care Team | Description | +--------+ + + + + | 03/02/ | Abstract | [facility] | Tomas Benoit, | | | 2018 | | MEDICINE [place] | [address] | | | | | [address] | [place] | | | | | [place] | [address] | | | | | [address] | | | | | | [phone] | | | +--------+ + + + [...] [place] | | | | | | [address] | | | | | | | | +--------+---------+ + + + documented as of this encounter Procedures + +--------+ + + + | Procedure Name | Priori | Date/Time | Associated Diagnosis | Comments | | | ty | | | | + +--------+ + + + | EXTERNAL LAB: SIENA | Routin | 03/01/2019 | | Results for this | | | e | | | procedure are in the | | | | | | results section. | + +--------+ + + + | EXTERNAL LAB: | Routin | 03/01/2019 | | Results for this | | GLUCOSE | e | | | procedure are in the | | | | | | results section. | + +--------+ + + + | EXTERNAL LAB: | Routin | 03/01/2019 | | Results for this | | CALCIUM | e | | | procedure are in the | | | | | | results section. | + +--------+ + + + | EXTERNAL LAB: CARBON | Routin | 03/01/2019 | | Results for this | | DIOXIDE | e | | | procedure are in the | | | | | | results section. | + +--------+ + + + | EXTERNAL LAB: | Routin | 03/01/2019 | | Results for this | | CHLORIDE | e | | | procedure are in the | | | | | | results section. | + +--------+ + + + | EXTERNAL LAB: | Routin | 03/01/2019 | | Results for this | | POTASSIUM | e | | | procedure are in the | | | | | | results section. | + +--------+ + + + | EXTERNAL LAB: SODIUM | Routin | 03/01/2019 | | Results for this | | | e | | | procedure are in the | | | | | | results section. | + +--------+ + + + | EXTERNAL LAB: CBC | Routin | 03/01/2019 | | Results for this | | | e | | | procedure are in the | | | | | | results section. | + +--------+ + + + | EXTERNAL LAB: EGFR | Routin | 03/01/2019 | | Results for this | | | e | | | procedure are in the | | | | | | results section. | + +--------+ + + + | EXTERNAL LAB: | Routin | 03/01/2019 | | Results for this | | CREATININE | e | | | procedure are in the | | | | | | results section. | + +--------+ + + + | CBC WITH | Routin | 03/01/2019 | | Results for this | | DIFFERENTIAL | e | | | procedure are in the | | | | | | results section. | + +--------+ + + + | COMPREHENSIVE | Routin | 03/01/2019 | | Results for this | | METABOLIC PANEL | e | | | procedure are in the | | | | | | results section. | + +--------+ + + + documented in this encounter Results CBC with Differential (03/01/2019) + +-------+ + + + | Component | Value | Ref Range | Performed | Pathologist | | | | | At | Signature | + +-------+ + + + | MCH | 27.0 | 27.0 - 33.0 pg | | | + +-------+ + + + | MCHC | 33.0 | 30.0 - 36.0 | | | | | | g/dL | | | + +-------+ + + + | % Basophils | 0.8 | 0.0 - 2.0 % | | | + +-------+ + + + + + | Specimen | + + | Blood | + + External Lab: CBC (03/01/2019) + +-------+ + + + | Component | Value | Ref Range | Performed | Pathologist | | | | | At | Signature | + +-------+ + + + | WBC, | 7.2 | 4.5 - 11 | REFERENCE | | | External | | | LAB | | | | | | [facility] - | | | | | | BKR | | + +-------+ + + + | HGB, | 13.5 | 12 - 16 | REFERENCE | | | External | | | LAB | | | | | | [facility] - | | | | | | BKR | | + +-------+ + + + | HCT, | 41.3 | 35 - 45 | REFERENCE | | | External | | | LAB | | | | | | [facility] - | | | | | | BKR | | + +-------+ + + + | PLT, | 288 | 140 - 440 | REFERENCE | | | External | | | LAB | | | | | | [facility] - | | | | | | BKR | | + +-------+ + + + | Neutrophils | 50.3 | 39 - 80 | REFERENCE | | | %, | | | LAB | | | External | | | [facility] - | | | | | | BKR | | + +-------+ + + + | Lymphocytes | 40.0 | 24 - 44 | REFERENCE | | | %, | | | LAB | | | External | | | [facility] - | | | | | | BKR | | + +-------+ + + + | Monocytes | 6.6 | 0 - 12 | REFERENCE | | | %, External | | | LAB | | | | | | [facility] - | | | | | | BKR | | + +-------+ + + + | Eosinophils | 2.3 | 0 - 6 | REFERENCE | | | %, | | | LAB | | | External | | | [facility] - | | | | | | BKR | | + +-------+ + + + | RBC, | 4.98 | 3.8 - 5.1 | REFERENCE | | | External | | | LAB | | | | | | [facility] - | | | | | | BKR | | + +-------+ + + + | MCV, | 83 | 81 - 99 | REFERENCE | | | External | | | LAB | | | | | | [facility] - | | | | | | BKR | | + +-------+ + + + | RDW, | 14 | 10.5 - 15 | REFERENCE | | | External | | | LAB | | | | | | [facility] - | | | | | | BKR | | + +-------+ + + + + + + + + | Performing | Address | City/State/Zipcode | Phone Number | | Organization | | | | + + + + + | REFERENCE LAB | [address] [facility] | [place] | [phone] | | [place] | | [address] | | + + + + + Comprehensive Metabolic Panel (03/01/2019) + +-------+ + + + | Component | Value | Ref Range | Performed | Pathologist | | | | | At | Signature | + +-------+ + + + | Anion Gap | 14 | 7 - 21 mmol/L | | | + +-------+ + + + | Bun/Creatin | 13.4 | 6.0 - 28.6 | | | | ine | | | | | + +-------+ + + + + + | Specimen | + + | Blood | + + External Lab: SIENA (03/01/2019) + +-------+ + + + | Component | Value | Ref Range | Performed | Pathologist | | | | | At | Signature | + +-------+ + + + | BUN, | 11 | 6 - 23 | REFERENCE | | | External | | | LAB | | | | | | [facility] - | | | | | | BKR | | + +-------+ + + + + + + + + | Performing | Address | City/State/Zipcode | Phone Number | | Organization | | | | + + + + + | REFERENCE LAB | [facility] [place] | [place] | [phone] | | [facility] | | [address] | | + + + + + External Lab: Glucose (03/01/2019) + +-------+ + + + | Component | Value | Ref Range | Performed | Pathologist | | | | | At | Signature | + +-------+ + + + | Glucose, | 81 | 70 - 100 | REFERENCE | | | External | | | LAB | | | | | | [facility] - | | | | | | BKR | | + +-------+ + + + + + + + + | Performing | Address | City/State/Zipcode | Phone Number | | Organization | | | | + + + + + | REFERENCE LAB | [address] | [place] | [phone] | | [facility] | | [address] | | + + + + + External Lab: Calcium (03/01/2019) + +-------+ + + + | Component | Value | Ref Range | Performed | Pathologist | | | | | At | Signature | + +-------+ + + + | Calcium, | 9.5 | 8.5 - 10.3 | REFERENCE | | | External | | | LAB | | | | | | [facility] - | | | | | | BKR | | + +-------+ + + + + + + + + | Performing | Address | City/State/Zipcode | Phone Number | | Organization | | | | + + + + + | REFERENCE LAB | [address] [facility] | [place] | [phone] | | [facility] | | [address] | | + + + + + External Lab: Carbon Dioxide (03/01/2019) + +-------+ + + + | Component | Value | Ref Range | Performed | Pathologist | | | | | At | Signature | + +-------+ + + + | Carbon | 26 | 19 - 31 | REFERENCE | | | Dioxide, | | | LAB | | | External | | | [facility] | | | | | | BKR | | + +-------+ + + + + + + + + | Performing | Address | City/State/Zipcode | Phone Number | | Organization | | | | + + + + + | REFERENCE LAB | [address] [facility] | [place] | [phone] | | [facility] | | [address] | | + + + + + External Lab: Chloride (03/01/2019) + +-------+ + + + | Component | Value | Ref Range | Performed | Pathologist | | | | | At | Signature | + +-------+ + + + | Chloride, | 103 | 95 - 112 | REFERENCE | | | External | | | LAB | | | | | | [facility] - | | | | | | BKR | | + +-------+ + + + + + + + + | Performing | Address | City/State/Zipcode | Phone Number | | Organization | | | | + + + + + | REFERENCE LAB | [facility] [place] | [place] | [phone] | | [facility] | | [address] | | + + + + + External Lab: Potassium (03/01/2019) + +-------+ + + + | Component | Value | Ref Range | Performed | Pathologist | | | | | At | Signature | + +-------+ + + + | Potassium, | 3.8 | 3.6 - 5.1 | REFERENCE | | | External | | | LAB | | | | | | [facility] - | | | | | | BKR | | + +-------+ + + + + + + + + | Performing | Address | City/State/Zipcode | Phone Number | | Organization | | | | + + + + + | REFERENCE LAB | [address] | [place] | [phone] | | [facility] | | [address] | | + + + + + External Lab: Sodium (03/01/2019) + +-------+ + + + | Component | Value | Ref Range | Performed | Pathologist | | | | | At | Signature | + +-------+ + + + | Sodium, | 139 | 132 - 143 | REFERENCE | | | External | | | LAB | | | | | | [facility] | | | | | | [facility]KR | | + +-------+ + + + + + + + + | Performing | Address | City/State/Zipcode | Phone Number | | Organization | | | | + + + + + | REFERENCE LAB | [address] | [place] | [phone] | | [facility] | | [address] | | + + + + + External Lab: eGFR (03/01/2019) + +-------+ + + + | Component | Value | Ref Range | Performed | Pathologist | | | | | At | Signature | + +-------+ + + + | eGFR, | 84 | | REFERENCE | | | External | | | LAB | | | | | | [facility] - | | | | | | BKR | | + +-------+ + + + + + | Specimen | + + | Blood | + + + + + + + | Performing | Address | City/State/Zipcode | Phone Number | | Organization | | | | + + + + + | REFERENCE LAB | [address] [place] | [place] | [phone] | | [facility] | | [address] | | + + + + + External Lab: Creatinine (03/01/2019) + +-------+ + + + | Component | Value | Ref Range | Performed | Pathologist | | | | | At | Signature | + +-------+ + + + | Creatinine, | 0.82 | 0.6 - 1.35 | REFERENCE | | | External | | | LAB | | | | | | [facility] | | | | | | [facility]KR | | + +-------+ + + + + + | Specimen | + + | Blood | + + + + + + + | Performing | Address | City/State/Zipcode | Phone Number | | Organization | | | | + + + + + | REFERENCE LAB | [address] | [place] | [phone] | | [place] | | [address] | | + + + + + documented in this encounter Visit Diagnoses Not on filedocumented in this encounter"
--- OUTSIDE RECORDS SUMMARY | ~2019-12-21 | XMS | Encounter Summary ---
Demographics + + + | Address | [address] | | | [place] [address] | + + + | Home Phone | | + + + | Preferred Language | Unknown | + + + | Marital Status | Single | + + + | Islam Affiliation | Unknown | + + + | Race | Black or | + + + | Ethnic Group | Not or | + + + Author + + + | Author | [facility] | | | and [place] | + + + | Organization | [facility] | | | and [place] | + + + | Address | Unknown | + + + | Phone | Unavailable | + + + Support + + + + + | Name | Relationship | Address | Phone | + + + + + | Zo Dong | ECON | [address] [facility] | | | | | [place] | | | | | [address] | | + + + + + | Jovita Luna | ECON | [address] | | | | | [place] [address] | | + + + + + Care Team Providers + +------+ + | Care Sales And Merchandising Associate Name | Role | Phone | + +------+ + | Tomas Benoit MD | PCP | | + +------+ + Reason for Visit +--------+--------+ + | Reason | Onset | Comments | | | Date | | +--------+--------+ + | Other | 01/17/ | | | | 2011 | | +--------+--------+ + Encounter Details +--------+ + + + + | Date | Type | Department | Care Team | Description | +--------+ + + + + | 01/17/ | Telephone | [facility] | Tomas Benoit, | Other | | 2011 | | [facility] | [address] | | | | | [address] | [place] | | | | | [place] | [address] | | | | | [address] | | | | | | [phone] | | | +--------+ + + + [...] Telephone Encounter - Janice Buck LPN - 02/01/2012 3:31 PM PDTThis call was returned on 01/18/12 and taken care of in another note. elephone Encounter - Marilu Mcwilliams - 01/18/2012 12:08 PM PDTHea ther with [facility] Jovita. She can be reached at [phone]. Marilu Mcwilliams documented in this enco unter [...] [place] | | | | | | [address] | | | | | | | | +--------+---------+ + + + documented as of this encounter Visit Diagnoses Not on filedocumented in this encounter"
--- OUTSIDE RECORDS SUMMARY | ~2019-12-21 | XMS | Encounter Summary ---
Demographics + + + | Address | [address] | | | [place] [address] | + + + | Home Phone [...] + + + | Author | [facility] | | | and [place] | + + + | Organization | [facility] [...] [place] | | | | | [address] | | + + + + + | Jovita Luna | ECON | [address] | | | | | [place] [address] | | + + + + + Care Team Providers + +------+ + | Care Protective Services Case Worker Name | Role | Phone | + +------+ + | Tomas Benoit MD | PCP | | + +------+ + Encounter Details +--------+ + + + + | Date | Type | Department | Care Team | Description | +--------+ + + + + | 01/26/ | Abstract | [facility] | Tomas Benoit, | | | 2011 | | Group - [place] | [address] | | | | | [address] | [place] | | | | | [address] | [address] | | | | | [place] | | | | | | [address] | | | | | | [phone] | | | +--------+ + + + [...] [place] | | | | | | [id number] | | | | | | | | +--------+---------+ + + + documented as of this encounter Visit Diagnoses Not on filedocumented in this encounter"
--- OUTSIDE RECORDS SUMMARY | ~2019-12-21 | XMS | Encounter Summary ---
Demographics + + + | Address | [address] | | | [place] [address] | + + + | Home Phone | | + + + | Preferred Language | Unknown | + + + | Marital Status | Single | + + + | Restorationist Affiliation | Unknown | + + + | Race | Black or | + + + | Ethnic Group | Not or | + + + Author + + + | Author | [facility] | | | and [place] | + + + | Organization | [facility] | | | and [place] | + + + | Address | Unknown | + + + | Phone | Unavailable | + + + Support + + + + + | Name | Relationship | Address | Phone | + + + + + | Zo Dong | ECON | [address] [facility] | | | | | [place] | | | | | [address] | | + + + + + | Jovita Luna | ECON | [address] | | | | | [place] [address] | | + + + + + Care Team Providers + +------+ + | Care Front End Loader Operator Name | Role | Phone | [...] | +--------+ + + + + | 10/01/ | Routine | [facility] | Tomas Benoit, | GA: 302d | | 2020 | | [place] | [address] | | | | | [address] | [place] | | | | | [place] | [address] | | | | | [address] | | | | | | [phone] | | | +--------+ + + + [...] + + + | Blood Pressure | 122/56 | 10/02/2019 10:54 AM | | | | | PDT | | + + + + + | Pulse | 105 | 10/02/2019 10:54 AM | | | | | PDT | | + + + + + | Temperature | 36.5 C (97.7 F) | 10/02/2019 10:54 AM | | | | | PDT | | + + + + + | Respiratory Rate | - | - | | + + + + + | Oxygen Saturation | 97% | 10/02/2019 10:54 AM | | | | | PDT | | + + + + + | Inhaled Oxygen | - | - | | | Concentration | | | | + + + + + | Weight | 97.6 kg (215 lb 2.7 | 10/02/2019 10:54 AM | | | | oz) | PDT | | + + + + + | Height | - | - | | + + + + + | Body Mass Index | 35.81 | 06/12/2019 9:31 AM | | | | | PST | | + + + + + documented in this encounter Progress Notes Gurpreet Mai, PT - 10/02/2019 10:30 AM PDTIncident To Physical Therapy Treatmen t Note Date: 10/02/2019 Timed Treatment Codes: 25 minutes Subjective: Jovita presents to primary care provider visit today with complaints of acute worsening ri ght hip and LE pain due to insidious onset. The pt states that her symptoms feel like tight ness behind her RLE and sharp pain to the back of her right hip. Symptoms have been getting worse, but her friend sent her some stretches to start which she feels has been helpful. No reports of bilateral numbness/tingling or BLE weakness. Aggravating factors: prolonged sitti ng, standing, transitional movements, bending forward. Alleviating factors: rest, heat, stre tches. Objective: Pertinent objective PT findings include: + SLR on right, TTP of Right SIJ -symptoms at this time consistent with right SIJ dysfunction Treatment today consisted of: Patient Education / Self Fpc Management: 15' -Education and discussion of acute pathology of symptoms and clinical presentation based on history and exam today -Education and discussion of functional deficits present above in aggravating factors and d aily strategies to modulate pain and improve function -Education and practice of HEP for form, quality of movement, and the relevance of each act ivity toward functional deficits present -Education on log roll technique for getting in and out of bed Therapeutic Exercise / HEP: Patient instructed, practiced, and provided good return demo i n the following activities for home: 10' Muscle energy technique with shotgun technique x 1 for facilitation of right gluteal firing HEP of: Access Code: [email or web address] URL: [email or web address] Date: 10/02/2019 Prepared by: Mercy Mai Exercises Piriformis Mobilization with Small Ball - 1 reps - 2-3 sets - 2-3x daily - 7x weekly Standing Quadratus Lumborum Mobilization with Small Ball on Wall - 1 reps - 2-3 sets - 2-3x daily - 7x weekly Seated Piriformis Stretch - 1 reps - 2-3 sets - 20-40 seconds hold - 2-3x daily - 7x weekly Supine Piriformis Stretch with Foot on Ground - 1 reps - 2-3 sets - 20-40 seconds hold - 2- 3x daily - 7x weekly Muscle Energy Technique - 6 reps - 1 sets - 6 seconds hold - 2-3x daily - 7x weekly Supine Hip Adduction Isometric with Ball - 6 reps - 1 sets - 6 seconds hold - 2-3x daily - 7x weekly Supine Sciatic Nerve Branch - 10 reps - 2-3 sets - 2-3x daily - 7x weekly Seated Sciatic Tensioner - 10 reps - 2-3 sets - 2-3x daily - 7x weekly Hooklying Clamshell with Resistance - 5 reps - 3 sets - 6 seconds hold - 2-3x daily - 7x we ekly Bridge with Hip Abduction and Resistance - 6 reps - 3 sets - 2-3x daily - 7x weekly Supine Transversus Abdominis Bracing with Leg Extension - 10 reps - 2-3 sets - 2-3x daily - 7x weekly Plan: Considerations for follow up: -Continue at home with recommendations from visit Electronically signed by: Gurpreet Mai PT, 10/02/2019 1:13 PM Patient Name: Jovita Grey/: 07/16/1990/ Niko Olivas i, MD - 10/02/2019 10:30 AM PDTPatient reports that the pain on the right hip and buttock area has gotten significantly worse. She reports that since her last visit she actually karen l have times where she is physically tearful because the pain is so bad. She reports that i f she has to bend over she has pain that shoots down the back of her leg. She is using a nael dy pillow at nighttime which helps her sleep more comfortably. She does have a belly band t hat she often wears during the daytime. Physical therapy treatment room consult to educate i n self care, instruct in therapeutic exercises, and use of manual therapy as indicated. Use of modalities for pain and swelling reduction when appropriate. itself is going well. She continues to make excellent fundal height growth. Bab y is moving well. No leaking of fluid or premature labor signs. All of her laboratories an d vaccinations are up-to-date. Tomas Benoit MD 10/02/2019 documented in this en counter Plan of Treatment +--------+---------+ + + + | Date | Type | Specialty | Care Team | Description | +--------+---------+ + + + | 01/30/ | Office | Family Medicine | Tomas Benoit, | | 2019 | Visit | | MD [address] | | | | | | [place] | | | | | | [address] | | | | | | | | +--------+---------+ + + + documented as of this encounter Visit Diagnoses + + | Diagnosis | + + | Normal in third trimester - Primary | + + | Right buttock pain Mylagia and myositis, unspecified | + + documented in this encounter"
--- OUTSIDE RECORDS SUMMARY | ~2019-12-21 | XMS | Encounter Summary ---
Demographics + + + | Address | [address] | | | [place] [address] | + + + | Home Phone [...] [place] | | | | | [address] | | + + + + + | Jovita Luna | ECON | [address] | | | | | [place] [address] | | + + + + + Care Team Providers + +------+ + | Care Anesthesia Associate Name | Role | Phone | + +------+ + | Tomas Benoit MD | PCP | | + +------+ + Reason for Visit +---------+--------+ + | Reason | Onset | Comments | | | Date | | +---------+--------+ + | Results | 05/10/ | ob labs/ vit D | | | 2020 | | +---------+--------+ + Encounter Details +--------+ + + + + | Date | Type | Department | Care Team | Description | +--------+ + + + + | 05/10/ | Telephone | [facility] | Tomas Benoit, | Results (ob labs/ | | 2019 | | MEDICINE [place] | [address] | vit D) | | | | [address] | [place] | | | | | [place] | [address] | | | | | [address] | | | | | | [phone] | | | +--------+ + + + [...] this encounter Miscellaneous Notes Telephone Encounter - Clarice Uriostegui Cert MA - 05/10/2019 9:08 AM PSTSpoke with patient, jg rodriguez. Patient verbalized understanding. Willing to take 4000 units daily Vit d. Adde d to medication list. elephone Encounter - Clarice Uriostegui Cert MA - 05/10/2019 9:06 AM PST----- Message from Tomas Benoit MD sent at 05/10/2019 8:41 AM PST ----- Please let Jovita know that the majority of her labs look great. Her vitamin D is a little low at 24. Normal is 30-100. Vitamin D is important for maternal and bone and nerve h ealth. I recommend that she take 4000 units of vitamin D daily. This is over the counter. Pl ease add to her medication list. Also, her TSH is slightly elevated. I would like to monitor this and check it again in a co uple of months. docu mented in this encounter Plan of Treatment +--------+---------+ + + + | Date | Type | Specialty | Care Team | Description | +--------+---------+ + + + | 01/30/ | Office | Family Medicine | Tomas Benoit, | | | 2019 | Visit | | MD [address] | | | | | | [place] | | | | | | [address] | | | | | | | | +--------+---------+ + + + documented as of this encounter Visit Diagnoses Not on filedocumented in this encounter"
--- OUTSIDE RECORDS SUMMARY | ~2019-12-21 | XMS | Encounter Summary ---
Demographics + + + | Address | [address] | | | [place] [address] | + + + | Home Phone [...] Author + + + | Author | [facility] | | | and [place] | + + + | Organization | [facility] | | | and [place] | + + + | Address | Unknown | + + + | Phone | Unavailable | + + + Support + + + + + | Name | Relationship | Address | Phone | + + + + + | Zo Dong | ECON | [address] [facility] | | | | | [place] | | | | | [address] | | + + + + + | Jovita Luna | ECON | [address] | | | | | [place] [address] | | + + + + + Care Team Providers + +------+ + | Care Business Support Associate Name | Role | Phone | + +------+ + | Tomas Benoit MD | PCP | | + +------+ + Reason for Visit + +--------+ + | Reason | Onset | Comments | | | Date | | + +--------+ + | Annual Exam | 10/25/ | | | | 2018 | | + +--------+ + Encounter Details +--------+ + + + + | Date | Type | Department | Care Team | Description | +--------+ + + + + | 10/25/ | Telephone | [facility] | Tomas Benoit, | Annual Exam | | 2018 | | MEDICINE [place] | [address] | | | | | [address] | [place] [facility] [place] | | | | | [place] | [address] | | | | | [address] | | | | | | [phone] | | | +--------+ + + + [...] this encounter Miscellaneous Notes Telephone Encounter - Sarah Carter - 2018 8:44 AM PDTScheduled 12/20Electro nically signed by Sarah Sinha at 2018 8:44 AM PDTTelephone Encounter - Jennifer Wright RN - 10/25/2018 3:07 PM PDTDue for annual exam and follow-up on medications . Please schedule with PCP. documented in this encounter Plan of Treatment [...]
--- OUTSIDE RECORDS SUMMARY | ~2019-12-21 | XMS | Encounter Summary ---
Demographics + + + | Address | [address] | | | [place] [address] | + + + | Home Phone [...] + + + | Author | [facility] | | | and [place] | + + + | Organization | [facility] | | | and [place] | + + + | Address | Unknown | + + + | Phone | Unavailable | + + + Support + + + + + | Name | Relationship | Address | Phone | + + + + + | Zo Dong | ECON | [address] [facility] | | | | | [place] | | | | | [address] | | + + + + + | Jovita Luna | ECON | [address] | | | | | [place] [address] | | + + + + + Care Team Providers + +------+ + | Care Outreach Specialist Name | Role | Phone | + +------+ + | Tomas Benoit MD | PCP | | + +------+ + Reason for Visit + + + | Reason | Comments | + + + | Routine | 14 weeks--declines flu shot--trouble with constipation--decline | | Visit | MyChart for now | + + + Encounter Details +--------+ + + + + | Date | Type | Department | Care Team | Description | +--------+ + + + + | 02/17/ | Routine | [facility] | Tomas Benoit, | GA: 2d | | 2011 | | MEDICINE [place] | [address] | | | | | [address] | [place] | | | | | [place] | [address] | | | | | [address] | | | | | | [phone] | | | +--------+ + + + [...] + + + | Blood Pressure | 110/68 | 02/18/2012 11:40 AM | | | | | PDT | | + + + + + | Pulse | 100 | 02/18/2012 11:40 AM | | | | | PDT | | + + + + + | Temperature | - | - | | + + + + + | Respiratory Rate | 16 | 02/18/2012 11:40 AM | | | | | PDT | | + + + + + | Oxygen Saturation | - | - | | + + + + + | Inhaled Oxygen | - | - | | | Concentration | | | | + + + + + | Weight | 67.5 kg (148 lb 12.8 | 02/18/2012 11:40 AM | | | | oz) | PDT | | + + + + + | Height | 166.4 cm (5' 5.5") | 02/18/2012 11:40 AM | | | | | PDT | | + + + + + | Body Mass Index | 24.39 | 02/18/2012 11:40 AM | | | | | PDT | | + + + + + documented in this encounter Progress Notes Tomas Benoit MD - 02/18/2012 12:09 PM PDTReviewed and ordered Quad screen. Treated Jacek mydia several weeks ago. She will need repeat test at next visit. documented in this encounter Plan of Treatment +--------+---------+ + + + | Date | Type | Specialty | Care Team | Description | +--------+---------+ + + + | 01/30/ | Office | Family Medicine | Tomas Benoit, | | | 2020 | Visit | | MD [address] | | | | | | [place] | | | | | | [phone] | | | | | | | | +--------+---------+ + + + documented as of this encounter Results Risk, Quad Screen (03/22/2012 4:01 PM PST) + + + + + + | Component | Value | Ref Range | Performed | Pathologist | | | | | At | Signature | + + + + + + | Gestational | SEE BELOWComment: 17 | () | [facility] | | | age | weeks 0 day, by [facility] | | [facility] | | | | 03/22/12 | | MEDICAL | | | | | | CENTER - | | | | | | LABORATORY | | + + + + + + | Maternal | 21.1 | () | [facility] | | | age AT GREGOR | | | [facility] | | | | | | MEDICAL | | | | | | CENTER - | | | | | | LABORATORY | | + + + + + + | Maternal | 148.0 lbs. | () | [facility] | | | Weight | | | [facility] | | | | | | MEDICAL | | | | | | CENTER - | | | | | | LABORATORY | | + + + + + + | Race | not specified | () | [facility] | | | | | | [facility] | | | | | | MEDICAL | | | | | | CENTER - | | | | | | LABORATORY | | + + + + + + | Patient | No | () | [facility] | | | Diabetic? | | | [facility] | | | | | | MEDICAL | | | | | | CENTER - | | | | | | LABORATORY | | + + + + + + | Gestation | Buenrostro | () | [facility] | | | | | | [facility] | | | | | | MEDICAL | | | | | | CENTER - | | | | | | LABORATORY | | + + + + + + | Screening | Initial sample | () | [facility] | | | Status | | | [facility] | | | | | | MEDICAL | | | | | | CENTER - | | | | | | LABORATORY | | + + + + + + | DS Screen | Negative | () | [facility] | | | Result | | | [facility] | | | | | | MEDICAL | | | | | | CENTER - | | | | | | LABORATORY | | + + + + + + | DS RISK (AT | SEE BELOWComment: less | () | [facility] | | | | than 1:99237 | | [facility] | [facility] | [facility] | [facility] | | | ER) | | | CENTER - | | | | | | LABORATORY | | + + + + + + | DS RISK | 1:1170 | () | [facility] | | | (MATERNAL | | | [facility] | | | AGE) | | | MEDICAL | | | | | | CENTER - | | | | | | LABORATORY | | + + + + + + | DS RISK | < 15.0 | () | [facility] | | | (EQUIVALENT | | | [facility] | | | AGE) | | | MEDICAL | | | | | | CENTER - | | | | | | LABORATORY | | + + + + + + | DS RISK | SEE BELOWComment: The | () | [facility] | | | INTERPRETAT | risk of Down syndrome is | | [facility] | | | ION | LESS than the | | MEDICAL | | | | screeningcut-off. No | | CENTER - | | | | follow-up is indicated | | LABORATORY | | | | regarding this | | | | | | result.The Down syndrome | | | | | | risk cut-off is 1:190 | | | | + + + + + + | OSB Screen | Negative | () | [facility] | | | Result | | | [facility] | | | | | | MEDICAL | | | | | | CENTER - | | | | | | LABORATORY | | + + + + + + | OSB Patient | SEE BELOWComment: equal | () | [facility] | | | Risk | to 1:59162 | | [facility] | | | | | | MEDICAL | | | | | | CENTER - | | | | | | LABORATORY | | + + + + + + | OSB | 1:2500 | () | [facility] | | | Population | | | [facility] | | | Risk | | | MEDICAL | | | | | | CENTER - | | | | | | LABORATORY | | + + + + + + | OSB Risk | SEE BELOWComment: The | () | [facility] | | | Interpretat | maternal serum AFP | | [facility] | | | ion | result is NOT elevated | | MEDICAL | | | | for apregnancy of this | | CENTER - | | | | gestational age. The | | LABORATORY | | | | risk of an openneural | | | | | | tube defect is less than | | | | | | the screening cut-off. | | | | | | TheOSB cut-off is 1:605 | | | | | | (2.50 MoM) | | | | + + + + + + | TRI 18 SCR | Negative | () | [facility] | | | RISK EST | | | [facility] | | | | | | MEDICAL | | | | | | CENTER - | | | | | | LABORATORY | | + + + + + + | T18 Patient | SEE BELOWComment: less | () | [facility] | | | Risk | than 1:82912 | | [facility] | | | | | | MEDICAL | | | | | | CENTER - | | | | | | LABORATORY | | + + + + + + | Trisomy 18 | SEE BELOWComment: These | () | [facility] | | | (Luis) | results are not | | [facility] | | | Syndrome | consistent with the | | MEDICAL | | | Interp. | pattern seen inTrisomy | | CENTER - | | | | 18 pregnancies. | | LABORATORY | | + + + + + + | | SEE BELOWComment: | () | [facility] | | | RISK | Accuracy of gestational | | [facility] | | | ASSESSMENT | age is essential for | | MEDICAL | | | | validinterpretation. A | | CENTER - | | | | family history for Down | | LABORATORY | | | | syndrome and/oropen | | | | | | spina bifida increases | | | | | | the risk for these | | | | | | fetalabnormalities. If a | | | | | | family history for | | | | | | these fetalabnormalities | | | | | | exists, counseling | | | | | | regarding a level | | | | | | IIultrasound and/or | | | | | | amniocentesis is | | | | | | suggested. | | | | + + + + + + | MoM for AFP | 1.36 | () | [facility] | | | | | | [facility] | | | | | | MEDICAL | | | | | | CENTER - | | | | | | LABORATORY | | + + + + + + | Estriol Mom | 1.61 | () | [facility] | | | | | | [facility] | | | | | | MEDICAL | | | | | | CENTER - | | | | | | LABORATORY | | + + + + + + | MoM for hCG | 0.61 | () | [facility] | | | | | | [facility] | | | | | | MEDICAL | | | | | | CENTER - | | | | | | LABORATORY | | + + + + + + | Inhibin A | 1.01 | () | [facility] | | | Mom | | | [facility] | | | | | | MEDICAL | | | | | | CENTER - | | | | | | LABORATORY | | + + + + + + | AFP | 48.8 | () ng/mL | [facility] | | | Maternal | | | [facility] | | | | | | MEDICAL | | | | | | CENTER - | | | | | | LABORATORY | | + + + + + + | ESTRIOL | 1.9 | () ng/mL | [facility] | | | | | | [facility] | | | | | | MEDICAL | | | | | | CENTER - | | | | | | LABORATORY | | + + + + + + | HCG, Total | 14.9 | () IU/mL | [facility] | | | | | | [facility] | | | | | | MEDICAL | | | | | | CENTER - | | | | | | LABORATORY | | + + + + + + | Inhibin A | 156.1Comment: Testing | () pg/mL | [facility] | | | | Performed: [place] | | [facility] | | | | [facility] | | MEDICAL | | | | [place],[address], | | CENTER - | | | | [place] [address] | | LABORATORY | | | | CLIA: [id number] | | | | + + + + + + + + | Specimen | + + | Blood specimen | | (specimen) | + + + + + + + | Performing | Address | City/State/Zipcode | Phone Number | | Organization | | | | + + + + + | [facility] | [address] | [place], [place] | [phone] | | [facility] | | [address] | | | - LABORATORY | | | | + + + + + | [facility] | [address] | [place], [place] | | | [facility] | | [address], [facility] | | | - LABORATORY | | | | + + + + + documented in this encounter Visit Diagnoses + + | Diagnosis | + + | Supervision of normal first - Primary | + + documented in this encounter
--- OUTSIDE RECORDS SUMMARY | ~2019-12-21 | XMS | Encounter Summary ---
Demographics + + + | Address | [address] | | | [place] [address] | + + + | Home Phone [...] [place] | | | | | [address] | | + + + + + | Jovita Luna | ECON | [address] | | | | | [place] [address] | | + + + + + Care Team Providers + +------+ + | Care Clerical Order Filler Name | Role | Phone | + +------+ + | Tomas Benoit MD | PCP | | + +------+ + Reason for Visit + + + | Reason | Comments | + + + | Routine | 39w 2d | | Visit | | + + + Encounter Details +--------+ + + + + | Date | Type | Department | Care Team | Description | +--------+ + + + + | 12/03/ | Routine | [facility] | Tomas Benoit, | GA: 39w2d | | 2020 | | MEDICINE [place] | [address] | | | | | [address] | [place] | | | | | [place] | [address] | | | | | [address] | | | | | | [phone] | | | +--------+ + + + [...] + + + | Blood Pressure | 110/76 | 12/04/2019 10:41 AM | | | | | PDT | | + + + + + | Pulse | 122 | 12/04/2019 10:41 AM | | | | | PDT | | + + + + + | Temperature | 36.4 C (97.6 F) | 12/04/2019 10:41 AM | | | | | PDT | | + + + + + | Respiratory Rate | 20 | 12/04/2019 10:41 AM | | | | | PDT | | + + + + + | Oxygen Saturation | 98% | 12/04/2019 10:41 AM | | | | | PDT | | + + + + + | Inhaled Oxygen | - | - | | | Concentration | | | | + + + + + | Weight | 105 kg (231 lb 7.7 | 12/04/2019 10:41 AM | | | | oz) | PDT | | + + + + + | Height | - | - | | + + + + + | Body Mass Index | 37.36 | 11/20/2019 3:49 PM | | | | | PDT | | + + + + + documented in this encounter Progress Notes Tomas Benoit MD - 12/04/2019 10:30 AM PDTPatient having bilateral hand pain numbness an d tingling which started about 6 days ago. Suspect related carpal tunnel like sym ptoms. Recommend using night braces. Reviewed that the majority of women who get this will have resolution of her symptoms by 6 weeks . Patient uncomfortable and tired due to end of but otherwise no new symptoms. She reports that baby movements are adequate although not large or violent. Reviewed COVID restrictions in our local hospital. Reviewed that she will undergo a COVID test at time of admission or sooner if she is an induction. Virgil is a low risk 29-year-old G3, P1 at 39 weeks 2 days gestation. She is GBS positive . She is aware she needs antibiotics. Continue with routine care. Tomas Benoit MD DATE/TIME: 12/04/2019 11:22 AM PDT documented in this en counter Plan of Treatment +--------+---------+ + + + | Date | Type | Specialty | Care Team | Description | +--------+---------+ + + + | 01/30/ | Office | Family Medicine | Tomas Benoit, | | | 2019 | Visit | | MD [address] | | | | | | [place] | | | | | | [address] | | | | | | | | +--------+---------+ + + + documented as of this encounter Visit Diagnoses + + | Diagnosis | + + | Normal in third trimester - Primary | + + documented in this encounter"
--- OUTSIDE RECORDS SUMMARY | ~2019-12-21 | XMS | Encounter Summary ---
Demographics + + + | Address | [address] | | | [place] [address] | + + + | Home Phone | | + + + | Preferred Language | Unknown | + + + | Marital Status | Single | + + + | Anabaptist Affiliation | Unknown | + + + | Race | Black or | + + + | Ethnic Group | Not or | + + + Author + + + | Author | [facility] | | | and [place] | + + + | Organization | [facility] | | | and [place] | + + + | Address | Unknown | + + + | Phone | Unavailable | + + + Support + + + + + | Name | Relationship | Address | Phone | + + + + + | Zo Dong | ECON | [address] [facility] | | | | | [place] | | | | | [address] | | + + + + + | Jovita Luna | ECON | [address] | | | | | [place] [address] | | + + + + + Care Team Providers + +------+ + | Care Home Service Advisor Name | Role | Phone | + +------+ + | Tomas Benoit MD | PCP | | + +------+ + Reason for Visit + +--------+ + | Reason | Onset | Comments | | | Date | | + +--------+ + | Medication Question | 08/07/ | | | | 2018 | | + +--------+ + Encounter Details +--------+ + + + + | Date | Type | Department | Care Team | Description | +--------+ + + + + | 08/07/ | Telephone | [facility] | Tomas Benoit, | Medication Question | | 2018 | | MEDICINE [place] | [address] | | | | | [address] | [place] | | | | | [place] | [phone] | | | | | [address] | | | | | | [phone] | | | +--------+ + + + [...] this encounter Miscellaneous Notes Telephone Encounter - Marge Nieto, Patient Transportation Driver - 08/09/2018 4:10 PM PDTPatient notified. She was agreeable and verbalized understanding. elephone Encounter - Marge Nieto , Patient Transportation Driver - 08/07/2018 6:18 PM PDTLeft message for patient to return call.Electro nically signed by Marge Nieto, Patient Transportation Driver at 08/07/2018 6:19 PM PDTTelephone En counter - Tomas Benoit MD - 08/07/2018 9:11 AM PDTStart new pack immediately. She may h ave break through bleeding this month. She also needs to use second method of protection lik e a condom until next month when she starts the next pack. elephone Encounter - Darline Jay RN - 019 8:40 AM PDTCalled patient for more information. She finished her last placebo pill on Tuesday, 07/29, and was to start the new pack on , 07/30. However, since she was having so much trouble swallowing anything after her oral surgery, s he has not started the new pack yet. She has been on this control pill "for years". LMP 07/27/18 She is wondering whether to start the new pack now, or wait until she has her next period? Explained that if she starts it now she may have break through bleeding as her body adjusts to a new cycle, but that we will check with Dr Benoit to see what she recommends. She is at [phone] elephone Solist barbara - Leslie Watkins - 08/07/2018 7:58 AM PDTPatient called wanting to speak with the nu rse. Patient stated she had oral surgery so missed some of her control pills due to no t being able to swallow pills so was wanting a call back to see if she needs to just wait an d start a new pack or what she should do. Please call patient to advise, . Elec tronically signed by Leslie Watkins at 08/07/2018 7:59 AM PDTdocumented in this encounte r Plan of Treatment +--------+---------+ + + + | Date | Type | Specialty | Care Team | Description | +--------+---------+ + + + | 01/30/ | Office | Family Medicine | Tomas Benoit, | | 2019 | Visit | | MD [address] | | | | | | [place] | | | | | | [phone] | | | | | | | | +--------+---------+ + + + documented as of this encounter Visit Diagnoses Not on filedocumented in this encounter
--- OUTSIDE RECORDS SUMMARY | ~2019-12-21 | XMS | Encounter Summary ---
Demographics + + + | Address | [address] | | | [place] [address] | + + + | Home Phone | | + + + | Preferred Language | Unknown | + + + | Marital Status | Single | + + + | Mormonism Affiliation | Unknown | + + + [...] | ECON | [address] [facility] | | | | | [place] | | | | | [address] | | + + + + + | Jovita Luna | ECON | [address] | | | | | [place] [address] | | + + + + + Care Team Providers + +------+ + | Care Binding Printer Name | Role | Phone | + +------+ + | Tomas Benoit MD | PCP | | + +------+ + Reason for Visit +--------+--------+ + | Reason | Onset | Comments | | | Date | | +--------+--------+ + | Other | 08/15/ | | | | 2012 | | +--------+--------+ + Encounter Details +--------+ + + + + | Date | Type | Department | Care Team | Description | +--------+ + + + + | 08/15/ | Telephone | [facility] | Tomas Benoit, | Other | | 2012 | | MEDICINE [place] | [address] | | | | | [address] | [place] | | | | | [place] | [address] | | | | | [address] | | | | | | [phone] | | | +--------+ + + + [...] Notes Telephone Encounter - Casi Kerr - 08/15/2012 9:59 AM PDTFaxed all OB records as requ ested. elephone Encounter - Darline Jay RN - 08/15/2012 9:21 AM PDTPhone call from Suha at [facility] OB floor. Patient is coming in but she is unable to see her records in [facility]. Asking that we fax her OB record to them at ext [phone]. Please print and fax STEPHAN. 9: 23 AM PDTdocumented in this encounter Plan of [...]
--- OUTSIDE RECORDS SUMMARY | ~2019-12-21 | XMS | Encounter Summary ---
Demographics + + + | Address | [address] | | | [place] [address] | + + + | Home Phone [...] Dong | ECON | [address] [facility] | | | | | [place] | | | | | [address] | | + + + + + | Jovita Luna | ECON | [address] | | | | | [place] [address] | | + + + + + Care Team Providers + +------+ + | Care Package Dye Stand Loader Name | Role | Phone | + +------+ + | Tomas Benoit MD | PCP | | + +------+ + Reason for Visit + +--------+ + | Reason | Onset | Comments | | | Date | | + +--------+ + | Medication Prior | 02/03/ | Desogesrel | | Authorization | 2014 | | + +--------+ + Encounter Details +--------+ + + + + | Date | Type | Department | Care Team | Description | +--------+ + + + + | 02/03/ | Telephone | [facility] | Tomas Benoit, | Medication Prior | | 2014 | | MEDICINE [place] | [address] | Authorization | | | | [address] | [place] | ([place] ) | | | | [place] | [id number] | | | | | [address] | | | | | | [phone] | | | +--------+ + + + [...] Telephone Encounter - Tomas Benoit MD - 02/03/2015 10:59 AM PDTNew rx sent to her pharm acy so that she weans down once a month.Electronically signed by Tomas Benoit MD at 02/03 10:59 AM PDTTelephone Encounter - Gabby Lazo RN - 02/03/2015 10:47 AM PDTCalled i nsurance and it should go threw fine Need to fun 84 for 28 days Talked with pharmacy and they are requesting a new prescription not a prior authorization Would you like to change the directions on the new prescription? Called patient and gave her the message She states understanding elephone Encounter - Tomas Benoit MD - 02/03/2015 10:21 AM PDTYes, she needs to start weaning down. She needs to expect that she will bleed/have a period when she reduced her dose. It is not good for h er to be on the high dose of control for a long time. So also go ahead and process renay or auth. Please let them know that she will be weaning down mundo the next several months. Emily ctronically signed by Tomas Benoit MD at 02/03/2015 10:23 AM PDTTelephone Encounter - Gabby Ramsey RN - 02/03/2015 10:04 AM PDTCalling patient, States that she went back to taking all 3 a day for a month She thinks that she might be able to go to 2 tabs a day if that is what you would like her to do elephone Encounter - Tomas Benoit MD - 02/03/2015 9:53 AM PDTIs she still taking 3 a day?Electronically sign ed by Tomas Benoit MD at 02/03/2015 9:54 AM PDTTelephone Encounter - Gabby Lazo RN - 02/03/2015 9:41 AM PDTCalling patient States that she did not get the IUD States that she talked with Tarah Cardona about it but did not get the IUD because she was not comfortable with it States that her menstrual cycle has been shorter Now 6-7 day long States that she is still experiencing that same about of heavy bleeding She is still having lots of cramping and clotting with them States that now she is having a menstrual cycle once a month Would you like me to do the PA for the 3 tabs daily? elephone Encounter - Tomas Benoit MD - 02/03/2015 8:55 AM PDTCall patient and confirm. elephone Encounter - Gabby Lazo RN - 1 8:19 AM PDTReceived medication prior auth for Desogestrel Looks like the patient was taking for excessively heavy periods Patient might have gotten an IUD back in December from Tarah Cardona Does the patient still need this medication? documented in this enc ounter Plan of Treatment +--------+---------+ + + + | Date | Type | Specialty | Care Team | Description | +--------+---------+ + + + | 01/30/ | Office | Family Medicine | Tomas Benoit, | | | 2019 | Visit | | MD [address] | | | | | | [place] | | | | | | [address] | | | | | | | | +--------+---------+ + + + documented as of this encounter Visit Diagnoses Not on filedocumented in this encounter"
--- OUTSIDE RECORDS SUMMARY | ~2019-12-21 | XMS | Encounter Summary ---
Demographics + + + | Address | [address] | | | [place] [address] | + + + | Home Phone [...] + + + | Author | [facility] | | | and [place] | + + + | Organization | [facility] | | | and [place] | + + + | Address | Unknown | + + + | Phone | Unavailable | + + + Support + + + + + | Name | Relationship | Address | Phone | + + + + + | Zo Dong | ECON | [address] [facility] | | | | | [place] | | | | | [address] | | + + + + + | Jovita Luna | ECON | [address] | | | | | [place] [address] | | + + + + + Care Team Providers + +------+ + | Care Supervisor Finishing Department Name | Role | Phone | + +------+ + | Tomas Benoit MD | PCP | | + +------+ + Reason for Visit + + + | Reason | Comments | + + + | Laboring | | + + + Encounter Details +--------+ + + + + | Date | Type | Department | Care Team | Description | +--------+ + + + + | 08/15/ | Telephone | [facility] | Tomas Benoit, | Laboring | | 2012 | | MEDICINE [place] | [address] | | | | | [address] | [place] | | | | | [place] | [address] | | | | | [address] | | | | | | [phone] | | | +--------+ + + + [...] Telephone Encounter - Casi Kerr - 08/15/2012 9:00 AM PDTPatient's mother called and did not want to be put on hold or transferred. She was on her way to pick pack worker patient as her water broke. She said she was unsure of contractions, but that she was going to pick pack worker Fr ances and bring her to the Hospital. She asked that we call and notify them. Notified tad Camacho of the information and called the OB floor and let them know. documented in this encounter Plan of Treatment [...]
--- OUTSIDE RECORDS SUMMARY | ~2019-12-21 | XMS | Encounter Summary ---
Demographics + + + | Address | [address] | | | [place] [address] | + + + | Home Phone | | + + + | Preferred Language | Unknown | + + + | Marital Status | Single | + + + | Jehovah'S Witness Affiliation | Unknown | + + + [...] Dong | ECON | [address] [facility] | | | | | [place] | | | | | [address] | | + + + + + | Jovita Luna | ECON | [address] | | | | | [place] [address] | | + + + + + Care Team Providers + +------+ + | Care Hospice Director Name | Role | Phone | + +------+ + | Tomas Benoit MD | PCP | | + +------+ + Reason for Visit + +--------+ + | Reason | Onset | Comments | | | Date | | + +--------+ + | Medication Refill | 09/16/ | | | | 2017 | | + +--------+ + Encounter Details +--------+--------+ + + + | Date | Type | Department | Care Team | Description | +--------+--------+ + + + | 09/20/ | Refill | [facility] | Tomas Benoit, | Medication Refill | | 2017 | | MEDICINE [place] | [address] | | | | | [address] | [place] | | | | | [place] | [address] | | | | | [address] | | | | | | [phone] | | | +--------+--------+ + + + [...] [place] | | | | | | [address] | | | | | | | | +--------+---------+ + + + documented as of this encounter Visit Diagnoses Not on filedocumented in this encounter"
--- OUTSIDE RECORDS SUMMARY | ~2019-12-21 | XMS | Encounter Summary ---
Demographics + + + | Address | [address] | | | [place] [address] | + + + | Home Phone [...] Dong | ECON | [address] [facility] | | | | | [place] | | | | | [address] | | + + + + + | Jovita Luna | ECON | [address] | | | | | [place] [address] | | + + + + + Care Team Providers + +------+ + | Care Oven Loader Name | Role | Phone | + +------+ + | Tomas Benoit MD | PCP | | + +------+ + Reason for Visit +---------+--------+ + | Reason | Onset | Comments | | | Date | | +---------+--------+ + | Results | 04/03/ | | | | 2011 | | +---------+--------+ + Encounter Details +--------+ + + + + | Date | Type | Department | Care Team | Description | +--------+ + + + + | 04/03/ | Telephone | [facility] | Tomas Benoit, | Results | | 2011 | | MEDICINE [place] | [address] | | | | | [address] | [place] | | | | | [place] | [address] | | | | | [address] | | | | | | [phone] | | | +--------+ + + + [...] Telephone Encounter - Janice Buck LPN - 04/03/2012 5:06 PM PSTCalled patient and noti fied her. elephone En counter - Tomas Benoit MD - 04/03/2012 11:19 AM PSTPlease let Jovita know that her feta l u/s was normal. docum ented in this encounter Plan of Treatment +--------+---------+ [...]
--- OUTSIDE RECORDS SUMMARY | ~2019-12-21 | XMS | Encounter Summary ---
Demographics + + + | Address | [address] | | | [place] [address] | + + + | Home Phone [...] Author + + + | Author | [facility] | | | and [place] | + + + | Organization | [facility] | | | and [...] [place] | | | | | [address] | | + + + + + | Jovita Luna | ECON | [address] | | | | | [place] [address] | | + + + + + Care Team Providers + +------+ + | Care Hospice Music Therapist Name | Role | Phone | + +------+ + | Tomas Benoit MD | PCP | | + +------+ + Reason for Visit + + + | Reason | Comments | + + + | Routine | 40w 2d | | Visit | | + + + Encounter Details +--------+ + + + + | Date | Type | Department | Care Team | Description | +--------+ + + + + | 12/10/ | Routine | [facility] | Tomas Benoit, | [place]: 40w2d | | 2020 | | MEDICINE [place] | [address] | | | | | [address] | [place] | | | | | [place] | [address] | | | | | [address] | | | | | | [phone] | | | +--------+ + + + [...] + + + | Blood Pressure | 108/78 | 12/11/2019 4:22 PM | | | | | PDT | | + + + + + | Pulse | 101 | 12/11/2019 4:22 PM | | | | | PDT | | + + + + + | Temperature | 36.4 C (97.6 F) | 12/11/2019 4:22 PM | | | | | PDT | | + + + + + | Respiratory Rate | 12 | 12/11/2019 4:22 PM | | | | | PDT | | + + + + + | Oxygen Saturation | 97% | 12/11/2019 4:22 PM | | | | | PDT | | + + + + + | Inhaled Oxygen | - | - | | | Concentration | | | | + + + + + | Weight | 106.2 kg (234 lb 2.1 | 12/11/2019 4:22 PM | | | | oz) | PDT | | + + + + + | Height | - | - | | + + + + + | Body Mass Index | 37.79 | 11/20/2019 3:49 PM | | | | | PDT | | + + + + + documented in this encounter Progress Notes Tomas Benoit MD - 12/11/2019 4:15 PM PDTBaby moving well. She has had no change in [facility] and states she is tired of being and is uncomfortable but no concerns. No signs of labor. Patient's cervix continues to be relatively unripe except for that it is e xceedingly soft and I suspect that when she does go into labor it should change easily. David barker see patient early next week which will put her just at the 41-week marsha. Can consider ind uction at that time if needed. 5:3 0 PM PDTdocumented in this encounter Plan of [...] [place] | | | | | | [address] | | | | | | | | +--------+---------+ + + + documented as of this encounter Visit Diagnoses + + | Diagnosis | + + | Normal in third trimester | + + documented in this encounter"
--- OUTSIDE RECORDS SUMMARY | ~2019-12-21 | XMS | Encounter Summary ---
Demographics + + + | Address | [address] | | | [place] [address] | + + + | Home Phone [...] Author + + + | Author | [facility] | | | and [place] | + + + | Organization | [facility] | [...] [place] | | | | | [address] | | + + + + + | Jovita Luna | ECON | [address] | | | | | [place] [address] | | + + + + + Care Team Providers + +------+ + | Care Wildlife Conservationist Name | Role | Phone | + +------+ + | Tomas Benoit MD | PCP | | + +------+ + Encounter Details +--------+ + + + + | Date | Type | Department | Care Team | Description | +--------+ + + + + | 09/15/ | Hospital | [facility] | Mel Mejias PA | Blood in stool | | 2012 | Encounter | MED CTR LAB[facility] | [address] [facility] | | | | | [address] [place] | [address] [place], [place] | | | | | [place] | [address] | | | | | [address] | | | | | | [phone] | | | +--------+ + + + [...] [place] | | | | | | [address] | | | | | | | [...] | | | | starting 09/15/2012 | + +------+--------+ + + documented as of this encounter Procedures + +--------+ + + + | Procedure Name | Priori | Date/Time | Associated Diagnosis | Comments | | | ty | | | | + +--------+ + + + | SEDIMENTATION RATE | Routin | 09/15/2012 | | Results for this | | | e | 4:50 PM | | procedure are in the | | | | PDT | | results section. | + +--------+ + + + | SEDIMENTATION RATE | Routin | 09/15/2012 | Blood in stool | Results for this | | | e | 4:50 PM | | procedure are in the | | | | PDT | | results section. | + +--------+ + + + | CBC WITH | Routin | 09/15/2012 | | Results for this | | DIFFERENTIAL | e | 4:50 PM | | procedure are in the | | | | PDT | | results section. | + +--------+ + + + | CBC WITH | Routin | 09/15/2012 | Blood in stool | Results for this | | DIFFERENTIAL | e | 4:50 PM | | procedure are in the | | | | PDT | | results section. | + +--------+ + + + | C-REACTIVE PROTEIN | Routin | 09/15/2012 | | Results for this | | | e | 4:50 PM | | procedure are in the | | | | PDT | | results section. | + +--------+ + + + | C-REACTIVE PROTEIN | Routin | 09/15/2012 | Blood in stool | Results for this | | | e | 4:50 PM | | procedure are in the | | | | PDT | | results section. | + +--------+ + + + documented in this encounter Results CBC with Differential (09/15/2012 4:50 PM PDT) + + + + + + | Component | Value | Ref Range | Performed | Pathologist | | | | | At | Signature | + + + + + + | MANUAL | NO | | [facility] | | | [facility] | | | [facility] | | | L ? | | | MEDICAL | | | [...] | Cells | | M/uL | [facility] | | | | | | MEDICAL | | | | | | CENTER - | | | | | | LABORATORY | | + + + + + + | Hemoglobin | 13.5 | 11.5 - 16.0 | [facility] | | | | | gm/dL | [facility] | | | | [...] | | | Monocytes | | | [facility] | | [...] 0.0 | 0.0 - 0.1 K/uL | [facility] | | | Basophils | | | [...] [address] | [place] | [phone] | | [facility] | | [address] | | | - LABORATORY | | | | + + + + + | [facility] | [address] | [place] | | | [facility] | | [address], [facility] | | | - LABORATORY | | | | + + + + + Sedimentation Rate (09/15/2012 4:50 PM PDT) + +-------+ + + + | Component | Value | Ref Range | Performed | Pathologist | | | | | At | Signature | + +-------+ + + + | Erythrocyte | 7 | 0 - 20 mm/hr | [facility] | | | | | | [facility] [...] + | [facility] | [address] | [place], [place] | [phone] | | [facility] | | [address] | | | - LABORATORY | | | | + + + + + | [facility] | [address] | [place], [place] | | | [facility] | | [facility], [facility] | | | - LABORATORY | | | | + + + + + C-Reactive Protein (09/15/2012 4:50 PM PDT) + [...] [facility] | | | | infection, trauma, | | MEDICAL | | | | cardiac infarct or | | CENTER - | | | | neoplastic | | LABORATORY | | | | proliferation. | | | | + + + + + + + + | Specimen | + + | | + + + + + + + | Performing | Address | City/State/Zipcode | Phone Number | | Organization | | | | + + + + + | [facility] | [address] | [place] | [phone] | | [facility] | | [address] | | | - LABORATORY | | | | + + + + + | [facility] | [address] | [place] | | | [facility] | | [address] | | | - LABORATORY | | | | + + + + + C-Reactive Protein (09/15/2012 4:50 PM PDT) + [...] + + | [facility] | [address] | [place] | [phone] | | [facility] | | [address] | | | - LABORATORY | | | | + + + + + | [facility] | [address] | [place] | | | [facility] | | [address], [facility] | | | - LABORATORY | | | | + + + + + Sedimentation Rate (09/15/2012 4:50 PM PDT) + +-------+ + + + | Component | Value | Ref Range | Performed | Pathologist | | | | | At | Signature | + +-------+ + + + | Erythrocyte | 7 | 0 - 20 mm/hr | [facility] | | | | | | [facility] [...] + | [facility] | [address] | [place], [place] | [phone] | | [facility] | | [address] | | | - LABORATORY | | | | + + + + + | [facility] | [address] | [place], [place] | | | [facility] | | [id number] [place] [address] | | | - LABORATORY | | [...] | | | Cells | | | [facility] | | | | | | [...] | | | | | gm/dL | [facility] | | | | | | [...] | | | | | g/dL | [facility] | | | | | | [...] | | | Monocytes | | | [facility] | | [...] + | [facility] | [address] | [place] | [phone] | | [facility] | | [address] | | | - LABORATORY | | | | + + + + + | [facility] | [address] | [place] | | | [facility] | | [address] | | | - LABORATORY | | | | + + + + + documented in this encounter Visit Diagnoses + + | Diagnosis | + + | Blood in stool | + + documented in this encounter"
--- OUTSIDE RECORDS SUMMARY | ~2019-12-21 | XMS | Encounter Summary ---
Demographics + + + | Address | [address] | | | [place] [address] | + + + | Home Phone [...] Author + + + | Author | [facility] | | | and [place] | + + + | Organization | [facility] | | [...] [place] | | | | | [address] | | + + + + + | Jovita Luna | ECON | [address] | | | | | [place] [address] | | + + + + + Care Team Providers + +------+ + | Care Automotive Machinist Name | Role | Phone | + +------+ + | Tomas Benoit MD | PCP | | + +------+ + Reason for Visit + +--------+ + | Reason | Onset | Comments | | | Date | | + +--------+ + | Vaginal Bleeding | 10/27/ | | | | 2013 | | + +--------+ + Encounter Details +--------+ + + + + | Date | Type | Department | Care Team | Description | +--------+ + + + + | 10/27/ | Telephone | [facility] | Casi Mccloud, | Vaginal Bleeding | | 2013 | | MEDICINE [place] | [address] | | | | | [address] | [place] | | | | | [place] | [address] | | | | | [address] | | | | | | [phone] | | | +--------+ + + + [...] documented as of this encounter Miscellaneous Notes Addendum Note - Ana Paula Morris Cert MA - 10/29/2013 3:27 PM PDT Addended by: LIBRADO MORRIS on: 10/29/2013 15:27 Modules accepted: Orders elephone Enc ounter - Ana Paula Morris Cert MA - 10/29/2013 3:25 PM PDTCalled and spoke to patient, vanessa dodd her I was faxing an order to [facility] lab for a blood test. She is to get drawn and then again in 48 hours. P DTTelephone Encounter - Tomas Benoit MD - 10/29/2013 2:02 PM PDTPlease let her know nia t we do need a bHCG which is the blood test and we need to follow it until returns to normal . Did she pass clots? Please order bHCG. Unsure if she wants at [facility] or here in .Elec tronically signed by Tomas Benoit MD at 10/29/2013 2:03 PM PDTTelephone Encounter - Ana Paula Leroy Cert MA - 10/29/2013 1:20 PM PDTPatient states she did not go to the ED last week because her bleeding slowed down and she was able to bear the cramps with Tylenol, she states she is bleeding and cramping again although the blood is a brownish color. She is won dering if we can order the serum HCG level test to see if she miscarried or does she need to be seen as well? TTelephone Encounter - Ana Paula Morris Cert MA - 10/29/2013 1:14 PM PDTCalled and left me ssage to call back. P M PDTTelephone Encounter - Melba Wolf - 10/29/2013 12:36 PM PDTPatient calling back. S he can be reached at [phone]. She's still bleeding and cramping. elephone Encounter - Cheli Segundo, AKIN - 10/29 10:02 AM PDTLeft message for patient to call back. elephone Encounter - Tomas Benoit MD - 10/29/2013 8:36 AM PDTPlease call Jovita and see how she is doing. Did she have a miscarriage? Did she req uire intervention? Please set her up for follow up. elephone Encounter - Casi Mccloud MD - 10/27/2013 10:08 A M PDTPt calls, reports LMP 09/18, had 3 positive tests at home a few days ago. Wok e at 2 am with severe cramping and heavy bleeding like a bad period, has continued since the n. Advised her to be seen at ER due to the heavy bleeding, told her sounds like she is in proc ess of miscarriage. She's going to have her mom take her to ER, since lives in [place] no t sure if she'll go to [facility] or come up to [facility]. documented in this encounter Plan of Treatment +--------+---------+ + + + | Date | Type | Specialty | Care Team | Description | +--------+---------+ + + + | 01/30/ | Office | Family Medicine | Tomas Benoit, | | | 2020 | Visit | | [address] | | | | | | [place] | | | | | | [address] | | | | | | | | +--------+---------+ + + + + +------+--------+ + + | Name | Type | Priori | Associated Diagnoses | Order Schedule | | | | ty | | | + +------+--------+ + + | HCG, Serum, Quant | Lab | Routin | | 48hrs for 2 | | | | e | Bleeding | Occurrences starting | | | | | | 10/29/2013 until | | | | | | 10/29/2014 | + +------+--------+ + + documented as of this encounter Visit Diagnoses + + | Diagnosis | + + | - Primary | + + | Bleeding Hemorrhage, unspecified | + + documented in this encounter"
--- OUTSIDE RECORDS SUMMARY | ~2019-12-21 | XMS | Encounter Summary ---
Demographics + + + | Address | [address] | | | [place] [address] | + + + | Home Phone | | + + + | Preferred Language | Unknown | + + + | Marital Status | Single | + + + | Samaritan Affiliation | Unknown | + + + [...] Dong | ECON | [address] [facility] | | | | | [place] | | | | | [address] | | + + + + + | Jovita Luna | ECON | [address] | | | | | [place] [address] | | + + + + + Care Team Providers + +------+ + | Care Chief Airport Guide Name | Role | Phone | + [...] | +--------+ + + + + | 11/26/ | Routine | [facility] | Tomas Benoit, | GA: [id number] | | 2020 | | MEDICINE [place] | [address] | | | | | [address] | [place] | | | | | [place] | [address] | | | | | [address] | | | | | | [phone] | | | +--------+ + + + [...] + | Blood Pressure | 108/78 | 11/27/2019 10:37 AM | | | | | PDT | | + + + + + | Pulse | 101 | 11/27/2019 10:37 AM | | | | | PDT | | + + + + + | Temperature | 36.2 C (97.1 F) | 11/27/2019 10:37 AM | | | | | PDT | | + + + + + | Respiratory Rate | 16 | 11/27/2019 10:37 AM | | | | | PDT | | + + + + + | Oxygen Saturation | 97% | 11/27/2019 10:37 AM | | | | | PDT | | + + + + + | Inhaled Oxygen | - | - | | | Concentration | | | | + + + + + | Weight | 103.5 kg (228 lb 2.8 | 11/27/2019 10:37 AM | | | | oz) | PDT | | + + + + + | Height | - | - | | + + + + + | Body Mass Index | 36.83 | 11/20/2019 3:49 PM | | | | | PDT | | + + + + + documented in this encounter Progress Notes Tomas Benoit MD - 11/27/2019 10:30 AM PDTPatient doing well. No complaints today. Baby moving well. No risk factors. Reviewed labor signs and indications to present to Selina documented in this enc ounter Plan of Treatment +--------+---------+ + + + | Date | Type | Specialty | Care Team | Description | +--------+---------+ + + + | Office | Family Medicine | Tomas Benoit, | | 2019 | Visit | | [address] | | | | | | [place] | | | | | | [address] | | | | | | | | +--------+---------+ + + + documented as of this encounter Visit Diagnoses + + | Diagnosis | + + | Normal in third trimester - Primary | + + documented in this encounter"
--- OUTSIDE RECORDS SUMMARY | ~2019-12-21 | XMS | Encounter Summary ---
Demographics + + + | Address | [address] | | | [place] [address] | + + + | Home Phone [...] ECON | [address] [facility] | | | | | [place], [place] | | | | | [address] | | + + + + + | Jovita Luna | ECON | [address] [facility] | | | | | [place] [address] | | + + + + + Care Team Providers + +------+ + | Care Manager Telemarketing Name | Role | Phone | + +------+ + PCP | Unavailable | + +------+ + Encounter Details +--------+ + + + + | Date | Type | Department | Care Team | Description | +--------+ + + + + | 03/02/ | Hospital | [facility] | Tomas Benoit, | | | 2003 | Encounter | MED CTR XRAY [address] | [address] | | | | | [place] | [place], [place] | | | | | [place] [address] | [address] | | | | | [phone] | | | +--------+ + + + [...] [place] | | | | | | [address] | | | | | | | | +--------+---------+ + + + documented as of this encounter Visit Diagnoses Not on filedocumented in this encounter"
--- OUTSIDE RECORDS SUMMARY | ~2019-12-21 | XMS | Encounter Summary ---
Demographics + + + | Address | [address] | | | [place] [address] | + + + | Home Phone [...] [place] | | | | | [address] | | + + + + + | Jovita Luna | ECON | [address] | | | | | [place] [address] | | + + + + + Care Team Providers + +------+ + | Care Client Services Representative Name | Role | Phone | + +------+ + | Tomas Benoit MD | PCP | | + +------+ + Encounter Details +--------+ + + + + | Date | Type | Department | Care Team | Description | +--------+ + + + + | 05/10/ | Hospital | [facility] | Tomas Benoit, | Supervision of | | 2020 | Encounter | MED CTR ULTRASOUND | [address] | normal first | | | | [address] [place] | [place], [place] | in first | | | | [place], [place] | [address] | trimester | | | | [address] | | | | | | [phone] | | | +--------+ + + + [...] + + + +---------+ + + | ENSKYCE 0.15-30 | | | 0 | 11/01/19 | | | MG-MCG per tablet | | | | 19 | 0 | + + + +---------+ + + [...] [place] | | | | | | [address] | | | | | | | | +--------+---------+ + + + documented as of this encounter Procedures + +--------+ + + + | Procedure Name | Priori | Date/Time | Associated Diagnosis | Comments | | | ty | | | | + +--------+ + + + | US OB < 14 WEEKS W | Routin | 05/10/2019 | Supervision of | Results for this | | TRANSVAGINAL | e | 1:08 PM | normal first | procedure are in the | | | | PST | in first | results section. | | | | | trimester | | + +--------+ + + + documented in this encounter Results US OB < 14 Weeks W Transvaginal (05/10/2019 1:08 PM PST) + + | Specimen | + + | | + + + + + | Impressions | Performed At | + + + | Impression: 1. SINGLE, LIVING INTRAUTERINE FETUS WITH AVERAGE | [facility] | | SONOGRAPHIC AGE 8 WEEKS 5 DAYS, WHICH IS 6 DAYS LESS THAN THE | | | EXPECTED GESTATIONAL AGE. 2. SMALL PERIGESTATIONAL HEMORRHAGES | | | DESCRIBED. Dictated and Signed by: Saul Casas MD | | | Electronically signed: 05/10/2019 1:45 PM | | + + + + + + | Narrative | Performed At | + + + | TRANSABDOMINAL AND TRANSVAGINAL OBSTETRIC ULTRASOUND 05/10/2019 1:04 | [facility] | | PM CLINICAL HISTORY: supervision of normal at | | | approximately 9 weeks 4 days COMPARISON: NONE AVAILABLE FOR THIS | | | GESTATION Transabdominal findings: The uterus measures 11.1 x 6.8 | | | x 7.3 cm and contains an endometrial gestational sac and solitary | | | pole. cardiac activity is present, with a rate of 165 | | | bpm. Small crescentic collections of anechoic to hypoechoic | | | material are present along the posterior and left margins of the | | | chorion, favoring perigestational hemorrhages. The maternal ovaries | | | contain tiny follicles. No free pelvic fluid is evident. | | | Transvaginal findings: Transvaginal scanning is performed to further | | | characterize the endometrial contents and maternal adnexa. The | | | endometrial gestational sac demonstrates an mean diameter of 3.6 cm, | | | corresponding with a gestational age of 9 weeks 1 day. The solitary | | | pole demonstrates an average crown-rump length of 1.75 cm, | | | corresponding with a gestational age of 8 weeks 2 days. A | | | subjectively normal yolk sac and thin amnion are present. | | | cardiac activity is present, with a rate of 154 bpm. Crescentic | | | anechoic fluid along the left margin of the chorion measures up to | | | 1.5 cm long axis and 0.4 cm short axis and an additional small more | | | hypoechoic collection is present anteriorly, measuring up to 0.9 cm | | | maximal dimension, consistent with hemorrhages. There is minimal | | | endometrial fluid inferior to the gestational sac as well. The | | | maternal right ovary measures 3.8 x 1.4 x 2.7 cm and the maternal | | | left ovary measures 3.1 x 2.2 x 2.5 cm. Small follicles are present | | | in both ovaries , measuring up to 1.4 cm on the right. No free | | | pelvic fluid is evident. | | + + + + + | Procedure Note | + + | Cortez, Rad Results In - 05/10/2019 1:48 PM PST TRANSABDOMINAL AND TRANSVAGINAL | | OBSTETRIC ULTRASOUND 05/10/2019 1:04 PMCLINICAL HISTORY: supervision of normal | | at approximately 9 weeks 4daysCOMPARISON: NONE AVAILABLE FOR THIS | | GESTATIONTransabdominal findings: The uterus measures 11.1 x 6.8 x 7.3 cm and contains | | anendometrial gestational sac and solitary pole. cardiac activity | | ispresent, with a rate of 165 bpm. Small crescentic collections of anechoic | | tohypoechoic material are present along the posterior and left margins of thechorion, | | favoring perigestational hemorrhages. The maternal ovaries containtiny follicles. No | | free pelvic fluid is evident.Transvaginal findings: Transvaginal scanning is performed | | to furthercharacterize the endometrial contents and maternal adnexa. The | | endometrialgestational sac demonstrates an mean diameter of 3.6 cm, corresponding with | | agestational age of 9 weeks 1 day. The solitary pole demonstrates anaverage | | crown-rump length of 1.75 cm, corresponding with a gestational age of 8weeks 2 days. A | | subjectively normal yolk sac and thin amnion are present. cardiac activity is | | present, with a rate of 154 bpm. Crescentic anechoicfluid along the left margin of the | | chorion measures up to 1.5 cm long axis and0.4 cm short axis and an additional small | | more hypoechoic collection is presentanteriorly, measuring up to 0.9 cm maximal | | dimension, consistent withhemorrhages. There is minimal endometrial fluid inferior to | | the gestational sacas well. The maternal right ovary measures 3.8 x 1.4 x 2.7 cm and | | the maternalleft ovary measures 3.1 x 2.2 x 2.5 cm. Small follicles are present in | | bothovaries , measuring up to 1.4 cm on the right. No free pelvic fluid is | | evident.IMPRESSION: Impression:1. SINGLE, LIVING INTRAUTERINE FETUS WITH AVERAGE | | SONOGRAPHIC AGE 8 WEEKS 5DAYS, WHICH IS 6 DAYS LESS THAN THE EXPECTED GESTATIONAL AGE.2. | | SMALL PERIGESTATIONAL HEMORRHAGES DESCRIBED.Dictated and Signed by: Saul Casas MD | | Electronically signed: 05/10/2019 1:45 PM | |as well. The maternal right ovary measures 3.8 x 1.4 x 2.7 cm and the maternal | |left ovary measures 3.1 x 2.2 x 2.5 cm. Small follicles are present in both | |ovaries , measuring up to 1.4 cm on the right. No free pelvic fluid is evident. | | | |IMPRESSION: | |Impression: | | | |1. SINGLE, LIVING INTRAUTERINE FETUS WITH AVERAGE SONOGRAPHIC AGE 8 WEEKS 5 | |DAYS, WHICH IS 6 DAYS LESS THAN THE EXPECTED GESTATIONAL AGE. | | | |2. SMALL PERIGESTATIONAL HEMORRHAGES DESCRIBED. | | | |Dictated and Signed by: Saul Casas MD | | Electronically signed: 05/10/2019 1:45 PM | + + + +---------+ + + | Performing | Address | City/State/Zipcode | Phone Number | | Organization | | | | + +---------+ + + | [facility] | | | | + +---------+ + + documented in this encounter Visit Diagnoses + + | Diagnosis | + + | Supervision of normal first in first trimester | + + documented in this encounter"
--- OUTSIDE RECORDS SUMMARY | ~2019-12-21 | XMS | Encounter Summary ---
Demographics + + + | Address | [address] | | | [place] [address] | + + + | Home Phone [...] Author + + + | Author | [facility] | | | and [place] | + + + | Organization | [facility] | | | and [place] | + + + | Address | Unknown | + + + | Phone | Unavailable | + + + Support + + + + + | Name | Relationship | Address | Phone | + + + + + | Zo Dong | ECON | [address] [facility] | | | | | [place] | | | | | [address] | | + + + + + | Jovita Luna | ECON | [address] | | | | | [place] [address] | | + + + + + Care Team Providers + +------+ + | Care Director Of Human Resources Name | Role | Phone | + +------+ + | Tomas Benoit MD | PCP | | + +------+ + Encounter Details +--------+ + + + + | Date | Type | Department | Care Team | Description | +--------+ + + + + | 01/09/ | Abstract | [place] [facility] | Tomas Benoit, | Supervision of | | 2011 | | Conversion Location | [address] | normal first | | | | [address] | [place] | | | | | [place], [place] | [address] | | | | | [address] | | | | | | [phone] | | | +--------+ + + + [...] | 65.8 kg (145 lb) | 03/19/2009 2:36 PM | | | | | PST [...] [place] | | | | | | [address] | | | | | | | | +--------+---------+ + + + documented as of this encounter Visit Diagnoses + + | Diagnosis | + + | Supervision of normal first | + + documented in this encounter"
--- OUTSIDE RECORDS SUMMARY | ~2019-12-21 | XMS | Encounter Summary ---
Demographics + + + | Address | [address] | | | [place] [address] | + + + | Home Phone | | + + + | Preferred Language | Unknown | + + + | Marital Status | Single | + + + | Sabianist Affiliation | Unknown | + + + [...] Dong | ECON | [address] [facility] | | | | | [place] | | | | | [address] | | + + + + + | Jovita Luna | ECON | [address] | | | | | [place] [address] | | + + + + + Care Team Providers + +------+ + | Care Promotions Executive Name | Role | Phone | + +------+ + | Tomas Benoit MD | PCP | | + +------+ + Encounter Details +--------+ + + + + | Date | Type | Department | Care Team | Description | +--------+ + + + + | 02/05/ | Abstract | [facility] | Tomas Benoit, | | | 2013 | | MEDICINE [place] | [address] | | | | | [address] | [place] | | | | | [place] | [address] | | | | | [address] | | | | | | [phone] | | | +--------+ + + + [...] [place] | | | | | | [address] | | | | | | | | +--------+---------+ + + + documented as of this encounter Procedures + +--------+ + + + | Procedure Name | Priori | Date/Time | Associated Diagnosis | Comments | | | ty | | | | + +--------+ + + + | EXTERNAL LAB: [facility] | Routin | 01/12/2012 | | Results for this | | SMEAR | e | | | procedure are in the | | | | | | results section. | + +--------+ + + + documented in this encounter Results External Lab: PAP Smear (01/12/2012) + + + + + + | Component | Value | Ref Range | Performed | Pathologist | | | | | At | Signature | + + + + + + | Pap Smear, | No evidence of | | | | | External | intraepithelial lesion | | | | | | or malignancy | | | | + + + + + + documented in this encounter Visit Diagnoses Not on filedocumented in this encounter"
--- OUTSIDE RECORDS SUMMARY | ~2019-12-21 | XMS | Encounter Summary ---
Demographics + + + | Address | [address] | | | [place] [address] | + + + | Home Phone [...] | ECON | [address] [facility] | | | | | [place] | | | | | [address] | | + + + + + | Jovita Luna | ECON | [address] | | | | | [place] [address] | | + + + + + Care Team Providers + +------+ + | Care Emergency Medicine Nurse Practitioner Name | Role | Phone | + +------+ + | Tomas Benoit MD | PCP | | + +------+ + Reason for Visit + +--------+ + | Reason | Onset | Comments | | | Date | | + +--------+ + | Lab Order | 08/27/ | | | | 2019 | | + +--------+ + Encounter Details +--------+ + + + + | Date | Type | Department | Care Team | Description | +--------+ + + + + | 08/27/ | Telephone | [facility] | Tomas Benoit, | Lab Order | | 2019 | | MEDICINE [place] | [address] | | | | | [address] | [place] | | | | | [place] | [address] | | | | | [address] | | | | | | [phone] | | | +--------+ + + + [...] Telephone Encounter - Jennifer Loera RN - 08/28/2019 4:57 PM PDTOrders faxed. Left me ssage for patient that orders have been sent as requested. elephone Encounter - Heidy Ledezma - 08/28/2019 2 :44 PM PDTPatient is requesting her glucose testing [facility] for her to complete this Tuesday for her appointment next week. documented in this encounter Plan of Treatment +--------+---------+ + + + | Date | Type | Specialty | Care Team | Description | +--------+---------+ + + + | 01/30/ | Office | Family Medicine | Tomas Benoit, | | 2019 | Visit | | MD [address] | | | | | | [place] | | | | | | [id number] | | | | | | | | +--------+---------+ + + + documented as of this encounter Visit Diagnoses Not on filedocumented in this encounter"
--- OUTSIDE RECORDS SUMMARY | ~2019-12-21 | XMS | Encounter Summary ---
Demographics + + + | Address | [address] | | | [place] [address] | + + + | Home Phone [...] Dong | ECON | [address] [facility] | | | | | [place], [place] | | | | | [address] | | + + + + + | Jovita Luna | ECON | [address] [facility] | | | | | [place] [address] | | + + + + + Care Team Providers + +------+ + | Care Signaling Project Engineer Name | Role | Phone | + +------+ + PCP | Unavailable | + +------+ + Encounter Details +--------+ + + + + | Date | Type | Department | Care Team | Description | +--------+ + + + + | 03/04/ | Hospital | [facility] | Tomas Benoit, | | | 2007 | Encounter | MED CTR LABORATORY | [address] | | | | | [address] [place] | [place], [place] | | | | | [place], [place] | [address] | | | | | [address] | | | | | | [phone] | | | +--------+ + + + [...] [place] | | | | | | [address] | | | | | | | | +--------+---------+ + + + documented as of this encounter Visit Diagnoses Not on filedocumented in this encounter"
--- OUTSIDE RECORDS SUMMARY | ~2019-12-21 | XMS | Encounter Summary ---
Demographics + + + | Address | [address] | | | [place] [address] | + + + | Home Phone | | + + + | Preferred Language | Unknown | + + + | Marital Status | Single | + + + | Mandaeism Affiliation | Unknown | + + + [...] [place] | | | | | [address] | | + + + + + | Jovita Luna | ECON | [address] | | | | | [place] [address] | | + + + + + Care Team Providers + +------+ + | Care Sheriffs Detective Name | Role | Phone | + +------+ + | Tomas Benoit MD | PCP | | + +------+ + Reason for Visit +--------+--------+ + | Reason | Onset | Comments | | | Date | | +--------+--------+ + | Other | 11/10/ | | | | 2012 | | +--------+--------+ + Encounter Details +--------+ + + + + | Date | Type | Department | Care Team | Description | +--------+ + + + + | 11/10/ | Telephone | [facility] | Tomas Benoit, | Other | | 2012 | | MEDICINE [place] | [address] | | | | | [address] | [place] | | | | | [place] | [address] | | | | | [address] | | | | | | [phone] | | | +--------+ + + + [...] this encounter Miscellaneous Notes Telephone Encounter - Theresa, Angella Powell RN - 11/10/2012 8:42 AM PDTPhone call from babatunde michel, concerned that when they were having intercourse last night the condom broke. She just had a baby and is breast feeding and does not want to become . Discussed with her th at here at [facility] we do not treat patients for birthcontrol. She states understanding Emily ctronically signed by Angella Cardenas, RN at 11/10/2012 8:45 AM PDTdocumented in this en counter Plan of Treatment [...]
--- OUTSIDE RECORDS SUMMARY | ~2019-12-21 | XMS | Encounter Summary ---
Demographics + + + | Address | [address] | | | [place] [address] | + + + | Home Phone [...] Dong | ECON | [address] [facility] | | | | | [place] | | | | | [address] | | + + + + + | Jovita Luna | ECON | [address] | | | | | [place] [address] | | + + + + + Care Team Providers + +------+ + | Care Data Technical Lead Name | Role | Phone | + +------+ + | Tomas Benoit MD | PCP | | + +------+ + Reason for Visit + + + | Reason | Comments | + + + | Routine | 18 weeks needs a flu shot, tdap up to date | | Visit | | + + + Encounter Details +--------+ + + + + | Date | Type | Department | Care Team | Description | +--------+ + + + + | 03/22/ | Routine | [facility] | Tomas Benoit, | GA: 190d | | 2011 | | MEDICINE [place] | [address] | | | | | [address] | [place] | | | | | [place] | [address] | | | | | [address] | | | | | | [phone] | | | +--------+ + + + [...] + + + | Blood Pressure | 106/68 | 03/22/2012 3:08 PM | | | | | PST | | + + + + + | Pulse | 88 | 03/22/2012 3:08 PM | | | | | PST | | + + + + + | Temperature | - | - | | + + + + + | Respiratory Rate | 16 | 03/22/2012 3:08 PM | | | | | PST | | + + + + + | Oxygen Saturation | - | - | | + + + + + | Inhaled Oxygen | - | - | | | Concentration | | | | + + + + + | Weight | 68.9 kg (152 lb) | 03/22/2012 3:08 PM | | | | | PST | | + + + + + | Height | - | - | | + + + + + | Body Mass Index | 24.91 | 02/18/2012 11:40 AM | | | | | PDT | | + + + + + documented in this encounter Progress Notes Tomas Benoit MD - 03/22/2012 3:26 PM PSTFlu shot today. 20 week u/s scheduled. Repeat cervical culture today. Had one day of brown spotting on panties. documented in this encounter Plan of Treatment [...] + documented as of this encounter Results US OB 14 + Week Singl or First Gestation (03/31/2012 3:14 PM PST) + + | Specimen | + + | | + + + + + | Narrative | Performed At | + + + | [facility] | [place] | | Department [address] [facility] | [facility] | | [ rep [address]] [ rep [facility] | | [facility] Signed | - IMAGING | | | | | Patient Name: JOVITA GREY [place] Physician: | | | : 1990 Age: 21 Sex: F Unit #: [id number] | | | Exam Date: 03/31/12 Location: [facility] | | | Report #: [id number] Page: | | | %(RAD)RES..mtdd.print.filter("pg") of %(RAD) | | | RES..mtdd.print.filter("tpg") | | | | | | Accession Number: [id number] | | | OB ULTRASOUND, 03/31/2012 CLINICAL [...] Transcribed Date/Time: 03/31/2012 | | | 16:34 Oyster Sorter: <<Signature on | | | File>> | | | Joby | | | Enoc Moore MD03/31/121957 <Electronically signed by Joby Stubbs | | | Teresa GABRIEL> Joby Moore MD 03/31/12 1514 | | | Oyster Sorter: Praveen Wlhjopkpwktle00/07/12 4754 | | | Tomas Benoit MD | | + + + + + + + + | Performing | Address | City/State/Zipcode | Phone Number | | Organization | | | | + + + + + | [facility] | [address] | [place] | [phone] | | [facility] | | [address] | | | - IMAGING | | | | + + + + + documented in this encounter Visit Diagnoses + + | Diagnosis | + + | , PRIMIGRAVIDA - Primary Supervision of normal first | + + documented in this encounter
--- OUTSIDE RECORDS SUMMARY | ~2019-12-21 | XMS | Encounter Summary ---
Demographics + + + | Address | [address] | | | [place] [address] | + + + | Home Phone [...] Dong | ECON | [address] [facility] | | | | | [place] | | | | | [address] | | + + + + + | Jovita Luna | ECON | [address] | | | | | [place] [address] | | + + + + + Care Team Providers + +------+ + | Care Assistant Real Estate Manager Name | Role | Phone | [...] Description | +--------+--------+ + + + | 05/03/ | Refill | [facility] | Tomas Benoit, | Medication Refill | | 2018 | | [facility] | [address] | | | | | [address] | [place] | | | | | [place] | [address] | | | | | [address] | | | | | | [phone] | | | +--------+--------+ + + + [...] [place] | | | | | | [address] | | | | | | | | +--------+---------+ + + + documented as of this encounter Visit Diagnoses Not on filedocumented in this encounter"
--- OUTSIDE RECORDS SUMMARY | ~2019-12-21 | XMS | Encounter Summary ---
Demographics + + + | Address | [address] | | | [place] [address] | + + + | Home Phone [...] + + | Author | [facility] | | | and [place] | + + + | Organization | [facility] | | | and [place] | + + + | Address | Unknown | + + + | Phone | Unavailable | + + + Support + + + + + | Name | Relationship | Address | Phone | + + + + + | Zo Dong | ECON | [address] [facility] | | | | | [place] | | | | | [address] | | + + + + + | Jovita Luna | ECON | [address] | | | | | [place] [address] | | + + + + + Care Team Providers + +------+ + | Care Operations Administrative Assistant Name | Role | Phone | + +------+ + | Tomas Benoit MD | PCP | | + +------+ + Encounter Details +--------+ + + + + | Date | Type | Department | Care Team | Description | +--------+ + + + + | 10/31/ | Abstract | [facility] | Tomas Benoit, | | | 2013 | | MEDICINE [place] | [address] | | | | | [address] | [place] | | | | | [place] | [address] | | | | | [address] | | | | | | [phone] | | | +--------+ + + + [...] | 01/30/ Office | Family Medicine | BenoitTomas, | | | 2019 | Visit | | [address] | | | | | | [place] | | | | | | [address] | | | | | | | | +--------+---------+ + + + documented as of this encounter Procedures + +--------+ + + + | Procedure Name | Priori | Date/Time | Associated Diagnosis | Comments | | | ty | | | | + +--------+ + + + | HCG, SERUM, QUANT | Routin | 2013 | | Results for this | | | e | 3:09 PM | | procedure are in the | | | | PDT | | results section. | + +--------+ + + + documented in this encounter Results HCG, Serum, Quant (2013 3:09 PM PDT) + +-------+ + + + | Component | Value | Ref Range | Performed | Pathologist | | | | | At | Signature | + +-------+ + + + | hCG Quant, | 4,707 | mIU/mL | [facility] | | | [...] | + + + + + | [facility] | [address] | [place], [place] | [phone] | | [facility] | | [address] | | | - LABORATORY | | | | + + + + + | [facility] | [address] | [place], [place] | | | [facility] | | [id number] [place] [address] | | | - LABORATORY | | | | + + + + + documented in this encounter Visit Diagnoses Not on filedocumented in this encounter"
--- OUTSIDE RECORDS SUMMARY | ~2019-12-21 | XMS | Encounter Summary ---
Demographics + + + | Address | [address] | | | [place] [address] | + + + | Home Phone [...] | ECON | [address] [facility] | | | | | [place] | | | | | [address] | | + + + + + | Jovita Luna | ECON | [address] | | | | | [place] [address] | | + + + + + Care Team Providers + +------+ + | Care Curriculum Coordinator Name | Role | Phone | + +------+ + | Tomas Benoit MD | PCP | | + +------+ + Reason for Visit + +--------+ + | Reason | Onset | Comments | | | Date | | + +--------+ + | Contraception | 06/12/ | | | | 2014 | | + +--------+ + | Cramps | 06/12/ | | | | 2014 | | + +--------+ + | Back Pain | 06/12/ | | | | 2014 | | + +--------+ + Encounter Details +--------+ + + + + | Date | Type | Department | Care Team | Description | +--------+ + + + + | 06/12/ | Telephone | [facility] | Tomas Benoit, | Contraception; | | 2014 | | MEDICINE [place] | [address] | Cramps; Back Pain | | | | [address] | [place] | | | | | [place] | [address] | | | | | [address] | | | | | | [phone] | | | +--------+ + + + [...] Telephone Encounter - Janice Buck LPN - 06/12/2014 5:47 PM PSTCalled patient and noti fied her. She verbalized understanding.Electronically signed by Janice Buck LPN at 05/26 5:48 PM PSTTelephone Encounter - Tomas Benoit MD - 06/12/2014 1:21 PM PSTShe ne eds to keep taking the pills for now. Continue to use condoms for the rest of the month. Com e in for a test in early June.Electronically signed by Tomas Benoit MD at 05/26 1:22 PM PSTTelephone Encounter - Darline Jay RN - 06/12/2014 11:43 AM PSTPh one call from patient Missed 4 days of pills. Last period started 05/26. Started a new pack on 05/29. Took pills until 06/04, then she missed 4 days of pills. States she is normally taking 2 a d ay because of heavy periods. She started bleeding on Tuesday morning and that is what reminded her that she hadn't been t aking her pills. She started taking them again on Tuesday, 06/09, at normal dose of 2 pills a day. She is now spotting a brown color. Has cramps that are so strong she has stop what she is d oing at times. Cramps started on Tuesday and won't stop. States she feels them in her lower b ack in the middle. No dysuria. No fever. States she just got over a cold. She last had sex about 1.5 weeks ago. Asking what she should do? She is at [phone] documented in thi s encounter Plan of [...] [place] | | | | | | [id number] | | | | | | | | +--------+---------+ + + + documented as of this encounter Visit Diagnoses Not on filedocumented in this encounter"
--- OUTSIDE RECORDS SUMMARY | ~2019-12-21 | XMS | Encounter Summary ---
Demographics + + + | Address | [address] | | | [place] [address] | + + + | Home Phone | | + + + | Preferred Language | Unknown | + + + | Marital Status | Single | + + + | Catholic Affiliation | Unknown | + + + [...] Dong | ECON | [address] [facility] | | | | | [place] | | | | | [address] | | + + + + + | Jovita Luna | ECON | [address] | | | | | [place] [address] | | + + + + + Care Team Providers + +------+ + | Care Corrections Counselor Name | Role | Phone | + [...] Description | +--------+--------+ + + + | 08/28/ | Refill | [facility] | Tomas Benoit, | Medication Refill | | 2018 | | [facility] | [address] | | | | | [address] | [place] | | | | | [place] | [address] | | | | | [address] | | | | | | [phone] | | | +--------+--------+ + + + [...] [place] | | | | | | [id number] | | | | | | | | +--------+---------+ + + + documented as of this encounter Visit Diagnoses Not on filedocumented in this encounter"
--- OUTSIDE RECORDS SUMMARY | ~2019-12-21 | XMS | Encounter Summary ---
Demographics + + + | Address | [address] | | | [place] [address] | + + + | Home Phone | | + + + | Preferred Language | Unknown | + + + | Marital Status | Single | + + + | Latter-Day Affiliation | Unknown | + + + | Race | Black or | + + + | Ethnic Group | Not or | + + + Author + + + | Author | [facility] | | | and [place] | + + + | Organization | [facility] | | [...] [place] | | | | | [address] | | + + + + + | Jovita Luna | ECON | [address] | | | | | [place] [address] | | + + + + + Care Team Providers + +------+ + | Care Full Service Supervisor Name | Role | Phone | + +------+ + | Tomas Benoit MD | PCP | | + +------+ + Reason for Visit +---------+--------+ + | Reason | Onset | Comments | | | Date | | +---------+--------+ + | Results | 07/18/ | | | | 2019 | | +---------+--------+ + Encounter Details +--------+ + + + + | Date | Type | Department | Care Team | Description | +--------+ + + + + | 07/18/ | Telephone | [facility] | Tomas Benoit, | Results | 2019 | | MEDICINE [place] | [address] | | | | | [address] | [place] | | | | | [place] | [address] | | | | | [address] | | | | | | [phone] | | | +--------+ + + + [...] this encounter Miscellaneous Notes Telephone Encounter - Perla Little - 07/19/2019 9:12 AM PDTSpoke with patient and expre ssed understanding. elepho ne Encounter - Perla Little - 07/19/2019 9:12 AM PDT----- Message from Silvio Peterson MD sent at 07/17/2019 6:50 PM PDT ----- LMP dating is 19weeks 2 days. Ultrasound within 1 week of dating so we will continue to use the LMP. Normal anatomy. Please notify the patient. Dr Benoit will review upon her re turn next week. documented in this encounter Plan [...]
--- OUTSIDE RECORDS SUMMARY | ~2019-12-21 | XMS | Encounter Summary ---
Demographics + + + | Address | [address] | | | [place] [address] | + + + | Home Phone | | + + + | Preferred Language | Unknown | + + + | Marital Status | Single | + + + | Sabianism Affiliation | Unknown | + + + | Race | Black or | + + + | Ethnic Group | Not or | + + + Author + + + | Author | [facility] | | | and [place] | + + + | Organization | [facility] | | | [...] [place] | | | | | [address] | | + + + + + | Jovita Luna | ECON | [address] | | | | | [place] [address] | | + + + + + Care Team Providers + +------+ + | Care Hose Turner Name | Role | Phone | + +------+ + | Tomas Benoti MD | PCP | | + +------+ + Reason for Visit Auth/Cert +--------+--------+ + + + + | Status | Reason | Specialty | Diagnoses / | Referred By | Referred To | | | | | Procedures | Contact | Contact | +--------+--------+ + + + + | | | | | | | +--------+--------+ + + + + Encounter Details +--------+ + + + + | Date | Type | Department | Care Team | Description | +--------+ + + + + | 12/17/ | Anesthesia | [facility] | Estuardo Araya | | | 2019 | Event | [facility] AN[facility]HESIA | DO Loc [address] | | | | | [address] | [address] | | | | | [place] | [place] [address] | | | | | [address] | [phone] | | | | | [phone] | | | +--------+ + + + + Anesthesia Record + + + + + | Procedure Name | Responsible | Anesthesia Start | Anesthesia Stop Time | | | Anesthesiologist | Time | | + + + + + | NEURAXIAL LABOR | Estuardo Monterroso | 12/18/19 0927 | 12/18/19 1513 | | ANALGESIA/ANESTHESIA | DO Marshal | | | + + + + + +----+---+ + + | Da | T | Event | Comment | | te | i | | | | | m | | | | | e | | | +----+---+ + + | 08 | 0 | | | | /2 | 9 | | | | 5/ | 2 | | | | 20 | 7 | | | | 20 | | | | +----+---+ + + | | 0 | An Start | Reassessment prior to anesthesia induction/procedure. | | | 9 | | | | | 2 | | | | | 7 | | | +----+---+ + + | | 0 | Out of OR | | | | 9 | Device | | | | 2 | Start | | | | 7 | | | +----+---+ + + | | 0 | Pre-Procedu | | | | 9 | ral Timeout | | | | 2 | Completed | | | | 7 | | | +----+---+ + + | | 0 | Test Dose | | | | 9 | | | | | 4 | | | | | 4 | | | +----+---+ + + | | 0 | Epi/spinal | | | | 9 | Stop | | | | 4 | | | | | 8 | | | +----+---+ + + | | 0 | Epidural | | | | 9 | Infusion | | | | 4 | Started | | | | 9 | | | +----+---+ + + | | 1 | Out of OR | | | | 0 | Device Stop | | | | 1 | | | | | 2 | | | +----+---+ + + | | 1 | Baby Deliv | | | | 5 | | | | | 1 | | | | | 3 | | | +----+---+ + + | | 1 | An Stop | Patient handed off to recovery nurse. | | | 1 | | | | | 3 | | | +----+---+ + + +------+ | Meds | +------+ + +---------+ | Name | Total | + +---------+ | lidocaine 1.5% + epi 1:200k | 5 mL | | (Epidural) | | + +---------+ | fentaNYL 2 mcg/mL + bupivacaine | 75.6 mL | | 0.125% in saline (PF) | | + +---------+ + + | No agents on file. | + + + + | No blood administrations on file. | + + +--------+ + + + | Type | Details | Placement | Removal | +--------+ + + + | Periph | 12/18/19; 0504; Left; Posterior | 12/18/19 0504 by | 12/19/19 1136 by | | lauren | (dorsal); Hand; [id number] | Mahnaz Gray RN | Gilda Briceno RN | | IV | catheter system; 18 gauge, 1 04/28 | | | | | in length; Hematology, Blood | | | | | Bank; 1; left wrist; distraction, | | | | | tolerated well; lumen/catheter | | | | | not patent, catheter/device | | | | | intact; short term use; 12/19/19; | | | | | 1136 | | | +--------+ + + + | Epidur | 12/18/19; 1000 (created via | 12/18/19 1000 by | 12/18/19 1615 by | | al/Spi | procedure documentation); | Estuardo Monterroso | Chanel Welsh RN | | nal | Monitors applied (BP cuff and | McGirr, DO | | | | Pulse Oximeter) and the patient | | | | | placed in a sitting position. | | | | | Landmarks and midline were | | | | | identified. After preparation of | | | | | the area with an antiseptic | | | | | solution and sterile drape, local | | | | | anesthetic was infiltrated | | | | | subcutaneously at the estimated | | | | | site of needle insertion. | | | | | Serial advancement (~1 cm) was | | | | | performed until slight resistance | | | | | to insertion. The low-resistance | | | | | glass syringe was attached and | | | | | subsequent small movements (~1-2 | | | | | mm) were performed until IDRIS to | | | | | saline with air bubble was | | | | | achieve at the depth noted above. | | | | | A flexible epidural catheter | | | | | was inserted with minimal | | | | | resistance. A negative catheter | | | | | aspiration test was performed | | | | | before a test dose injection. | | | | | Following a negative test dose, a | | | | | bolus of local anesthesia was | | | | | given to establish a functional | | | | | level of pain relief. Sterile | | | | | dressing were applied (clear | | | | | tegaderm dressing and tape). | | | | | Epidural infusion settings were | | | | | reviewed with the nurse and the | | | | | infusion attached and started. ; | | | | | 12/18/19; 1615 | | | +--------+ + + + | Urethr | 12/18/19; 1036; indicated for | 12/18/19 1036 by | 12/18/19 1452 by | | al | acute urinary | Chanel Welsh RN | Chanel Welsh RN | | Cathet | retention/obstruction; All | | | | er | elements; All elements; All | | | | | elements, Bag positioned below | | | | | the bladder; indwelling double | | | | | lumen catheter; 100% silicone; | | | | | 14; None; 1; 10; 10; (Epidural); | | | | | drainage bag to dependent | | | | | drainage; 12/18/19; 1452 | | | +--------+ + + + documented in this encounter Social History + +-------+ +--------+------+ | Tobacco [...] +---------+ + + | Blood Pressure | 105/62 | 12/18/2019 10:12 AM | | | | | PDT | | + +---------+ + + | Pulse | - | - | | + +---------+ + + | Temperature | - | - | | + +---------+ + + | Respiratory Rate | - | - | | + +---------+ + + | Oxygen Saturation | 100% | 12/18/2019 10:10 AM | | | | | PDT [...] +---------+ + + documented in this encounter OR Notes Anesthesia Postprocedure Evaluation - Estuardo Araya DO - 12/18/2019 6:27 PM PDTFo rmatting of this note might be different from the original. ANESTHESIA POSTANESTHESIA EVALUATION Jovita Grey 29 y.o. female 1990 [id number] Procedure(s) NEURAXIAL LABOR ANALGESIA/ANESTHESIA Cooperates? Yes Mental Status Performs simple tasks. Respiratory Satisfactory - Airway patent (self maintained). Cardiovascular Satisfactory - Blood pressure and heart rate acceptable Temperature Satisfactory Pain Satisfactory N/V Control Satisfactory Hydration Satisfactory - No signs of dehydration Adverse Events ADVERSE EVENTS: No adverse events Vitals Value Taken Time Temp 36.9 C (98.4 F) 12/18/19 1600 Pulse 100 12/18/19 1745 Resp 18 12/18/19 1745 BP 114/61 12/18/19 1745 Arterial Line BP Arterial Line BP 2 SpO2 100 % 12/18/19 1500 Electronically signed by Estuardo Araya DO 12/18/2019 6:[address] [facility] Estuardo Araya DO a t 12/18/2019 6:27 PM PDTAnesthesia Procedure Notes - Estuardo Araya DO - 12/18/2019 10:00 AM PDTAssociated Order(s): NeuraxialNeuraxial Procedure Note 12/18/2019 10:00 AM Procedure: epidural catheter placement Provider requested procedure: Cy Indication: labor analgesia Preprocedure check: patient identified, procedure and rescue equipment checked, risks/benef its discussed, preevaluation including airway assessment complete, consent obtained, timeout performed, monitors applied and reassessment prior to procedure Patient position: sitting Preparation: chlorhexidine/isopropyl alcohol, Procedure level: L3-4 Approach: midline Needle: Tuohy Needle size: 17 g Needle length: 9 cm Loss of resistance to: saline with air bubble Loss of resistance: 6 cm Catheter depth at skin: 11 cm Medication administered through: catheter Negative findings: no blood aspirated, no CSF and no paresthesia Test dose response: negative Attempts: 1 Ease of procedure: easy Dressing: transparent dressing and tape Performing provider: Estuardo Araya DO Authorizing provider: Estuardo Araya DO Comments: Monitors applied (BP cuff and Pulse Oximeter) and the patient placed in a sitting position. Landmarks and midline were identified. After preparation of the area with an anti septic solution and sterile drape, local anesthetic was infiltrated subcutaneously at the es timated site of needle insertion. Serial advancement (~1 cm) was performed until slight resistance to insertion. The low-resi stance glass syringe was attached and subsequent small movements (~1-2 mm) were performed un til IDRIS to saline with air bubble was achieve at the depth noted above. A flexible epidural catheter was inserted with minimal resistance. A negative catheter aspi ration test was performed before a test dose injection. Following a negative test dose, a nael yousuf of local anesthesia was given to establish a functional level of pain relief. Sterile dressing were applied (clear tegaderm dressing and tape). Epidural infusion settings were reviewed with the nurse and the infusion attached and start ed. Please see anesthesia record or flowsheet for vital sign documentation and see anesthesia r ecord or MAR for additional medication documentation. nesthesia Prep rocedure Evaluation - Estuardo Araya DO - 12/18/2019 9:03 AM PDT ANESTHESIA PREANESTHESIA EVALUATION Jovita Grey 29 y.o. female 1990 [id number] Procedure(s): NEURAXIAL LABOR ANALGESIA/ANESTHESIA Medical,anesthesia, drug, allergy histories reviewed, NPO status verified. Labs reviewed. Review of Systems / Med History Anesthesia History (-) PONV, difficult intubation, malignant hyperthermia . Cardiovascular (-) hypertension . Pulmonary (-) shortness of breath.(-) sleep apnea.(+) asthma (exercise induced). Gastrointestinal/Hepatic (-) hypercholesterolemia. (+) acid reflux. Renal (-) chronic renal insufficiency. Endocrine (-) Diabetes. Hematology/Other Sickle cell trait.(-) anemia. Obstetrics (-) pre-eclampsia, gestational hypertension. (-) gestational diabetes. Neuromuscular (-) neuromuscular disease. Physical Exam Airway MP II, TM >3 FB, Mouth opening >2 FB. Neck: full ROM, extends >30 degrees. Jaw protrus ion normal. CV cardiovascular normal Rhythm regular. Rate normal. Pulm Clear to auscultation bilaterally. Neuro grossly normal. Anesthesia Plan ASA: 2 Type: Epidural. Induction: Local anesthesia. Potential problems: None anticipated. Monitors: Standard ASA monitors. Consent statement: Anesthetic plan, alternatives, risks and benefits discussed with patient. backache, disabil ity, drug reaction, infection, nausea, pain, dural tap, post dural puncture headache, failed or inadequate block, bleeding, nerve damage, intravascular injection Consenting person understands and agrees to proceed. PARQ. Labor Epidural requested by patient for analgesia during labor. PARQ held. All questions answered.. Electronically Signed by: Estuardo Araya DO ESig date/time: 12/18/2019 9:03 AM PDT documented in t his encounter Plan of Treatment +--------+---------+ + + + | Date | Type | Specialty | Care Team | Description | +--------+---------+ + + + | 01/30/ | Office | Family Medicine | Tomas Benoit, | | 2019 | Visit | | MD Joy [facility] | | | | | | [place] | | | | | | [id number] | | | | | | | | +--------+---------+ + + + documented as of this encounter Procedures + +--------+ + + + | Procedure Name | Priori | Date/Time | Associated Diagnosis | Comments | | | ty | | | | + +--------+ + + + | ANE EPIDURAL NOTE | Routin | 12/18/2019 | | Results for this | | | e | 10:00 AM | | procedure are in the | | | | PDT | | results section. | + +--------+ + + + documented in this encounter Results Neuraxial (12/18/2019 10:00 AM PDT) + + + | Narrative | Performed At | + + + | Estuardo Araya DO 12/18/2019 10:01 AM Neuraxial | | | Procedure Note 12/18/2019 10:00 AM Procedure: epidural catheter | | | placement Provider requested procedure: Cy Indication: labor | | | analgesia Preprocedure check: patient identified, procedure and | | | rescue equipment checked, risks/benefits discussed, preevaluation | | | including airway assessment complete, consent obtained, timeout | | | performed, monitors applied and reassessment prior to procedure | | | Patient position: sitting Preparation: chlorhexidine/isopropyl | | | alcohol, Procedure level: L3-4 Approach: midline Needle: Tuohy | | | Needle size: 17 g Needle length: 9 cm Loss of resistance to: saline | | | with air bubble Loss of resistance: 6 cm Catheter depth at skin: 11 | | | cm Medication administered through: catheter Negative findings: no | | | blood aspirated, no CSF and no paresthesia Test dose response: | | | negative Attempts: 1 Ease of procedure: easy Dressing: transparent | | | dressing and tape Performing provider: Estuardo Araya DO | | | Authorizing provider: Estuardo Araya DO Comments: Monitors | | | applied (BP cuff and Pulse Oximeter) and the patient placed in a | | | sitting position. Landmarks and midline were identified. After | | | preparation of the area with an antiseptic solution and sterile drape, | | | local anesthetic was infiltrated subcutaneously at the estimated | | | site of needle insertion. Serial advancement (~1 cm) was | | | performed until slight resistance to insertion. The low-resistance | | | glass syringe was attached and subsequent small movements (~1-2 mm) | | | were performed until IDRIS to saline with air bubble was achieve at | | | the depth noted above. A flexible epidural catheter was inserted | | | with minimal resistance. A negative catheter aspiration test was | | | performed before a test dose injection. Following a negative test | | | dose, a bolus of local anesthesia was given to establish a | | | functional level of pain relief. Sterile dressing were applied | | | (clear tegaderm dressing and tape). Epidural infusion settings | | | were reviewed with the nurse and the infusion attached and started. | | | Please see anesthesia record or flowsheet for vital | | | sign documentation and see anesthesia record or MAR for additional | | | medication documentation. | | + + + documented in this encounter Visit Diagnoses Not on filedocumented in this encounter Administered Medications + +---------+ + + +------+ | Medication Order | MAR | Action | Dose | Rate | Site | | | Action | Date | | | | + +---------+ + + +------+ | fentaNYL 2 mcg/mL + bupivacaine | New Bag | 12/18/19 | 14 mL/hr | 14 mL/hr | | | 0.125% in saline (PF) at 14 | | 20 2:43 | | | | | mL/hr, EPIDURAL, CONTINUOUS, | | PM PDT | | | | | Starting 12/18/19 at 0930, | | | | | | | Patient-controlled Bolus Dose | | | | | | | (mL): 5, Lockout Interval (min): | | | | | | | 15 | | | | | | + +---------+ + + +------+ +---------+ + + +---+ | New Bag | 12/18/19 | 14 mL/hr | 14 mL/hr | | | | 20 9:49 | | | | | | AM PDT | | | | +---------+ + + +---+ +---+---+ | | | +---+---+ + +-------+ +-------+---+---+ | lidocaine 1.5%-EPINEPHrine | Given | 12/18/19 | 2 mLs | | | | 1:200,000 (PF) injection | | 20 9:47 | | | | | EPIDURAL, PRN, Starting Tue | | AM PDT | | | | | 12/18/19 at 0944, Anesthesia | | | | | | | Intra-op | | | | | | + +-------+ +-------+---+---+ +-------+ +-------+---+---+ | Given | 12/18/19 | 3 mLs | | | | | 20 9:44 | | | | | | AM PDT | | | | +-------+ +-------+---+---+ +---+---+ | | | +---+---+ documented in this encounter"
--- OUTSIDE RECORDS SUMMARY | ~2019-12-21 | XMS | Encounter Summary ---
Demographics + + + | Address | [address] | | | [place] [address] | + + + | Home Phone [...] Dong | ECON | [address] [facility] | | | | | [place] | | | | | [address] | | + + + + + | Jovita Luna | ECON | [address] | | | | | [place] [address] | | + + + + + Care Team Providers + +------+ + | Care Promotion Specialist Name | Role | Phone | + +------+ + | Tomas Benoit MD | PCP | | + +------+ + Reason for Visit + +--------+ + | Reason | Onset | Comments | | | Date | | + +--------+ + | Vaginal Discharge | 12/18/ | | | | 2014 | | + +--------+ + | Vaginal Itching | 12/18/ | | | | 2014 | | + +--------+ + Encounter Details +--------+ + + + + | Date | Type | Department | Care Team | Description | +--------+ + + + + | 12/18/ | Telephone | [facility] | Tomas Benoit, | Vaginal Discharge; | | 2014 | | [facility] [place] | [address] | Vaginal Itching | | | | [address] | [place] | | | | | [place] | [address] | | | | | [address] | | | | | | [phone] | | | +--------+ + + + [...] Telephone Encounter - Darline Jay RN - 12/23/2014 2:49 PM PDTPatient called back. The Diflucan did not relieve her symptoms. Given appointment to see Dr Benoit tomorrow. elephone Encount er - Darline Jay RN - 12/19/2014 8:38 AM PDTPatient called back. Gave her message from Dr Benoit. She verbalized understanding. elephone Encount er - Damari Guerrero CMA - 12/18/2014 6:36 PM PDTCalled pt left message to call back Emily ctronically signed by Damari Guerrero CMA at 12/18/2014 6:37 PM PDTTelephone Encounter - Tomas Benoit MD - 12/18/2014 4:15 PM PDTPlease let Jovita know that Vagicaine purely n umbs the vaginal tissue but won't treat any wort of infection. If she wants to treat over th e counter she needs to use Monistat. This is an over the counter cream for yeast infections. For this time, I have sent in a prescription for Diflucan. This pill takes about 3 days to work. If this is not helpful then she needs to be seen as she may have a bacterial infection . Rx sent [facility]. elephone Encounter - Jennifer Loera RN - 12/18/2014 4:00 PM PDTPhone call from trisha stricklandmarshal. States that five days ago, she started experiencing vaginal irritation, itching, and pain. Also experiencing vaginal discharge. She says she took a 3-day course of Vagicaine, wh ich she finished Tuesday night, but this did not help at all. She is also applying an anti-it ch cream, can't remember the name. Patient was just seen 12/12, so would prefer to not come in for another appointment at this time. She wants to know if Dr. Benoit has any other recommendations. Please advise. doc umented in this encounter Plan of [...]
--- OUTSIDE RECORDS SUMMARY | ~2019-12-21 | XMS | Encounter Summary ---
Demographics + + + | Address | [address] | | | [place] [address] | + + + | Home Phone [...] Author + + + | Author | [facility] | | | and [place] | + + + | Organization | [facility] | | [...] [place] | | | | | [address] | | + + + + + | Jovita Luna | ECON | [address] | | | | | [place] [address] | | + + + + + Care Team Providers + +------+ + | Care Rod Bending Machine Operator Name | Role | Phone | + +------+ + | Tomas Benoit MD | PCP | | + +------+ + Reason for Visit + +--------+ + | Reason | Onset | Comments | | | Date | | + +--------+ + | Female Problem | 12/31/ | | | | 2014 | | + +--------+ + Encounter Details +--------+ + + + + | Date | Type | Department | Care Team | Description | +--------+ + + + + | 12/31/ | Telephone | [facility] | Tomas Benoit, | Female Problem | | 2014 | | [facility] [place] | [address] | | | | | [address] | [place] | | | | | [place] | [address] | | | | | [address] | | | | | | [phone] | | | +--------+ + + + [...] - Ana Paula Shukla Cert MA - 12/31/2014 3:08 PM PDTCalled patient and relayed provider comments. Patient verbalized understanding. elephone Encounter - Tomas Benoit MD - 11/2014 2:46 PM PDTReassure her that this may have been just a build up of medication that came out. Glad she is feeling better. elephone Encounter - Darline Jay RN - 12/31/2014 1:43 PM PDTPhone call from patient. Finished the vaginal Metrogel 2 days ago. Today, a large amount of pinkish whitish cottage cheese like stuff came out when she went t o the bathroom. It doesn's have an odor. No vaginal itching, and she feels "back to normal" She is not sure if it is a side effect of the medication, or if it is normal? [phone] documented in thi s encounter Plan of Treatment +--------+---------+ + + + | Date | Type | Specialty | Care Team | Description | +--------+---------+ + + + | 01/30/ | Office | Family Medicine | Tomas Benoit, | | | 2019 | Visit | | MD [address] | | | | | | [place] | | | | | | [address] | | | | | | | | +--------+---------+ + + + documented as of this encounter Visit Diagnoses Not on filedocumented in this encounter
--- OUTSIDE RECORDS SUMMARY | ~2019-12-21 | XMS | Encounter Summary ---
Demographics + + + | Address | [address] | | | [place] [address] | + + + | Home Phone [...] [place] | | | | | [address] | | + + + + + | Jovita Luna | ECON | [address] | | | | | [place] [address] | | + + + + + Care Team Providers + +------+ + | Care Career Resource Specialist Name | Role | Phone | + +------+ + | Tomas Benoit MD | PCP | | + +------+ + Reason for Visit + +--------+ + | Reason | Onset | Comments | | | Date | | + +--------+ + | Appointment | 09/27/ | | | | 2012 | | + +--------+ + Encounter Details +--------+ + + + + | Date | Type | Department | Care Team | Description | +--------+ + + + + | 09/27/ | Telephone | [facility] | Joby Lowe MD | Appointment | | 2012 | | GASTROENTEROLOGY | [address] [place] | | | | | [address] [place] | [address] [place], [place] | | | | | [address] [place], [place] | [address] | | | | | [address] | | | | | | [phone] | | | +--------+ + + + [...] Telephone Encounter - Arabella Herrera RN - 09/28/2012 9:17 AM PDTSpoke with patient to discuss rescheduling the flex sig she cancelled yesterday due to no child welfare counselor. She repo rts the bleeding has decreased and only sees it maybe one time a week. Offered to schedule flex sig any day next week that she has child welfare counselor. She feels since it is getting better sh e wishes to wait and see if it resolves on its own. She states she feels it was a hemorrhoid . Denies any rectal pain. She agrees to call me next week with update. If any bleeding wi ll schedule flex sig. A M PDTTelephone Encounter - Arjun Loya - 09/27/2012 8:10 AM PDTPatient had to cancel flex sig for today because she did not have childcare for her baby. Explained to patient at [facility] will call her to reschedule procedure..Electronically signed by Arjun lovett 09/27/2012 8:11 AM PDTdocumented in this encounter Plan of [...] [place] | | | | | | [address] | | | | | | | | +--------+---------+ + + + documented as of this encounter Visit Diagnoses Not on filedocumented in this encounter"
--- OUTSIDE RECORDS SUMMARY | ~2019-12-21 | XMS | Encounter Summary ---
Demographics + + + | Address | [address] | | | [place] [address] | + + + | Home Phone [...] [place] | | | | | [address] | | + + + + + | Jovita Luna | ECON | [address] | | | | | [place] [address] | | + + + + + Care Team Providers + +------+ + | Care Beck Tender Name | Role | Phone | + +------+ + | Tomas Benoit MD | PCP | | + +------+ + Reason for Visit + +--------+ + | Reason | Onset | Comments | | | Date | | + +--------+ + | Medication | 12/25/ | | | Management | 2014 | | + +--------+ + Encounter Details +--------+ + + + + | Date | Type | Department | Care Team | Description | +--------+ + + + + | 12/25/ | Telephone | [facility] | Tomas Benoit, | Medication | | 2014 | | MEDICINE [place] | [address] | Management | | | | [address] | [place] | | | | | [place] | [address] | | | | | [address] | | | | | | [phone] | | | +--------+ + + + [...] Telephone Encounter - Darline Jay RN - 12/25/2014 3:39 PM PDTMed list updated. Pharmacy notified. elephone Encount er - Tomas Benoit MD - 12/25/2014 3:36 PM PDTOK to change to the 5 day treatment.Electr onically signed by Tomas Benoit MD at 12/25/2014 3:36 PM PDTTelephone Encounter - Darline Gomez RN - 12/25/2014 3:24 PM PDTPhone call from Juanito at [facility] in [place]. States he has an rx for 0.75 Vaginal Metrogel. Directions are to insert vaginally for 7 days. States it comes in a package for a 5 day treatment. Asking what Dr Benoit would like to do? He is at [phone] documented in thi s encounter Plan of [...] [place] | | | | | | [address] | | | | | | | | +--------+---------+ + + + documented as of this encounter Visit Diagnoses Not on filedocumented in this encounter"
--- OUTSIDE RECORDS SUMMARY | ~2019-12-21 | XMS | Encounter Summary ---
Demographics + + + | Address | [address] | | | [place] [address] | + + + | Home Phone | | + + + | Preferred Language | Unknown | + + + | Marital Status | Single | + + + | Adventism Affiliation | Unknown | + + + [...] Dong | ECON | [address] [facility] | | | | | [place] | | | | | [address] | | + + + + + | Jovita Luna | ECON | [address] | | | | | [place] [address] | | + + + + + Care Team Providers + +------+ + | Care Building Code Inspector Name | Role | Phone | [...] + + | Closed | Specialty | Obstetrics | Diagnoses | Benoit, | [facility] | | | Services | and | Irregular | Tomas Johnson MD | [facility] | | | Required | Gynecology | periods | [address] | [place] | | | | | Menorrhagia | [address] [place] | [address] | | | | | | [place], [place] | [place], | | | | | | [address] | [place] [address] | | | | | | Phone: | Phone: | | | | | | [phone] | [phone] | | | | | | Fax: | Fax: | | | | | | [phone] | [phone] | +--------+ + + + + + Reason for Visit + +--------+ + | Reason | Onset | Comments | | | Date | | + +--------+ + | Referral | 12/26/ | mirena IUD | | (PreAuthorization) | 2014 | | + +--------+ + Encounter Details +--------+ + + + + | Date | Type | Department | Care Team | Description | +--------+ + + + + | 12/26/ | Telephone | [facility] | Tomas Benoit, | Referral | | 2014 | | [facility] | [address] | (PreAuthorization) | | | | [address] | [place], [place] | (mirena IUD) | | | | [place], [place] | [address] | | | | | [address] | | | | | | [phone] | | | +--------+ + + + [...] Encounter - Clarice Uriostegui Cert MA - 12/31/2014 10:33 AM PDTReferral approved set up appointment with Tarah Cardona for Saturday 01/06 check in at 12:45. Patient notified.Elect ronically signed by Mulu Frye MA at 12/31/2014 10:46 AM PDTTelephone Encounter - Damari Hartmann CMA - 12/26/2014 6:38 PM PDTCalled pt and gave message, she verbalized und erstanding. She is willing to proceed with it.. [facility]aced [facility] to [facility] signed by Damari Guerrero CMA at 12/26/2014 6:39 PM PDTTelephone Encounter - Tomas Benoit MD - 12/26/2014 5:52 PM PDTPlease let Jovita know that her pelvic ultrasound wa s perfect. This is good news. To help slow down her bleeding I recommend that she get a Haily na IUD. Please set her up for this if she is willing. She continues to have severe menorrhag ia despite adequate treatment with OCP. We may need to prior aurth this and get a special ex ception to get it covered. documented in this encounter Plan of Treatment +--------+---------+ + + + | Date | Type | Specialty | Care Team | Description | +--------+---------+ + + + | 01/30/ | Office | Family Medicine | Tomas Benoit, | | | 2019 | Visit | | MD [address] | | | | | | [place] | | | | | | [address] | | | | | | | | +--------+---------+ + + + + + +--------+ + + | Name | Type | Priori | Associated Diagnoses | Order Schedule | | | | ty | | | + + +--------+ + + | [place] | Outpatient | Routin | Irregular periods | Ordered: 12/26/2014 | | Clinic ANALYTICAL STRATEGIST & | Referral | e | Menorrhagia | | | [facility] - | | | | | | AMB Referral | | | | | + + +--------+ + + documented as of this encounter Visit Diagnoses + + | Diagnosis | + + | Irregular periods - Primary Irregular menstrual cycle | + + | Menorrhagia Excessive or frequent menstruation | + + documented in this encounter"
--- OUTSIDE RECORDS SUMMARY | ~2019-12-21 | XMS | Encounter Summary ---
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 | Phone | + +------+ + | Tomas Hill MD | PCP | | + +------+ + Reason for Referral Evaluate & Treat (Routine) +--------+ + + + + + | Status | Reason | Specialty | Diagnoses / | Referred By | Referred To | | | | | Procedures | Contact | Contact | +--------+ + + + + + | Closed | Specialty | | Diagnoses | Cy, | | | | Services | Services | Encounter | Tomas Johnson MD | | | | Required | | for | [address] | | | | | supervision | [place] | | | | | | of normal | [place] | | | | | | first | [id number] | | | | | | in | Phone: | | | | | | third | [phone] | | | | | | trimester | Fax: | | | | | | GBS (group B | [phone] | | | | | | | | | | | | | Streptococcu | | | | | | | s carrier), | | | | | | | +RV culture, | | | | | | | currently | | | | | | | | | | | | | | Term | | | | | | | , | | | | | | | repeat | | | | | | | Shoulder | | | | | | | dystocia | | | | | | | during labor | | | | | | | and | | | | | | | delivery, | | | | | | | delivered | | | +--------+ + + + + + Reason for Visit Auth/Cert +--------+--------+ + [...] + + + + | 12/17/ | Hospital | [facility] | Tomas Hill, | Encounter for | | 2020 - | Encounter | [facility] | [address] | supervision of | | | | [address] | [place] | normal first | | 12/19/ | | [place] | [id number] | in third | | 2020 | | [address] | | trimester (Primary | | | | [phone] | | Dx); GBS (group B | | | | | | Streptococcus | | | | | | carrier), +RV | | | | | | culture, currently | | | | | | ; Term | | | | | | , repeat; | | | | | | Shoulder dystocia | | | | | | during labor and | | | | | | delivery, delivered | +--------+ + + + + Social [...] + + + | Blood Pressure | 120/63 | 12/20/2019 8:00 AM | | | | | PDT | | + + + + + | Pulse | 90 | 12/20/2019 8:00 AM | | | | | PDT | | + + + + + | Temperature | 36.7 C (98.1 F) | 12/20/2019 8:00 AM | | | | | PDT | | + + + + + | Respiratory Rate | 18 | 12/20/2019 8:00 AM | | | | | PDT | | + + + + + | Oxygen Saturation | 99% | 12/19/2019 10:45 PM | | | | | PDT | | + + + + + | Inhaled Oxygen | - | - | | | Concentration | | | | + + + + + | Weight | 107 kg (236 lb) | 12/18/2019 5:29 AM | | | | | PDT | | + + + + + | Height | 167.6 cm (5' 6") | 12/18/2019 5:29 AM | | | | | PDT | | + + + + + | Body Mass Index | 38.09 | 12/18/2019 5:29 AM | | | | | PDT | | + + + + + documented in this encounter Discharge Summaries Tomas Hill MD - 12/20/2019 7:33 AM PDTFormatting of this note might be different fro m the original. Obstetric Discharge summary | [facility] Name Jovita Grey Admitted 12/18/2019 4:30 AM Discharge date: 12/20/2019 PCP Tomas Hill MD Admission dx Term , SROM GREGOR 12/09/2019, by Last Menstrual Period Delivered by TOMAS HILL , Vaginal, Spontaneous Jovita presented at 0300 with SROM. Contractions slowly increased but did show a dysfuncti onal pattern. . Pitocin augmentation was performed but eventually contraction were on their own. She progressed steadily until complete. Delivery did involve a 45 second shoulder dysto franklin. No other complications. period was uneventful. Information for the patient's : Sharif Grey [[id number]] Delivery Date: 12/18/2019 Delivery Time: 3:13 PM Baby: Sharif Grey Sex: male Weight: 7 lb 3 oz (3260 g) Height: 21.25" Head circumference: 33 cm APGARS One minute Five minutes Ten minutes Totals: 8 9 Anesthesia Epidural Lacerations none Discharged Condition: good Diet: Regular Discharge Medications: Discharge Medications New Medications Details ibuprofen 200 mg tablet Take 3 tablets by mouth every 6 hours as needed. aka: ADVIL, MOTRIN Unchanged Medications Details acetaminophen 500 mg tablet Take 500 mg by mouth every 4 hours as needed. aka: TYLENOL acyclovir 400 MG tablet take 1 tablet by mouth three times a day aka: ZOVIRAX albuterol 90 mcg/puff inhaler Inhale 2 puffs into the lungs every 4 hours as needed for Wheezing or Shortness of Breath. inhale 2 puffs 5-30 minutes prior to exercise docusate sodium 100 mg capsule Take 100 mg by mouth 2 times daily. Takes three daily aka: COLACE ergocalciferol 50 mcg (2,000 units) tablet Take 4,000 Units by mouth Daily. Take two capsules daily aka: VITAMIN D2 27-0.8 mg multivitamin tablet Take 1 tablet by mouth Daily. labs Blood type O Positive Antibody screen 12/18/2019: Negative Baby's blood type O Positive Rubella titer 05/07/2019: 5.50 Rh Immune globulin given: no Rubella vaccine given: no Discharge Date: 12/20/2019 Plan: Discharge to home. instructions reviewed. Follow-up 6 weeks for PP visit. Electronically signed: Tomas Hill MD 12/20/2019 7:33 AM PDT documented in this en counter Discharge Instructions Instructions Heidy Arce RN - 12/20/2019Formatting of this note might be different f rom the original. TheBreastfeeding Breast can seem mysterious at first. What s going on inside the breast? Where does the milk come from? Can the baby breathe OK? In fact, mothers and babies are naturally jeremi gned for . The picture below shows how you and your baby work together during b reastfeeding. The right milk for the right time As your baby grows, his or her needs change. And your body s milk changes to suit those n eeds. You produce 3 kinds of milk for your baby: Colostrum is the first milk. It is thick and yellowish,which is why many people call i t "liquid gold."Colostrum provides all of the nutrients that your baby needs in the first days.It may not look like much, but it is all your baby needs during this time. Transitional milk comes in 2 to 5 days after . It can look creamy, white, or yellow . Mature milk begins in the second or third week after . It looks thinner or more [place]. It can have a bluish tint. Levels of protein, fat, and antibodies in mature milk change as your baby s needs change. Lobulesare structures that produce and store milk. Ductsare tubes that carry the milk to the nipple. The baby s noseis flat, allowing easy breathing while . The nipple has many small openings where milk comes out. The areolaprovides oils to clean the nipple and help baby latch. During feeding, as much of the areola as possible should be in the baby s mouth. This helps the baby get milk out of your breast. It is also more comfortable than if the baby sucks on the nipple alone. The tonguehelps the baby suckle. You might even see the tip of it sticking out under the nipple while your baby nurses! Jacy last reviewed this educational content on 05/26/201719997328-4357 The [employer]. [address] [place] [address], [place] [address]. All righ ts reserved. This information is not intended as a substitute for professional medical care. Always follow your healthcare professional's instructions. Nutrition While Do I need a special diet for ? Youdon'thave to eat a special diet tomake enough milk for your baby.Also, your milk will be of good quality for your baby regardless of what you eat.But your body needs fuel to make breastmilk. So eat your fill of a variety of foods. isn t an excuse to eat and drink everything you want. But it s not a reason to avoid favorite foods eithe r. Healthy diet for the new mother A healthy diet is recommended for all women and offers many benefits to the new mother. Cho osing a variety of healthy foods creates a pattern for the entire family. Each family member benefits. Women who are need about 500 extra calories per day.Some women mi ght need more, while others might need less. When choosing foods, use the nutrition chart be low as a guide. Bread, cereal, rice, and pasta Vegetables Fruit Milk, yogurt, and cheese Meat, poultry, fish, dry beans, eggs, and nuts Fats, oils, and sweets (use sparingly) What s good for you? Here are some things to do: women need to drink when they feel thirsty. There is no specific amount of water you need to drink to make enough milk. Follow healthy eating guidelines. Snack on fruit or low-fat dairy products if you re hungry between meals. If your healthcare provider recommends it, keep taking vitamins. What s not good for you? Here are other things to consider: Limit fatty foods and foods that are high in sugar (cookies, cakes). Be aware that what enters your body may pass into your breastmilk. Limit caffeine. It is not just in coffee. It is also in cola, tea, and chocolate. Limit the amount of fish that may contain mercury, such as shark and swordfish. Talk with your healthcare providerbefore taking anymedicines. It is important to let yourhealthcare providerknow that you are nursing. Somemedicinesare not safe with br eastfeeding. Remember:Alcohol, cigarettes, and drugs also affect your breastmilk and your baby. Artem crow with your healthcare provider. [employer] last reviewed this educational content on 04/25/201719995195-7369 The [employer], [employer]. [address] [place] [address], [place] [address]. All righ ts reserved. This information is not intended as a substitute for professional medical care. Always follow your healthcare professional's instructions. After a Vaginal After having a baby, your body may be very tired. It can take time to recover from a vagina l delivery. You may stay in the hospital or center from 1 to 4 days.In some cases, y ou may be able to go home the same day. Right after the delivery Your temperature and blood pressure will be taken until they are stable. A nurse or other ealtare provider will observe you as you rest. You may have afterbirth pains. These are cr amps caused by the uterus shrinking. Sanitary pads are used to soak up the discharge of the uterine lining. To make sure that you aren t bleeding too much, the pad will be checked. A nd the firmness of your uterus will be checked. To do this, a nurse will gently push down on your stomach. If you had anesthesia, you ll be watched closely until you can feel and mov e your toes. If you have perineal pain (pain between the vagina and anus), an ice pack can h elp. care While still in the hospital or center, you ll learn how to hold and feed your baby. You willalso be given instructions on how to care for your baby. This includes bathing an d feeding. Preparing to go home You may be anxious to go home as soon as possible. Before you and your baby go home, a [facility] provider will check to be sure you are healthy enough to take care of your baby and y ourself. You re ready to go home when: You can walk to the bathroom and use the bathroom without help. You can eat solid food and swallow pills (if needed). You have no sign of infection or other health problems, including fever. You have adequate pain control. Your bleeding isn't excessive. You are able to care for your and are emotionally stable. Before leaving the hospital or center, you ll be given written instructions for lester e self-care after vaginal delivery. Be sure to follow these instructions carefully. If you h ave questions or concerns, talk about them now. If you have stitches You may have received stitches in the skin near your vagina. The stitches might have closed an episiotomy (an incision that enlarges the opening of the vagina). Or you may have needed stitches to repair torn skin. Either way, your stitches should dissolve within weeks. Until then, you can help reduce discomfort, aid healing, and reduce your risk of infection by alessandra ping the stitches clean. These tips can help: Gently wipe from front to back after you urinate or have a bowel movement. After wiping, spray warm water on the area. Or you can have a sitz bath. This means sitt ing in a tub with a few inches of water in it. Then pat the area dry or use a hairdryer on a cool setting. Do not use soap or any solution except water on the area. You can take a shower unless told not to. Change sanitary pads at least every [address] cold or heat packs on the area as directed by your healthcare providers or nurses. Keep a thin towel between the pack and your skin. Sit on firm seats so the stitches pull less. follow-up Schedule a follow-up exam with your healthcare provider for about 6 weeks after d jorge. During this exam, your uterus and vaginal area will be checked. Contact your health care provider if you think you or your baby are having any problems. When to call your healthcare provider Call your healthcare provider right away if you have: A fever of 100.4F (38.0C) or higher Bleeding that needs a new sanitary pad after an hour, or large blood clots Pain in your vagina that gets worse and isn't relieved with medicine Swelling, discharge, or increased pain from vaginal tear or episiotomy Burning, pain, red streaks, or lumpy areas in your breasts that may be accompanied by fl u-like symptoms Cracks, blisters, or blood on your nipples Burning or pain when you urinate Nausea or vomiting Dizziness or fainting Feelings of extreme sadness or anxiety, or a feeling that you don t want to be with yo ur baby Belly pain that isn t relieved with medicine Vaginal discharge that has a bad odor No bowel movement for 5 days Painful urination, or inability to control urination Redness, warmth, or pain in the lower leg Chest pain [employer] last reviewed this educational content on 03/25/201719991775-3350 The [employer]. [address] [place] [address], [place] [address]. All righ ts reserved. This information is not intended as a substitute for professional medical care. Always follow your healthcare professional's instructions. DISCHARGE INSTRUCTIONS Warning Signs Check List Notify your clinician immediately if you are experiencing any of the following: Heavy bleeding from the vagina (blood is bright-red and soaks a pad in an hour or less) Normal bleeding decreases in amount over time and is: Bright-red (lasts two to three days). Pinkish or brown (lasts from about the third day to the tenth day). Creamy or yellow (usually lasts one to two weeks). Discharge from the vagina that has a bad odor. Temperature over 100.4 (38 C) or you feel cold and have the chills (you are shiv ering). Urination that is painful, difficult, or too frequent. Difficulty having a bowel movement. Breasts that are full and or/painful (swollen, hot, tight, itchy, lumpy, shiny, flat nip ples, or sore spots with flu-like symptoms). Pain that becomes worse and unrelieved by medication. Trouble breathing, dizziness, or faintness. Crying spells or mood swings that feel out of control. Pain, redness, warmth or firmness in the lower calf. Unusual or excessive swelling in your face or hands. Severe or constant headaches. Blurred vision or spots in front of your eyes. Sudden weight gain of more than one pound a day for several days. Persistent pain in the upper right part of your abdomen. Activity/Exercise Gradually increase your daily activities until you are back to your normal routine. Rest frequently. Remember to continue to drink plenty of fluids and eat frequently if yo u are . Heavy lifting or other strenuous exertion is unlikely to disrupt your laceration but it may cause an increase in pain. Your provider will tell you if additional restrictions apply to you. Bowels and Regularity constipation is common; you make take Docusate sodium or Milk of Magnesia to alleviate discomfort Painful bowel movements or rectal pain may result from hemorrhoids; use Tucks and/or top ical treatment like Anusol-HC. Sitz baths can also help. Normal Bleeding Vaginal spotting may last up to six weeks. It is important that you change your pad on a regular basis. Your menstrual period may occur as early as six weeks to two months after your delivery. Care of Stitches You should feel less discomfort every day from your stitches. Perineal stitches will dissolve within 2-4 weeks. You may shower or bathe with stitches; and dry gently with a clean towel. Sex/Douching/Tampons Do not place anything in the vagina for the first six weeks after delivery. Your healthcare provider may advise you to wait up to six weeks for intercourse. Once th e bleeding has stopped, it is alright to have intercourse if you feel ready. Keep in mind yo u are at risk of getting . You may find your vagina feels dry, making sex uncomfortable. This can last several albert hs due to changing hormone levels. To help lubricate your vagina, you may purchase a Grubster luble lubricant (e.g., Astroglide) from your local drug store. This will help make intercour se more comfortable. documented in this encounter Medications at Time of Discharge [...] tablet by | 15 | 3 | 02/10/20 | | | (ZOVIRAX) 400 MG | mouth three times a | tablet | | 18 | | | tablet | day | | | | | + + + +---------+ + + | albuterol 90 | Inhale 2 puffs into | 1 | 3 | 12/13/19 | | | mcg/puff | the lungs [...] + + + +---------+ + + | ibuprofen (ADVIL, | Take 3 tablets by | | 0 | 12/20/19 | | | MOTRIN) 200 mg | mouth every 6 hours | | | 20 | | | tablet | as needed. | | | | | + + + +---------+ + + | 27-0.8 mg | Take 1 tablet by | | 0 | | | | multivitamin tablet | mouth Daily. | | | | | + + + +---------+ + + documented as of this encounter Progress Notes Tomas Hill MD - 12/19/2019 12:42 PM PDTPostpartum progress note | Family Medicine Date of service: 12/19/19 Subjective Doing well. Feeding baby via breast. Some trouble with latch today as baby is sleepy. Worki ng with . Voiding well. Lochia is moderate with no clots. Uterine cramping with fee ding. Mildly sore back. Pelvic girdle pain significantly better. Objective Temp: [36.5 C (97.7 F)-37 C (98.6 F)] 36.8 C (98.2 F) Pulse: [75-150] 84 Resp: [15-20] 18 BP: (95-131)/(48-87) 114/60 Gen NAD CV No murmur, rub, gallop; regular rhythm. Lungs CTAB Abd U~0, non-tender Ext No cord, no unusual edema Assessment and plan Doing well. Routine care. [ Treatment Team: Attending Provider: Tomas Hill MD; Registered Nurse: Gilda Briceno RN ] omas Hill MD - 12/18/2019 2:33 PM PDTPatient having deep variables and then several prolonged deceleratio ns. Addressed with maternal position change, maternal oxygen, IV fluid bolus. Pitocin alread y off and contraction pattern her own. Then started amnioinfusion. Baby recovered to small v ariables with good FHT between contractions. Patient found to be nearly completed with anter ior lip present. Tomas Hill MD DATE/TIME: 12/18/2019 2:35 PM PDT Tomas Olivas MD - 12/18/2019 12:29 PM PDT Labor Progress Note | [facility] Jovita Grey is a 29 y.o. at 41w2d weeks gestation. Lab Results Component Value Date RH Positive 12/18/2019 ABORH BBK reflex 06/01/2012 Patient Vitals for the past 8 hrs: BP Temp Temp src Pulse Resp SpO2 Height Weight 12/18/19 1200 37.3 C (99.1 F) Oral 18 12/18/19 1115 127/68 37.3 C (99.1 F) Oral 99 16 100 % 12/18/19 1100 120/74 95 100 % 12/18/19 1030 119/70 164 18 100 % 12/18/19 1015 36.9 C (98.4 F) Oral 18 12/18/19 1006 36.7 C (98.1 F) Oral 12/18/19 0922 36.8 C (98.2 F) Oral 102 100 % 12/18/19 0818 37 C (98.6 F) Oral 100 16 12/18/19 0730 117/71 37.1 C (98.8 F) Oral 16 12/18/19 0630 37.2 C (99 F) 12/18/19 0529 1.676 m (5' 6") 107 kg (236 lb) 12/18/19 0527 118/64 118 12/18/19 0526 37.2 C (99 F) Axillary Patient received an epidural. FHT has either been category one or sometimes will have varia bles. Variables change with maternal position change. Currently has peanut ball between legs . Labor patter is between 3-7 minutes. Nursing staff placed FSE for better tracing of baby. IUPC placed to help improve contraction monitoring. FHR Assessment (social work msw) HR Assessment Method: external HR Baseline Rate (Beats/Min): 130 HR Variability: moderate (amplitude range 6 to 25 bpm) Intermittent variables - resolve with maternal position change. Uterine Activity Method: TOCO (external toco transducer) 3-7 minutes Cervical exam 7/80/-1 Crespo score: Crespo score: 12 Assessment/Plan Anticipate vaginal delivery. IUPC placed for more accurate titration of pitocin. Tomas Hill MD DATE/TIME: 12/18/2019 12:33 PM PDT documented in this en counter H&P Notes Tomas Hill MD - 12/18/2019 7:24 AM PDTFormatting of this note might be different fro m the original. Obstetric Admission H&P Jovita Grey : 1990 Admitted: 12/18/2019 4:30 AM Attending: Tomas Hill MD PCP: Tomas Hill MD GREGOR 12/09/2019, by Last Menstrual Period, gestational age: 41w2d Chief complaint: Rupture membranes Admission dx: Post dates , spontaneous rupture of membranes. History Jovita Grey is a 29 y.o. at 41w2d with Estimated Date of Delivery: 0. She presents with spontaneous rupture of membranes with clear fluid. Her course has been uncomplicated. Labs: labs Blood type O Positive Antibody screen 12/18/2019: Negative Hep B sAg 05/07/2019: Negative Rubella titer 05/07/2019: 5.50 Treponemal Ab neg HIV Ab 05/07/2019: Non Reactive Hgb/Hgb/plts 12/18/2019: 13.2/39.7/244 2h GTT neg GC/chlamydia neg/neg GBS positive Current problems Active Problems: GBS (group B Streptococcus carrier), +RV culture, currently Supervision of normal first Normal in third trimester Past medical history Past Medical History: Diagnosis Date Asthma exercise induced Primary amenorrhea resolved Sickle cell trait (HCC) Umbilical hernia OB history OB History Para Term AB Living 3 1 1 1 1 SAB TAB Ectopic Molar Multiple Live Births 1 1 # Outcome Date GA Lbr Nura/2nd Weight Sex Delivery Anes PTL Lv 3 Current 2 SAB 04/25/14 Comments: System Generated. Please review and update details. 1 Term 08/16/12 40w0d 4.026 kg (8 lb 14 oz) M EPI N CJ Complications: Dysfunctional Labor Surgical history Past Surgical History: Procedure Laterality Date TONSILLECTOMY 02/13/2008 WISDOM TOOTH EXTRACTION Family history Family History Problem Relation Age of Onset High blood pressure Mother High blood pressure Father Elevated lipids Father Asthma Brother High blood pressure Maternal Grandmother Asthma Maternal Grandmother Social history Social History Socioeconomic History Marital status: Single Spouse name: -FOB Number of children: 0 Years of education: Not on file Highest education level: Not on file Occupational History Occupation: 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 Takes three daily ergocalciferol (VITAMIN D2) 50 mcg (2,000 units) tablet Take 4,000 Units by mouth Daily . Take two capsules daily 27-0.8 mg multivitamin tablet Take 1 tablet by mouth Daily. ALLERGIES No Known Allergies Vital signs on arrival: Temp: 37.2 C (99 F) BP: 118/64 Pulse: 118 Most recent vital signs: Temp: 37.2 C (99 F) BP: 118/64 Pulse: 118 Admission Weight: Weight: 107 kg (236 lb) BMI: Body mass index is 38.09 kg/m. PHYSICAL EXAM: General: NAD Skin: Color unremarkable, no rash nor lesions HEENT: Neck supple with midline trachea Lungs: CTAB Heart: Normal rate, and regular rhythm, S1, S2 normal, no murmur, click, rub or gallop Abdomen: Gravid, soft, non-tender Extremities: No cord, no edema, no cyanosis Pelvis: Normal female external genitalia Presentation: cephalic Estimated weight Cervical exam Cervical Dilation (cm): 5 Cervical Effacement: 80% Station: -3 Cervical Position: 0 - posterior Cervical Consistency: 2 - soft Method: sterile exam per RN Crespo score: Crespo score: 8 monitoring Variability: Moderate, 6-25 bpm Baseline: Normal Accelerations: present Decelerations: Absent [place] frequency: sparce Strength: Mild Assessment 29 y.o. at 41w2d admitted for rupture of membranes. Problem Gbs (Group B Streptococcus Carrier), +Rv Culture, Currently Normal in Third Trimester Supervision of Normal First Plan Anticipate vaginal delivery., Augmentation: IV Pitocin augmentation once emergency on the f rishi has been cared for and Analgesia: epidural once desired. Until augmentation can be star archie, instructed patient that she may eat breakfast, drink plenty of fluids, can get up to bi rthing ball or rocking chair. Questions answered, appropriate consents will be signed. Tomas Hill MD DATE/TIME: 12/18/2019 7:30 AM PDT documented in this en counter Miscellaneous Notes Plan of Heidy Astudillo RN - 12/20/2019 10:30 AM PDTDischarge precautions and ins tructions gone over. She denies further questions and concerns. lan of Larissa Perea RN - 12/20/2019 6 :02 AM PDTGood pain control with Tylenol and Ibuprofen. FF, U/0. Parents patient with baby. No s/s infection. Family would like to be discharged to home today. lan of Eloina Ho RRT - 12/20/2019 1 2:45 AM PDTPt OOB into BR and then walking around with baby, pt has no c/o SOB or dyspnea, f ull non labored speech, = bilateral chest excursion without the use of ABM for I/E effort, g ood NPC, pt is w/d/p, pt is tachycardic at this time (123) nurse notified, pt stable and NAD at this time. Room air SpO2 97% 12: 47 AM PDTPlan of Gilda Conroy RN - 12/19/2019 7:13 PM PDTVSS. Pain controlled w ith tylenol and ibuprofen. FF @U. Lochia light. with some assist. Voiding with out problems. Up ad tony in room. lan of Heidy Fajardo RN - 12/19/2019 5:46 AM PDTVS stable. FF@U, loc hia light. Up ambulating and voiding without difficulty. Taking Ibuprofen and Tylenol for pa in. lan of Janny Mustafa Se, RRT - 12/19/2019 5:31 AM PDTFrances has not needed PRN treatments this shif t. Will continue to monitor for respiratory distress. Problem: Asthma Comorbidity Goal: Maintenance of Asthma Control Outcome: Ongoing, progressing lan of Chanel Jimenez RN - 12/18/2019 6:23 PM PDTPt delivered VFI @ 1513 with a 45 sec. Shoulder d ystocia (both clavicles intact). Perineum intact but edematous. Pt is breast feeding with mi nimal assistance. Lochia lt-moderated. QBL-152. SL present. Denies need for pain Rx at this time. SO prsent and supportive at the bedside. &D Delivery Note - Tomas Hill MD - 12/18/2019 3:42 PM PDTF ormatting of this note might be different from the original. Delivery note Admitted: 12/18/2019 4:30 AM DOS: 12/18/2019 Jovita Grey is a 29 y.o. who presented at 41w2d (GREGOR Estimated Date of De livery: 12/09/19) with SROM. Principal Problem: Term , repeat Active Problems: GBS (group B Streptococcus carrier), +RV culture, currently Asthma, exercise induced Supervision of normal first Shoulder dystocia during labor and delivery, delivered OB History Para Term AB Living 3 2 2 1 2 SAB TAB Ectopic Molar Multiple Live Births 1 0 2 # Outcome Date GA Lbr Nura/2nd Weight Sex Delivery Anes PTL Lv 3 Term 12/18/19 41w2d 04:24 / 00:24 M Vag-Spont EPI CJ 2 SAB 04/25/14 Comments: System Generated. Please review and update details. 1 Term 08/16/12 40w0d 4.026 kg (8 lb 14 oz) M EPI N CJ Complications: Dysfunctional Labor Lab Results Component Value Date ABO O 12/18/2019 ABORH BBK reflex 06/01/2012 RH Positive 12/18/2019 ABSCR Negative 12/18/2019 HGB 13.2 12/18/2019 HCT 39.7 12/18/2019 PLT 244 12/18/2019 TREPONEMA NON-REACT 01/12/2012 RUBELLA 5.50 05/07/2019 HBV Negative 05/07/2019 CTRACH Negative 05/07/2019 PAP 01/12/2012 No evidence of intraepithelial lesion or malignancy No results found for this or any previous visit. Results for orders placed or performed in visit on 05/07/19 C. trachomatis and N. gonorrhoeae, NAAT (APTIMA) Specimen: Urine, Unspecified Source Result Value Ref Range Chlamydia trachomatis PCR Negative Negative Neisseria Gonorrhoeae DNA PCR Negative Negative Stage I Duration 4 h 24 min. Patient presented at 0300 with spontaneous rupture of membranes. Uter ine contractions were irregular and only progressed intermittently. Pitocin augmentation sta archie about 1000. FSE and IUPC placed for accuracy of monitoring. Eventually patient took over contraction pattern and pitocin was discontinued. heart tones started with a category 1 tracing. Intermittent variables present. Within a couple of hours of delivery there were several episodes of deep variables that were prolonged. This was managed with maternal posit ion change, oxygen, IV fluid bolus and amnioinfusion. Patient progressed steadily to complet e at 12/18/2019 2:49 PM . ROM: Spontaneous Rupture of Membranes;Spontaneous at 12/18/2019 6:00 am ; fluid color Clear . Anesthesia: Epidural . Stage II Duration 0 h 24 min. Patient pushed effectively and moved baby down the canal effectively. head did sponta neously change position 180 degrees. After two further contractions head delivered. Th is was followed by halt of decent and it was determined that there was a shoulder dyst ocia. Maternal head of bed was lowered and maternal legs were elevated towards her ears. No further decent. Carlos was then desired but nursing staff was on facial side. Suprapubic pressure given as separate nurse moved to the opposite side to perform Carlos . While this was being done, I placed my hand within the pelvis and could feel that the ante rior shoulder was wedged under the pubic bone. Posterior shoulder however was freely availab le and I was able to place my hand around the humerus and deliver the posterior shoulder. Leora loza had his hand up towards his face. After delivery of the posterior shoulder the anterior shoulder delivered followed by rest of the body. Total shoulder dystocia was 45 seconds. Th ere was a tight cord around the posterior shoulder. This was reduced. Time of 3:13 PM Apgars 8 /9 . Spontaneous cry. The baby was placed on mother's abdomen, and the cord was cl amped and cut after about 2 minutes and cessation of pulsations. Resuscitation: Bulb Suctioning Stage III Duration 5 min. The placenta delivery was Spontaneous , Intact ; cord had 3 Vessels . Cord loops: 1 tight shoulders Episiotomy: none Lacerations: none. Repair: N/A Blood Loss: Blood loss (ml) 10 Anesthesia/Analgesia method: Epidural Blood loss measured: ROM duration: 9h 13m Mom and baby recovering together in good condition. Tomas Hill MD DATE/TIME: 12/18/2019 3:57 PM PDT lan of Care - Chanel Stevenson RN - 12/18/2019 3:35 PM PDTFOB skin to skin with baby. lan of Care - Mahnaz Gray RN - 020 5:06 AM PDTPresents to unit c/o SROM at 0300.Has moderate amt leaking clear fluid noted . SVE /-3. Pt reports tightening of uterus but says it is not painful. Says it feels lik e nicole french contractions. Reports decreased movement since her water broke. Says s he had normal movement at 0100. Electronically signed by Mahnaz Gray RN at 2019 5:10 AM PDTdocumented in this encounter Plan of Treatment +--------+---------+ + + + | Date | Type | Specialty | Care Team | Description | +--------+---------+ + + + | 01/30/ | Office | Family Medicine | Tomas Hill, | | | 2019 | Visit | | MD Joy [address] | | | | | | [place] | | | | | | [id number] | | | | | | | | +--------+---------+ + + + + + +--------+ + + | Name | Type | Priori | Associated Diagnoses | Order Schedule | | | | ty | | | + + +--------+ + + | Ambulatory referral | Outpatient | Routin | Encounter for | 1 Occurrences | | to | Referral | e | supervision of | starting 12/20/2019 | | | | | normal first | until 12/17/2020 | | | | | in third | | | | | | trimester GBS | | | | | | (group B | | | | | | Streptococcus | | | | | | carrier), +RV | | | | | | culture, currently | | | | | | Term | | | | | | , repeat | | | | | | Shoulder dystocia | | | | | | during labor and | | | | | | delivery, delivered | | + + +--------+ + + documented as of this encounter Procedures + +--------+ + + + | Procedure Name | Priori | Date/Time | Associated Diagnosis | Comments | | | ty | | | | + +--------+ + + + | CORONAVIRUS | Routin | 12/18/2019 | | Results for this | | (COVID-19) NAAT | e | 5:22 AM | | procedure are in the | | | | PDT | | results section. | + +--------+ + + + | CBC NO DIFFERENTIAL | STAT | 12/18/2019 | | Results for this | | | | 4:51 AM | | procedure are in the | | | | PDT | | results section. | + +--------+ + + + | TYPE AND SCREEN | Routin | 12/18/2019 | | Results for this | | | e | 4:51 AM | | procedure are in the | | | | PDT | | results section. | + +--------+ + + + documented in this encounter Results Coronavirus (COVID-19) NAAT (12/18/2019 5:22 AM PDT) + + + + + + | Component | Value | Ref Range | Performed | Pathologist | | | | | At | Signature | + + + + + + | SARS-CoV-2, | Not DetectedComment: | Not Detected | [facility] | | | NAAT | SARS-CoV-2, [facility] | | [facility] | | | (COVID-19) | (COVID-19) [facility] This | | MEDICAL | | | | assay has been cleared | | CENTER - | | | | for use under an FDA | | LABORATORY | | | | Emergency Use | | | | | | Authorization. This test | | | | | | is used for clinical | | | | | | purposes. It should not | | | | | | be regarded as | | | | | | investigational or for | | | | | | research. This | | | | | | laboratory is certified | | | | | | under the Clinical | | | | | | Laboratory Improvement | | | | | | Amendments (CLIA) as | | | | | | qualified to perform | | | | | | high complexity clinical | | | | | | laboratory testing. | | | | | | These results are not | | | | | | intended to be used as | | | | | | the sole means for | | | | | | clinical diagnosis or | | | | | | patient management | | | | | | decisions. This test | | | | | | has been validated in | | | | | | accordance with the | | | | | | FDA's Guidance Document | | | | | | "Policy for Diagnostics | | | | | | Testing in Laboratories | | | | | | Certified to Perform | | | | | | High Complexity Testing | | | | | | under CLIA prior to | | | | | | Emergency Use | | | | | | Authorization for | | | | | | Coronavirus Disease-2019 | | | | | | during the Public | | | | | | Health Emergency" issued | | | | | | on June 23, 2019. | | | | | | FDA independent review | | | | | | of this validation is | | | | | | pending. This test is | | | | | | only authorized for the | | | | | | duration of time the | | | | | | declaration that | | | | | | circumstances exist | | | | | | justifying the | | | | | | authorization of the | | | | | | emergency use of in | | | | | | vitro diagnostic tests | | | | | | for detection of | | | | | | SARS-CoV-2 virus and/or | | | | | | diagnosis of COVID-19 | | | | | | infection under section | | | | | | 564(b)(1) of the Act, 21 | | | | | | U.S.C. 360bbb-3(b)(1), | | | | | | unless the authorization | | | | | | is terminated or | | | | | | revoked sooner. | | | | + + + + + + + + | Specimen | + + | Tissue - Entire | | nasopharynx (body | | structure) | + + + + + + + | Performing | Address | City/State/Zipcode | Phone Number | | Organization | | | | + + + + + | [facility] | [address] | [place] | [phone] | | [facility] | | [address] | | | - LABORATORY | | | | + + + + + Type and Screen (12/18/2019 4:51 AM PDT) + + + + + + | Component | Value | Ref Range | Performed | Pathologist | | | | | At | Signature | + + + + + + | ABO | O | | [facility] | | | | | | [facility] | | | | | | MEDICAL | | | | | | CENTER - | | | | | | BLOOD BANK | | + + + + + + | Rh Type | Positive | | [facility] | | | | | | [facility] | | | | | | MEDICAL | | | | | | CENTER - | | | | | | BLOOD BANK | | + + + + + + | Antibody | Negative | | [facility] | | | Screen | | | [facility] | | | | | | MEDICAL | | | | | | CENTER - | | | | | | BLOOD BANK | | + + + + + + + + | Specimen | + + | Blood | + + + + + + + | Performing | Address | City/State/Zipcode | Phone Number | | Organization | | | | + + + + + | [facility] | [address] | [place] | | | [facility] | | [address] | | | - BLOOD BANK | | | | + + + + + CBC no Differential (12/18/2019 4:51 AM PDT) + + + + + + | Component | Value | Ref Range | Performed | Pathologist | | | | | At | Signature | + + + + + + | White Blood | 12.3 (H) | 4.0 - 11.0 K/uL | [facility] | | | Cells | | | [facility] | | | | | | MEDICAL | | | | | | CENTER - | | | | | | LABORATORY | | + + + + + + | Red Blood | 5.02 | 3.70 - 5.20 | [facility] | | | Cells | | M/uL | [facility] | | | | | [...] + + + + | Hematocrit | 39.7 | 34.0 - 47.0 % | [facility] | | | | | | [facility] | | | | | | MEDICAL | | | | | | CENTER - | | | | | | LABORATORY | | + + + + + + | MCV | 79.1 (L) | 83.0 - 101.0 fL | [facility] | | | | | | [facility] | | | | | | MEDICAL | | | | | | CENTER - | | | | | | LABORATORY | | + + + + + + | MCH | 26.3 (L) | 28.0 - 35.0 pg | [...] + + + + | RDW-CV | 15.3 (H) | <15.0 % | [facility] | | | | | | [facility] | | | | | | MEDICAL | | | | | | CENTER - | | | | | | LABORATORY | | + + + + + + | RDW-SD | 43.3 | 35.1 - 46.3 fL | [facility] | | | | | | [facility] | | | | | | MEDICAL | | | | | | CENTER - | | | | | | LABORATORY | | + + + + + + | Platelet | 244 | 140 - 440 K/uL | [facility] | | | Count | | | [facility] | | | | | | MEDICAL | | | | | | CENTER - | | | | | | LABORATORY | | + + + + + + | MPV | 11.4 | 6.5 - 12.4 fL | [facility] | | | | | | [facility] | | | | | | MEDICAL | | | | | | CENTER - | | | | | | LABORATORY | | + + + + + + | % nRBC | 0 | 0 - 2 per 100 | [facility] | | | | | WBCs | [facility] | | | | | | MEDICAL | | | | | | CENTER - | | | | | | LABORATORY | | + + + + + + | Absolute | 0.00 | 0.00 - 0.01 | [facility] | | | nRBC | | K/uL | [facility] | [...] ST. | [address] | [place] | [phone] | | [facility] | | [address] | | | - LABORATORY | | | | + + + + + documented in this encounter Visit Diagnoses + + | Diagnosis | + + | Term , repeat - Primary | + + | Encounter for supervision of normal first in third trimester Supervision of | | normal first | + + | GBS (group B Streptococcus carrier), +RV culture, currently Supervision of | | other high-risk | + + | Shoulder dystocia during labor and delivery, delivered | + + | Supervision of normal first | + + | Asthma, exercise induced Exercise induced bronchospasm | + + documented in this encounter Administered Medications + +--------+ +--------+------+------+ | Medication Order | MAR | Action | Dose | Rate | Site | | | Action | Date | | | | + +--------+ +--------+------+------+ | acetaminophen (TYLENOL) tablet | Given | 12/20/19 | 650 mg | | | | 325-650 mg 325-650 mg, Oral, | | 20 8:15 | | | | | EVERY 4 HOURS PRN, Mild Pain, | | AM PDT | | | | | Starting Tue12/18/19 at 1722, May | | | | | | | be administered in conjunction | | | | | | | with ibuprofen as Multimodal Pain | | | | | | | Management.., | | | | | | + +--------+ +--------+------+------+ +-------+ +--------+---+---+ | Given | 12/20/19 | 650 mg | | | | | 20 2:45 | | | | | | AM PDT | | | | +-------+ +--------+---+---+ | Given | 12/19/19 | 650 mg | | | | | 20 8:49 | | | | | | PM PDT | | | | +-------+ +--------+---+---+ + +---+ | | | + +---+ | albuterol 2.5 mg/3 mL nebulizer | | | solution 2.5 mg 2.5 mg, | | | Nebulization, RT EVERY 4 HOURS | | | PRN, Shortness of Breath, | | | Starting Tue12/18/19 at 1254, RT | | | will administer. Formulary | | | change. Inhalers are in short | | | supply and being saved for COVID | | | pts., | | + +---+ | | | + +---+ + +-------+ +--------+---+---+ | docusate sodium (COLACE) | Given | 12/19/19 | 100 mg | | | | capsule 100 mg 100 mg, Oral, 2 | | 20 8:49 | | | | | TIMES DAILY PRN, Constipation, | | PM PDT | | | | | Starting Tue12/18/19 at 1722, 1st | | | | | | | line agent for constipation | | | | | | | relief., | | | | | | + +-------+ +--------+---+---+ +---+---+ | | | +---+---+ + +---------+ + + +---+ | fentaNYL 2 mcg/mL + bupivacaine | New Bag | 12/18/19 | 14 mL/hr | 14 mL/hr | | | 0.125% in saline (PF) at 14 | | 20 2:43 | | | | | mL/hr, EPIDURAL, CONTINUOUS, | | PM PDT | | | | | Starting Tue12/18/19 at 0930, | | | | | | | Patient-controlled Bolus Dose | | | | | | | (mL): 5, Lockout Interval (min): | | | | | | | 15 | | | | | | + +---------+ + + +---+ +---------+ + + +---+ | New Bag | 12/18/19 | 14 mL/hr | 14 mL/hr | | | | 20 9:49 | | | | | | AM PDT | | | | +---------+ + + +---+ +---+---+ | | | +---+---+ + +-------+ +--------+---+---+ | ibuprofen (ADVIL,MOTRIN) tablet | Given | 12/20/19 | 600 mg | | | | 600 mg 600 mg, Oral, EVERY 6 | | 20 8:15 | | | | | HOURS PRN, Mild Pain, First line | | AM PDT | | | | | agent, Starting 12/18/19 at | | | | | | | 1722, If urine output is less | | | | | | | than 240 mL/8 hours (30 mL/hr) or | | | | | | | if signs of bleeding, contact MD | | | | | | | and hold ibuprofen. May be | | | | | | | administered in conjunction with | | | | | | | acetaminophen as Multimodal Pain | | | | | | | Management., | | | | | | + +-------+ +--------+---+---+ +-------+ +--------+---+---+ | Given | 12/20/19 | 600 mg | | | | | 20 2:45 | | | | | | AM PDT | | | | +-------+ +--------+---+---+ | Given | 12/19/19 | 600 mg | | | | | 20 3:37 | | | | | | PM PDT | | | | +-------+ +--------+---+---+ +---+---+ | | | +---+---+ + + + +--------+-------+---+ | lactated ringers (LR) bolus | Bolus | 12/18/19 | 1,000 | 2000 | | | 1,000 mL 1,000 mL, Intravenous, | from Bag | 20 9:30 | mLs | mL/hr | | | Administer over 30 Minutes, ONCE, | | AM PDT | | | | | 12/18/19 at 0930, For 1 dose, | | | | | | | Start warm fluid bolus when | | | | | | | epidural procedure is starting., | | | | | | + + + +--------+-------+---+ +---+---+ | | | +---+---+ + +---------+ +---+-------+---+ | lactated ringers (LR) infusion | New Bag | 12/18/19 | | 125 | | | at 25-125 mL/hr, Intravenous, | | 20 12:08 | | mL/hr | | | TITRATED, Starting 12/18/19 at | | PM PDT | | | | | 0500, Bolus as indicated for | | | | | | | epidural or abnormal FHR, per | | | | | | | labor; First and Second Stage | | | | | | | orders., Labor and Delivery | | | | | | + +---------+ +---+-------+---+ +---------+ +---+-------+---+ | New Bag | 12/18/19 | | 125 | | | | 20 10:10 | | mL/hr | | | | AM PDT | | | | +---------+ +---+-------+---+ | New Bag | 12/18/19 | | 125 | | | | 20 5:01 | | mL/hr | | | | AM PDT | | | | +---------+ +---+-------+---+ + +---+ | | | + +---+ | miSOPROStol (CYTOTEC) tablet | | | 600 mcg 600 mcg, Oral, PRN, | | | Post- hemorrhage, Starting | | | 12/18/19 at 1722, For 1 dose, | | | If general anesthesia give per | | | rectum. May give only after | | | delivery., | | + +---+ | | | + +---+ | miSOPROStol (CYTOTEC) tablet | | | 800 mcg 800 mcg, Rectal, PRN, | | | Post- hemorrhage, Starting | | | 12/18/19 at 1722, For 1 dose, | | | If unable to administer orally. | | | May give only after delivery., | | | | | + +---+ | | | + +---+ | ondansetron (ZOFRAN ODT) | | | disintegrating tablet 4 mg 4 mg, | | | Oral, EVERY 6 HOURS PRN, Nausea, | | | Vomiting, Starting 12/18/19 | | | at 1722, First line agent, | | | | | + +---+ | | | + +---+ | ondansetron (ZOFRAN) injection | | | 4 mg 4 mg, Intravenous, EVERY 6 | | | HOURS PRN, Nausea, Vomiting, | | | Starting e 12/18/19 at 1722, | | | First line agent. Use oral option | | | unless NPO status or unable to | | | tolerate, | | + +---+ | | | + +---+ + + + + +---------+---+ | oxytocin in saline (PITOCIN) 30 | Rate/Dos | 12/18/19 | 4 | 4 mL/hr | | | units/500 mL (60 maury-units/mL) | e Change | 20 11:25 | maury-un | | | | infusion 0-999 maury-units/min | | AM PDT | its/min | | | | (0-999 mL/hr), at 0-999 mL/hr, | | | | | | | Intravenous, TITRATED, Starting | | | | | | | e 12/18/19 at 0500, Standard | | | | | | | (Augmentation/Induction) | | | | | | | Management: Dose 0-40 mU/min. | | | | | | | Begin infusion at 1-2 mU/minute. | | | | | | | Increase at no greater than 2 | | | | | | | mU/min every 30 minutes, until | | | | | | | adequate labor. Maximum standard | | | | | | | dose for augmentation/induction | | | | | | | = 20 mU/min. Call provider to | | | | | | | increase above 20 mU/min. Do not | | | | | | | increase above 40 mU/min. Do not | | | | | | | increase rate if there is | | | | | | | tachysystole (Greater than 5 | | | | | | | contractions in 10 minutes | | | | | | | averaged over 30 minutes) or | | | | | | | concern regarding tracing. | | | | | | | For tachysystole, | | | | | | | indications or increased baseline | | | | | | | uterine tone, notify provider | | | | | | | and stop or decrease oxytocin | | | | | | | infusion per unit policy until | | | | | | | the indication has ceased. | | | | | | | Restart the infusion per policy | | | | | | | or at 50% or less of the previous | | | | | | | rate. Third Stage | | | | | | | Management/Immediate : | | | | | | | Dose 0-999 mU/min. Vaginal | | | | | | | delivery: After delivery of | | | | | | | anterior shoulder or placenta, | | | | | | | 350 mU/min x hour, then 100 | | | | | | | mU/min x 3.5 hours. May stop | | | | | | | after 4 hours post-delivery. | | | | | | | Titrate to control bleeding. May | | | | | | | discontinue if fundus firm, | | | | | | | bladder not distended and patient | | | | | | | tolerating oral fluids and pain | | | | | | | meds. delivery: | | | | | | | Anesthesia will manage oxytocin | | | | | | | intraoperatively. Post anesthesia | | | | | | | care, 350 mU/min x hour, then | | | | | | | 100 mU/min x 3.5 hours. May stop | | | | | | | after 4 hours post-delivery. | | | | | | | Titrate to control bleeding. May | | | | | | | discontinue if fundus firm, | | | | | | | bladder not distended and patient | | | | | | | tolerating oral fluids and pain | | | | | | | meds., Use oxytocin for | | | | | | | management of: Third stage, Labor | | | | | | | and Delivery | | | | | | + + + + +---------+---+ +---------+ + +---------+---+ | New Bag | 12/18/19 | 2 | 2 mL/hr | | | | 20 10:29 | maury-un | | | | | AM PDT | its/min | | | +---------+ + +---------+---+ +---+---+ | | | +---+---+ + +---------+ + +-------+---+ | penicillin G potassium 2.5 | New Bag | 12/18/19 | 2.5 | 110 | | | Million Units in sodium chloride | | 20 12:44 | Million | mL/hr | | | 0.9% 50 mL IVPB 2.5 Million | | PM PDT | Units | | | | Units, Intravenous, Administer | | | | | | | over 30 Minutes, EVERY 4 HOURS | | | | | | | INTERVAL, First dose on Tue | | | | | | | 12/18/19 at 0845, Starting 4 hours | | | | | | | after loading dose and | | | | | | | continuing until delivery. Keep | | | | | | | in refrigerator., Labor and | | | | | | | Delivery, Indications: Group B | | | | | | | Streptococcus Positive Mother in | | | | | | | | | | | | | + +---------+ + +-------+---+ +---------+ + +-------+---+ | New Bag | 12/18/19 | 2.5 | 110 | | | | 20 9:11 | Million | mL/hr | | | | AM PDT | Units | | | +---------+ + +-------+---+ +---+---+ | | | +---+---+ + +---------+ + +-------+---+ | penicillin G potassium 5 | New Bag | 12/18/19 | 5 | 100 | | | Million Units in sodium chloride | | 20 5:00 | Million | mL/hr | | | 0.9% 100 mL IVPB 5 Million | | AM PDT | Units | | | | Units, Intravenous, Administer | | | | | | | over 60 Minutes, ONCE, Tue | | | | | | | 12/18/19 at 0500, For 1 dose, | | | | | | | Activate system and mix before | | | | | | | use., Labor and Delivery, | | | | | | | Indications: Group B | | | | | | | Streptococcus Positive Mother in | | | | | | | | | | | | | + +---------+ + +-------+---+ +---+---+ | | | +---+---+ documented in this encounter
--- OUTSIDE RECORDS SUMMARY | ~2019-12-21 | XMS | Encounter Summary ---
Demographics + + + | Address | [address] | | | [place] [address] | + + + | Home Phone [...] + + + | Author | [facility] | | | and [place] | + + + | Organization | [facility] | | | and [...] [place] | | | | | [address] | | + + + + + | Jovita Luna | ECON | [address] | | | | | [place] [address] | | + + + + + Care Team Providers + +------+ + | Care Coal Cutter Name | Role | Phone | + +------+ + | Tomas Benoit MD | PCP | | + +------+ + Reason for Visit +---------+--------+ + | Reason | Onset | Comments | | | Date | | +---------+--------+ + | Results | 03/24/ | | | | 2011 | | +---------+--------+ + Encounter Details +--------+ + + + + | Date | Type | Department | Care Team | Description | +--------+ + + + + | 03/24/ | Telephone | [facility] | Tomas Benoit, | Results | | 2011 | | MEDICINE [place] | [address] | | | | | [address] | [place] | | | | | [place] | [address] | | | | | [address] | | | | | | [phone] | | | +--------+ + + + [...] this encounter Miscellaneous Notes Telephone Encounter - Carola Lezama RN - 03/24/2012 4:15 PM PSTPatient returned phon e call and was given message per Dr Benoit elephone Haley Tanl, Myel L - 03/24/2012 2:42 PM PSTCalled and left message for patient to call jean crowArsen elephone Encounter - Tomas Martínez MD - 03/24/2012 2:38 PM PSTPlease let Jovita know that her Quad screen was normal. documented in this encounter Plan of [...]
--- OUTSIDE RECORDS SUMMARY | ~2019-12-21 | XMS | Encounter Summary ---
Demographics + + + | Address | [address] | | | [place] [address] | + + + | Home Phone [...] Author + + + | Author | [facility] | | | and [place] | + + + | Organization | [facility] | | [...] [place] | | | | | [address] | | + + + + + | Jovita Luna | ECON | [address] | | | | | [place] [address] | | + + + + + Care Team Providers + +------+ + | Care Television Repairer Name | Role | Phone | + +------+ + | Tomas Benoit MD | PCP | | + +------+ + Reason for Visit + +--------+ + | Reason | Onset | Comments | | | Date | | + +--------+ + | Appointment | 10/17/ | | | | 2012 | | + +--------+ + Encounter Details +--------+ + + + + | Date | Type | Department | Care Team | Description | +--------+ + + + + | 10/17/ | Telephone | [facility] | Joby Lowe MD | Appointment | | 2012 | | GASTROENTEROLOGY | [address], [place] | | | | | [address] [place] | [address] [place], [place] | | | | | [address] [place], [place] | [address] | | | | | [address] | | | | | | [phone] | | | +--------+ + + + [...] this encounter Miscellaneous Notes Telephone Encounter - Joy Vizcaino - 10/17/2012 4:17 PM PDTPatient has been put into the schedule for Dr. Lowe, elep patricia Encounter - Arabella Herrera RN - 10/17/2012 2:00 PM PDTPatient reports the bleed ing is mostly gone but now she is having pain to rectal area. She states the pain started a bout a week. She increased her stool softener. She states stools have been soft but it is so painful she is afraid to have a bowel movement. Scheduled flex sig for 10/25/12 1pm. She has the prep. e lephone Encounter - Joy Vizcaino - 10/17/2012 12:24 PM PDTPatient is calling to reschedule flex sig. Please call. docume nted in this encounter Plan of Treatment +--------+---------+ + + + | Date | Type | Specialty | Care Team | Description | +--------+---------+ + + + | 01/30/ | Office | Family Medicine | Tomas Benoit, | | | 2019 | Visit | | [address] | | | | | | [place] | | | | | | [address] | | | | | | | | +--------+---------+ + + + documented as of this encounter Visit Diagnoses Not on filedocumented in this encounter"
--- OUTSIDE RECORDS SUMMARY | ~2019-12-21 | XMS | Encounter Summary ---
Demographics + + + | Address | [address] | | | [place] [address] | + + + | Home Phone [...] [place] | | | | | [address] | | + + + + + | Jovita Luna | ECON | [address] | | | | | [place] [address] | | + + + + + Care Team Providers + +------+ + | Care Order Entry Technician Name | Role | Phone | + +------+ + | Tomas Benoit MD | PCP | | + +------+ + Reason for Visit + +--------+ + | Reason | Onset | Comments | | | Date | | + +--------+ + | Appointment | 05/12/ | | | | 2016 | | + +--------+ + Encounter Details +--------+ + + + + | Date | Type | Department | Care Team | Description | +--------+ + + + + | 05/12/ | Telephone | [facility] | Tomas Benoit, | Appointment | | 2016 | | MEDICINE [place] | [address] | | | | | [address] | [place] | | | | | [place] | [address] | | | | | [address] | | | | | | [phone] | | | +--------+ + + + [...] this encounter Miscellaneous Notes Telephone Encounter - Monae Dong - 05/18/2016 9:53 AM PSTPatient was scheduled for 07-01-2016. elephone Encounter - Monae Dong - 05/14/2016 1:08 PM PSTLeft message for patient to return our call.Elec tronically signed by Monae Dong at 05/14/2016 1:09 PM PSTTelephone Encounter - Monae Dong - 05/12/2016 9:49 AM PSTLeft message for patient to return our call. elephone Encounter - Darline Jay RN - 05/12/2016 8:59 AM PSTDue for annual exam and follow-up on medications. Please schedule with PCP. documented in thi [...] [place] | | | | | | [phone] | | | | | | | | +--------+---------+ + + + documented as of this encounter Visit Diagnoses Not on filedocumented in this encounter"
--- OUTSIDE RECORDS SUMMARY | ~2019-12-21 | XMS | Encounter Summary ---
Demographics + + + | Address | [address] | | | [place] [address] | + + + | Home Phone [...] [place] | | | | | [address] | | + + + + + | Jovita Luna | ECON | [address] | | | | | [place] [address] | | + + + + + Care Team Providers + +------+ + | Care Capital Project Engineer Name | Role | Phone | + +------+ + | Tomas Benoit MD | PCP | | + +------+ + Reason for Visit + +--------+ + | Reason | Onset | Comments | | | Date | | + +--------+ + | Test | 04/16/ | | | | 2018 | | + +--------+ + Encounter Details +--------+ + + + + | Date | Type | Department | Care Team | Description | +--------+ + + + + | 04/16/ | Telephone | [facility] | Tomas Benoit, | Test | | 2019 | | MEDICINE [place] | [address] | | | | | [address] | [place] | | | | | [place] | [address] | | | | | [address] | | | | | | [phone] | | | +--------+ + + + [...] this encounter Miscellaneous Notes Telephone Encounter - Hina Quiroz RN - 04/16/2019 10:21 AM PSTPatient calls in with a positive test result. 1) 04/10/19 positive test (8-9 days late) 2) 2 previous pregnancies Vaginal Miscarriage 3) LMP-03/04/19 EDC-12/09/18 Patient prefers Tuesdays. or Fridays between 9:30am-1:00p Patient is taking an OTC vitamin. Dr. Benoit appointment 05/07/18 @1400 Ultrasound 05/10/18 @1100 documented in this en counter Plan of [...] [place] | | | | | | [phone] | | | | | | | | +--------+---------+ + + + documented as of this encounter Results US OB < 14 [...] Supervision of normal first in first trimester - Primary | + + documented in this encounter"
--- OUTSIDE RECORDS SUMMARY | ~2019-12-21 | XMS | Encounter Summary ---
Demographics + + + | Address | [address] | | | [place] [address] | + + + | Home Phone [...] [place] | | | | | [address] | | + + + + + | Jovita Luna | ECON | [address] | | | | | [place] [address] | | + + + + + Care Team Providers + +------+ + | Care Co Founder And Cto Name | Role | Phone | + +------+ + | Tomas Benoit MD | PCP | | + +------+ + Reason for Visit + + + | Reason | Comments | + + + | Routine | 30 week | | Visit | | + + + Encounter Details +--------+ + + + + | Date | Type | Department | Care Team | Description | +--------+ + + + + | 06/01/ | Routine | [facility] | Tomas Benoit, | GA: 29w1d | | 2012 | | MEDICINE [place] | [address] | | | | | [address] | [place] | | | | | [place] | [address] | | | | | [address] | | | | | | [phone] | | | +--------+ + + + [...] + + + | Blood Pressure | 100/56 | 06/01/2012 10:15 AM | | | | | PST | | + + + + + | Pulse | 104 | 06/01/2012 10:15 AM | | | | | PST | | + + + + + | Temperature | 36.6 C (97.9 F) | 06/01/2012 10:15 AM | | | | | PST | | + + + + + | Respiratory Rate | 20 | 06/01/2012 10:15 AM | | | | | PST | | + + + + + | Oxygen Saturation | - | - | | + + + + + | Inhaled Oxygen | - | - | | | Concentration | | | | + + + + + | Weight | 78.9 kg (174 lb) | 06/01/2012 10:15 AM | | | | | PST | | + + + + + | Height | 166.4 cm (5' 5.5") | 06/01/2012 10:15 AM | | | | | PST | | + + + + + | Body Mass Index | 28.51 | 06/01/2012 10:15 AM | | | | | PST | | + + + + + documented in this encounter Progress Notes Tomas Benoit MD - 06/01/2012 10:46 AM PSTShe is getting labs done now. Mild back pain a t night. No other concerns. A M PSTdocumented in this encounter Plan of Treatment +--------+---------+ + + + | Date | Type | Specialty | Care Team | Description | +--------+---------+ + + + | 01/30/ | Office | Family Medicine | Tomas Benoit, | | | 2020 | Visit | | MD Joy [address]ODNEY | | | | | | [place] | | | | | | [phone] | | | | | | | | +--------+---------+ + + + documented as of this encounter Visit Diagnoses + + | Diagnosis | + + | , PRIMIGRAVIDA - Primary Supervision of normal first | + + documented in this encounter
--- OUTSIDE RECORDS SUMMARY | ~2019-12-21 | XMS | Encounter Summary ---
Demographics + + + | Address | [address] | | | [place] [address] | + + + | Home Phone | | + + + | Preferred Language | Unknown | + + + | Marital Status | Single | + + + | Muslim Affiliation | Unknown | + + + [...] [place] | | | | | [address] | | + + + + + | Jovita Luna | ECON | [address] | | | | | [place] [address] | | + + + + + Care Team Providers + +------+ + | Care Rounding And Backing Machine Operator Name | Role | Phone [...] Description | +--------+--------+ + + + | 01/31/ | Refill | [facility] | Tomas Benoit, | Medication Refill | | 2014 | | [facility] | [address] | | | | | [address] | [place] | | | | | [place], [place] | [address] | | | | | [address] | | | | | | [phone] | | | +--------+--------+ + + + [...] [place] | | | | | | [address] | | | | | | | | +--------+---------+ + + + documented as of this encounter Visit Diagnoses Not on filedocumented in this encounter"
--- OUTSIDE RECORDS SUMMARY | ~2019-12-21 | XMS | Encounter Summary ---
Demographics + + + | Address | [address] | | | [place] [address] | + + + | Home Phone | | + + + | Preferred Language | Unknown | + + + | Marital Status | Single | + + + | Alevism Affiliation | Unknown | + + + [...] Dong | ECON | [address] [facility] | | | | | [place] | | | | | [address] | | + + + + + | Jovita Luna | ECON | [address] | | | | | [place] [address] | | + + + + + Care Team Providers + +------+ + | Care Matte Cutter Name | Role | Phone | + +------+ + | Tomas Benoit MD | PCP | | + +------+ + Reason for Visit + + + | Reason | Comments | + + + | Routine | 26 weeks flu shot 2011 and tdap 2005 Thinks she might have lost | | Visit | some of her mucus plug 05/11/12, no blood with it. | + + + Encounter Details +--------+ + + + + | Date | Type | Department | Care Team | Description | +--------+ + + + + | 05/15/ | Routine | [facility] | Tomas Benoit, | GA: 26w5d | | 2012 | | MEDICINE [place] | [address] | | | | | [address] | [place] | | | | | [place] | [address] | | | | | [address] | | | | | | [phone] | | | +--------+ + + + [...] + + + | Blood Pressure | 102/56 | 05/15/2012 3:09 PM | | | | | PST | | + + + + + | Pulse | 68 | 05/15/2012 3:09 PM | | | | | PST | | + + + + + | Temperature | - | - | | + + + + + | Respiratory Rate | 16 | 05/15/2012 3:09 PM | | | | | PST | | + + + + + | Oxygen Saturation | - | - | | + + + + + | Inhaled Oxygen | - | - | | | Concentration | | | | + + + + + | Weight | 76 kg (167 lb 9 oz) | 05/15/2012 3:09 PM | | | | | PST | | + + + + + | Height | - | - | | + + + + + | Body Mass Index | 27.46 | 02/18/2012 11:40 AM | | | | | PDT | | + + + + + documented in this encounter Progress Notes Tomas Benoit MD - 05/15/2012 3:47 PM PSTOne hour glucola, CBC and blood type ordered. Itchy rash around the hands and on the legs and torso. Starts as red bumps. She will scratch in her sleep. Suspect scabies. Will treat with Permetharin and triamcinolone. documented in this encounter Plan of Treatment +--------+---------+ + + + | Date | Type | Specialty | Care Team | Description | +--------+---------+ + + + | 01/30/ | Office | Family Medicine | Tomas Benoit, | | | 2020 | Visit | | MD Joy [facility] | | | | | | [place] | | | | | | [address] | | | | | | | | +--------+---------+ + + + + + +--------+ + + | Name | Type | Priori | Associated Diagnoses | Order Schedule | | | | ty | | | + + +--------+ + + | Gestational Glucose | Lab | Routin | , | 1 Occurrences | | Test, 1Hr | | e | PRIMIGRAVIDA | starting 05/15/2012 | | | | | | until 06/05/2012 | + + +--------+ + + | ABO Rh | Blood Bank | Routin | , | 1 Occurrences | | | | e | PRIMIGRAVIDA | starting 05/15/2012 | | | | | | until 05/15/2013 | + + +--------+ + + documented as of this encounter Results CBC with Differential (06/01/2012 10:56 AM PST) + + + + + + | Component | Value | Ref Range | Performed | Pathologist | | | | | At | Signature | + + + + + + | White Blood | 9.5 | 4.0 - 11.0 K/uL | [facility] | | | Cells | | | [facility] | | | | | | [facility] | | | | | | [facility] - | | | | | | LABORATORY | | + + + + + + | Red Blood | 4.21 | 3.70 - 5.20 | [facility] | | | Cells | | M/uL | [facility] | | | | | | MEDICAL | | | | | | CENTER - | | | | | | LABORATORY | | + + + + + + | Hemoglobin | 12.2 | 11.5 - 16.0 | [facility] | | | | | gm/dL | [facility] | | | | | | [facility] | | | | | | C[facility] - | | | | | | LABORATORY | | + + + + + + | Hematocrit | 37.1 | 34.0 - 47.0 % | [facility] | | | | | | [facility] | | | | | | [facility] | | | | | | [facility] - | | | | | | LABORATORY | | + + + + + + | MCV | 88.1 | 83.0 - 101.0 fL | [facility] | | | | | | [facility] | | | | | | [facility] | | | | | | C[facility] - | | | | | | LABORATORY | | + + + + + + | MCH | 28.9 | 28.0 - 35.0 pg | [facility] | | | | | | [facility] | | | | | | [facility]ICAL | | | | | | C[facility] - | | | | | | LABORATORY | | + + + + + + | MCHC | 32.8 | 32.0 - 36.0 | [facility] | | | | | g/dL | [facility] | | | | | | MEDICAL | | | | | | CENTER - | | | | | | LABORATORY | | + + + + + + | RDW-CV | 13.6 | <15.0 % | [facility] | | | | | | [facility] | | | | | | MEDICAL | | | | | | CENTER - | | | | | | LABORATORY | | + + + + + + | Platelet | 251 | 140 - 440 K/uL | [facility] | | | Count | | | [facility] | | | | | | MEDICAL | | | | | | CENTER - | | | | | | LABORATORY | | + + + + + + | % | 73.3 | 45 - 75 % | [facility] | | | Neutrophils | | | [facility] | | | | | | MEDICAL | | | | | | CENTER - | | | | | | LABORATORY | | + + + + + + | % | 18.6 (L) | 20 - 45 % | [facility] | | | Lymphocytes | | | [facility] | | | | | | MEDICAL | | | | | | CENTER - | | | | | | LABORATORY | | + + + + + + | % Monocytes | 5.7 | 4 - 12 % | [facility] | | | | | | [facility] | | | | | | MEDICAL | | | | | | CENTER - | | | | | | LABORATORY | | + + + + + + | % | 2.2 | 0 - 5 % | [facility] | | | Eosinophils | | | [facility] | | | | | | MEDICAL | | | | | | CENTER - | | | | | | LABORATORY | | + + + + + + | % Basophils | 0.2 | 0 - 1 % | [facility] | | | | | | [facility] | | | | | | MEDICAL | | | | | | CENTER - | | | | | | LABORATORY | | + + + + + + | Absolute | 6.9 (H) | 1.5 - 6.6 K/uL | [facility] | | | Neutrophils | | | [facility] | | | | | | MEDICAL | | | | | | CENTER - | | | | | | LABORATORY | | + + + + + + | Absolute | 1.8 | 0.6 - 3.2 K/uL | [facility] | | | Lymphocytes | | | [facility] | | | | | | MEDICAL | | | | | | CENTER - | | | | | | LABORATORY | | + + + + + + | Absolute | 0.5 | 0.0 - 1.0 K/uL | [facility] | | | Monocytes | | | [facility] | | | | | | MEDICAL | | | | | | CENTER - | | | | | | LABORATORY | | + + + + + + | Absolute | 0.2 | 0.0 - 0.4 K/uL | [facility] [...] | + + + + + | [facility] | [address] | [place] | [phone] | | [facility] | | [address] | | | - LABORATORY | | | | + + + + + | [facility] | [address] | [place], [place] | | | [facility] | | [address] | | | - LABORATORY | | | | + + + + + documented in this encounter Visit Diagnoses + + | Diagnosis | + + | , PRIMIGRAVIDA - Primary Supervision of normal first | + + | Scabies | + + documented in this encounter"
--- OUTSIDE RECORDS SUMMARY | ~2019-12-21 | XMS | Encounter Summary ---
Demographics + + + | Address | [address] | | | [place] [address] | + + + | Home Phone [facility] | | | | | [place] | | | | | [address] | | + + + + + | Jovita Luna | ECON | [address] | | | | | [place] [address] | | + + + + + Care Team Providers + +------+ + | Care Director Social Welfare Name | Role | Phone | + +------+ + | Tomas Benoit MD | PCP | | + +------+ + Reason for Visit +---------+--------+ + | Reason | Onset | Comments | | | Date | | +---------+--------+ + | Results | 03/14/ | | | | 2018 | | +---------+--------+ + Encounter Details +--------+ + + + + | Date | Type | Department | Care Team | Description | +--------+ + + + + | 03/14/ | Telephone | [facility] | Tomas Benoit, | Results | | 2018 | | MEDICINE [place] | [address] | | | | | [address] | [place] | | | | | [place] | [address] | | | | | [address] | | | | | | [phone] | | | +--------+ + + + [...] Telephone Encounter - Damari Guerrero CMA - 03/14/2019 8:49 AM PSTPatient notified Elec tronically signed by Damari Guerrero CMA at 03/14/2019 8:49 AM PSTTelephone Encounter - D Damari hilliard CMA - 03/14/2019 8:48 AM PST----- Message from MOHAN Kwon sent a t 03/14/2019 7:14 AM PST ----- Please contact patient/guardian about message below: Screening was negative for gonorrhea and chlamydia. documented in this encounter Plan of Treatment +--------+---------+ + + + | Date | Type | Specialty | Care Team | Description | +--------+---------+ + + + | 01/30/ | Office | Family Medicine | Tomas Benoit, | | | 2019 | Visit | | MD Joy [facility] | | | | | | [place] | | | | | | [phone] | | | | | | | | +--------+---------+ + + + documented as of this encounter Visit Diagnoses Not on filedocumented in this encounter"
--- OUTSIDE RECORDS SUMMARY | ~2019-12-21 | XMS | Encounter Summary ---
Demographics + + + | Address | [address] | | | [place] [address] | + + + | Home Phone | | + + + | Preferred Language | Unknown | + + + | Marital Status | Single | + + + | Pentecostal Affiliation | Unknown | + + + [...] Dong | ECON | [address] [facility] | | | | | [place] | | | | | [address] | | + + + + + | Jovita Luna | ECON | [address] | | | | | [place] [address] | | + + + + + Care Team Providers + +------+ + | Care Warehouse Shipping Receiving Clerk Name | Role | Phone | + +------+ + | Tomas Benoit MD | PCP | | + +------+ + Reason for Visit +--------+--------+ + | Reason | Onset | Comments | | | Date | | +--------+--------+ + | Other | 01/10/ | | | | 2012 | | +--------+--------+ + Encounter Details +--------+ + + + + | Date | Type | Department | Care Team | Description | +--------+ + + + + | 01/10/ | Telephone | [facility] | Tomas Benoit, | Other | | 2012 | | MEDICINE [place] | [address] | | | | | [address] | [place] | | | | | [place] | [address] | | | | | [address] | | | | | | [phone] | | | +--------+ + + + [...] Telephone Encounter - Tomas Benoit MD - 01/10/2013 4:23 PM PDTInfo given is correct.El ectronically signed by Tomas Benoit MD at 01/10/2013 4:24 PM PDTTelephone Encounter - Gabby Triana RN - 01/10/2013 4:07 PM PDTCalls to say she had a baby 08/16/12 and 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 She's noticed a pink discharge a couple times today. No odor, no fe mundo, no pain. I reassured her this sounded normal as her periods may be irregular, absent or just spotty while nursing, but she could still ovulate so she needs use something for control. She said she's to follow up here in January. Transferred to [facility] to schedule visit and I told her I'd let Dr Benoit know of her concerns and we'd call her if she felt it was o f concern. elephon e Encounter - Marilu Mcwilliams - 01/10/2013 1:29 PM PDTPatient states that she is having a weird color discharge that she is concerned about. She can be reached at [phone]. Marilu Mcwilliams documented in this enco unter [...] [place] | | | | | | [address] | | | | | | | | +--------+---------+ + + + documented as of this encounter Visit Diagnoses Not on filedocumented in this encounter"
--- OUTSIDE RECORDS SUMMARY | ~2019-12-21 | XMS | Encounter Summary ---
Demographics + + + | Address | [address] | | | [place] [address] | + + + | Home Phone [...] Author + + + | Author | [facility] | | | and [place] | + + + | Organization | [facility] | | | and [...] [place] | | | | | [address] | | + + + + + | Jovita Luna | ECON | [address] | | | | | [place] [address] | | + + + + + Care Team Providers + +------+ + | Care Manager Lean Name | Role | Phone | + +------+ + | Tomas Benoit MD | PCP | | + +------+ + Reason for Visit +--------+ + | Reason | Comments | +--------+ + | Rash | On tops of feet and on toes. TDaP 05/2012 | +--------+ + Encounter Details +--------+---------+ + + + | Date | Type | Department | Care Team | Description | +--------+---------+ + + + | 11/01/ | Office | [facility] | Mel Mejias PA | Itching (Primary | | 2012 | Visit | [facility] | [address] [facility] | Dx); Papules | | | | [address] | [address] [place], [place] | | | | | [place] | [address] | | | | | [address] | | | | | | [phone] | | | +--------+---------+ + + + [...] + + + | Blood Pressure | 96/60 | 11/01/2012 2:34 PM | | | | | PDT | | + + + + + | Pulse | 78 | 11/01/2012 2:34 PM | | | | | PDT | | + + + + + | Temperature | 36.4 C (97.6 F) | 11/01/2012 2:34 PM | | | | | PDT | | + + + + + | Respiratory Rate | 16 | 11/01/2012 2:34 PM | | | | | PDT | | + + + + + | Oxygen Saturation | 97% | 11/01/2012 2:34 PM | | | | | PDT | | + + + + + | Inhaled Oxygen | - | - | | | Concentration | | | | + + + + + | Weight | 74.2 kg (163 lb 9.6 | 11/01/2012 2:34 PM | | | | oz) | PDT | | + + + + + | Height | 165.1 cm (5' 5") | 11/01/2012 2:34 PM | | | | | PDT | | + + + + + | Body Mass Index | 27.22 | 11/01/2012 2:34 PM | | | | | PDT | | + + + + + documented in this encounter Progress Notes Mel Mejias - 11/01/2012 2:45 PM PDT Subjective: Patient ID: Jovita Grey is a 22 y.o. female. HPI: Patient presents for a rash on her feet. Patient has been exposed to another person w ith similar rash. It itches really badly and keeps her up at night. She has little red sca bby bumps on her dorsal feet and a couple on her dorsal toes. Patient has not traveled latel y. Patient states she has had scabies in the past and this itches just like the escapist it . She denies bumps or rash anywhere else on her body. ::"Patient's medications, allergies, past medical, surgical, social and family histories were reviewed and updated as appropriate." Review of Systems positive systems pertinent negatives reviewed in HPI all other systems ne gative Objective: Physical Exam Skin: Feet: 1mm erythematous papules with secondary scabbing on dorsal feet bilaterally. No lesions found in web spaces. No lesions found on hands, elbows, trunk. Assessment: Pruritic papules Plan: AISLINN negative for scabies, possible scobala seen. Given patient's history of being exposed to boyfriend that may have scabies contracted at m otel room, I will treat patient with premetherin topically and triamcinilone. She was advis ed to wash all clothing and bedding after treating and treat boyfriend as well. She was advi sed to return to clinic next week if symptoms worsen. documented in this encounte r Plan of Treatment +--------+---------+ + + + | Date | Type | Specialty | Care Team | Description | +--------+---------+ + + + | 01/30/ | Office | Family Medicine | Tomas Benoit, | | | 2019 | Visit | | MD Joy RODNEY | | | | | | [place] | | | | | | [id number] | | | | | | | | +--------+---------+ + + + documented as of this encounter Visit Diagnoses + + | Diagnosis | + + | Itching - Primary Unspecified pruritic disorder | + + | Papules Other specified disorder of skin | + + documented in this encounter
--- OUTSIDE RECORDS SUMMARY | ~2019-12-21 | XMS | Encounter Summary ---
Demographics + + + | Address | [address] | | | [place] [address] | + + + | Home Phone [...] Zo Dong | ECON | [address] [facility] | | | | | [place] | | | | | [address] | | + + + + + | Jovita Luna | ECON | [address] [facility] | | | | | [place] [address] | | + + + + + Care Team Providers + +------+ + | Care Academic Affairs Vice President Name | Role | Phone | + +------+ + PCP | Unavailable | + +------+ + Encounter Details +--------+ + + + + | Date | Type | Department | Care Team | Description | +--------+ + + + + | 06/23/ | Hospital | [facility] | | | | 2000 | Encounter | MED CTR XRAY [address] | | | | | | [place] | | | | | | [place] [address] | | | | | | [phone] | | | +--------+ + + + [...] [place] | | | | | | [address] | | | | | | | | +--------+---------+ + + + documented as of this encounter Visit Diagnoses Not on filedocumented in this encounter"
--- OUTSIDE RECORDS SUMMARY | ~2019-12-21 | XMS | Encounter Summary ---
Demographics + + + | Address | [address] | | | [place] [address] | + + + | Home Phone | | + + + | Preferred Language | Unknown | + + + | Marital Status | Single | + + + | Rastafari Affiliation | Unknown | + + + [...] [place] | | | | | [address] | | + + + + + | Jovita Luna | ECON | [address] | | | | | [place] [address] | | + + + + + Care Team Providers + +------+ + | Care Caddie Supervisor Name | Role | Phone | + +------+ + | Tomas Benoit MD | PCP | | + +------+ + Reason for Visit +---------+--------+ + | Reason | Onset | Comments | | | Date | | +---------+--------+ + | Results | 09/20/ | pap smear | | | 2017 | | +---------+--------+ + Encounter Details +--------+ + + + + | Date | Type | Department | Care Team | Description | +--------+ + + + + | 09/20/ | Telephone | [facility] | Tomas Benoit, | Results (pap smear) | | 2017 | | [facility] [place] | [address] | | | | | [address] | [place] | | | | | [place] | [address] | | | | | [address] | | | | | | [phone] | | | +--------+ + + + [...] Encounter - Clarice Uriostegui Cert MA - 09/20/2017 10:42 AM PDTResults letter sent. HM reflects 3 years. P DTTelephone Encounter - Clarice Uriostegui Cert MA - 09/20/2017 10:40 AM PDT----- Message from Karl Benoit MD sent at 09/20/2017 10:10 PDT ----- Pap smear is normal. Please send normal letter. Repeat in 3 years. Please make sure that He alth Maintenance reflects this. documented in this encounter Plan of Treatment [...] [place] | | | | | | [phone] | | | | | | | | +--------+---------+ + + + documented as of this encounter Visit Diagnoses Not on filedocumented in this encounter"
--- OUTSIDE RECORDS SUMMARY | ~2019-12-21 | XMS | Encounter Summary ---
Demographics + + + | Address | [address] | | | [place] [address] | + + + | Home Phone | | + + + | Preferred Language | Unknown | + + + | Marital Status | Single | + + + | Mosque Affiliation | Unknown | + + + [...] Zo Dong | ECON | [address] [facility] | | | | | [place] | | | | | [address] | | + + + + + | Jovita Luna | ECON | [address] | | | | | [place] [address] | | + + + + + Care Team Providers + +------+ + | Care Qa Software Tester Name | Role | Phone | + [...] | +--------+ + + + + | 07/26/ | Routine | [facility] | Tomas Benoit, | GA: 37w0d | | 2012 | | [facility]IC[facility] [place] | [address] | | | | | [address] | [place] | | | | | [place] | [address] | | | | | [address] | | | | | | [phone] | | | +--------+ + + + [...] + + + | Blood Pressure | 112/74 | 07/26/2012 5:01 PM | | | | | PDT | | + + + + + | Pulse | 84 | 07/26/2012 5:01 PM | | | | | PDT | | + + + + + | Temperature | - | - | | + + + + + | Respiratory Rate | 16 | 07/26/2012 5:01 PM | | | | | PDT | | + + + + + | Oxygen Saturation | - | - | | + + + + + | Inhaled Oxygen | - | - | | | Concentration | | | | + + + + + | Weight | 90.1 kg (198 lb 11.2 | 07/26/2012 5:01 PM | | | | oz) | PDT | | + + + + + | Height | - | - | | + + + + + | Body Mass Index | 32.56 | 06/01/2012 10:15 AM | | | | | PST | | + + + + + documented in this encounter Progress Notes Tomas Benoit MD - 07/26/2012 5:13 PM PDTShiqra is having swelling of hands and feet. Some numbness of the hands. Both of these are minimal. No other major concerns. Getting tired of being . docume nted in this encounter Plan of Treatment +--------+---------+ + + + | Date | Type | Specialty | Care Team | Description | +--------+---------+ + + + | 01/30/ | Office | Family Medicine | Tomas Benoit, | | | 2019 | Visit | | MD Joy [address] [facility] | | | | | | [place] [...]
--- OUTSIDE RECORDS SUMMARY | ~2019-12-21 | XMS | Clinical Summary ---
Demographics + + + | Address | [address] | | | [place] [address] | + + + | Home Phone [...] Author + + + | Author | [facility] | | | and [place] | + + + | Organization | [facility] | | [...] [place] | | | | | [address] | | + + + + + | Jovita Luna | ECON | [address] | | | | | [place] [address] | | + + + + + Care Team Providers + +------+ + | Care Christmas Tree Contractor Name | Role | Phone | + [...] | | + + + +---------+------+------+-------+ | docusate sodium | Take 100 mg by mouth | | 0 | | | Activ | | (COLACE) 100 mg | 2 times daily. | | | | | e | | capsule | Takes three daily | | | | | | + + + +---------+------+------+-------+ | 27-0.8 mg | Take 1 tablet by | | 0 | | | Activ | | multivitamin tablet | mouth Daily. | | | | | e | + + + +---------+------+------+-------+ | ergocalciferol | Take 4,000 Units by | | 0 | | | Activ | | (VITAMIN D2) 50 mcg | mouth Daily. Take | | | | | e | | (2,000 units) tablet | two capsules daily | | | | | | + + + +---------+------+------+-------+ | ibuprofen (ADVIL, | Take 3 tablets by | | 0 | 11/24 | | Activ | | MOTRIN) 200 mg | mouth every 6 hours | | | / | | e | | tablet | as needed. | | | 20 | | | + + + +---------+------+------+-------+ Active Problems + + + | Problem | Noted Date | + + + | Shoulder dystocia during labor and delivery, delivered | 12/18/2019 | + + + | Term , repeat | 05/07/2019 | + + + + + | Overview: GREGOR: 12/09/2019 | + + + + + | Depression with anxiety | 12/12/2014 | + + + | Irregular periods | 02/06/2014 | + + + | GBS (group B Streptococcus carrier), +RV culture, currently | 01/14/2012 | | | | + + + + + | Overview: 11/14/2019 test | + + + + + | Supervision of normal first | 01/10/2012 | + + + | Asthma, exercise induced | | + + + | UMBILICAL HERNIA | | + + + Resolved Problems + + + + | Problem | Noted | Resolved | | | Date | Date | + + + + | Routine follow-up | 09/27/19 | | | | 13 | 9 | + + + + | Bloody diarrhea | 08/31/19 | | | | 13 | 9 | + + + + | Dermatitis | 05/15/19 | | | | 13 | 9 | + + + + | Scabies | 05/15/19 | | | | 13 | 3 | + + + + | Preventative health care | 04/05/20 | | | | 12 | 9 | + + + + + + | Overview: Last pap: 01/12/2012 | | | | Tdap: 05/26/2005 | | | | Flu: 05/26/2005 | + + + + + + | , PRIMIGRAVIDA | 12/07/19 | | | | 12 | 3 | + + + + Encounters +--------+ + + + + | Date | Type | Specialty | Care Team | Description | +--------+ + + + + | 12/20/ | Telephone | Family Medicine | Tomas Benoit, | Headache; Edema | | 2019 | | | MD | | +--------+ + + + + | 12/17/ | Anesthesia | | Estuardo Araya | | | 2019 | Event | | DO Loc | | +--------+ + + + + | 12/17/ | Hospital | Obstetrics and | Benoit, Tomas R, | Encounter for | | 2019 - | Encounter | Gynecology | MD | supervision of | | | | | | normal first | | 12/19/ | | | | in third | | 2020 | | | | trimester (Primary | | | | | | Dx); GBS (group B | [...] delivered | +--------+ + + + + | 12/16/ | Routine | Family Medicine | Tomas Benoit, | GA: 41w1d | 2019 | | | MD | | +--------+ + + + + | 12/16/ | Telephone | Family Medicine | Tomas Benoit, | Paperwork (FMLA) | 2019 | | | MD | | +--------+ + + + + | 12/10/ | Routine | Family Medicine | Tomas Benoit, | GA: 40w2d | | 2019 | | | MD | | +--------+ + + + + | 12/03/ | Routine | Family Medicine | Tomas Benoit, | GA: 39w2d | 2019 | | | MD | | +--------+ + + + + | 11/26/ | Routine | Family Medicine | Tomas Benoit, | GA: 38w2d | 2019 | | | MD | | +--------+ + + + + | 11/19/ | Routine | Family Medicine | Casi Mccloud, | GA: 37w2d | 2019 | | | MD | | +--------+ + + + + | 11/13/ | Routine | Family Medicine | Tomas Benoit, | GA: 36w3d | 2019 | | | MD | | +--------+ + + + + | 11/11/ | Telephone | Family Medicine | Tomas Benoit, | Appointment Question | 2019 | | | MD | | +--------+ + + + + | 10/30/ | Routine | Family Medicine | Tomas Benoit, | GA: 34w3d | 2019 | | | MD | | +--------+ + + + + | 10/17/ | Routine | Family Medicine | Tomas Benoit, | GA: 32w4d | 2019 | | | MD | | +--------+ + + + + | 10/01/ | Routine | Family Medicine | Tomas Benoit, | GA: 30w2d | 2019 | | | MD | | +--------+ + + + + | 09/25/ | Telephone | Family Medicine | Casi Mccloud, | Gang Supervisor | | 2019 | | | MD | | +--------+ + + + + from Last 3 Months Immunizations + + + + | Name | Administration Dates | Next Due | + + + [...] | + + + + | INFLUENZA, [id number], | 02/28/2009 | | | UNSPECIFIED | | | + + + + | INFLUENZA, | 02/20/2019 | | | UNSPECIFIED | | | | FORMULATION | | | + + + + | MENINGOCOCCAL | 12/11/2008 | | | CONJUGATE,MENACTRA | | | | (PED/ADOL/ADULT) | | | + + + + | MMR, 2 DOSE | 12/19/2019 (), 07/29/1998, 01/24/1993 | | | (PED/ADULT) | | | + + + + | PNEUMOCOCCAL | 08/02/2016 | | | POLYSACCHARIDE | | | | 23-VALENT (PPSV23) | | | + + + + | POLIOVIRUS,OPV | 08/14/1996, 01/24/1993, 01/29/1992, | | | (LIVE) | 1991 | | + + + + | TDAP, (ADOL/ADULT) | 09/18/2019, 06/21/2012, 05/26/2005 | | + + + [...] + + + | Paternal Grandfather | Rancho | Alive | | + + + + + | Paternal Grandmother | Leonora | | [place] | + + + + + Social [...] on file | | + + + Last Filed Vital Signs + [...] | | + + + + + Plan of Treatment +--------+---------+ + + + | Date | Type | Specialty | Care Team | Description | +--------+---------+ + + + | 01/30/ | Office | Family Medicine | Tomas Benoit, | | 2019 | Visit | | MD [address] | | | | | | [place] | | | | | | [address] | | | | | | | | +--------+---------+ + + + + + + + + | Health Maintenance | Due Date | Last | Comments | | | | Done | | + + + + + | Vaccine: Influenza | | 02/21/20 | | | (#1) | 0 | 19, | | | | | 04/14/20 | | | | | 12, | | | | | 02/29/20 | | | | | 09 | | + + + + + | Med Mgmt: BUN | | 03/01/20 | | | | 0 | 19, | | | | | 03/01/20 | | | | | 19 | | + + + + + | Med Mgmt: Cr | | 03/01/20 | | | | 0 | 19, | | | | | 03/01/20 | | | | | 19 | | + + + + + | Med Mgmt: Vit D | | 05/07/19 | | | | 1 | 20 | | + + + + + | Medication | | 05/07/19 | | | Management | 1 | 20 | | + + + + + | Cervical Cancer | | 03/12/20 | | | Screening (Pap) | 2 | 19, | | | | | 09/15/19 | | | | | 18, | | | | | 12/25/19 | | | | | 15, | | | | | Addition | | | | | al | | | | | history | | | | | exists | | + + + + + | Vaccine: | | 09/18/19 | | | Dtap/Tdap/Td (9 - | 0 | 20, | | | Td) | | 06/21/19 | | | | | 13, | | | | | 05/26/19 | | | | | 06, | | | | | Addition | | | | | al | | | | | history | | | | | exists | | + + + + + | Hepatitis C | Completed | 01/12/20 | | | Screening | | 12, | | | | | 01/12/20 | | | | | 12 | | + + + + + | Vaccine: | Completed | 08/03/19 | | | Pneumococcal 19-64 | | 17 | | + + + + + [...] section. | + +--------+ + + + from Last 3 Months Results Neuraxial (12/18/2019 10:00 AM PDT) + [...] medication documentation. | | + + + Coronavirus (COVID-19) NAAT (12/18/2019 5:22 AM PDT) [...] + | [facility] | [address] | [place] | [phone] | | [facility] | | [address] | | | - LABORATORY | | [...] | | Cells | | | [facility] | | [...] [facility] | | | | | | [facility] | | | | | | [...] | | | | WBCs | [facility] | | | | | | MEDICAL | | | | | | CENTER - | | | | | | LABORATORY | | + + + + + + | Absolute | 0.00 | 0.00 - 0.01 | [facility] | | | nRBC | | K/uL | [facility] | [...] ST. | [address] | [place] | [phone] | | [facility] | | [address] | | | - LABORATORY | | [...] + | [facility] | [address] | [place] | | | [facility] | | [address] | | | - BLOOD BANK | | | | + + + + + Strep B DNA probe, NAAT (11/14/2019 11:07 AM PDT) + + + + + + | Component | Value | Ref Range | Performed | Pathologist | | | | | At | Signature | + + + + + + | Group B | Positive (A) | Negative | [facility] | | | Strep, DNA | | | [facility] | | [...] [address] | [place] | [phone] | | [facility] | | [address] | | | - LABORATORY | | | | + + + + + from Last 3 Months Insurance +-------+--------+ +--------+-------+---------+------+ | Payer | Benefi | Subscriber | Effect | Phone | Address | Type | | | t Plan | ID | rut | | | | | | / | | Dates | | | | | | Group | | | | | | +-------+--------+ +--------+-------+---------+------+ | BCBS | BCBS | [id number] | 07/25/19 | | | PPO | [...] | + +--------+ +--------+ + + | QueJovita | Person | Self | [birth year] | [address] | | [place]ora | al/Fam | | 1990 | [phone] | [place] [address] | | | johanny | | | 2 (Home) | | + +--------+ +--------+ + + | QueJovita | Person | Self | [birth year] | | [address] | | [place] | al/Fam | | 1990 | [phone] | [place] [address] | | | johanny | | | 2 (Home) | | + +--------+ +--------+ + + Advance Directives + + + + + | Type | Date Recorded | Patient | Explanation | | | | Piercer | | + + + + + | Power of | | | | | Professor Of History | | | | + + + + + | Advance | 12/12/2014 10:06 | | | | Directive | AM | | | + + + + + + + + + + | Code Status | Date | Date | Comments | | | Activated | Inactivated | | + + + + + | Full Code | 12/18/2019 | 12/18/2019 | | | | 4:38 AM | 5:22 PM | | + + + + +
--- OUTSIDE RECORDS SUMMARY | ~2019-12-21 | XMS | Encounter Summary ---
Demographics + + + | Address | [address] | | | [place] [address] | + + + | Home Phone [...] Author + + + | Author | [facility] | | | and [place] | + + + | Organization | [facility] | | [...] [place] | | | | | [address] | | + + + + + | Jovita Luna | ECON | [address] | | | | | [place] [address] | | + + + + + Care Team Providers + +------+ + | Care Assembler Installer General Name | Role | Phone | + [...] + + | 12/12/ | Office | [facility] | Tomas Benoit, | Annual physical exam | | 2015 | Visit | [facility] [place] [facility] | [address] | (Primary Dx); | | | | [address] | [place], [place] | Menorrhagia; Asthma, | | | | [place], [place] | [address] | exercise induced; | | | | [address] | | Depression with | | | | [phone] | | anxiety | +--------+---------+ + + + Social History [...] + + + | Blood Pressure | 102/60 | 12/12/2014 9:09 AM | | | | | PDT | | + + + + + | Pulse | 91 | 12/12/2014 9:09 AM | | | | | PDT | | + + + + + | Temperature | 36.1 C (97 F) | 12/12/2014 9:09 AM | | | | | PDT | | + + + + + | Respiratory Rate | 18 | 12/12/2014 9:09 AM | | | | | PDT | | + + + + + | Oxygen Saturation | 98% | 12/12/2014 9:09 AM | room air | | | | PDT | | + + + + + | Inhaled Oxygen | - | - | | | Concentration | | | | + + + + + | Weight | 75.7 kg (166 lb 12.8 | 12/12/2014 9:09 AM | | | | oz) | PDT | | + + + + + | Height | 165.7 cm (5' 5.25") | 12/12/2014 9:09 AM | | | | | PDT | | + + + + + | Body Mass Index | 27.54 | 12/12/2014 9:09 AM | | | | | PDT | | + + + + + documented in this encounter Progress Notes Tomas Benoit MD - 12/12/2014 9:12 AM PDTFormatting of this note might be different fro m the original. Jovita Grey is a 24 y.o. female Chief Complaint: Annual Exam HPI Still having problems with her menstrual cycle Super heavy, 12/10 she bleed thru her tampon and a panty liner within 1 1/2 hr Has to wake up a nigh 2X during the night to change her thick pads she uses She has failed depo-Provera injection She is out of Albuterol needs refill Feels SOB when going outside, with all the smoke in air Unable to leave urine specimen Annual Exam: Patient presents for annual exam. The patient is sexually active. last pap: was normal P atient's last menstrual period was 12/09/2014. control: pills Breast lumps or tenderness: no Vaginal pain or discharge: no Last pap: 03/22/12 History of abnormal Pap: no STD screening: Declines The patient has regular exercise: yes. The patient has ever been transfused or tattooed?: yes. The patient reports that domestic violence in her life is absent. The patient wears seatbelts: yes. Complaints: yes Immunization History Administered Date(s) Administered HPV, QUADRIVALENT, [...] mouth every 4 hours as need ed. Albuterol Sulfate (PROVENTIL HFA IN) (Taking) AERS 2 puffs every 4-6 hours as needed desogestrel-ethinyl estradiol (EMOQUETTE) 0.15-30 MG-MCG per tablet (Taking) 3 tabs per d ay until period stops or significantly lightens. Then decrease to 2 a day for one week, then one a day for a week, then stop. Vit-Fe Fumarate-FA (PRENATE PLUS) 27-1 MG TABS (Taking) Take 27-1 mg by mouth Da johanny. triamcinolone (KENALOG) 0.1% cream (Taking) Apply thin film to affected area(s) two to fo ur times daily as needed: avoid face and groin areas Past Medical History She has a past [...] 0 Years of Education: N/A Occupational History [employer] Social History Main Topics Smoking status: Never Smoker Smokeless tobacco: Former User Types: Chew Alcohol Use: No Drug Use: No Sexual Activity: No Other Topics Concern None Social History Narrative Marital Status:single Children: 0 Occupation:Works for [employer] FOB: [employer] Review of Systems Constitutional: Negative for fever. Respiratory: Positive for chest tightness and shortness of breath (from smoke in the air ). Negative for wheezing. Cardiovascular: Negative for chest pain. Genitourinary: Positive for menstrual problem. Objective: Filed Vitals: 12/12/14 0909 BP: 102/60 Pulse: 91 Temp: 36.1 C (97 F) TempSrc: Temporal Resp: 18 Height: 1.657 m (5' 5.25") Weight: 75.66 kg (166 lb 12.8 oz) SpO2: 98% Physical Exam Constitutional: She is oriented to person, place, and time. She appears well-developed and well-nourished. No distress. HENT: Head: Normocephalic and atraumatic. Right Ear: External ear normal. Nose: Nose normal. Mouth/Throat: Oropharynx is clear and moist. No oropharyngeal exudate. Eyes: Conjunctivae and EOM are normal. Pupils are equal, round, and reactive to light. Righ t eye exhibits no discharge. Left eye exhibits no discharge. No scleral icterus. Neck: Normal range of motion. Neck supple. No JVD present. No tracheal deviation present. N o thyromegaly present. Cardiovascular: Normal rate, regular rhythm and intact distal pulses. Exam reveals no gall op and no friction rub. No murmur heard. Pulmonary/Chest: Breath sounds normal. No respiratory distress. She has no wheezes. She has no rales. Abdominal: Soft. Bowel sounds are normal. She exhibits no distension and no mass. There is no tenderness. There is no rebound and no guarding. Musculoskeletal: Normal range of motion. She exhibits no edema or tenderness. Lymphadenopathy: She has no cervical adenopathy. She has no axillary adenopathy. Neurological: She is alert and oriented to person, place, and time. She has normal reflexes . No cranial nerve deficit. She exhibits normal muscle tone. Coordination normal. Skin: Skin is warm and dry. No rash noted. She is not diaphoretic. No erythema. Psychiatric: She has a normal mood and affect. Her behavior is normal. Judgment and thought content normal. Nursing note and vitals reviewed. PHQ9 Depression Scale: PHQ-9 Total Score: 7 (12/12/14899) Interpretation of Total Score: 1-4 = Minimal depression, 5-9 = Mild depression, 10-14 = Moderate depression, 15-19 = Moderately severe depression, 20-27 = Severe depressio n 7. Little interest or pleasure in doing things?: Several days (12/12/14899) 8. Feeling down, depressed, or hopeless: More than half the days (12/12/14899) 9. Trouble falling or staying asleep, or sleeping too much?: Several days (12/12/14899) 10. Feeling tired or having little energy?: Several days (12/12/14899) 11. Poor appetite or overeating: Several days (12/12/14899) 12. Feeling bad about yourself - or that you are a failure or have let yourself or your fam johanny down?: Several days (12/12/14899) 13. Trouble concentrating on things, such as reading the newspaper or watching television: Not at all (12/12/14899) 14. Moving or speaking so slowly that other people could have noticed. Or the opposite - be ing so fidgety or restless that you have been moving around a lot more than usual?: Not at a ll (12/12/14899) 15. Thoughts that you would be better off , or of hurting yourself in some way?: Not at all (12/12/14899) 16. If you checked off any problems, how difficult have these problems made it for you to d o your work, take care of things at home, or get along with other people?: Somewhat difficul t (12/12/14899) Assessment and Plans: 1. Annual examination - Deferred pap as patient is still bleeding heavily. Vaccines up to d ate. 2. Menorrhagia - Check CBC and TSH. Ordered Pelvic u/s. Looking for fibroids. May need to t ry Mirena. Need to preserve fertility options. 3. Depression with anxiety - She feels that she is just not herself and that it is time for treatment. Will start Zoloft 50 mg daily. Reviewed potential side effects. Call if anything unexpected or not mild. Will have pharmacy follow up with her via phone after 2 pm next samantha k to ensure that she is tolerating. Follow up with me in 4-6 weeks. 4. Asthma - Refill albuterol. Toams Benoit MD documented in this en counter [...] [place] | | | | | | [id number] | | | | | | | | +--------+---------+ + + + documented as of this encounter Results US Pelvis W Transvaginal [...] + | [facility] | [address] | [place] | [phone] | | [facility] | | [address] | | | - IMAGING | | | | + + + + + TSH (12/12/2014 10:12 AM PDT) + + [...] [address] | [place] | [phone] | | [facility] | | [address] | | | - LABORATORY | | [...] | | | | | g/dL | [facility] | | | | [...] | Lymphocytes | | K/uL | [facility] | | | | | | MEDICAL | | | | | | CENTER - | | | | | | LABORATORY | | + + + + + + | Absolute | 0.40 | 0.00 - 1.00 | [facility] | | | Monocytes | | K/uL | [facility] | | | | | | MEDICAL | | | | | | CENTER - | | | | | | LABORATORY | | + + + + + + | Absolute | 0.20 | 0.00 - 0.40 | [facility] | | | Eosinophils | | K/uL | [facility] | | | | | | MEDICAL | | | | | | CENTER - | | | | | | LABORATORY | | + + + + + + | Absolute | 0.10 | 0.00 - 0.10 | [facility] | | | Basophils | | K/uL [...] [address] | [place] | [phone] | | [facility] | | [address] | | | - LABORATORY | | | | + + + + + documented in this encounter Visit Diagnoses + + | Diagnosis | + + | Annual physical exam - Primary Routine general medical examination at a [facility] care | | facility | + + | Menorrhagia Excessive or frequent menstruation | + + | Asthma, exercise induced Exercise induced bronchospasm | + + | Depression with anxiety Dysthymic disorder | + + documented in this encounter
--- OUTSIDE RECORDS SUMMARY | ~2019-12-21 | XMS | Encounter Summary ---
Demographics + + + | Address | [address] | | | [place] [address] | + + + | Home Phone [...] Dong | ECON | [address] [facility] [facility] | | | | | [place] | | | | | [address] | | + + + + + | Jovita Luna | ECON | [address] | | | | | [place] [address] | | + + + + + Care Team Providers + +------+ + | Care Jigger Machine Operator Name | Role | Phone | + +------+ + | Tomas Benoit MD | PCP | | + +------+ + Reason for Visit + +--------+ + | Reason | Onset | Comments | | | Date | | + +--------+ + | Medication | 06/16/ | metroNIDAZOLE (METROGEL | | Management | 2012 | | + +--------+ + Encounter Details +--------+ + + + + | Date | Type | Department | Care Team | Description | +--------+ + + + + | 06/16/ | Telephone | [facility] | Tomas Benoit, | Medication | | 2012 | | [facility] [place] | [address] | Management | | | | [address] | [place] | (metroNIDAZOLE | | | | [place] | [address] | ([place]OG[place]) | | | | [address] | | | | | | [phone] | | | +--------+ + + + [...] Miscellaneous Notes Telephone Encounter - Clarice Uriostegui - 06/19/2012 5:30 PM PSTUpdated med list.Electronicall y signed by Clarice Uriostegui at 06/19/2012 5:33 PM PSTTelephone Encounter - Diane Putnam RN - 06/16/2012 5:36 PM PSTMed list needs to be changed. elephone Encounter - Diane Putnam RN - 06/16/2012 5:27 P M [facility] elephone Encounter - Casi Mccloud MD - 06/16/2012 5:19 PM PSTCall the p harmacy, tell them ok to dispense 70 grams, to be used for 5 days elephone Encounter - Kj Iglesias RN - 4:01 PM PSTCall from [facility] They received an electronic prescription. She would like to know if Dr Benoit wants to order metroNIDAZOLE (METROGEL 45GM over 7 day s . It only comes in 70GM tubes with five applicators to be applied over five days and not s even. Please advise. Amy can be reached at [phone]. Option 5 documented in this encounter Plan of Treatment +--------+---------+ + + + | Date | Type | Specialty | Care Team | Description | +--------+---------+ + + + | 01/30/ | Office | Family Medicine | Tomas Benoit, | | | 2019 | Visit | | MD Joy RODNEY | | | | | | [place] | | | | | | [id number] | | | | | | | | +--------+---------+ + + + documented as of this encounter Visit Diagnoses Not on filedocumented in this encounter"
--- OUTSIDE RECORDS SUMMARY | ~2019-12-21 | XMS | Encounter Summary ---
Demographics + + + | Address | [address] | | | [place] [address] | + + + | Home Phone [...] [place] | | | | | [address] | | + + + + + | Jovita Luna | ECON | [address] | | | | | [place] [address] | | + + + + + Care Team Providers + +------+ + | Care Sample Mounter Name | Role | Phone | + +------+ + | Tomas Benoit MD | PCP | | + +------+ + Reason for Visit + +--------+ + | Reason | Onset | Comments | | | Date | | + +--------+ + | Abnormal Lab | 01/16/ | | | | 2011 | | + +--------+ + Encounter Details +--------+ + + + + | Date | Type | Department | Care Team | Description | +--------+ + + + + | 01/16/ | Telephone | [facility] | Tomas Benoit, | Abnormal Lab | | 2011 | | [facility] | [address] | | | | | [address] | [place] | | | | | [place] | [address] | | | | | [address] | | | | | | [phone] | | | +--------+ + + + [...] Telephone Encounter - Tomas Benoit MD - 01/17/2012 11:43 AM PDTIssue addressed in diffe rent encounter. elepho ne Encounter - Darline Jay RN - 01/17/2012 11:26 AM PDTPhone call from Eitan at [facility], calling to report a positive Chlamydia. Gonorrhea is negative. Health Dept Form printed and routed to [place]. documented in thi s encounter Plan of [...]
--- OUTSIDE RECORDS SUMMARY | ~2019-12-21 | XMS | Encounter Summary ---
Demographics + + + | Address | [address] | | | [place] [address] | + + + | Home Phone [...] [place] | | | | | [address] | | + + + + + | Jovita Luna | ECON | [address] | | | | | [place] [address] | | + + + + + Care Team Providers + +------+ + | Care Feeder Worker Power Unit Operator Name | Role | Phone | + +------+ + | Tomas Benoit MD | PCP | | + +------+ + Reason for Visit + + + | Reason | Comments | + + + | Routine | 32 weeks tdap today | | Visit | | + + + Encounter Details +--------+ + + + + | Date | Type | Department | Care Team | Description | +--------+ + + + + | 06/21/ | Routine | [facility] | Tomas Benoit, | GA: [id number] | | 2012 | | [facility]IC[facility] [place] | [address] | | | | | [address] | [place] | | | | | [place] | [address] | | | | | [address] | | | | | | [phone] | | | +--------+ + + + [...] + + + | Blood Pressure | 112/68 | 06/21/2012 11:23 AM | | | | | PST | | + + + + + | Pulse | 76 | 06/21/2012 11:23 AM | | | | | PST | | + + + + + | Temperature | - | - | | + + + + + | Respiratory Rate | 16 | 06/21/2012 11:23 AM | | | | | PST | | + + + + + | Oxygen Saturation | - | - | | + + + + + | Inhaled Oxygen | - | - | | | Concentration | | | | + + + + + | Weight | 79.6 kg (175 lb 8 | 06/21/2012 11:23 AM | | | | oz) | PST | | + + + + + | Height | - | - | | + + + + + | Body Mass Index | 28.76 | 06/01/2012 10:15 AM | | | | | PST | | + + + + + documented in this encounter Progress Notes Tomas Benoit MD - 06/21/2012 11:33 AM PSTTDaP vaccination given today at appt. CBC and one hour glucola were normal. documented in this encounter Plan of [...] first | + + | Need for Tdap vaccination Need for prophylactic vaccination with combined | | visgznuttv-qdnqhdq-ijjsaqswr (DTP) vaccine | + + documented in this encounter"
--- OUTSIDE RECORDS SUMMARY | ~2019-12-21 | XMS | Encounter Summary ---
Demographics + + + | Address | [address] | | | [place] [address] | + + + | Home Phone [...] Dong | ECON | [address] [facility] | | | | | [place] | | | | | [address] | | + + + + + | Jovita Luna | ECON | [address] | | | | | [place] [address] | | + + + + + Care Team Providers + +------+ + | Care Parts Classifier Name | Role | Phone | + +------+ + | Tomas Benoit MD | PCP | | + +------+ + Reason for Visit + + + | Reason | Comments | + + + | Annual Exam | no pap | + + + Encounter Details +--------+---------+ + + + | Date | Type | Department | Care Team | Description | +--------+---------+ + + + | 08/02/ | Office | [facility] | Tomas Benoit, | Annual physical exam | | 2017 | Visit | [facility] [place] | [address] | (Primary Dx); | | | | [address] | [place], [place] | Depression with | | | | [place], [place] | [address] | anxiety; Asthma, | | | | [address] | | exercise induced; | | | | [phone] | | Vitamin D | | | | | | deficiency; Need for | | | | | | 23-polyvalent | | | | | | pneumococcal | | | | | | polysaccharide | | | | | | vaccine | +--------+---------+ + + + Social History [...] + | Blood Pressure | 122/76 | 08/02/2016 3:27 PM | | | | | PDT | | + + + + + | Pulse | 75 | 08/02/2016 3:27 PM | | | | | PDT | | + + + + + | Temperature | 36.7 C (98.1 F) | 08/02/2016 3:27 PM | | | | | PDT | | + + + + + | Respiratory Rate | 16 | 08/02/2016 3:27 PM | | | | | PDT | | + + + + + | Oxygen Saturation | 97% | 08/02/2016 3:27 PM | | | | | PDT | | + + + + + | Inhaled Oxygen | - | - | | | Concentration | | | | + + + + + | Weight | 79.8 kg (176 lb) | 08/02/2016 3:27 PM | | | | | PDT | | + + + + + | Height | 164.5 cm (5' 4.75") | 08/02/2016 3:27 PM | | | | | PDT | | + + + + + | Body Mass Index | 29.51 | 08/02/2016 3:27 PM | | | | | PDT | | + + + + + documented in this encounter Patient Instructions Patient Instructions Hema Shukla Cert MA - 08/02/2016 3:53 PM PDTCan try new antidep ressant Can try mood stabilizer Can refer to psychiatry 3:5 4 PM PDT documented in this encounter Progress Notes Hema Shukla Cert MA - 08/02/2016 4:42 PM PDTAfter obtaining informed consent, the im munization is given by CK BARNARD. Tomas Olivas MD - 08/02/2016 3:12 PM PDT Jovita Grey is a 26 y.o. female Chief Complaint: Annual Exam HPI Annual Exam: Patient presents for annual exam. The patient is not currently sexually active. last pap: was normal Patient's last menstr ual period was 07/13/2016. control: OCP Breast lumps or tenderness: none Vaginal pain or discharge: none Last pap: 2014 History of abnormal Pap: none STD screening: Declines Mammogram: Not indicated Colonoscopy: Not indicated The patient has regular exercise: yes. The patient reports that domestic violence in her life is absent. The patient wears seatbelts: yes. Complaints: See below Immunizations: Immunization History Administered Date(s) Administered HPV, QUADRIVALENT, 3 DOSE (ADOL/ADULT) 12/14/2005, 11/30/2007, 02/13/2008 INFLUENZA PF 18 Y OR >,TRIVALENT RECOMBINANT 04/14/2012 MENINGOCOCCAL CONJUGATE,MENACTRA (PED/ADOL/ADULT) 12/11/2008 PNEUMOCOCCAL POLYSACCHARIDE 23-VALENT (PPSV23) 08/02/2016 TDAP, (ADOL/ADULT) 05/26/2005, 06/21/2012 VARICELLA, 2 DOSE (PED/ADOL/ADULT) 01/12/2012 Depression/Anxiety: Patient is here for follow-up of Depression and anxiety. She feels like her moods are incre asing in the past 7 months. She stopped taking her Zoloft 5 months ago which has increased t he moods even more. Onset: Ongoing She has the following depression symptoms: anhedonia, depressed mood, difficulty concentrat ing, fatigue, feelings of worthlessness/guilt, hopelessness, insomnia and recurrent thoughts of She denies the following symptoms: hypersomnia, impaired memory, psychomotor agitation, psy chomotor retardation, suicidal attempt, suicidal thoughts with specific plan and suicidal th oughts without plan She complains of the following anxiety symptoms: feeling nervous, anxious, not able to stop worrying, worrying too much, having trouble relaxing, being restless/hard to sit still, eas johanny annoyed or irritable and feeling afraid something bad might happen Symptoms are worsening Sleep Disturbance: Yes Are you currently in counseling: no Treatments Tried: Zoloft 50 mg as of November 2014 but stopped about 5 months ago due to not liking the way it made her feel. Have they been effective: Sometimes She has a strong family history of Bipolar Disorder and with Schizoaffective Disorder PHQ-9 score: 17 DELFINO-7 score: 18 MDQ Score: 6 Asthma She currently uses her Albuterol 15-20 minutes before exercise She reports triggers are burn season, and winter time She is not currently exacerbated PREVENTIVE CARE/PRIOR VISIT 1. Any recommendations from Health Maintenance: none Preventative Services TOPIC LAST DONE NEXT DUE Influenza Imm (Yearly) 04/14/2012 12/24/2016 Cervical Cancer Screening (Pap Every 3 Years 21-64 ) 12/24/2014 12/24/2017 Dtap/Tdap/Td Imm 06/21/2012 06/21/2022 Hpv Imm 02/13/2008 Pneumo Imm Ppsv23 07/15/2010 2. Any immunizations necessary: none Immunization History Administered Date(s) Administered HPV, QUADRIVALENT, 3 DOSE (ADOL/ADULT) 12/14/2005, 11/30/2007, 02/13/2008 INFLUENZA PF 18 Y OR >,TRIVALENT RECOMBINANT 04/14/2012 MENINGOCOCCAL CONJUGATE,MENACTRA (PED/ADOL/ADULT) 12/11/2008 PNEUMOCOCCAL POLYSACCHARIDE 23-VALENT (PPSV23) 08/02/2016 TDAP, (ADOL/ADULT) 05/26/2005, 06/21/2012 VARICELLA, 2 DOSE (PED/ADOL/ADULT) 01/12/2012 3. Has patient been involved in medical events/hospitalizations since their last visit: no No Known Allergies Medications: Patient Reported Taking Dosage acetaminophen (TYLENOL) 500 mg tablet (Taking) Take 500 mg by mouth every 4 hours as need ed. Number of times this order has been changed since signin Order Audit [place] albuterol 90 mcg/puff inhaler (Taking) Inhale 2 puffs into the lungs every 4 hours as nee ded for Wheezing or Shortness of Breath. inhale 2 puffs 5-30 minutes prior to exercise Number of times this order has been changed since signin Order Audit [place] desogestrel-ethinyl estradiol (JULEBER) 0.15-30 MG-MCG per tablet (Taking) take 1 tablet by mouth once daily sertraline (ZOLOFT) 50 mg tablet (Taking) Take 1 tablet by mouth Daily. Number of times this order has been changed since signin Order Audit [place] Past Medical History She has a past [...] Social History: Social History Social History Marital Status: Single Spouse Name: REECE Number of Children: 0 Years of Education: N/A Occupational History [employer] Social History Main Topics Smoking status: Never Smoker Smokeless tobacco: Former User Types: Chew Alcohol Use: No Drug Use: No Sexual Activity: No Other Topics Concern None Social History Narrative Marital Status:single Children: 0 Occupation:Works for [employer] FOB: ELIAS [place] [employer] Constitutional: Negative for fever and chills. HENT: Positive for rhinorrhea. Negative for congestion and sore throat. Eyes: Positive for discharge and itching. Respiratory: Negative for cough, shortness of breath and wheezing. Cardiovascular: Negative for chest pain and palpitations. Gastrointestinal: Negative for vomiting, abdominal pain, diarrhea and constipation. Genitourinary: Negative for dysuria, urgency, frequency and difficulty urinating. Musculoskeletal: Negative for back pain and neck pain. Skin: Negative for rash. Generalized itching Allergic/Immunologic: Positive for environmental allergies. Neurological: Positive for headaches. Negative for dizziness and syncope. Psychiatric/Behavioral: Positive for suicidal ideas (no plans), sleep disturbance and dysph oric mood. Negative for self-injury. The patient is nervous/anxious. Objective: Filed Vitals: 08/02/16 1527 BP: 122/76 Pulse: 75 Temp: 36.7 C (98.1 F) TempSrc: Temporal Resp: 16 Height: 1.645 m (5' 4.75") Weight: 79.833 kg (176 lb) SpO2: 97% Physical Exam Constitutional: She is oriented to [...] has no wheezes. She has no rales. She exhibits no deformity. Right breast exhibits no inverted nipple, no mass, no nipple discharge, no skin change and no tenderness. Left breast exhibits no inverted nipple, no mass, no nipple discharge, no skin change and no tenderness. Breasts are symmetrical. Exam was chaperoned by team care staff Abdominal: Soft. Bowel sounds are normal. She [...] content normal. Nursing note and vitals reviewed. Results for orders placed or performed in visit on 07/24/15 Herpes Simplex Virus Ab, IgM, EIA Result Value Ref Range HSV 1 and 2 Ab, IgM 1.42 (A) 0.89 - 1.10 Assessment: 1. Annual physical exam 2. Depression with anxiety 3. Asthma, exercise induced Pneumococcal polysaccharide vaccine 23-valent greater than or equal to 2yo subcutaneous/IM [53789] 4. Vitamin D deficiency Vitamin D, 25-Hydroxy 5. Need for 23-polyvalent pneumococcal polysaccharide vaccine Pneumococcal polysaccharide vaccine 23-valent greater than or equal to 2yo subcutaneous/IM [[id number]] Plans: 1. Annual physical exam Healthy habits discussed, including regular breast exams, proper calcium intake, exercise. Reviewed need for age appropriate screening examinations and vaccines. Ordered if appropria te. Follow-up one year for next exam. 2. Depression with anxiety Reviewed with patient that she was previously diagnosed with depression with anxiety. She d oes have 2 primary family members with bipolar disorder. Her Mood Questionnaire was indeterm inate for mood disorder. Discussed options to include referral to psychiatry or try new medication (different SSRI) Patient will contact us when she decides what she would like to do Denies HI and does have some SI and contracted for safety. Provided phone number for [place] ([phone]) and informed to go to [facility] ED for psych evaluation in the event th ey become a harm to themselves or anyone else. 3. Asthma, exercise induced Stable on current medications 4. Vitamin D deficiency Labs ordered. Will notify of results as they are available. - Vitamin D, 25-Hydroxy; Future 5. Need for 23-polyvalent pneumococcal polysaccharide vaccine Immunization counseling discussed by myself and updated today - Pneumococcal polysaccharide vaccine 23-valent greater than or equal to 2yo subcutaneous/I M [[id number]] Follow-up: Return if symptoms worsen or fail to improve. I, Mulu DE [place] MA, am acting as a scribe on behalf of, and in the presence of MD HEMA Bernard Cert MA 08/02/16 I, Tomas Benoit MD, personally performed the services described in this documentation, as scribed in my presence and it is both accurate and complete. Tomas Benoit MD 08/02/16 documented in this en counter Plan of Treatment +--------+---------+ + + + | Date | Type | Specialty | Care Team | Description | +--------+---------+ + + + | 01/30/ | Office | Family Medicine | Toams Benoit, | | | 2019 | Visit [...] | | + +------+--------+ + + | Vitamin D, | Lab | Routin | Vitamin D | 1 Occurrences | | 25-Hydroxy | | e | deficiency | starting 08/02/2016 | | | | | | until 08/02/2017 | + +------+--------+ + + documented as of this encounter Visit Diagnoses + + | Diagnosis | + + | Annual physical exam - Primary Routine general medical examination at [facility] | | facility | + + | Depression with anxiety Dysthymic disorder | + + | Asthma, exercise induced Exercise induced bronchospasm | + + | Vitamin D deficiency Unspecified vitamin D deficiency | + + | Need for 23-polyvalent pneumococcal polysaccharide vaccine | + + documented in this encounter
--- OUTSIDE RECORDS SUMMARY | ~2019-12-21 | XMS | Encounter Summary ---
Demographics + + + | Address | [address] | | | [place] [address] | + + + | Home Phone [...] Dong | ECON | [address] [facility] | | | | | [place] | | | | | [address] | | + + + + + | Jovita Luna | ECON | [address] | | | | | [place] [address] | | + + + + + Care Team Providers + +------+ + | Care Museum Registrar Name | Role | Phone | + [...] [address] | | | | | [place], [place] | [address], [place] | | | | | [address] | [address] | | | | | [phone] | | | +--------+ + + + [...] [place] | | | | | | [address] | | | | | | | | +--------+---------+ + + + documented as of this encounter Procedures + +--------+ + + + | Procedure Name | Priori | Date/Time | Associated Diagnosis | Comments | | | ty | | | | + +--------+ + + + | GLUCOSE TOLERANCE | Routin | 08/31/2019 | | Results for this | | TEST,2HR | e | | | procedure are in the | | | | | | results section. | + +--------+ + + + documented in this encounter Results Glucose Tolerance Test, 2Hr (08/31/2019) + +-------+ + + + | Component | Value | Ref Range | Performed | Pathologist | | | | | At | Signature | + +-------+ + + + | Glucose, | 79 | 60 - 92 mg/dL | REFERENCE | | | Fasting | | | LAB | | | | | | [facility] | | + +-------+ + + + | Glucose, | 84 | 180 mg/dL | REFERENCE | | | 1hr | | | LAB | | | | | | [facility] | | + +-------+ + + + | Glucose, | 85 | 153 mg/dL | REFERENCE | | | 2hr | | | LAB | | | | | | [facility] | | + +-------+ + + + + + | Specimen | + + | Blood | + + + + + + + | Performing | Address | City/State/Zipcode | Phone Number | | Organization | | | | + + + + + | REFERENCE LAB | [address] [facility] | [place] | [phone] | | [facility] | | [address] | | + + + + + documented in this encounter Visit Diagnoses Not on filedocumented in this encounter"
--- OUTSIDE RECORDS SUMMARY | ~2019-12-21 | XMS | Encounter Summary ---
Demographics + + + | Address | [address] | | | [place] [address] | + + + | Home Phone [...] [place] | | | | | [address] | | + + + + + | Jovita Luna | ECON | [address] | | | | | [place] [address] | | + + + + + Care Team Providers + +------+ + | Care Planning Associate Name | Role | Phone | + +------+ + | Tomas Benoit MD | PCP | | + +------+ + Reason for Visit +---------+--------+ + | Reason | Onset | Comments | | | Date | | +---------+--------+ + | Results | 07/23/ | | | | 2015 | | +---------+--------+ + Encounter Details +--------+ + + + + | Date | Type | Department | Care Team | Description | +--------+ + + + + | 07/23/ | Telephone | [facility] | Tomas Benoit, | Results | | 2015 | | MEDICINE [place] | [address] | | | | | [address] | [place] | | | | | [place] | [address] | | | | | [address] | | | | | | [phone] | | | +--------+ + + + [...] - Ana Paula Shukla Cert MA - 07/24/2015 5:40 PM PDTPatient notified.E lectronically signed by Mulu Moss MA at 07/24/2015 5:41 PM PDTTelephone Encount er - Tomas Benoit MD - 07/24/2015 5:32 PM PDTPlease let Jovita know that 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 (Where ever the lesion was) T his is the virus that causes cold sores. Electronically signed by Tomas Benoit MD at 5:34 PM PDTdocumented in this encounter Plan of [...]
--- OUTSIDE RECORDS SUMMARY | ~2019-12-21 | XMS | Encounter Summary ---
Demographics + + + | Address | [address] | | | [place] [address] | + + + | Home Phone | | + + + | Preferred Language | Unknown | + + + | Marital Status | Single | + + + | Shinto Affiliation | Unknown | + + + | Race | Black or | + + + | Ethnic Group | Not or | + + + Author + + + | Author | [facility] | | | and [place] | + + + | Organization | [facility] | | | and [place] | + + + | Address | Unknown | + + + | Phone | Unavailable | + + + Support + + + + + | Name | Relationship | Address | Phone | + + + + + | Zo Dong | ECON | [address] [facility] | | | | | [place] | | | | | [address] | | + + + + + | Jovita Luna | ECON | [address] | | | | | [place] [address] | | + + + + + Care Team Providers + +------+ + | Care Electrophysiology Nurse Practitioner Name | Role | Phone | + +------+ + | Tomas Benoit MD | PCP | | + +------+ + Reason for Visit + + + | Reason | Comments | + + + | Routine | 39 weeks | | Visit | | + + + Encounter Details +--------+ + + + + | Date | Type | Department | Care Team | Description | +--------+ + + + + | 08/09/ | Routine | [facility] | Tomas Benoit, | [place]: 39w0d | | 2012 | | MEDICINE [place] | [address] | | | | | [address] | [place] | | | | | [place] | [address] | | | | | [address] | | | | | | [phone] | | | +--------+ + + + [...] + + + | Blood Pressure | 130/78 | 08/09/2012 4:32 PM | | | | | PDT | | + + + + + | Pulse | 100 | 08/09/2012 4:32 PM | | | | | PDT | | + + + + + | Temperature | - | - | | + + + + + | Respiratory Rate | 18 | 08/09/2012 4:32 PM | | | | | PDT | | + + + + + | Oxygen Saturation | - | - | | + + + + + | Inhaled Oxygen | - | - | | | Concentration | | | | + + + + + | Weight | 92.1 kg (203 lb 1.6 | 08/09/2012 4:32 PM | | | | oz) | PDT | | + + + + + | Height | - | - | | + + + + + | Body Mass Index | 33.28 | 06/01/2012 10:15 AM | | | | | PST | | + + + + + documented in this encounter Progress Notes Tomas Benoit MD - 08/09/2012 5:28 PM PDTNo significant contractions. Body not ready fo r delivery. Induction too high risk. Will check again next week. documented in this encounter Plan [...]
--- OUTSIDE RECORDS SUMMARY | ~2019-12-21 | XMS | Encounter Summary ---
Demographics + + + | Address | [address] | | | [place] [address] | + + + | Home Phone [...] [place] | | | | | [address] | | + + + + + | Jovita Luna | ECON | [address] | | | | | [place] [address] | | + + + + + Care Team Providers + +------+ + | Care Collections Professional Name | Role | Phone | + [...] + + | 11/19/ | Routine | [facility] | Casi Mccloud, | [place]: 37w2d | | 2020 | | MEDICINE [place] | [address] | | | | | [address] | [place] | | | | | [place] | [address] | | | | | [address] | | | | | | [phone] | | | +--------+ + + + [...] + | Blood Pressure | 112/68 | 11/20/2019 3:49 PM | | | | | PDT | | + + + + + | Pulse | 90 | 11/20/2019 3:49 PM | | | | | PDT | | + + + + + | Temperature | 36.4 C (97.6 F) | 11/20/2019 3:49 PM | | | | | PDT | | + + + + + | Respiratory Rate | 16 | 11/20/2019 3:49 PM | | | | | PDT | | + + + + + | Oxygen Saturation | 98% | 11/20/2019 3:49 PM | | | | | PDT | | + + + + + | Inhaled Oxygen | - | - | | | Concentration | | | | + + + + + | Weight | 102.6 kg (226 lb 3.1 | 11/20/2019 3:49 PM | | | | oz) | PDT | | + + + + + | Height | 167.6 cm (5' 6") | 11/20/2019 3:49 PM | | | | | PDT | | + + + + + | Body Mass Index | 36.51 | 11/20/2019 3:49 PM | | | | | PDT | | + + + + + documented in this encounter Progress Notes Casi Mccloud MD - 11/20/2019 3:30 PM PDTNo new concerns. GBS positive, she is famili ar with this since was also positive in her last , able to use penicillin. Good fe nohemi movement. Occasional George-Patel, but no pattern. No swelling. RTC 1 week for next visit as scheduled.Electronically signed by Casi Mccloud MD at 10/25 11:40 AM PDTdocumented in this encounter Plan [...] [place] | | | | | | [address] | | | | | | | | +--------+---------+ + + + documented as of this encounter Visit Diagnoses + + | Diagnosis | + + | Normal in third trimester - Primary | + + | GBS (group B Streptococcus carrier), +RV culture, currently Supervision of | | other high-risk | + + documented in this encounter
--- OUTSIDE RECORDS SUMMARY | ~2019-12-21 | XMS | Encounter Summary ---
Demographics + + + | Address | [address] | | | [place] [address] | + + + | Home Phone [...] [place] | | | | | [address] | | + + + + + | Jovita Luna | ECON | [address] | | | | | [place] [address] | | + + + + + Care Team Providers + +------+ + | Care Stringed Instrument Repairer Name | Role | Phone | + +------+ + | Tomas Benoit MD | PCP | | + +------+ + Encounter Details +--------+ + + + + | Date | Type | Department | Care Team | Description | +--------+ + + + + | 06/14/ | Orders Only | [facility] | Carly Mares | | | 2016 | | MEDICINE [place] | [place] | | | | | [address] | | | | | | [place] | | | | | | [address] | | | | | | [phone] | | | +--------+ + + + [...] 2019 | Visit | | MD [address] | | | | | | [place] | | | | | | [phone] | | | | | | | | +--------+---------+ + + + documented as of this encounter Visit Diagnoses Not on filedocumented in this encounter"
--- OUTSIDE RECORDS SUMMARY | ~2019-12-21 | XMS | Encounter Summary ---
Demographics + + + | Address | [address] | | | [place] [address] | + + + | Home Phone | | + + + | Preferred Language | Unknown | + + + | Marital Status | Single | + + + | Taoism Affiliation | Unknown | + + + | Race | Black or | + + + | Ethnic Group | Not or | + + + Author + + + | Author | [facility] | | | and [place] | + + + | Organization | [facility] | | [...] [place] | | | | | [address] | | + + + + + | Jovita Luna | ECON | [address] | | | | | [place] [address] | | + + + + + Care Team Providers + +------+ + | Care Railway Signalling Engineer Name | Role | Phone | + +------+ + | Tomas Benoit MD | PCP | | + +------+ + Reason for Visit + + + | Reason | Comments | + + + | Routine | 28 weeks | | Visit | | + + + Encounter Details +--------+ + + + + | Date | Type | Department | Care Team | Description | +--------+ + + + + | 09/17/ | Routine | [facility] | Tomas Benoit, | [place]: 282d | | 2020 | | MEDICINE [place] | [address] | | | | | [address] | [place] | | | | | [place] | [address] | | | | | [address] | | | | | | [phone] | | | +--------+ + + + [...] + + + | Blood Pressure | 110/64 | 09/18/2019 10:38 AM | | | | | PDT | | + + + + + | Pulse | 110 | 09/18/2019 10:38 AM | | | | | PDT | | + + + + + | Temperature | 36.4 C (97.5 F) | 09/18/2019 10:38 AM | | | | | PDT | | + + + + + | Respiratory Rate | 17 | 09/18/2019 10:38 AM | | | | | PDT | | + + + + + | Oxygen Saturation | 97% | 09/18/2019 10:38 AM | | | | | PDT | | + + + + + | Inhaled Oxygen | - | - | | | Concentration | | | | + + + + + | Weight | 94.2 kg (207 lb 10.8 | 09/18/2019 10:38 AM | | | | oz) | PDT | | + + + + + | Height | - | - | | + + + + + | Body Mass Index | 34.56 | 06/12/2019 9:31 AM | | | | | PST | | + + + + + documented in this encounter Progress Notes Tomas Benoit MD - 09/18/2019 10:30 AM PDTPatient has been having some tenderness arlene g sensation around the umbilicus. Palpated that area today. Patient has a very small umbil ical hernia and mostly on the area of tenderness it feels like probably from stretching of t he linea alba. She does indeed have some diastases rectus. Also having some aching in her lower right pelvic region. On palpation her uterus is nonte nder. She is having a bowel movement about every other day. Reviewed that she can use as m uch docusate sodium if she needs in order to keep her bowel movements soft. Could also be r ight round ligament pain. Otherwise going well. She reports the baby is moving well. No signs of labor. Tdap vaccination given today. Previous blood work reviewed with patient which showe d normal CBC and 2-hour Glucola. Tomas Benoit MD 09/18/2019 documented in this en counter Plan of Treatment +--------+---------+ + + + | Date | Type | Specialty | Care Team | Description | +--------+---------+ + + + | 01/30/ | Office | Family Medicine | BenoitTomas, | | | 2019 | Visit | | MD [address] | | | | | | [place] | | | | | | [address] | | | | | | | | +--------+---------+ + + + documented as of this encounter Visit Diagnoses + + | Diagnosis | + + | Normal in first trimester - Primary | + + | Need for vaccination Need for prophylactic vaccination and inoculation against | | unspecified single disease | + + documented in this encounter"
--- OUTSIDE RECORDS SUMMARY | ~2019-12-21 | XMS | Encounter Summary ---
Demographics + + + | Address | [address] | | | [place] [address] | + + + | Home Phone | | + + + | Preferred Language | Unknown | + + + | Marital Status | Single | + + + | Synagogue Affiliation | Unknown | + + + | Race | Black or | + + + | Ethnic Group | Not or | + + + Author + + + | Author | [facility] | | | and [place] | + + + | Organization | [facility] | | | [...] [place] | | | | | [address] | | + + + + + | Jovita Luna | ECON | [address] | | | | | [place] [address] | | + + + + + Care Team Providers + +------+ + | Care Sole Splitter Name | Role | Phone | + +------+ + | Tomas Benoit MD | PCP | | + +------+ + Encounter Details +--------+ + + + + | Date | Type | Department | Care Team | Description | +--------+ + + + + | 07/22/ | Abstract | [facility] | Tomas Benoit, | | | 2015 | | MEDICINE [place] | [address] | | | | | [address] | [place] | | | | | [place] | [address] | | | | | [address] | | | | | | [phone] | | | +--------+ + + + [...] [place] | | | | | | [address] | | | | | | | | +--------+---------+ + + + documented as of this encounter Procedures + +--------+ + + + | Procedure Name | Priori | Date/Time | Associated Diagnosis | Comments | | | ty | | | | + +--------+ + + + | HSV, 1 & 2 SPECIFIC | Routin | 07/22/2015 | | Results for this | | AB IGG | e | | | procedure are in the | | | | | | results section. | + +--------+ + + + documented in this encounter Results HSV, 1+2 Specific AB IgG (07/22/2015) + + + + + + | Component | Value | Ref Range | Performed | Pathologist | | | | | At | Signature | + + + + + + | HSV 1 Ab, | 17.3Comment: <1.0 | | | | | IgG | reference range | | | | + + + + + + | HSV 2 Ab | 0.0823Comment: <1.0 | | | | | IgG | reference range | | | | + + + + + + + + | Specimen | + + | Blood specimen | | (specimen) | + + documented in this encounter Visit Diagnoses Not on filedocumented in this encounter"
--- OUTSIDE RECORDS SUMMARY | ~2019-12-21 | XMS | Encounter Summary ---
Demographics + + + | Address | [address] | | | [place] [address] | + + + | Home Phone [...] Organization | [facility] | | | and [place] | + + + | Address | Unknown | + + + | Phone | Unavailable | + + + Support + + + + + | Name | Relationship | Address | Phone | + + + + + | Zo Dong | ECON | [address] [facility] | | | | | [place] | | | | | [address] | | + + + + + | Jovita Luna | ECON | [address] | | | | | [place] [address] | | + + + + + Care Team Providers + +------+ + | Care Balance Clerk Name | Role | Phone | + +------+ + | Tomas Benoit MD | PCP | | + +------+ + Reason for Visit + +--------+ + | Reason | Onset | Comments | | | Date | | + +--------+ + | Appointment | 08/21/ | | | | 2018 | | + +--------+ + Encounter Details +--------+ + + + + | Date | Type | Department | Care Team | Description | +--------+ + + + + | 08/21/ | Telephone | [facility] | Tomas Benoit, | Appointment | | 2018 | | MEDICINE [place] | [address] | | | | | [address] | [place] | | | | | [place] | [address] | | | | | [address] | | | | | | [phone] | | | +--------+ + + + [...] Telephone Encounter - Darline Jay RN - 08/21/2018 3:16 PM PDTDue for annual exam and follow-up on medications. [...]
--- OUTSIDE RECORDS SUMMARY | ~2019-12-21 | XMS | Encounter Summary ---
Demographics + + + | Address | [address] | | | [place] [address] | + + + | Home Phone [...] Author + + + | Author | [facility] | | | and [place] | + + + | Organization | [facility] | | | and [place] | + + + | Address | Unknown | + + + | Phone | Unavailable | + + + Support + + + + + | Name | Relationship | Address | Phone | + + + + + | Zo Dong | ECON | [address] [facility] | | | | | [place] | | | | | [address] | | + + + + + | Jovita Luna | ECON | [address] | | | | | [place] [address] | | + + + + + Care Team Providers + +------+ + | Care Scientific Specialist Name | Role | Phone | [...] Description | +--------+--------+ + + + | 11/14/ | Refill | [facility] | Tomas Benoit, | Medication Refill | | 2015 | | [facility] | [address] | | | | | [address] | [place] | | | | | [place] | [address] | | | | | [address] | | | | | | [phone] | | | +--------+--------+ + + + [...] [place] | | | | | | [id number] | | | | | | | | +--------+---------+ + + + documented as of this encounter Visit Diagnoses Not on filedocumented in this encounter"
--- OUTSIDE RECORDS SUMMARY | ~2019-12-21 | XMS | Encounter Summary ---
Demographics + + + | Address | [address] | | | [place] [address] | + + + | Home Phone [...] Author + + + | Author | [facility] | | | and [place] | + + + | Organization | [facility] | | [...] [place] | | | | | [address] | | + + + + + | Jovita Luna | ECON | [address] | | | | | [place] [address] | | + + + + + Care Team Providers + +------+ + | Care Mangle Press Catcher Name | Role | Phone | + +------+ + | Tomas Benoit MD | PCP | | + +------+ + Reason for Visit + +--------+ + | Reason | Onset | Comments | | | Date | | + +--------+ + | Appointment | 04/02/ | Soon | | | 2018 | | + +--------+ + Encounter Details +--------+ + + + + | Date | Type | Department | Care Team | Description | +--------+ + + + + | 04/02/ | Telephone | [facility] | Tomas Benoit, | Appointment (Soon) | | 2019 | | MEDICINE [place] | [address] | | | | | [address] | [place] | | | | | [place] | [address] | | | | | [address] | | | | | | [phone] | | | +--------+ + + + [...] Notes Telephone Encounter - Monae Dong - 04/03/2019 9:08 AM PSTPatient was scheduled with Hollie bravo tomorrow. elephone E farnaz - Darline Jay RN - 04/02/2019 4:55 PM PSTIf no opening with Dr Benoit, ok to schedule with Dr Benoit's partner. Electronically signed by Darline Jay RN at 4:56 PM PSTTelephone Encounter - Heidy Ledezma - 04/02/2019 11:20 AM PSTShdeandra pachecod patient has been having issues with abdominal pain and discomfort due to constipation f or the last 3-4 weeks. She stated patient takes over the counter medication for the constipa tion but is requesting to get seen as soon as possible to hopefully figure out the underlyin g cause. Please advise docu mented in this encounter Plan of [...] [place] | | | | | | [address] | | | | | | | | +--------+---------+ + + + documented as of this encounter Visit Diagnoses Not on filedocumented in this encounter"
--- OUTSIDE RECORDS SUMMARY | ~2019-12-21 | XMS | Encounter Summary ---
Demographics + + + | Address | [address] | | | [place] [address] | + + + | Home Phone | | + + + | Preferred Language | Unknown | + + + | Marital Status | Single | + + + | Worship Affiliation | Unknown | + + + [...] [place] | | | | | [address] | | + + + + + | Jovita Luna | ECON | [address] | | | | | [place] [address] | | + + + + + Care Team Providers + +------+ + | Care Lieutenant Ballistics Name | Role | Phone | + +------+ + | Tomas Benoit MD | PCP | | + +------+ + Encounter Details +--------+ + + + + | Date | Type | Department | Care Team | Description | +--------+ + + + + | 03/22/ | Hospital | [facility] | Tomas Benoit, | Supervision of | | 2011 - | Encounter | [facility] | [address] | normal first | | | | [address] | [place] | | | 03/24/ | | [place] | [address] | | | 2011 | | [address] | | | | | | [phone] | | | +--------+ + + + [...] [place] | | | | | | [address] | | | | | | | | +--------+---------+ + + + documented as of this encounter Procedures + +--------+ + + + | Procedure Name | Priori | Date/Time | Associated Diagnosis | Comments | | | ty | | | | + +--------+ + + + | QUAD SCREEN (PAML) | Routin | 03/22/2012 | | Results for this | | | e | 4:06 PM | | procedure are in the | | | | PST | | results section. | + +--------+ + + + | QUAD SCREEN (PAML) | Routin | 03/22/2012 | Supervision of | Results for this | | | e | 4:01 PM | normal first | procedure are in the | | | | PST | | results section. | + +--------+ + + + documented in this encounter Results Quad Screen (03/22/2012 4:06 PM PST) + + + + + + | Component | Value | Ref Range | Performed | Pathologist | | | | | At | Signature | + + + + + + | Gestational | SEE BELOWComment: 17 | () | [facility] | | | Age | weeks 0 day, by U/S | [...] | | | Weight | | | [facility] | | [...] | | Diabetic? | | | [facility] | | [...] | () | [facility] | | | status | | | [facility] | | | | | | MEDICAL | | | | | | CENTER - | | | | | | LABORATORY | | + + + + + + | FAMILY | Negative | () | [facility] | | | HISTORY | | | [facility] | | | | | | MEDICAL | | | | | | CENTER - | | | | | | LABORATORY | | + + + + + + | DS RISK (AT | SEE BELOWComment: less | () | [facility] | | | | than 1:61270 | | [facility] | | | MID-TRIMEST | | | MEDICAL | | | ER) | | | CENTER - | | | | | | LABORATORY | | + + + + + + | DOWN | 1:1170 | () | [facility] | | | SYNDROME | | | [facility] | | | MAT AGE | | | MEDICAL | | | RISK | | | CENTER - | | [...] + + + + + + | Interpretat | SEE BELOWComment: The | () | [facility] | | | ion | risk of Down syndrome is | | [facility] | | | | LESS than the screening | | MEDICAL | | | | cut-off. No follow-up | | CENTER - | | | | is indicated regarding | | LABORATORY | | | | this result. The Down | | | | | | syndrome risk cut-off is | | | | | | 1:190 | | | | + + + + + + | Osb Risk | Negative | () | [facility] | | | | | | [facility] | | | | | | MEDICAL | | | | | | CENTER - | | | | | | LABORATORY | | + + + + + + | OSB Patient | SEE BELOWComment: equal | () | [facility] | | | Risk | to 1:40298 | | [facility] | | | [...] | MEDICAL | | | | for a of | | CENTER - | | | | this gestational age. | | LABORATORY | | | | The risk of an open | | | | | | neural tube defect is | | | | | | less than the screening | | | | | | cut-off. The OSB | | | | | | cut-off is 1:605 (2.50 | | | | | | MoM) | | | | + + + + + + | Trisomy 18 | Negative | () | [facility] | | | (Luis) | | | [facility] | | | Syndrome | | | MEDICAL | | | Interp. | | | CENTER - | | | | | | LABORATORY | | + + + + + + | TRI 18 SCR | SEE BELOWComment: less | () | [facility] | | | RISK EST | than 1:90666 | | [facility] | | | | | | MEDICAL | | | | | | CENTER - | | | | | | LABORATORY | | + + + + + + | Trisomy 18 | SEE BELOWComment: These | () | [facility] | | | (Luis) | results are not | | [facility] | | | Syndrome | consistent with the | | MEDICAL | | | Interp. | pattern seen in | | CENTER - | | | | Trisomy 18 | | LABORATORY | | | | pregnancies. | | | | + + + + + + | | SEE BELOWComment: | () | [facility] | | | RISK | Accuracy of gestational | | [facility] | | | COMMENT | age is essential for | | MEDICAL | | | | valid interpretation. | | CENTER - | | | | A family history for | | LABORATORY | | | | Down syndrome and/or | | | | | | open spina bifida | | | | | | increases the risk for | | | | | | these | | | | | | abnormalities. If a | | | | | | family history for these | | | | | | abnormalities | | | | | | exists, counseling | | | | | | regarding a level II | | | | | | ultrasound and/or | | | | | | amniocentesis is | | | | | | suggested. | | | | + + + + + + | MoM for AFP | 1.36 | () | [facility] | | | | | | ST[facility] [...] + + + + + + | HCG MoM | 0.61 | () | [facility] | [...] + + + + + + | BETA HCG, | 14.9 | () IU/mL | [facility] | | | QUANT | | | [facility] | | | | | | MEDICAL | | | | | | CENTER - | | | | | | LABORATORY | | + + + + + + | DIMERIC | 156.1Comment: Testing | () pg/mL | [facility] | | | INHIBIN A | Performed: [place] | | [facility] | | | | [facility] | | MEDICAL | | | | [place], [address] | | CENTER - | | | | [place] [address] | | LABORATORY | | | | CLIA: [id number] | | | | + + + + + + + + | Specimen | + + | | + + + + + + + | Performing | Address | City/State/Zipcode | Phone Number | | Organization | | | | + + + + + | [facility] | [address] | [place] | [phone] | | [facility] | | [address] | | | - LABORATORY | | | | + + + + + | [facility] | [address] | [place], [place] | | | [facility] | | [address], [place] | | | - LABORATORY | | | | + + + + + Risk, Quad Screen (03/22/2012 4:01 PM PST) + + + + + + | Component | Value | Ref Range | Performed | Pathologist | | | | | At | Signature | + + + + + + | Gestational | SEE BELOWComment: 17 | () | [facility] | | | age | weeks 0 day, by U/S | | [facility] | | | | 03/22/12 | | MEDICAL | | | | | | CENTER - | | | | | | LABORATORY | | + + + + + + | Maternal | 21.1 | () | [facility] | | | age AT GREGOR | | | [facility] | | [...] | | | Status | | | [facility] | | | | | | MEDICAL | | | | | | CENTER - | | | | | | LABORATORY | | + + + + + + | DS Screen | Negative | () | [facility] | | | Result | | | [facility] | | | | | | MEDICAL | | | | | | CENTER - | | | | | | LABORATORY | | + + + + + + | DS RISK (AT | SEE BELOWComment: less | () | [facility] | | | | than 1:79656 | | [facility] | | | MID-TRIMEST | | | MEDICAL | | | [...] [facility] | | | Risk | to 1:82332 | | [facility] | | | [...] | maternal serum AFP | | [facility] | | | ion | result is [...] | | RISK EST | | | [facility] | | | | | | MEDICAL | | | | | | CENTER - | | | | | | LABORATORY | | + + + + + + | T18 Patient | SEE BELOWComment: less | () | [facility] | | | Risk | than 1:65382 | | [facility] | | | [...] | [facility] | | | | Performed: [place] | | [facility] | | | | [facility] | | MEDICAL | | | | [place],[address], | | CENTER - | | | | [place] [address] | | LABORATORY | | | | CLIA: [id number] | | | | + + + + + + + + | Specimen | + + | Blood specimen | | (specimen) | + + + + + + + | Performing | Address | City/State/Zipcode | Phone Number | | Organization | | | | + + + + + | [facility] | [address] | [place] | [phone] | | [facility] | | [address] | | | - LABORATORY | | | | + + + + + | [facility] | [address] | [place], [place] | | | [facility] | | [id number] [place] [address] | | | - LABORATORY | | | | + + + + + documented in this encounter Visit Diagnoses + + | Diagnosis | + + | Supervision of normal first | + + documented in this encounter"
--- OUTSIDE RECORDS SUMMARY | ~2019-12-21 | XMS | Encounter Summary ---
Demographics + + + | Address | [address] | | | [place] [address] | + + + | Home Phone [...] [place] | | | | | [address] | | + + + + + | Jovita Luna | ECON | [address] | | | | | [place] [address] | | + + + + + Care Team Providers + +------+ + | Care Meter Reader Chief Name | Role | Phone | + +------+ + | Tomas Benoit MD | PCP | | + +------+ + Reason for Visit + +--------+ + | Reason | Onset | Comments | | | Date | | + +--------+ + | Headache | | | + +--------+ + | Edema | 12/20/ | | | | 2020 | | + +--------+ + Encounter Details +--------+ + + + + | Date | Type | Department | Care Team | Description | +--------+ + + + + | 12/20/ | Telephone | [facility] | Tomas Benoit, | Headache; Edema | | 2020 | | MEDICINE [place] | [address] | | | | | [address] | [place] | | | | | [place] | [id number] | | | | | [address] | | | | | | [phone] | | | +--------+ + + + [...] Telephone Encounter - Erika Harrison RN - 12/21/2019 3:57 PM PDTReceived call mirlande m patient. Patient calls concerned because she's having some weird symptoms over the last few days. Patient just delivered her baby on 12/18/19. It feels like her heart is racing, her legs feel weird and "floppy", her feet and ankle hav e started swelling, she has a "pretty bad" headache and she is having hot flashes, then chil ls. She denies fever. Advised patient to go to the ER today. Emphasized how important it was that she go in to be seen. She agrees to this plan. documented in this encounter Plan of Treatment [...] [place] | | | | | | [address] | | | | | | | | +--------+---------+ + + + documented as of this encounter Visit Diagnoses Not on filedocumented in this encounter
--- OUTSIDE RECORDS SUMMARY | ~2019-12-21 | XMS | Encounter Summary ---
Demographics + + + | Address | [address] | | | [place] [address] | + + + | Home Phone [...] [place] | | | | | [address] | | + + + + + | Jovita Luna | ECON | [address] | | | | | [place] [address] | | + + + + + Care Team Providers + +------+ + | Care Welder Production Line Arc Name | Role | Phone | + +------+ + | Tomas Benoit MD | PCP | | + +------+ + Reason for Visit + + + | Reason | Comments | + + + | Routine | 38 weeks | | Visit | | + + + Encounter Details +--------+ + + + + | Date | Type | Department | Care Team | Description | +--------+ + + + + | 08/02/ | Routine | [facility] | Tomas Benoit, | GA: [id number] | | 2012 | | MEDICINE [place] | [address] | | | | | [address] | [place] | | | | | [place] | [address] | | | | | [address] | | | | | | [phone] | | | +--------+ + + + [...] + + + | Blood Pressure | 116/78 | 08/02/2012 4:43 PM | | | | | PDT | | + + + + + | Pulse | 72 | 08/02/2012 4:43 PM | | | | | PDT | | + + + + + | Temperature | - | - | | + + + + + | Respiratory Rate | 16 | 08/02/2012 4:43 PM | | | | | PDT | | + + + + + | Oxygen Saturation | - | - | | + + + + + | Inhaled Oxygen | - | - | | | Concentration | | | | + + + + + | Weight | 91.3 kg (201 lb 4.8 | 08/02/2012 4:43 PM | | | | oz) | PDT | | + + + + + | Height | - | - | | + + + + + | Body Mass Index | 32.99 | 06/01/2012 10:15 AM | | | | | PST | | + + + + + documented in this encounter Progress Notes Tomas Benoit MD - 08/02/2012 4:55 PM PDTBaby measuring 3cm above gestational age. Will check cervix next week. Consider induction of cervix is ready. documented in this encounter Plan of Treatment [...]
--- OUTSIDE RECORDS SUMMARY | ~2019-12-21 | XMS | Encounter Summary ---
Demographics + + + | Address | [address] | | | [place] [address] | + + + | Home Phone [...] Dong | ECON | [address] [facility] | | | | | [place] | | | | | [address] | | + + + + + | Jovita Luna | ECON | [address] | | | | | [place] [address] | | + + + + + Care Team Providers + +------+ + | Care Tire Duster Name | Role | Phone | + +------+ + | Tomas Benoit MD | PCP | | + +------+ + Encounter Details +--------+ + + + + | Date | Type | Department | Care Team | Description | +--------+ + + + + | 06/01/ | Hospital | [facility] | Tomas Benoit, | , | | 2013 - | Encounter | MED CTR LAB[facility]ORY | MD [address] | [place] | | | | [address] | [place], [place] | | | 06/03/ | | [facility] [place] | [address] | | | 2012 | | [address] | | | | | | [phone] | | | +--------+ + + + [...] [place] | | | | | | [address] | | | | | | | | +--------+---------+ + + + documented as of this encounter Procedures + +--------+ + + + | Procedure Name | Priori | Date/Time | Associated Diagnosis | Comments | | | ty | | | | + +--------+ + + + | ABO RH | Routin | 06/01/2012 | | Results for this | | | e | 11:53 AM | | procedure are in the | | | | PST | | results section. | + +--------+ + + + | ABO RH | Routin | 06/01/2012 | | Results for this | | | e | 11:53 AM | | procedure are in the | | | | PST | | results section. | + +--------+ + + + | GESTATIONAL GLUCOSE | Routin | 06/01/2012 | | Results for this | | TEST, 1HR | e | 11:51 AM | | procedure are in the | | | | PST | | results section. | + +--------+ + + + | ABO RH | Routin | 06/01/2012 | | Results for this | | | e | 11:51 AM | | procedure are in the | | | | PST | | results section. | + +--------+ + + + | CBC WITH | Routin | 06/01/2012 | | Results for this | | DIFFERENTIAL | e | 11:51 AM | | procedure are in the | | | | PST | | results section. | + +--------+ + + + | CBC WITH | Routin | 06/01/2012 | , | Results for this | | DIFFERENTIAL | e | 10:56 AM | [place] | procedure are in the | | | | PST | | results section. | + +--------+ + + + documented in this encounter Results MICAELA Rh (06/01/2012 11:53 AM PST) + +-------+ + + + | Component | Value | Ref Range | Performed | Pathologist | | | | | At | Signature | + +-------+ + + + | ABO | OP | | [facility] | | | | [...] + | [facility] | [address] | [place] | [phone] | | [facility] | | [address] | | | - LABORATORY | | | | + + + + + | [facility] | [address] | [place], [place] | | | [facility] | | [id number] [place] [address] | | | - LABORATORY | | | | + + + + + ABO Rh (06/01/2012 11:53 AM PST) + + | Specimen | + + | | + + + + + | Narrative | Performed At | + + + | | [facility] | | | [facility] | | RUN DATE: 06/01/12 [facility] | | [facility] LAB LIVE PAGE 1 RUN | - LABORATORY | | TIME: [id number] Specimen Inquiry | | | | | | PATIENT: JOVITA GREY | | | ACCT: [id number] LOC: [facility] U: [id number] | | | AGE/SX: 21/F | | | ROOM: RE06/01/[address]: Tomas Benoit MD | | | : 1990 BED: DIS: | | | STATUS: REG CLI | | | TLOC: | | | | | | SPEC #: [id number] ОЛЬГА: | | | 06/01/12 STATUS: COMP REQ #: [id number] | | | RECD: 06/01/12 SUBM | | | DR: Tomas Benoit MD ENTERED: 06/01/12 | | | OTHR DR: ORD PRODS: (NO ORDERED PRODUCTS) | | | ORD TESTS: ABO/Rh Type | | | | | | Test Result | | | Flag Reference | | | | | | ABO/Rh Type Blood | | | Type O POS | | | | | | | | | | | | END OF REPORT | | | | | + + + + + + + + | Performing | Address | City/State/Zipcode | Phone Number | | Organization | | | | + + + + + | [facility] | [address] | [place] | [phone] | | [facility] | | [address] | | | - LABORATORY | | | | + + + + + | [facility] | [address] | [place] | | | [facility] | | [address] | | | - LABORATORY | | | | + + + + + ABO Rh (06/01/2012 11:51 AM PST) + + + + + + | Component | Value | Ref Range | Performed | Pathologist | | | | | At | Signature | + + + + + + | ABO Rh | BBK reflex | | [facility] | | | | | | ST. [...] + | [facility] | [address] | [place], [place] | [phone] | | [facility] | | [address] | | | - LABORATORY | | | | + + + + + | [facility] | [address] | [place], [place] | | | [facility] | | [address] | | | - LABORATORY | | | | + + + + + CBC with Differential (06/01/2012 11:51 AM PST) + + + + + + | Component | Value | Ref Range | Performed | Pathologist | | | | | At | Signature | + + + + + + | MANUAL | NO | | [facility] | | | DIFFERENTIA | | | [facility] | | | L ? | | | MEDICAL | | | | | | CENTER - | | | | | | LABORATORY | | + + + + + + | White Blood | 9.5 | 4.0 - 11.0 K/uL | [facility] | | | Cells | | | [facility] | | | | | | MEDICAL | | | | | | CENTER - | | | | | | LABORATORY | | + + + + + + | Red Blood | 4.21 | 3.70 - 5.20 | [facility] | | | Cells | | M/uL | [facility] | | | | [...] | | | Basophils | | | [facility] | | | | | | MEDICAL | | | | | | CENTER - | | | | | | LABORATORY | | + + + + + + + + | Specimen | + + | | + + + + + + + | Performing | Address | City/[facility] | Phone Number | | Organization | | | | + + + + + | [facility] | [address] | [place] | [phone] | | [facility] | | [address] | | | - LABORATORY | | | | + + + + + | [facility] | [address] | [place] | | | [facility] | | [address] | | | - LABORATORY | | | | + + + + + Gestational Glucose Test, 1Hr (06/01/2012 11:51 AM PST) + + + + + + | Component | Value | Ref Range | Performed | Pathologist | | | | | At | Signature | + + + + + + | Glucose | 92Comment: Normal: | mg/dL | [facility] | | | 1hr, | Glucose, 1 hour | | [facility] | | | Gestational | | | MEDICAL | | | | <130 mg/dL At risk | | CENTER - | | | | for Gestational Diabetes | | LABORATORY | | | | Mellitis >=130 | | | | | | mg/dL Further test | | | | | | required These | | | | | | threshold values apply | | | | | | to a blood glucose drawn | | | | | | 1 hour after a 50 | | | | | | gram oral glucose dose. | | | | | | An abnormal result must | | | | | | be verified by a | | | | | | 3-hour (100 gram) | | | | | | glucose tolerance test | | | | | | for gestational | | | | | | diabetes. | | | | + + + + + + + + | Specimen | + + | | + + + + + + + | Performing | Address | City/State/Zipcode | Phone Number | | Organization | | | | + + + + + | [facility] | [address] | [place], [place] | [phone] | | [facility] | | [address] | | | - LABORATORY | | | | + + + + + | [facility] | [address] | [place] | | | [facility] | | [address], [facility] | | | - LABORATORY | | | | + + + + + CBC with Differential (06/01/2012 10:56 AM PST) [...] | | | | | gm/dL | [facility] | | | | | | MEDICAL | | | | | | CENTER - | | | | | | LABORATORY | | + + + + + + | Hematocrit | 37.1 | 34.0 - 47.0 % | [facility] | | | | | | [facility] | | | | | | MEDICAL | | | | | | CENTER - | | | | | | LABORATORY | | + + + + + + | MCV | 88.1 | 83.0 - 101.0 fL | [facility] | | | | | | [facility] | | | [...] 0.0 | 0.0 - 0.1 K/uL | [facility] | | | Basophils | | | [facility] | | [...] + + | [facility] | [address] | [place] | [phone] | | [facility] | | [address] | | | - LABORATORY | | | | + + + + + | [facility] | [address] | [place], [place] | | | [facility] | | [address], [facility] | | | - LABORATORY | | | | + + + + + documented in this encounter Visit Diagnoses + + | Diagnosis | + + | , [place] Supervision of normal first | + + documented in this encounter"
--- OUTSIDE RECORDS SUMMARY | ~2019-12-21 | XMS | Encounter Summary ---
Demographics + + + | Address | [address] | | | [place] [address] | + + + | Home Phone | | + + + | Preferred Language | Unknown | + + + | Marital Status | Single | + + + | Mu-Ism Affiliation | Unknown | + + + | Race | Black or | + + + | Ethnic Group | Not or | + + + Author + + + | Author | [facility] | | | and [place] | + + + | Organization | [facility] | | | and [place] | + + + | Address | Unknown | + + + | Phone | Unavailable | + + + Support + + + + + | Name | Relationship | Address | Phone | + + + + + | Zo Dong | ECON | [address] [facility] | | | | | [place], [place] | | | | | [address] | | + + + + + | Jovita Luna | ECON | [address] [facility] | | | | | [place] [address] | | + + + + + Care Team Providers + +------+ + | Care Edge Trimmer Name | Role | Phone | + +------+ + PCP | Unavailable | + +------+ + Encounter Details +--------+ + + + + | Date | Type | Department | Care Team | Description | +--------+ + + + + | 01/13/ | Hospital | [facility] | Kellie Loya | | | 2010 | Encounter | MED CTR LABORATORY | [address] | | | | | [address] | [facility] | | | | | [place] | [address] [place], [place] | | | | | [address] | [address] | | | | | [phone] | | | +--------+ + + + [...] [place] | | | | | | [address] | | | | | | | | +--------+---------+ + + + documented as of this encounter Procedures + +--------+ + + + | Procedure Name | Priori | Date/Time | Associated Diagnosis | Comments | | | ty | | | | + +--------+ + + + | HCG, SERUM, QUANT | Routin | 01/13/2011 | | Results for this | | | e | 12:04 PM | | procedure are in the | | | | PDT | | results section. | + +--------+ + + + documented in this encounter Results HCG, Serum, Quant (01/13/2011 12:04 PM PDT) + + + + + + | Component | Value | Ref Range | Performed | Pathologist | | | | | At | Signature | + + + + + + | hCG Quant, | <0.5Comment: [facility] | <0.5 - 5.0 | [facility] | | | Serum | RANGE: NON- | mIU/mL | [facility] | | | | FEMALE <0.5-5.0 mIU/mL | | MEDICAL | | | | | | CENTER - | | | | | | LABORATORY | | | | B-hCG | | | | | | LEVEL | | | | | | Gestational Age | | | | | | Expected hCG Values | | | | | | | | | | | | | | | | | | | | | | | | | | | | | | 0.2-1 week | | | | | | 5-50 | | | | | | mIU/mL | | | | | | 1-2 weeks | | | | | | | | | | | | 50-500 mIU/mL | | | | | | 2-3 | | | | | | weeks | | | | | | 100-5,000 mIU/mL | | | | | | 3-4 | | | | | | weeks | | | | | | 500-10,000 mIU/mL | | | | | | 4-5 | | | | | | weeks | | | | | | 1,000-50,000 mIU/mL | | | | | | | | | | | | 5-6 weeks | | | | | | 10,000-100,000 mIU/mL | | | | | | | | | | | | 6-8 weeks | | | | | | 15,000-200,000 mIU/mL | | | | | | | | | | | | 2-3 months | | | | | | 10,000-100,000 mIU/mL | | | | | | Testing performed on | | | | | | the [employer] | | | | | | Access Analyzer. | | | | + + + + + + + + | Specimen | + + | | + + + + + + + | Performing | Address | City/State/Zipcode | Phone Number | | Organization | | | | + + + + + | [facility] | [address] | [place] | [phone] | | [facility] | | [address] | | | - LABORATORY | | | | + + + + + | [facility] | [address] | [place] | | | [facility] | | [address] | | | - LABORATORY | | | | + + + + + documented in this encounter Visit Diagnoses Not on filedocumented in this encounter"
--- OUTSIDE RECORDS SUMMARY | ~2019-12-21 | XMS | Encounter Summary ---
Demographics + + + | Address | [address] | | | [place] [address] | + + + | Home Phone [...] Author + + + | Author | [facility] | | | and [place] | + + + | Organization | [facility] | | | and [place] | + + + | Address | Unknown | + + + | Phone | Unavailable | + + + Support + + + + + | Name | Relationship | Address | Phone | + + + + + | Zo Dong | ECON | [address] [facility] | | | | | [place] | | | | | [address] | | + + + + + | Jovita Luna | ECON | [address] | | | | | [place] [address] | | + + + + + Care Team Providers + +------+ + | Care Manager Operations And Procurement Name | Role | Phone | + +------+ + | Tomas Benoit MD | PCP | | + +------+ + Reason for Visit + + + | Reason | Comments | + + + | Routine | | | Visit | | + + + | Vaginitis | more than normal discharge, x 1 month, has been treated with 10 | | | day of monistat otc | + + + | Pelvic Pain | popping, and pressure 1-2 weeks | + + + Encounter Details +--------+ + + + + | Date | Type | Department | Care Team | Description | +--------+ + + + + | 07/09/ | Routine | [facility] | Tomas Benoit, | [place]: 18w2d | | 2020 | | [facility] | [address] | | | | | [address] | [place] | | | | | [place] | [address] | | | | | [address] | | | | | | [phone] | | | +--------+ + + + [...] + | Blood Pressure | 108/72 | 07/10/2019 11:09 AM | | | | | [...] + + + + | Weight | 85.7 kg (188 lb 15 | 07/10/2019 11:09 AM | | | | oz) | PDT | | + + + + + | Height | - | - | | + + + + + | Body Mass Index | 31.44 | 06/12/2019 9:31 AM | | | | | PST | | + + + + + documented in this encounter Patient Instructions Patient Instructions Tomas Benoit MD - 07/10/2019 11:15 AM PDTPlease schedule your next US. [phone] signed by Tomas Benoit MD at 07/10/2019 11:29 AM PDT documented in this encounter Progress Notes Tomas Benoit MD - 07/10/2019 11:15 AM PDTReviewed what little data we have about Tierney virus and . Reviewed proper use of personal protective equipment. Reviewed labs. She is due for repeat TSH. Initial one at beginning of was climbin g. 20 week US schedule. Phone number given to patient and instructed to call and schedule. Tomas Benoit MD d ocumented in this encounter Plan of Treatment +--------+---------+ [...] second trimester - Primary | + + documented in this encounter"
--- OUTSIDE RECORDS SUMMARY | ~2019-12-21 | XMS | Encounter Summary ---
Demographics + + + | Address | [address] | | | [place] [address] | + + + | Home Phone [...] [place] | | | | | [address] | | + + + + + | Jovita Luna | ECON | [address] | | | | | [place] [address] | | + + + + + Care Team Providers + +------+ + | Care Pediatric Immunologist Name | Role | Phone | + +------+ + | Tomas Benoit MD | PCP | | + +------+ + Reason for Visit +---------+--------+ + | Reason | Onset | Comments | | | Date | | +---------+--------+ + | Results | 10/31/ | | | | 2013 | | +---------+--------+ + Encounter Details +--------+ + + + + | Date | Type | Department | Care Team | Description | +--------+ + + + + | 10/31/ | Telephone | [facility] | Tomas Benoit, | Results | | 2013 | | [facility] [place] | [address] | | | | | [address] | [place] | | | | | [place] | [address] | | | | | [address] | | | | | | [phone] | | | +--------+ + + + [...] - Ana Paula Shukla Cert MA - 10/31/2013 9:20 AM PDTPatient notified a nd I called [facility] who states they did not keep the original standing order so I karen l have the order faxed over again.Electronically signed by Mulu Moss MA at 10/31 9:26 AM PDTTelephone Encounter - Tomas Benoit MD - 10/31/2013 9:05 AM PDTNotify Jovita that her bHCG confirms the but her level is relatively low. I recommend th at she repeat the test 2 days after she originally took it. Please fax order to [facility].El ectronically signed by Tomas Benoit MD at 10/31/2013 9:06 AM PDTTelephone Encounter - Darline Sim RN - 10/31/2013 8:39 AM PDT Phone call from [facility] in [place] HCG quant is [phone] Drawn yesterday, 10/30/13. They will also fax the report. Per previous note, she had positive test and then developed bleeding and cramping . documented in thi s encounter Plan of Treatment +--------+---------+ + + + | Date | Type | Specialty | Care Team | Description | +--------+---------+ + + + | 01/30/ | Office | Family Medicine | Tomas Benoit, | | | 2020 | Visit | | MD [address] | | | | | | [place] | | | | | | [address] | | | | | | | | +--------+---------+ + + + documented as of this encounter Visit Diagnoses + + | Diagnosis | + + | - Primary | + + | Bleeding Hemorrhage, unspecified | + + documented in this encounter"
--- OUTSIDE RECORDS SUMMARY | ~2019-12-21 | XMS | Encounter Summary ---
Demographics + + + | Address | [address] | | | [place] [address] | + + + | Home Phone | | + + + | Preferred Language | Unknown | + + + | Marital Status | Single | + + + | Episcopal Affiliation | Unknown | + + + [...] | [address] [facility] | | | | | [place] | | | | | [address] | | + + + + + | Jovita Luna | ECON | [address] | | | | | [place] [address] | | + + + + + Care Team Providers + +------+ + | Care Frame Wirer Name | Role | Phone | + +------+ + | Tomas Benoit MD | PCP | | + +------+ + Encounter Details +--------+ + + + + | Date | Type | Department | Care Team | Description | +--------+ + + + + | 09/24/ | Hospital | [facility] | Mir Salcedo I, | Acute pain of left | | 2017 | Encounter | [facility] | PA-C [address] | knee | | | | [address] | [address] | | | | | [place], [place] | [place] [address] | | | | | [address] | [phone] | | | | | [phone] | | | +--------+ + + + [...] + +---------+ + + | acyclovir | Take 1 tablet by | 15 | 0 | 01/02/20 | | | (ZOVIRAX) 400 MG | mouth 3 times daily | tablet | | 16 | 7 | | tablet | for 5 days. | | | | | + [...] + + +---------+ + + | | take 1 tablet by | 84 | 2 | 09/01/19 | | | desogestrel-ethinyl | mouth once daily | tablet | | 17 | 8 | | estradiol (JUNGER) | | | | | | | 0.15-30 MG-MCG per | | | | | | | tablet | | | | | | + + + +---------+ + + | naproxen sodium | Take 1 tablet by | 30 | 0 | 09/25/19 | | | (ANAPROX) 550 MG | mouth Twice daily | tablet | | 17 | 9 | | tabletIndications: | as needed. | | | | | | Acute pain of left | | | | | | | knee | | | | | | + [...] [place] | | | | | | [address] | | | | | | | | +--------+---------+ + + + documented as of this encounter Procedures + +--------+ + + + | Procedure Name | Priori | Date/Time | Associated Diagnosis | Comments | | | ty | | | | + +--------+ + + + | XR KNEE LEFT 3 VW | Routin | 09/24/2016 | Acute pain of left | Results for this | | | e | 2:51 PM | knee | procedure are in the | | | | PDT | | results section. | + +--------+ + + + documented in this encounter Results XR Knee Left 3 [...] both | [facility] | | knees. Thrall and lateral view of the left knee. [...] FINDINGS: Frontal weightbearing view of both knees. Thrall and lateral view of | | the [...] | + + + + + | [facility] | [address] | [place] | [phone] | | [facility] | | [address] | | | - IMAGING | | | | + + + + + documented in this encounter Visit Diagnoses + + | Diagnosis | + + | Acute pain of left knee | + + documented in this encounter"
--- OUTSIDE RECORDS SUMMARY | ~2019-12-21 | XMS | Encounter Summary ---
Demographics + + + | Address | [address] | | | [place] [address] | + + + | Home Phone [...] + + + | Author | [facility] | | | and [place] | + + + | Organization | [facility] | | | and [place] | + + + | Address | Unknown | + + + | Phone | Unavailable | + + + Support + + + + + | Name | Relationship | Address | Phone | + + + + + | Zo Dong | ECON | [address] [facility] | | | | | [place] | | | | | [address] | | + + + + + | Jovita Luna | ECON | [address] | | | | | [place] [address] | | + + + + + Care Team Providers + +------+ + | Care Coremaking Supervisor Name | Role | Phone | + +------+ + | Tomas Benoit MD | PCP | | + +------+ + Reason for Visit + + + | Reason | Comments | + + + | Back Pain | | + + + | Painful M[place]otte | | + + + | Abdominal Cramping | | + + + Encounter Details +--------+---------+ + + + | Date | Type | Department | Care Team | Description | +--------+---------+ + + + | 03/12/ | Office | [facility] | Shelby Burgos, | Dyspareunia, female | | 2019 | Visit | [employer] [facility] [facility] | [facility] [address] | (Primary Dx); | | | | [address] | [place], [place] | Abdominal cramping; | | | | [place], [place] | [address] | low back pain; | | | | [address] | | Constipation, | | | | [phone] | | unspecified | | | | | | constipation type; | | | | | | Umbilical hernia | | | | | | without obstruction | | | | | | and without gangrene | +--------+---------+ + + + Social History [...] + + + | Blood Pressure | 108/70 | 03/12/2019 9:44 AM | | | | | PST | | + + + + + | Pulse | 78 | 03/12/2019 9:44 AM | | | | | PST | | + + + + + | Temperature | 36.6 C (97.8 F) | 03/12/2019 9:44 AM | | | | | PST | | + + + + + | Respiratory Rate | 16 | 03/12/2019 9:44 AM | | | | | PST | | + + + + + | Oxygen Saturation | 99% | 03/12/2019 9:44 AM | | | | | PST | | + + + + + | Inhaled Oxygen | - | - | | | Concentration | | | | + + + + + | Weight | 86.6 kg (190 lb 14.7 | 03/12/2019 9:44 AM | | | | oz) | PST | | + + + + + | Height | 165.1 cm (5' 5") | 03/12/2019 9:44 AM | | | | | PST | | + + + + + | Body Mass Index | 31.77 | 03/12/2019 9:44 AM | | | | | PST | | + + + + + documented in this encounter Patient Instructions Patient Instructions Shelby Burgos ARNP - 03/12/2019 9:45 AM PSTStart miralax 17 g disso lved in 4-8 oz water or diluted juice daily. Do a trial off the protein shakes to see if that helps. May take ibuprofen 600 2-3 times daily if needed for pain. If you become , switch t o tylenol. Recommend you take a vitamin with folic acid as you are not currently using control. You can call to schedule pelvic ultrasound [phone]. Pelvic Pain, Uncertain Cause Pelvic pain is pain felt in the lowest part of the belly (abdomen) and between the hipbones . The pain may occur suddenly and recently (acute). Or the pain may last for 6 months or lucas breonna (chronic). There are many possible causes of pelvic pain. The pain may be due to a problem in the fema le reproductive system. Or, it may be due to a problem in the digestive, urinary, or musculo skeletal systems. Based on your visit today, the exact cause of your pelvic pain is not certain. Your conditi on does not appear to be serious at this time. But it is important for you to keep watching for any new symptoms or worsening of your condition. General care Your healthcare provider may advise a number of ways to help manage your pain. These can in clude: Taking bvqr-aov-irecjin pain medicine. Stronger pain medicine may also be prescribed, if needed. Applying heat to the pelvic area. Use a heating pad or a hot pack. Taking a hot bath may also help. Getting plenty of rest. Making certain lifestyle changes. These can include practicing good posture and getting regular exercise. Studies have shown that these changes help reduce pelvic pain in some wome n. Seeing a physical therapist or pain specialist. These healthcare providers can discuss o ther ways to manage pain with you. Follow-up care Follow up with your healthcare provider, or as advised. When to seek medical advice Call your healthcare provider right away if any of the following occur: Fever of 100.4F or higher, or as directed by your healthcare provider Pain worsens or you have sudden, severe pain or new pain Nausea, vomiting, sweating, or restlessness Dizziness or fainting Unusual vaginal discharge Abnormal vaginal bleeding (especially bleeding after menopause) Date Last Reviewed: 01/23/201719997990-4591 [employer]. [address] [place] [address]. All righ ts reserved. This information is not intended as a substitute for professional medical care. Always follow your healthcare professional's instructions. Constipation (Adult) Constipation means that you have bowel movements that are less frequent than usual. Stools often become very hard and difficult to pass. Constipation is very common. At some point in life, it affects almost everyone. Since every one's bowel habits are different, what is constipation to one person may not be to another. Your healthcare provider may do tests to diagnose constipation. It depends on whathe or sh efinds when evaluating you. Symptoms of constipation include: Abdominal pain Bloating Vomiting Painful bowel movements Itching, swelling, bleeding, or pain around the anus Causes Constipation can have many causes. These include: Diet low in fiber Too much dairy Not drinking enough liquids Lack of exercise or physical activity (especially true for older adults) Changes in lifestyle or daily routine, including , aging, work, and travel Frequent use or misuse of laxatives Ignoring the urge to have a bowel movement or delaying it until later Medicines, such as certain prescription pain medicines, iron supplements, antacids, cert ain antidepressants, and calcium supplements Diseases like irritable bowel syndrome, bowel obstructions, stroke, diabetes, thyroid di sease, Parkinson disease, hemorrhoids, and colon cancer Complications Potential complications of constipation can include: Hemorrhoids Rectal bleeding from hemorrhoids or anal fissures(skin tears) Hernias Dependency on laxatives Chronic constipation Fecal impaction, a severe form of constipation in which a large amount of hard stool is in your rectum that you can't pass Bowel obstruction or perforation Home care All treatment should be done after talking with your healthcare provider. This is especiall y true if you have another medical problems, are taking prescription medicines, or are an ol broderick adult. Treatment most often involves lifestyle changes. You may also need medicines. You r healthcare provider will tell you which will work best for you. Follow the advice below to help avoid this problem in the future. Lifestyle changes These lifestyle changes can help prevent constipation: Diet. Eat a high-fiber diet, with fresh fruit and vegetables, and reduce dairy intake, m eats, and processed foods Fluids. It's important to get enough fluids each day. Drink plenty of water when you eat more fiber. If you are on diet that limits the amount of fluid you can have, talk about thi s with your healthcare provider. Regular exercise. Check with your healthcare provider first. Medicines Take any medicines as directed. Some laxatives are safe to use only every now and then. Oth ers can be taken on a regular basis. While laxatives don't cause bowel dependence, they are treating the symptoms. So your constipation may return if you don't make other changes. Talk with your healthcare provider or pharmacist if you have questions. Prescription pain medicines can cause constipation. If you are taking this kind of medicine , ask your healthcare provider if you should also take a stool softener. Medicines you may take to treat constipation include: Fiber supplements Stool softeners Laxatives Enemas Rectal suppositories Follow-up care Follow up with your healthcare provider if symptoms don't get better in the next few days. You may need to have more tests or see a specialist. Call 911 Call 911 if any of these occur: Trouble breathing Stiff, rigid abdomen that is severely painful to touch Confusion Fainting or loss of consciousness Rapid heart rate Chest pain When to seek medical advice Call your healthcare provider right away if any of these occur: Fever of 100.4F (38C) or higher, or as directed by your healthcare provider Failure to resume normal bowel movements Pain in your abdomen or back gets worse Nausea or vomiting Swelling in your abdomen Blood in the stool Black, tarry stool Involuntary weight loss Weakness Date Last Reviewed: 09/23/201719999046-9001 [employer]. [address] [place] [address], [place] [address]. All righ ts reserved. This information is not intended as a substitute for professional medical care. Always follow your healthcare professional's instructions. documented in this encounter Progress Notes Shelby Burgos ARNP - 03/12/2019 9:45 AM PSTFormatting of this note might be different fr om the original. Jovita Grey is a 28 y.o. female and patient of Tomas Benoit MD Chief Complaint: Back Pain; Painful [place]; and Abdominal Cramping HPI Low bilateral pelvic pain and pain with intercourse for the last couple months. Feels like menstrual cramps. Sometimes pain is stabbing. Went to the ED in [place] 03/01/19 as she had acute worsening of right low pelvic pain dur ing intercourse. Her blood pressure was little elevated, vital signs otherwise normal. Uri nalysis was normal. Urine test was negative. She was treated with thousand maury grams Tylenol and discharged home. First day of lmp was 03/03/19. She stopped taking control pills about 4 months ago. She and her boyfriend are not actively trying to conceive , but if she be came , they would like this. She is not currently taking a vitamin with folic acid. Denies any vaginal discharge or unusual vaginal bleeding. Feels she may have different odor. History of yeast infection and bacterial vaginosis. She does also have history of ruptured ovarian cyst. Take 600 mg up to 2-3 times daily if needed. Not having pain right now. She does have an umbilical hernia. Feels like this is more tender than normal. She is pas sing gas, it is not chronically bulged out and there is no discoloration. Last bm was yesterday. Takes stool softener to help her go. Since she stopped taking the b irth control pill she has been having more difficulty with firm stool. PREVENTIVE CARE/PRIOR VISITS Any recommendations from Health Maintenance: Preventative Services TOPIC LAST DONE NEXT DUE Vaccine: Influenza 04/14/2012 12/24/2018 Cervical Cancer Screening (Pap) 09/14/2017 09/14/2020 Vaccine: Dtap/Tdap/Td 06/21/2012 06/21/2022 Vaccine: Pneumococcal 19-64 08/02/2016 Immunization History Administered Date(s) Administered DTAP, 5 DOSE (PED) 08/14/1996 DTP (PED) 1991, 01/29/1992, 04/29/1992, 01/24/1993 HIB HBOC CONJUGATE, 4 DOSE (PED) 1991, 01/29/1992, 04/29/1992, 01/24/1993 HPV, QUADRIVALENT, 3 DOSE (ADOL/ADULT) 12/14/2005, 11/30/2007, 02/13/2008 Hep B (PED/ADOL) 3 DOSE 07/29/1998, 06/11/2004, 06/08/2005 INFLUENZA PF 18 Y OR >,TRIVALENT RECOMBINANT 04/14/2012 INFLUENZA, [id number], UNSPECIFIED 02/28/2009 MENINGOCOCCAL CONJUGATE,MENACTRA (PED/ADOL/ADULT) 12/11/2008 MMR, 2 DOSE (PED/ADULT) 01/24/1993, 07/29/1998 PNEUMOCOCCAL POLYSACCHARIDE 23-VALENT (PPSV23) 08/02/2016 POLIOVIRUS,OPV (LIVE) 1991, 01/29/1992, 01/24/1993, 08/14/1996 TDAP, (ADOL/ADULT) 05/26/2005, 06/21/2012 VARICELLA, 2 DOSE (VARIVAX) 01/12/2012 No Known Allergies Medications: Patient Reported Taking Dosage acetaminophen (TYLENOL) 500 mg tablet (Taking) Take 500 mg by mouth every 4 hours as neede d. Number of times this order has been changed since signin Order Audit Hood acyclovir (ZOVIRAX) 400 MG tablet (Taking) take 1 tablet by mouth three times a day Number of times this order has been changed since signin Order Audit Hood albuterol 90 mcg/puff inhaler (Taking) Inhale 2 puffs into the lungs every 4 hours as need ed for Wheezing or Shortness of Breath. inhale 2 puffs 5-30 minutes prior to exercise Number of times this order has been changed since signin Order Audit Hood Past Medical History She has a past medical history of Asthma, Primary amenorrhea, Sickle cell trait (HCC), and Umbilical hernia. Past Surgical History She has a past surgical history that includes Tonsillectomy (02/13/2008) and [place] tooth e xtraction. Family History: Her family history includes Asthma in her brother and maternal grandmother; Elevated lipids in her father; High blood pressure in her father, maternal grandmother, and mother. Social History: Social History Socioeconomic History Marital status: Single Spouse name: [facility] Number of children: 0 Years of education: Not on file Highest education level: Not on file Occupational History Occupation: [employer] Employer: [employer] Tobacco Use Smoking status: Never Smoker Smokeless tobacco: Never Used Substance and Sexual Activity Alcohol use: Yes Alcohol/week: 0.0 standard drinks Comment: socially/not very often Drug use: No Sexual activity: Yes Partners: Male control/protection: Yes Social History Narrative Marital Status:single Children: 0 Occupation:Works for [employer] FOB: Microtask Review of Systems See HPI. Objective: Vitals: 03/12/19 0944 BP: 108/70 Pulse: 78 Resp: 16 Temp: 36.6 C (97.8 F) TempSrc: Temporal SpO2: 99% Weight: 86.6 kg (190 lb 14.7 oz) Height: 1.651 m (5' 5") Physical Exam Constitutional: She is oriented to person, place, and time. She appears well-developed and well-nourished. No distress. Appropriately dressed and groomed HENT: Head: Normocephalic and atraumatic. Eyes: Conjunctivae are normal. Right eye exhibits no discharge. Left eye exhibits no discha rge. Neck: Neck supple. No thyromegaly present. Cardiovascular: Normal rate, regular rhythm and normal heart sounds. No murmur heard. Pulmonary/Chest: Effort normal and breath sounds normal. No respiratory distress. She has n o wheezes. She has no rales. Abdominal: Soft. Bowel sounds are normal. She exhibits no distension and no mass. There is no tenderness. There is no rebound and no guarding. Hernia confirmed negative in the right i nguinal area and confirmed negative in the left inguinal area. Umbilical defect perceived, she does have some generalized abdominal tenderness, mild Genitourinary: Vagina normal. No labial fusion. There is no rash, tenderness, lesion or injury on the right labia. There is no rash, tenderness, lesion or injury on the left labia. Cervix exhibits discharge (minim al, thin). Cervix exhibits no motion tenderness and no friability. Right adnexum displays no mass, no tenderness and no fullness. Left adnexum displays no mass, no tenderness and no fu llness. No vaginal discharge, erythema, tenderness or bleeding. No erythema, tenderness or bleeding in the vagina. No foreign body in the vagina. No signs of injury in the vagina. 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 Musculoskeletal: General: No edema. Lymphadenopathy: She has no cervical adenopathy. Right: No inguinal adenopathy present. Left: No inguinal adenopathy present. Neurological: She is alert and oriented to person, place, and time. Coordination normal. Skin: Skin is warm and dry. No rash noted. She is not diaphoretic. Psychiatric: She has a normal mood and affect. Her behavior is normal. Nursing note and vitals reviewed. Results for orders placed or performed in visit on 03/12/19 Vaginal Path DNA dir probe Result Value Ref Range Davina SP DNA Genital Negative Negative Gardnerella vaginalis DNA Negative Negative Trichomonas Vaginalis DNA Negative Negative POCT Urinalysis Result Value Ref Range Color, UA, POC Yellow Yellow, Light Yellow Clarity, UA, POC Clear Glucose, UA, POC Negative Negative Bilirubin, UA, POC Negative Negative Ketones, UA, POC Negative Negative, 100 mg/dL Specific [place], UA, POC 1.005 1.001 - 1.030 Blood, UA, POC Negative Negative pH, UA, POC 5.5 5.0, 6.0, 7.0, 8.0, 5.5, 6.5, 7.5 Protein, UA, POC Negative Negative Urobilinogen, UA, POC 0.2 mg/dL 0.2, Negative, Normal, < 0.2 mg/dL, 1 mg/dL, < 0.2 E.U./dl , 1.0 E.U./dL, 0.2 mg/dL Nitrite, UA, POC Negative Negative Leukocyte Esterase, UA, POC Negative Negative Remark POCT Test, Urine, QUAL Result Value Ref Range Test, Urine, POC Negative Negative Internal QC Acceptable Acceptable Specific [place], POC Lot Number [id number] Expiration Date 04/03/19 Assessment: 1. Dyspareunia, female POCT Urinalysis POCT Test, Urine, QUAL Pap Smear Vaginal Path DNA dir probe US Pelvis W Transvaginal 2. Abdominal cramping POCT Urinalysis POCT Test, Urine, QUAL Pap Smear Vaginal Path DNA dir probe US Pelvis W Transvaginal 3. low back pain POCT Urinalysis POCT Test, Urine, QUAL Pap Smear Vaginal Path DNA dir probe US Pelvis W Transvaginal 4. Constipation, unspecified constipation type Pap Smear Vaginal Path DNA dir probe 5. Umbilical hernia without obstruction and without gangrene Pap Smear Vaginal Path DNA dir probe Plans: 1. Dyspareunia, female 2. Abdominal cramping 3. low back pain My highest suspicion is that this represents a ruptured ovarian cyst Her urinalysis and test are negative today. Plan to obtain pelvic ultrasound for further evaluation. May take ibuprofen 600 mg every 8 hours if needed for menstrual type cramping and pain. Re commend minimum effective dose and discontinue if this upsets her stomach. Impressed upon patient the importance of taking a vitamin with folic acid she is n ot using control currently. This is recommended for 3 months prior to conception. - POCT Urinalysis - POCT Test, Urine, QUAL - Pap Smear - Vaginal Path DNA dir probe - US Pelvis W Transvaginal; Future 4. Constipation, unspecified constipation type 5. Umbilical hernia without obstruction and without gangrene Discussed importance of keeping the stool soft in order to avoid straining to worsen hernia . She is planning to have more menses, so I do not think consultation with general surgery at this time would make much sense. We reviewed warning signs when to seek medical attention. Start miralax 17 g dissolved in 4-8 oz water or diluted juice daily. Follow-up: Return if symptoms worsen or fail to improve. Portions of this report were transcribed using voice recognition software. Every effort wa s made to ensure accuracy; however, inadvertent computerized cutter gas errors may be pre sent. documented in th is encounter Plan of Treatment +--------+---------+ + + + | Date | Type | Specialty | Care Team | Description | +--------+---------+ + + + | 01/30/ | Office | Family Medicine | Tomas Benoit, | | | 2019 | Visit | | MD Joy [facility] | | | | | | [place] | | | | | | [phone] | | | | | | | | +--------+---------+ + + + + +---------+--------+ + + | Name | Type | Priori | Associated Diagnoses | Order Schedule | | | | ty | | | + +---------+--------+ + + | US Pelvis W | Imaging | Routin | Dyspareunia, | Expected: | | Transvaginal | | e | female Abdominal | 03/12/2019, Expires: | | | | | cramping low back | 03/12/2020 | | | | | pain | | + +---------+--------+ + + documented as of this encounter Procedures + +--------+ + + + | Procedure Name | Priori | Date/Time | Associated Diagnosis | Comments | | | ty | | | | + +--------+ + + + | VAGINAL PATHOGENS | STAT | 03/12/2019 | Dyspareunia, | Results for this | | DNA DIRECT PROBE | | 10:35 AM | female Abdominal | procedure are in the | | | | PST | cramping low back | results section. | | | | | pain Constipation, | | | | | | unspecified | | | | | | constipation type | | | | | | Umbilical hernia | | | | | | without obstruction | | | | | | and without gangrene | | + +--------+ + + + | POCT TEST, | Routin | 03/12/2019 | low back pain | Results for this | | URINE, QUAL | e | 10:27 AM | Dyspareunia, female | procedure are in the | | | | PST | Abdominal cramping | results section. | + +--------+ + + + | POCT URINALYSIS, | Routin | 03/12/2019 | low back pain | Results for this | | AUTO WITH CONF | e | 10:26 AM | Dyspareunia, female | procedure are in the | | | | PST | Abdominal cramping | results section. | + +--------+ + + + | PAP SMEAR | Routin | 03/12/2019 | Dyspareunia, | Results for this | | | e | 12:00 AM | female Abdominal | procedure are in the | | | | PST | cramping low back | results section. | | | | | pain Constipation, | | | | | | unspecified | | | | | | constipation type | | | | | | Umbilical hernia | | | | | | without obstruction | | | | | | and without gangrene | | + +--------+ + + + documented in this encounter Results Vaginal Path DNA dir probe (03/12/2019 10:35 AM PST) + + + + + [...] + + + | [facility] | [address] | [place] | [phone] | | [facility] | | [phone] | | | [facility] | | | | + + + + + POCT Test, Urine, QUAL (03/12/2019 10:27 AM PST) + + + + + + | Component | Value | Ref Range | Performed | Pathologist | | | | | At | Signature | + + + + + + | | Negative | Negative | | | | Test, | | | | | | Urine, POC | | | | | + + + + + + | Internal QC | Acceptable | Acceptable | | | + + + + + + | Specific | | | | | | [place], | | | | | | POC | | | | | + + + + + + | Lot Number | [id number] | | | | + + + + + + | Expiration | 04/03/19 | | | | | Date | | | | | + + + + + + + + | Specimen | + + | Urine | + + POCT Urinalysis (03/12/2019 10:26 AM PST) + + + + + [...] + + + + | Specific | 1.005 | 1.001 - 1.030 | | | | [place], | | | | | | UA, POC | | | | | + + + + + + | Blood, UA, | Negative | Negative | | | | POC | | | | | + + + + + + | pH, UA, POC | 5.5 | 5.0, 6.0, 7.0, | | | | | | 8.0, 5.5, 6.5, | | | | | | 7.5 | | | + + + + + + | Protein, | Negative | Negative | | | | UA, POC | | | | | + + + + + + | Urobilinoge | 0.2 mg/dL | 0.2, Negative, | | | | [...] + + | Urine | + + Pap Smear (03/12/2019 12:00 AM PST) + + | Specimen | + + | Tissue - Region of | | vagina (body | | structure) | + + + + + | Narrative | Performed At | + + + | ORDERING PHYSICIAN: Shelby Marcano PATIENT NAME: [facility] | [facility] | | JOVITA KAUR GENDER: Brianne : 1990 Prior History: | INCYTE | | DATE CASE NUM ADEQUACY DIAGNOSIS HPV | | | RESULTS PHYSICIAN 09/15/17 [id number] Satisfactory NIL | | | Tomas Benoit MD 12/24/14 [id number] Satisfactory | | | MASOUD Benoit MD 03/23/12 [id number] | | | Satisfactory MASOUD Benoit MD 01/13/12 | | | [phone] Satisfactory NIL Tomas Benoit MD | | | The 5 most recent reports are included. This history does not | | | include results of pap smears performed at another laboratory. | | | SPECIMEN(S): Cervical/ Endocervical CLINICAL HISTORY: Routine Pap | | | Smear CYTOLOGIC INTERPRETATION: Negative for intraepithelial | | | lesion or malignancy. MOLECULAR PATHOLOGY RESULTS: Neisseria | | | gonorrhea Negative Chlamydia trachomatis Negative TECHNICAL | | | NOTES: To improve disease detection, this slide is screened using | | | automated intelligence technology. This specimen was received in a | | | vial of liquid-based fixative and was processed using thin layer Pap | | | technology. SPECIMEN ADEQUACY: Satisfactory for evaluation. | | | Endocervical and/or metaplastic cells present. ADDITIONAL NOTES: | | | The Pap smear is a screening test designed to aid in the detection of | | | premalignant and malignant conditions of the uterine cervix. It is not | | | a diagnostic procedure and should not be used as the sole means of | | | detecting cervical cancer. Both false-positive and false-negative | | | reports do occur. This document contains private and confidential | | | health information by state and federal law. If you have received in | | | error, please call [phone]. ADDITIONAL NOTES.: The Aptima | | | Combo 2 (AC2) assay is a target amplification nucleic acid probe test | | | that utilizes target capture for the in vitro qualitative detection | | | and differentiation of ribosomal RNA (rRNA) from Chlamydia | | | trachomatis (CT) and/or Neisseria gonorrheae (NG) to aid in the | | | diagnosis of chlamydial and/or gonococcal urogenital disease using the | | | [facility]. A negative result does not rule out the presence | | | of a CT or NG infection because accurate results are dependent on | | | adequate specimen collection and storage, absence of inhibitors, and | | | sufficient rRNA to be detected. A positive result obtained after | | | therapeutic treatment cannot be interpreted as indicating the presence | | | of viable CT or NG since target rRNA may persist. Specimens | | | collected using ThinPrep PreservCyt Pap media and Aptima Collection | | | Kits for urine, endocervical, vaginal, and male urethral FDA-approved. | | | SurePath Pap, UniSwab, and IncyteSwab are not FDA-approved but | | | performance characteristics have been validated at the performing | | | laboratory. [facility] is certified under CLIA as qualified to | | | perform high complexity clinical laboratory testing. This test is | | | used for clinical purposes. It should not be regarded as | | | investigational or for research. PERFORMING LABORATORY: Technical | | | preparation was performed by [facility], [address] [facility] | | | [place] [address] (Paintings Conservator: Randell Mack D.O.; | | | CLIA#: [id number]). PERFORMING LABORATORY.: Molecular testing | | | was performed by [facility], [address] [facility] | | | [place] [address] (Paintings Conservator: Randell Mack D.O.; CLIA#: | | | [id number]). Molecular testing was performed by [facility], | | | [address] [place] [address] (Paintings Conservator: | | | Randell Mack D.O.; CLIA#: [id number]). Diagnostician: Janell | | | Dionicio RODRÍGUEZ ([facility]) Evaporator Supervisor Electronically Signed 03/13/2019 | | | | | + + + + +---------+ + + | Performing | Address | City/State/Zipcode | Phone Number | | Organization | | | | + +---------+ + + | [facility] | | | | | [facility] | | | | + +---------+ + + documented in this encounter Visit Diagnoses + + | Diagnosis | + + | Dyspareunia, female - Primary Dyspareunia | + + | Abdominal cramping Abdominal pain, unspecified site | + + | low back pain | + + | Constipation, unspecified constipation type | + + | Umbilical hernia without obstruction and without gangrene | + + documented in this encounter
--- OUTSIDE RECORDS SUMMARY | ~2019-12-21 | XMS | Encounter Summary ---
Demographics + + + | Address | [address] | | | [place] [address] | + + + | Home Phone [...] Dong | ECON | [address] [facility] | | | | | [place] | | | | | [address] | | + + + + + | Jovita Luna | ECON | [address] | | | | | [place] [address] | | + + + + + Care Team Providers + +------+ + | [facility] [employer] Publisher Name | Role | Phone | + +------+ + | Tomas Benoit MD | PCP | | + +------+ + Encounter Details +--------+ + + + + | Date | Type | Department | Care Team | Description | +--------+ + + + + | 10/30/ | Routine | [facility] | Tomas Benoit, | [place]: 34w3d | | 2020 | | [facility] [place] | [address] | | | | | [address] | [place] | | | | | [place] | [address] | | | | | [address] | | | | | | [phone] | | | +--------+ + + + [...] + | Blood Pressure | 100/62 | 10/31/2019 11:05 AM | | | | | PDT | | + + + + + | Pulse | 98 | 10/31/2019 11:05 AM | | | | | PDT | | + + + + + | Temperature | 36.6 C (97.8 F) | 10/31/2019 11:05 AM | | | | | PDT | | + + + + + | Respiratory Rate | 16 | 10/31/2019 11:05 AM | | | | | PDT | | + + + + + | Oxygen Saturation | 99% | 10/31/2019 11:05 AM | | | | | PDT | | + + + + + | Inhaled Oxygen | - | - | | | Concentration | | | | + + + + + | Weight | 99.8 kg (220 lb 0.3 | 10/31/2019 11:05 AM | | | | oz) | PDT | | + + + + + | Height | - | - | | + + + + + | Body Mass Index | 36.61 | 06/12/2019 9:31 AM | | | | | PST | | + + + + + documented in this encounter Progress Notes Tomas Benoit MD - 10/31/2019 10:30 AM PDTFrances is doing well. Has been leg cramps x 1 week. Happens mostly at night sometimes during the day too. Other zeng feels fine. Denies s potting , bleeding or leaking of fluids. She is taking her PNV. Okay to take OTC potassium i f she would like. Assured her this is related to . Growth is good. GBS will be comp leted next visit. Tomas Benoit MD Electronically signed by Tomas Benoit MD at 020 11:25 AM PDTdocumented in this encounter Plan of [...] + | Diagnosis | + + | GBS (group B Streptococcus carrier), +RV culture, currently - Primary | | Supervision of other high-risk | + + | Normal in third trimester | + + documented in this encounter"
[~2019-12-21 16:54] MED LIST: VENTOLIN HFA18 GM INH
--- NOTE | 2019-12-22 16:33 | EKG ---
[facility] [address] [facility] [facility] [place], [place] [address] Signed Normal sinus rhythm Normal ECG No previous ECGs available Confirmed by DENVER HENSON DO ([id number]) on 12/22/2019 4:32:57 PM Electronically Signed By: DENVER HENSON DO 12/22/19 1633 PATIENT NAME: FLACO ROMANO Electrocardiogram DATE OF : 89 PHYSICIAN: DENVER HENSON DO REPORT #: [id number] REPORT IS CONFIDENTIAL AND NOT TO BE RELEASED WITHOUT AUTHORIZATION
== END 2019-12-21 17:51 | disposition home or self-care (01) ==
LOC: ED 16:54
DX: R00.2 Palpitations (principal); J45.909 Unspecified asthma, uncomplicated
CPT/HCPCS: 93005; 93010; 99285-25